=== PATIENT | female | born 1960 | race Caucasian/White ===

== ENCOUNTER 2017-07-14 12:28 | Emergency (ER) | payer MEDICAID ==
[2017-07-14 12:39] VITALS: BP 112/70; TEMP 98.1
[2017-07-14] MEDS ORDERED: HYDROCODONE/APAP 5/325 TAB PO ONE (13:06)
--- NOTE | 2017-07-14 13:07 | EDPHY ---
H & P Stated Complaint: Fell at home, now has back pain. Time Seen by Provider: 07/14/17 13:07 HPI/ROS: HPI: This is a 56-year-old female who presents with Chief Complaint: Lower back pain Location: lower back Quality: Pain Duration: Prior to arrival Signs and Symptoms: No bleeding, no radiation, no numbness, no weakness, no tingling, no incontinence, + decreased range of motion, no LOC, no syncope, no fevers, no dysuria, no chest pain Timing: Acute, worse with certain movements Severity: Moderate Context: Patient complains of lower back pain after she bent over to pick up driver her lifeline and upon standing became lightheaded, lost her balance and fell backward landing directly on her buttocks on the floor. She fell from a squatting position. Denies loss of consciousness. Denies hitting her head. She was able to get herself up off the floor and then activate her lifeline. She reports that she does have a history of what appears to be orthostatic hypotension as well as dizziness due to polypharmacy. She stated that she was careful getting out of bed this morning because of knowing she becomes dizzy easily. She denies urinary symptoms/fever/radiation/weakness/incontinence. She lives alone. Does take any blood thinners. History spinal stenosis. Modifying Factors: Tramadol no pain relief. Comment: ROS: Constitutional: No fever, no chills, no weight loss Eyes: No blurred vision Respiratory: No shortness of breath, no cough Cardiovascular: No chest pain Gastrointestinal: No nausea, no vomiting no diarrhea Genitourinary: No dysuria Extremities: No myalgias Neurologic: No weakness, no numbness Skin: No rashes Hematologic: No bruising, no bleeding Source: Patient Exam Limitations: No limitations - Personal History Current Tetanus Diphtheria and Acellular Pertussis (TDAP): No Tetanus Vaccine Date: Refuses vaccinations - Medical/Surgical History Hx Asthma: Yes Hx Chronic Respiratory Disease: Yes Hx Diabetes: No Hx Cardiac Disease: Yes Hx Renal Disease: No Hx Cirrhosis: No Hx Alcoholism: Yes Hx HIV/AIDS: No Hx Splenectomy or Spleen Trauma: No Other PMH: spinal stenosis, asthma, copd, seizures, ptsd, borderline personality disorder, heart attack in 2012 - Social History Smoking Status: Former smoker - Physical Exam Exam: CONSTITUTIONAL: Obese white female, awake and alert, no obvious distress HEENT: Atraumatic and normocephalic, PERRL, EOMI. Tympanic membranes clear. Oropharynx clear, no exudate and moist pink mucosa. Airway patent. No lymphadenopathy. No meningismus. Cardiovascular: Normal S1/S2, regular rate, regular rhythm, without murmur rub or gallop. PULMONARY/CHEST: Symmetrical and nontender. Clear to auscultation bilaterally. Good air movement. No accessory muscle usage. ABDOMEN: Soft, nondistended, nontender, no rebound, no guarding, no peritoneal signs, no masses or organomegaly. No CVAT. EXTREMITIES: 2/2 pulses, no deformities, no clubbing, no cyanosis or edema. Left leg mild weakness is chronic in nature per patient. BACK: No midline tenderness, mild bilateral lumbar paraspinous muscle reproducible tenderness, no paraspinous muscle spasm, deep tendon reflexes 2/2, mild pain with bilateral straight leg raise. NEUROLOGICAL: no focal neuro deficits. GCS 15. SKIN: Warm and dry, no erythema. no rash. Good capillary refill. Constitutional: Initial Vital Signs Temperature (C) 36.7 C 07/14/17 12:37 Heart Rate 77 07/14/17 12:37 Respiratory Rate 18 07/14/17 12:37 Blood Pressure 112/70 07/14/17 12:37 O2 Sat (%) 95 07/14/17 12:37 O2 Delivery Mode Room Air Allergies/Adverse Reactions: Penicillins Allergy (Unknown, Verified 07/25/16 21:11) acetaminophen [From Percocet] Allergy (Verified 07/25/16 21:11) Home Medications: Medication Instructions Recorded Ibuprofen [Motrin (*)] 800 mg PO TIDMEAL 11/07/14 Phenytoin Sodium Extended 200 mg PO BID 11/07/14 [Dilantin (*)] hydrOXYzine HCL [Hydroxyzine HCl] 25 - 50 mg PO HS PRN 11/07/14 traZODone [traZODONE 100MG (*)] 400 mg PO HS 11/07/14 Albuterol Sulfate [Albuterol 2 puffs IH Q4H PRN 11/08/14 Inhaler Hfa] Fluticasone/Salmeter 500/50Mcg 1 puffs IH BID 03/14/15 [Advair 500/50 (*)] Gabapentin [Neurontin 300 MG (*)] 300 - 600 mg PO DAILY 03/14/15 Gabapentin [Neurontin 300 MG (*)] 600 mg PO HS 03/14/15 Lisinopril [Zestril 5 mg (*)] 5 - 10 mg PO DAILY 03/14/15 Tiotropium Inhaler [Spiriva 1 inh IH DAILY 03/14/15 Inhaler (RX)] Tizanidine HCl [Zanaflex] 8 mg PO HS 03/14/15 Trifluoperazine HCl [Stelazine 2MG 2 mg PO BID PRN 03/14/15 (*)] Trifluoperazine HCl [Stelazine 5MG 5 mg PO HS 03/14/15 (*)] tiZANidine HCL [Zanaflex] 2 mg PO DAILY 03/14/15 LORazepam [Ativan (*)] 1 mg PO DAILY PRN #30 tab 03/16/15 oxyCODONE IR [Oxycodone Ir (*)] 5 - 10 mg PO Q6H PRN #45 tab 03/16/15 oxyCODONE HCL/ACETAMINOPHEN 1 each PO Q4 PRN #12 tablet 07/14/17 [Percocet 10-325 mg Tablet] Medical Decision Making - Diagnostics Imaging Results: Imaging Impressions Lumbar Spine X-Ray 07/14/17 13:07 Impression: Advanced multilevel lumbar degenerative disk disease. No acute fracture or subluxation identified. Sacrum and Coccyx X-Ray 07/14/17 13:07 Impression: 1. Negative for acute fracture. ED Course/Re-evaluation: X-ray and oral medication ordered Fall accidental in nature. No loss consciousness. Percocet originally listed on patient's medication allergy list; patient adamantly denies this. oral Percocet given with adequate relief. X-rays are reviewed via PACs my read and show no acute fracture, moderate degenerative disc disease at several levels, old healed superior pubic rami fracture noted. No signs of neurovascular compromise/tenting of skin/compartment syndrome/ extremities and joints examined above and below area of concern and are neurovascularly intact. Patient advises that she has muscle relaxer and Lidoderm patches at home. She has had MRI of her lumbar spine done several years ago. She declines to follow up with Neurosurgery. She prefers to follow up with her primary care provider and obtain MRI lumbar outpatient. She adamantly declines follow-up with pain management or anesthesia to determine lumbar ESTEBAN candidacy. Differential Diagnosis: Back pain including but not limited to muscular pain, herniated disc, spine fracture, intra-abdominal causes and urinary tract infection. - Data Points Medications Given: Lidocaine (Lidoderm 5%) 1 ea TD DAILY LILLY Stop: 01/11/18 08:59 Last Admin: 07/14/17 14:59 Dose: 1 ea Discontinued Medications Oxycodone HCl (Oxycodone Ir) 10 mg PO EDNOW ONE Stop: 07/14/17 13:16 Last Admin: 07/14/17 13:19 Dose: 10 mg Departure - Departure Disposition: Home, Routine, Self-Care Clinical Impression: Lumbar degenerative disc disease, Acute exacerbation of chronic low back pain Accidental fall Qualifiers: Encounter type: initial encounter Qualified Code(s): W19.XXXA - Unspecified fall, initial encounter Low back strain Qualifiers: Encounter type: initial encounter Qualified Code(s): S39.012A - Strain of muscle, fascia and tendon of lower back, initial encounter Condition: Good Instructions: Low Back Strain (ED), Degenerative Disc Disease (ED) Additional Instructions: Please follow up with her primary care provider and/or Neurosurgery if symptoms persist or worsen. You may benefit from MRI lumbar spine outpatient to further evaluate. The x-rays obtained in the emergency department today demonstrate no evidence of an obvious fracture. Sometimes fractures are not obvious on the initial set of x-rays performed in the ED. For this reason, you should have repeat x-rays performed in 7-10 days if you are having any pain exclude the possibility of an occult fracture. Referrals: Patient,NotPresent [Unknown] - As per Instructions Alex Bradshaw MD [Medical Doctor] - As per Instructions Prescriptions: oxyCODONE HCL/ACETAMINOPHEN [Percocet 10-325 mg Tablet] 1 each PO Q4 PRN #12 tablet PRN Reason: Pain, Moderate
[2017-07-14] MEDS: oxyCODONE IR 5 MG TAB PO ONE (13:19)
[2017-07-14] MEDS ORDERED: LIDOCAINE 5% 1 EA PATCH TD ONE (14:33)
[2017-07-14] MEDS: LIDOCAINE 5% 1 EA PATCH TD SCH (14:59)
[2017-07-14 15:02] VITALS: PULSE 82; RESP 20; O2SAT 94
--- NOTE | 2017-07-14 15:35 | ASMTCMCOM ---
CM Note CM Note Notes: Patient is in the ED with her case filler from [facility], Mary. Patient requesting a cab ride home because she says she can't be given a ride by Mary per [facility] policy. A Medicaid cab through [place] was scheduled to pick patient up at ED entrance. Patient ambulated to waiting room with Mary to wait for cab. CM available for further assistance. Date Signed: 07/14/2017 03:34 PM Electronically Signed By:Fela Bah RN
[2017-07-14] MEDS ORDERED: PATCH REMOVAL 1 EA PATCH TD SCH (21:00)
== END 2017-07-14 15:30 | disposition home or self-care (01) ==
LOC: EDUNIT#
DX: S39.012A Strain of muscle, fascia and tendon of lower back, initial encounter (principal); M51.36 Other intervertebral disc degeneration, lumbar region; G89.29 Other chronic pain; J44.9 Chronic obstructive pulmonary disease, unspecified; Z87.891 Personal history of nicotine dependence; W01.198A Fall on same level from slipping, tripping and stumbling with subsequent striking against other object, initial encounter

== ENCOUNTER 2017-07-16 11:53 | Emergency (ER) | payer MEDICAID ==
[2017-07-16 12:02] VITALS: TEMP 98.2
--- NOTE | 2017-07-16 12:18 | EDPHY ---
H & P Time Seen by Provider: 07/16/17 12:07 HPI/ROS: CHIEF COMPLAINT: Continued low back pain HISTORY OF PRESENT ILLNESS: The patient is a 56 y/o female arriving via EMS for back pain secondary to a fall 2 days ago. She has a history of chronic back pain and sciatica. She was initially seen here yesterday for low back pain due to the fall. Her lumbar spine and sacral x-ray's were negative for fractures. She was discharged home with a prescription for Percocet. She complains that she has only been able to sleep on one side and is having difficulty getting out of bed due to the pain. The patient reports that her PCP wants her to take something stronger than the Oxycodone she was prescribed yesterday. She also would like to avoid taking Tylenol. Denies chest pain, fevers, redness or severe swelling on her back or buttock, or other pertinent symptoms. REVIEW OF SYSTEMS: Aside from elements discussed in the HPI, a comprehensive 10-point review of systems was reviewed and is negative. 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 Smoking Status: Former smoker Physical Exam: General Appearance: Alert, obese, anxious, does not appear in pain while reclining Eyes: Pupils equal and round, no conjunctival pallor or injection ENT, Mouth: Mucous membranes moist Neck: Normal inspection Respiratory: Lungs are clear to auscultation Cardiovascular: Regular rate and rhythm Gastrointestinal: Abdomen is soft and non-tender Back: Diffuse tenderness to lumbar back, no localized back tenderness Neurological: A&O, motor 5/5, slow and steady gait Skin: Warm and dry, no rash Extremities: Nontender, no pedal edema Psychiatric: Anxious Constitutional: Initial Vital Signs Temperature (C) 36.8 C 07/16/17 11:58 Heart Rate 89 07/16/17 11:58 Respiratory Rate 14 07/16/17 11:58 Blood Pressure 160/108 H 07/16/17 11:58 O2 Sat (%) 95 07/16/17 11:58 O2 Delivery Mode Room Air Allergies/Adverse Reactions: Penicillins Allergy (Unknown, Verified 07/25/16 21:11) acetaminophen [From Percocet] Allergy (Verified 07/25/16 21:11) Home Medications: Medication Instructions Recorded Ibuprofen [Motrin (*)] 800 mg PO TIDMEAL 11/07/14 Phenytoin Sodium Extended 200 mg PO BID 11/07/14 [Dilantin (*)] hydrOXYzine HCL [Hydroxyzine HCl] 25 - 50 mg PO HS PRN 11/07/14 traZODone [traZODONE 100MG (*)] 400 mg PO HS 11/07/14 Albuterol Sulfate [Albuterol 2 puffs IH Q4H PRN 11/08/14 Inhaler Hfa] Fluticasone/Salmeter 500/50Mcg 1 puffs IH BID 03/14/15 [Advair 500/50 (*)] Gabapentin [Neurontin 300 MG (*)] 300 - 600 mg PO DAILY 03/14/15 Gabapentin [Neurontin 300 MG (*)] 600 mg PO HS 03/14/15 Lisinopril [Zestril 5 mg (*)] 5 - 10 mg PO DAILY 03/14/15 Tiotropium Inhaler [Spiriva 1 inh IH DAILY 03/14/15 Inhaler (RX)] Tizanidine HCl [Zanaflex] 8 mg PO HS 03/14/15 Trifluoperazine HCl [Stelazine 2MG 2 mg PO BID PRN 03/14/15 (*)] Trifluoperazine HCl [Stelazine 5MG 5 mg PO HS 03/14/15 (*)] tiZANidine HCL [Zanaflex] 2 mg PO DAILY 03/14/15 LORazepam [Ativan (*)] 1 mg PO DAILY PRN #30 tab 03/16/15 oxyCODONE IR [Oxycodone Ir (*)] 5 - 10 mg PO Q6H PRN #45 tab 03/16/15 oxyCODONE HCL/ACETAMINOPHEN 1 each PO Q4 PRN #12 tablet 07/14/17 [Percocet 10-325 mg Tablet] Oxycodone HCl [Dazidox] 10 mg PO Q6 PRN #15 tablet 07/16/17 Medical Decision Making ED Course/Re-evaluation: The patient is a 56 y/o female arriving via EMS for continued low back pain secondary to a fall two days ago. She was seen in this ED yesterday for the same symptoms. There were no acute findings on her lumbar or sacral x-rays. On exam she has diffuse lumbar tenderness to palpation, with no localized tenderness. She is here today because she believes she needs a stronger pain medication than the 10mg PO Oxycodone she was prescribed yesterday. Prior medical records reviewed including ED visit on 07/15/17 with Oliva RAZA. After some consideration, I decided to give this patient oxycodone 10 mg tablets. I told her that we would not prescribe stronger medications in the emergency department and we would not provide further narcotics for this low back pain. She is a very challenging patient and I think that without a narcotic prescription today, she would likely insist on being admitted to the hospital. I have also advised her to take ibuprofen 3 times a day. She has been referred to her primary care provider for a followup visit. Return precautions discussed; patient is comfortable with this plan. Differential Diagnosis: Differential diagnosis for back pain includes muscular pain, herniated disc, epidural abscess, discitis, spine fracture, intra-abdominal causes and urinary tract infection. - Data Points Medications Given: Discontinued Medications Lidocaine (Lidoderm 5%) 1 ea TD EDNOW ONE Stop: 07/16/17 12:33 Last Admin: 07/16/17 12:43 Dose: 1 ea Oxycodone HCl (Oxycodone Ir) 10 mg PO EDNOW ONE Stop: 07/16/17 12:34 Last Admin: 07/16/17 12:44 Dose: 10 mg Departure - Departure Disposition: Home, Routine, Self-Care Clinical Impression: Low back pain Qualifiers: Chronicity: unspecified Back pain laterality: unspecified Sciatica presence: unspecified whether sciatica present Qualified Code(s): M54.5 - Low back pain Condition: Good Instructions: Acute Low Back Pain (ED), Chronic Back Pain (ED), Back Pain (ED) Additional Instructions: 1. Take ibuprofen 3 times a day for pain. 2. Take Oxycodone as needed for severe pain. You can take 1.5 tablet at a time if needed. 3. Follow up with your primary care provider in the next 1-3 days. 4. Return to the ED for severe worsening of your pain. Referrals: Alma Manjarrez MD [Primary Care Provider] - As per Instructions Prescriptions: Oxycodone HCl [Dazidox] 10 mg PO Q6 PRN #15 tablet PRN Reason: severe pain Report Scribed for: Sarah Guthrie Report Scribed by: Cinthia Reeves Date of Report: 07/16/17 Time of Report: 12:15 Physician Review and Approval Statement: 07/16/17 12:15 Portions of this note were transcribed by a medical research associate. I personally performed a history, physical exam, medical decision making, and confirmed accuracy of information the transcribed note.
[2017-07-16] MEDS ORDERED: LIDOCAINE 5% 1 EA PATCH TD ONE (12:32)
[2017-07-16] MEDS ORDERED: oxyCODONE IR 5 MG TAB PO ONE (12:33)
[2017-07-16 12:52] VITALS: O2SAT 95
[2017-07-16 12:53] VITALS: BP 164/110; PULSE 84; RESP 16
[2017-07-16] MEDS ORDERED: PATCH REMOVAL 1 EA PATCH TD SCH (21:00)
== END 2017-07-16 12:53 | disposition home or self-care (01) ==
LOC: EDUNIT#
DX: M54.5 Low back pain (principal); J44.9 Chronic obstructive pulmonary disease, unspecified; Z87.891 Personal history of nicotine dependence

== ENCOUNTER → 2017-10-09 | Outpatient (CLI) | payer MEDICAID | LOC: FIMAGING 12:31 | PROVIDERS: ATTEND Family Medicine | DX: M51.36 Other intervertebral disc degeneration, lumbar region (principal); M46.96 Unspecified inflammatory spondylopathy, lumbar region; M51.35 Other intervertebral disc degeneration, thoracolumbar region; M48.061 Spinal stenosis, lumbar region without neurogenic claudication ==

== ENCOUNTER 2017-11-21 22:45 | Inpatient (IN) | payer MEDICAID ==
[2017-11-21] MEDS ORDERED: DIAZEPAM 10 MG/2 ML SYR IVP ONE (23:21)
--- NOTE | 2017-11-21 23:24 | EDPHY ---
H & P Time Seen by Provider: 11/21/17 22:50 HPI/ROS: CHIEF COMPLAINT: Back pain HISTORY OF PRESENT ILLNESS: 57-year-old female presents to the emergency department by ambulance complaining of severe back pain. The patient has a history of chronic back pain. She was prescribed oxycodone 5-10 mg three times daily. This was stopped by her primary care provider 48 hr ago. The patient has a history did degenerative changes as well as a subacute L1 compression fracture. She had an MRI 5 weeks ago. She has not followed up with her primary care provider or been referred to neurosurgeon. Denies bowel or bladder incontinence. She states that she is having trouble urinating. She feels that it is likely because she is constipated but she also states "I just can't get the pee out." No chest pain or difficulty breathing. Patient fell in June 2017. REVIEW OF SYSTEMS: Constitutional: No fever, no chills. Eyes: No double or blurry vision. ENT: No sore throat. Respiratory: No cough, no shortness of breath. Cardiac: No chest pain. Gastrointestinal: No abdominal pain, vomiting or diarrhea. Genitourinary: No dysuria. Musculoskeletal: Back pain as above Skin: No rashes. Neurological: No headache. Past Medical/Surgical History: Spinal stenosis, chronic back pain, asthma, COPD, seizure, PTSD, borderline personality disorder, myocardial infarction 2012, orthopedic surgery Social History: Single and lives alone Smoking Status: Former smoker Physical Exam: General Appearance: Alert, no distress. Patient lying supine. Eyes: Pupils equal and round. Extraocular motions are all intact. ENT: Mouth: Mucous membranes moist. Respiratory: No wheezing, rhonchi, or rales, lungs are clear to auscultation. Cardiovascular: Regular rate and rhythm. Gastrointestinal: Abdomen is soft and nontender, no masses, no rebound or guarding, bowel sounds normal. Neurological: Alert and oriented x 3, cranial nerves II through XII grossly intact Skin: Warm and dry, no rashes. Musculoskeletal: Full range of motion of her neck. Unable to palpate along thoracic or lumbar spine as she is lying supine and states that she is unable to move. Extremities: Full range of motion and no peripheral edema. Straight leg raise is negative bilaterally however. Reflexes are 1+ and equal for extremities bilaterally. Normal and equal strength for the lower extremities bilaterally. Psychiatric: Patient is oriented X 3, there is no agitation. Constitutional: Initial Vital Signs Temperature (C) 37.1 C 11/21/17 23:02 Heart Rate 79 11/21/17 23:02 Respiratory Rate 18 11/21/17 23:02 Blood Pressure 123/79 H 11/21/17 23:02 O2 Sat (%) 99 11/21/17 23:02 O2 Delivery Mode Nasal Cannula O2 (L/minute) 4 Allergies/Adverse Reactions: Penicillins Allergy (Unknown, Verified 07/25/16 21:11) acetaminophen [From Percocet] Allergy (Verified 07/25/16 21:11) Home Medications: Medication Instructions Recorded Ibuprofen [Motrin (*)] 800 mg PO TIDMEAL 11/07/14 Phenytoin Sodium Extended 200 mg PO BID 11/07/14 [Dilantin (*)] hydrOXYzine HCL [Hydroxyzine HCl] 25 - 50 mg PO HS PRN 11/07/14 traZODone [traZODONE 100MG (*)] 400 mg PO HS 11/07/14 Albuterol Sulfate [Albuterol 2 puffs IH Q4H PRN 11/08/14 Inhaler Hfa] Fluticasone/Salmeter 500/50Mcg 1 puffs IH BID 03/14/15 [Advair 500/50 (*)] Gabapentin [Neurontin 300 MG (*)] 300 - 600 mg PO DAILY 03/14/15 Gabapentin [Neurontin 300 MG (*)] 600 mg PO HS 03/14/15 Lisinopril [Zestril 5 mg (*)] 5 - 10 mg PO DAILY 03/14/15 Tiotropium Inhaler [Spiriva 1 inh IH DAILY 03/14/15 Inhaler (RX)] Tizanidine HCl [Zanaflex] 8 mg PO HS 03/14/15 Trifluoperazine HCl [Stelazine 2MG 2 mg PO BID PRN 03/14/15 (*)] Trifluoperazine HCl [Stelazine 5MG 5 mg PO HS 03/14/15 (*)] tiZANidine HCL [Zanaflex] 2 mg PO DAILY 03/14/15 LORazepam [Ativan (*)] 1 mg PO DAILY PRN #30 tab 03/16/15 oxyCODONE IR [Oxycodone Ir (*)] 5 - 10 mg PO Q6H PRN #45 tab 03/16/15 oxyCODONE HCL/ACETAMINOPHEN 1 each PO Q4 PRN #12 tablet 07/14/17 [Percocet 10-325 mg Tablet] Oxycodone HCl [Dazidox] 10 mg PO Q6 PRN #15 tablet 07/16/17 Medical Decision Making - Diagnostics Imaging Results: Imaging Impressions Lumbar Spine X-Ray 11/21/17 23:33 Impression: Subacute mild L1 compression fracture has not significantly changed since 6 weeks prior. Imaging: I viewed and interpreted images myself ED Course/Re-evaluation: 57-year-old female history of chronic low back pain presents to the emergency department with severe pain. Patient abruptly stopped her oxycodone 5 mg 2 days ago. She has a history of L1 compression fracture. Patient was given 5 mg IV Valium. Lumbar spine x-rays pending. X-rays of the lumbar spine reveal L1 compression fracture. This is reviewed by the radiologist who feels that this is unchanged from MRI 6 weeks prior. Patient was given IV Dilaudid, IV Toradol for pain. Patient was unable to sit upper use bedside commode. She did not tolerate bed pain. I think the patient requires admission to the hospital given her acutely worsened pain and now difficulty getting around at home on her own. She has been lying in bed for 15 hr daily for the last several days because she is unable to move around without assistance. I did explain to the patient that she may require long-term assistance in a fdc facility. I do not any other imaging studies are indicated at this time Patient will be admitted to Dr. Zurita, hospitalist. Differential Diagnosis: Back pain including but not limited to muscular pain, herniated disc, spine fracture, intra-abdominal causes and urinary tract infection. - Data Points Laboratory Results: Laboratory Results 11/22/17 00:20 11/22/17 00:20 11/22/17 11/22/17 00:20 00:20 WBC 9.43 10^3/uL 10^3/uL (3.80-9.50) RBC 4.66 10^6/uL 10^6/uL (4.18-5.33) Hgb 15.0 g/dL g/dL (12.6-16.3) Hct 44.4 % % (38.0-47.0) MCV 95.3 fL fL (81.5-99.8) MCH 32.2 pg pg (27.9-34.1) MCHC 33.8 g/dL g/dL (32.4-36.7) RDW 14.6 % % (11.5-15.2) Plt Count 296 10^3/uL 10^3/uL (150-400) MPV 10.4 fL fL (8.7-11.7) Neut % (Auto) 61.9 % % (39.3-74.2) Lymph % (Auto) 28.2 % % (15.0-45.0) [place] % (Auto) 7.8 % % (4.5-13.0) Eos % (Auto) 1.0 % % (0.6-7.6) Baso % (Auto) 0.8 % % (0.3-1.7) Nucleat RBC Rel Count 0.0 % % (0.0-0.2) Absolute Neuts (auto) 5.83 10^3/uL 10^3/uL (1.70-6.50) Absolute Lymphs (auto) 2.66 10^3/uL 10^3/uL (1.00-3.00) Absolute Monos (auto) 0.74 10^3/uL 10^3/uL (0.30-0.80) Absolute Eos (auto) 0.09 10^3/uL 10^3/uL (0.03-0.40) Absolute Basos (auto) 0.08 10^3/uL 10^3/uL (0.02-0.10) Absolute Nucleated RBC 0.00 10^3/uL 10^3/uL (0-0.01) Immature Gran % 0.3 % % (0.0-1.1) Immature Gran # 0.03 10^3/uL 10^3/uL (0.00-0.10) Sodium 143 mEq/L mEq/L (135-145) Potassium 3.9 mEq/L mEq/L (3.5-5.2) Chloride 107 mEq/L mEq/L (97-110) Carbon Dioxide 24 mEq/l mEq/l (22-31) Anion Gap 12 mEq/L mEq/L (8-16) BUN < 2 mg/dL L mg/dL (7-23) Creatinine 0.6 mg/dL mg/dL (0.6-1.0) Estimated GFR > 60 Glucose 84 mg/dL mg/dL (70-100) Calcium 9.3 mg/dL mg/dL (8.5-10.4) Medications Given: Discontinued Medications Diazepam (Valium) 5 mg IVP EDNOW ONE Stop: 11/21/17 23:22 Last Admin: 11/21/17 23:41 Dose: 5 mg Hydromorphone HCl (Dilaudid) 0.5 mg IVP EDNOW ONE Stop: 11/22/17 00:21 Last Admin: 11/22/17 00:31 Dose: 0.5 mg Ketorolac Tromethamine (Toradol) 30 mg IVP EDNOW ONE Stop: 11/22/17 00:51 Last Admin: 11/22/17 01:07 Dose: 30 mg Departure - Departure Disposition: [facility] Inpatient Acute Clinical Impression: Compression fracture of L1 lumbar vertebra Qualifiers: Encounter type: initial encounter Fracture type: closed Qualified Code(s): S32.010A - Wedge compression fracture of first lumbar vertebra, initial encounter for closed fracture Back pain Qualifiers: Back pain location: low back pain Chronicity: unspecified Back pain laterality : unspecified Sciatica presence: without sciatica Qualified Code(s): M54.5 - Low back pain Condition: Fair
[2017-11-22] MEDS ORDERED: HYDROmorphONE/DILAUDID 1 MG/ML INJ IVP ONE ×2 (00:20→01:28)
[2017-11-22 00:43] LABS: PLATELET COUNT 296 10^3/uL (150-400)
[2017-11-22] MEDS ORDERED: KETOROLAC 30 MG/1 ML SDV IVP ONE (00:50)
[2017-11-22] MEDS ORDERED: POLYETHYLENE GLYCOL 3350 17 GM PKT PO PRN (02:40)
[2017-11-22] MEDS ORDERED: ALBUTEROL 3 ML DEYVIAL IH PRN (02:40)
[2017-11-22] MEDS ORDERED: ACETAMINOPHEN 325 MG TAB PO PRN (02:40)
[2017-11-22] MEDS ORDERED: BISACODYL 10 MG SUPP PR PRN (02:40)
[2017-11-22] MEDS ORDERED: LACTULOSE 20 GM/30 ML UDCUP PO PRN (02:40)
[2017-11-22] MEDS: LORazepam 0.5 MG TAB PO PRN ×2 (03:32→21:24)
[2017-11-22] MEDS: oxyCODONE IR 5 MG TAB PO PRN ×4 (03:39→21:23)
--- NOTE | 2017-11-22 03:47 | PDGENHP ---
History and Physical - Chief Complaint back pain "I couldn't walk." - History of Present Illness Source - patient provides history and is fair historian. Case discussed with ED provider and EMR reviewed. HPI - pleasant 57-year-old female with past medical history significant for degenerative disc disease, moderate spinal stenosis lumbar spine, chronic back pain, anxiety disorder, PTSD, COPD, recurrent falls who presents to the emergency department today with complaints of acute on chronic low back pain. This afternoon patient reports that she is had received a new bed. In her attempts to get up on the bed patient reports that she raised her right leg and developed sudden severe lower back pain that radiated "a "everywhere ." Patient reports that over the last several days to week she has had progressively worsening symptoms which have severely limited her mobility. Patient states that she has been lying in bed 16 or more hours per day only getting up to go to the bathroom with severe pain. Patient reports in the last several days she has had increasing difficulties emptying her bladder. She has been decreasing her oral intake of fluids to minimize the number of times she has to use the restroom. She denies any fecal incontinence or retention however. Patient reports chronic neuropathy in the left leg with sciatica for the last several years. She cannot recall any specific injuries at time of onset of the symptoms. The pain and weakness she reports in her right leg is more acute. Patient reports that her range of motion is more significantly limited in the right lower extremity compared to the left secondary to increased severity of pain. Patient denies any fevers or chills. Patient previously on chronic opiate therapy for her chronic back pain. Two days ago she was not able to get a refill of her prescription. Patient reports over the last several weeks to months she has had severely limited mobility and no transportation and so has not had any subsequent follow up with her PCP or with Neurosurgery. Patient did have an MRI completed 10/12/2018 which is in [facility]. It did note multi level degenerative changes, a subacute L1 any per compression fracture and a moderate spinal stenosis at T12-L1 and severe stenosis L4-5 with neural foraminal stenosis. In the emergency department, patient was reporting severe pain and in tears whenever she attempted to sit up. Patient was complaining of urinary retention that was acute. Bladder scan was noted to have 250 mL of urine. A straight cath was performed and similar amount of urine was removed. Patient received several doses of Dilaudid and Valium with some improvement in her pain but still with decreased range of motion per patient. History Information - Allergies/Home Medication List Allergies/Adverse Reactions: Penicillins Allergy (Unknown, Verified 07/25/16 21:11) Home Medications: Ibuprofen [Motrin (*)] 800 mg PO TIDMEAL 11/07/14 [Last Taken 03/13/15] Phenytoin Sodium Extended [Dilantin (*)] 200 mg PO BID 11/07/14 [Last Taken ] hydrOXYzine HCL [Hydroxyzine HCl] 25 - 50 mg PO HS PRN 11/07/14 [Last Taken ] traZODone [traZODONE 100MG (*)] 400 mg PO HS 11/07/14 [Last Taken 03/13/15] Albuterol Sulfate [Albuterol Inhaler Hfa] 2 puffs IH Q4H PRN 11/08/14 [Last Taken Unknown] Fluticasone/Salmeter 500/50Mcg [Advair 500/50 (*)] 1 puffs IH BID 03/14/15 [ Last Taken 03/13/15] Gabapentin [Neurontin 300 MG (*)] 300 - 600 mg PO DAILY 03/14/15 [Last Taken ] Gabapentin [Neurontin 300 MG (*)] 600 mg PO HS 03/14/15 [Last Taken 03/13/15] Lisinopril [Zestril 5 mg (*)] 5 - 10 mg PO DAILY 03/14/15 [Last Taken Unknown] Tiotropium Inhaler [Spiriva Inhaler (RX)] 1 inh IH DAILY 03/14/15 [Last Taken ] Tizanidine HCl [Zanaflex] 8 mg PO HS 03/14/15 [Last Taken 03/13/15] Trifluoperazine HCl [Stelazine 2MG (*)] 2 mg PO BID PRN 03/14/15 [Last Taken ] Trifluoperazine HCl [Stelazine 5MG (*)] 5 mg PO HS 03/14/15 [Last Taken 03/14/15 ] tiZANidine HCL [Zanaflex] 2 mg PO DAILY 03/14/15 [Last Taken 03/13/15] I have personally reviewed and updated: family history, medical history, social history, surgical history - Past Medical History degenerative disc disease, hypertension Additional medical history: Chronic low back pain with sciatica. Degenerative disc disease, spinal stenosis. L1 compression fracture with history of recurrent falls. PTSD, anxiety disorder, personality disorder per chart borderline personality. COPD, asthma. CAD with reported [place] in 2011. Patient unclear on details for this diagnosis. History of seizures possibly alcohol withdrawal. Left humeral fracture. Neuropathy in the left lower extremity with complaints of left footdrop - Surgical History Additional surgical history: Tonsillectomy adenoidectomy. Orthopedic surgery - Family History Additional family history: Unknown. Patient is adopted. - Social History Smoking Status: Former smoker (Listed in EMR however patient adamantly denies any history) Tobacco Use: Secondhand Alcohol Use: Occasionally (Patient reports drinking several times weekly. Previous history of heavy alcohol use and possible withdrawal seizures.) Drug Use: None Review of Systems Review of Systems: ROS: 10pt was reviewed & negative except for what was stated in HPI & below Physical Exam Physical Exam: Selected Entries 11/21/17 23:02 Blood Pressure Automatic Method Heart Rate 79 Respiratory 18 Rate O2 Sat (%) 99 Temperature (C) 37.1 C Blood Pressure 123/79 H Mean Arterial 93 Pressure (MAP) O2 Delivery Room Air Mode Temperature Oral Source Temp Pulse Resp BP Pulse Ox 36.8 C 81 16 155/93 H 94 11/22/17 02:20 11/22/17 02:20 11/22/17 02:20 11/22/17 02:20 11/22/17 02:20 Constitutional: no apparent distress, appears nourished, chronically ill appearing, obese, other (NAD. Patient seen on the floor resting still an quietly in bed. Obese. Appears older than stated age.) Eyes: PERRL, anicteric sclera, EOMI Ears, Nose, Mouth, Throat: poor dentition (Multiple missing dentition in poor repair), dry mucous membranes, other (No nasal discharge) Cardiovascular: regular rate and rhythym, no murmur, rub, or gallop, systolic murmur, edema (2+ pitting edema.) Peripheral Pulses: 1+: dorsalis-pedis (R), dorsalis-pedis (L) Respiratory: no respiratory distress, no rales or rhonchi, clear to auscultation Gastrointestinal: normoactive bowel sounds, soft, non-tender abdomen, no palpable masses, other (Obese abdomen. Soft but full of stool.) Genitourinary: no bladder tenderness, No wilson in urethra Skin: warm, normal color, no rashes or abrasions, No rash Musculoskeletal: pain with ROM Neurologic: AAOx3, weakness (bilateral lower extremities), numbness (bilateral lower extremities L entire lower leg, right distally. straight leg testing limited 2/2 patient cooperation and c/o pain. Patient also declined to turn to her side 2/2 pain. rectal exam for tone deferred for this reason.) Psychiatric: thought process linear, anxious, depressed, agitated, poor insight , No poor memory Lab Data & Imaging Review 11/22/17 00:20 11/22/17 00:20 WBC 9.43 10^3/uL (3.80-9.50) 11/22/17 00:20 RBC 4.66 10^6/uL (4.18-5.33) 11/22/17 00:20 Hgb 15.0 g/dL (12.6-16.3) 11/22/17 00:20 Hct 44.4 % (38.0-47.0) 11/22/17 00:20 MCV 95.3 fL (81.5-99.8) 11/22/17 00:20 MCH 32.2 pg (27.9-34.1) 11/22/17 00:20 MCHC 33.8 g/dL (32.4-36.7) 11/22/17 00:20 RDW 14.6 % (11.5-15.2) 11/22/17 00:20 Plt Count 296 10^3/uL (150-400) 11/22/17 00:20 MPV 10.4 fL (8.7-11.7) 11/22/17 00:20 Neut % (Auto) 61.9 % (39.3-74.2) 11/22/17 00:20 Lymph % (Auto) 28.2 % (15.0-45.0) 11/22/17 00:20 Kingfisher % (Auto) 7.8 % (4.5-13.0) 11/22/17 00:20 Eos % (Auto) 1.0 % (0.6-7.6) 11/22/17 00:20 Baso % (Auto) 0.8 % (0.3-1.7) 11/22/17 00:20 Nucleat RBC Rel Count 0.0 % (0.0-0.2) 11/22/17 00:20 Absolute Neuts (auto) 5.83 10^3/uL (1.70-6.50) 11/22/17 00:20 Absolute Lymphs (auto) 2.66 10^3/uL (1.00-3.00) 11/22/17 00:20 Absolute Monos (auto) 0.74 10^3/uL (0.30-0.80) 11/22/17 00:20 Absolute Eos (auto) 0.09 10^3/uL (0.03-0.40) 11/22/17 00:20 Absolute Basos (auto) 0.08 10^3/uL (0.02-0.10) 11/22/17 00:20 Absolute Nucleated RBC 0.00 10^3/uL (0-0.01) 11/22/17 00:20 Immature Gran % 0.3 % (0.0-1.1) 11/22/17 00:20 Immature Gran # 0.03 10^3/uL (0.00-0.10) 11/22/17 00:20 Sodium 143 mEq/L (135-145) 11/22/17 00:20 Potassium 3.9 mEq/L (3.5-5.2) 11/22/17 00:20 Chloride 107 mEq/L (97-110) 11/22/17 00:20 Carbon Dioxide 24 mEq/l (22-31) 11/22/17 00:20 Anion Gap 12 mEq/L (8-16) 11/22/17 00:20 BUN < 2 mg/dL (7-23) L 11/22/17 00:20 Creatinine 0.6 mg/dL (0.6-1.0) 11/22/17 00:20 Estimated GFR > 60 11/22/17 00:20 Glucose 84 mg/dL (70-100) 11/22/17 00:20 Calcium 9.3 mg/dL (8.5-10.4) 11/22/17 00:20 Imaging Review: Lumbar Spine, Two Views Indication: Pain. Known L1 compression fracture. Comparison: MRI lumbar spine dated October 09, 2017 Technique: Upright AP and lateral views. Findings: The mild subacute L1 compression fracture has not significantly changed in degree of height loss since its weeks prior. No retropulsed fracture fragment has developed. No new compression fracture. Moderate multilevel degenerative disk disease worse at the L3-L4 and L4-L5 levels is unchanged. Bowel gas pattern within normal limit. Lung bases clear. Impression: Subacute mild L1 compression fracture has not significantly changed since 6 weeks prior. 10/12/2017 MRI of the Lumbar Spine (Without Contrast) Indication: M53.9 Multilevel degenerative disk disease. Technique: Sagittal and axial T1 and T2 , and sagittal STIR MR sequences of the lumbar spine without contrast. Axial imaging from T12 through S2. Comparison: Lumbar spine series dated July 04, 2017 Findings: A subacute mild L1 compression fracture is new since June 2017. The vertebral body has approximately 30% height loss. The superior two thirds of the bone marrow signal has diffuse hyperintense edema and fluid interfacing with the T12-L1 disk. Fracture plane along the inferior aspect of L1 is best demonstrated on the sagittal T2 sequence. No involvement of the pedicles or posterior elements. The remainder of the lumbar spine is normal with no other fractures or bone marrow replacing lesions. The conus medullaris resides at L1. The spinal canal has mild congenital narrowing. The abdominal aorta is normal in caliber. No retroperitoneal mass or paraspinal fluid collection. A large partially visualized uterine leiomyoma emanating off the anterior body of the uterus measures at least 8 x 5 cm. T12-L1: Diffuse broad-based osteophyte disk bulge and minimal posterior bulge of the L1 cortex, results in moderate central canal narrowing and moderate bilateral neural foraminal stenosis. The central canal measures 8 mm AP. The bulge abuts, yet does not deform or compress the conus medullaris. L1-L2: Minimal disk desiccation. No central canal or neural foraminal stenosis. Mild facet hypertrophy. L2-L3: Disk desiccation combined with diffuse broad-based disk bulge and facet hypertrophy results in mild central canal narrowing, mild right and moderate left neural foraminal stenosis. L3-L4: Disk desiccation with associated uncovertebral and facet spurs, results in mild central canal narrowing, mild bilateral ventrolateral recess narrowing, moderate to severe right and mild to moderate left neural foraminal stenosis. L4-L5: Disk desiccation with diffuse broad-based osteophyte disk complex and facet hypertrophy, results in moderate to severe central canal narrowing, severe left and moderate right ventrolateral recess narrowing, and severe left and mild right neural foraminal stenosis. The exiting left L4 nerve root is compressed and deformed as it courses through the neural foramen. L5-S1: Minimal disk desiccation. Central canal and neural foramina are widely patent, despite mild facet hypertrophy. Impression: 1. Subacute mild L1 compression fracture (new since June 2017). 2. Moderate central canal narrowing at T12-L1, due to broad-based osteophyte disk complex and facet hypertrophy. 3. L4-L5: Moderate to severe central canal narrowing and severe left neural foraminal stenosis, likely affecting the exiting left L4 nerve root. 4. Incompletely evaluated suspected large uterine leiomyoma. Visualized and Interpreted imaging results: Yes Assessment & Plan Assessment: Assessment plan: 57-year-old female with history of chronic low back pain, degenerative disc disease, spinal stenosis who presents to the emergency department with complaints of progressive and worsening lower back pain. # intractable back pain-patient with MRI completed in September noting significant multilevel degenerative disc disease, subacute L1 compression fracture, moderate spinal stenosis T12-L1 and severe spinal stenosis L4 and L5. Patient reporting some slowly progressive urinary retention. She states that she has only been able to have some dribbling. Bladder scan was significant for 250 mL of urine he Dispo straight cath. Oral intake secondary to increased pain with mobilization so she had been on avoiding having to go to the restroom. She denies any fecal incontinence or retention. Patient resting quietly in her bed at time of interview. She has decreased range of motion of her lower extremities with complaints of increasing back pain. Exam is limited as patient declines to fully participate with exam complaining of severe pain. Will attempt to treat her pain with oral medications including Ativan, oxycodone , tizanidine, gabapentin. Given noted findings on recent MRI consider consultation in the morning with Neurosurgery for further evaluation as per day team. PT/OT and mobilize. # L1 compression fracture-subacute in nature. NS consult as above. Patient's lower back pain appears to be below this level however. # degenerative disk disease # acute urinary retention - patient with declined oral intake over the last several days in prolonged bed rest at home. Additionally she has chronically been on narcotics and gone without for the last 2 days. Will continue to bladder scan and straight cath p.r.n. NS consult in a.m. as above. Chronic medical problems - benign essential hypertension-blood pressures at this time are acceptable. Patient to continue lisinopril. - COPD/asthma- albuterol p.r.n.. Continue Spiriva and Advair or as per formulary. - anxiety and PTSD-continue hydroxyzine and trifluoperazine - seizure disorder-continue Dilantin - CAD-patient is not on any aspirin or statin therapy. There is question of patient's diagnosed she has never had a cath. - falls-bed alarm fall precautions. FEN - patient declines IV fluids and is trying to minimize amount of oral intake secondary to pain with getting up to try to use the bathroom. Electrolytes will be monitored replace if needed. Patient will be on a diet. PPX - SCDs. holding anticoagulation pending NS evaluation COR - FULL Dispo - Admit to observation at this time on med/surge.
[2017-11-22 05:10] LABS: PLATELET COUNT 251 10^3/uL (150-400)
[2017-11-22 05:34] LABS: CREATINE KINASE 82 IU/L (0-156)
[2017-11-22] MEDS: IPRATROPIUM/ALBUTEROL 3 ML DEYVIAL IH SCH ×4 (05:53→22:24)
[2017-11-22] MEDS: SENNOSIDES/DOCUSATE SODIUM TAB PO SCH ×2 (09:08→21:27)
[2017-11-22] MEDS ORDERED: traMADol 50 MG TAB PO PRN (13:34)
[2017-11-22] MEDS ORDERED: LORazepam 1 MG TAB PO PRN (13:34)
[2017-11-22] MEDS ORDERED: FLUTICASONE/SALMETER 500/50MCG DISKUS IH PRN (13:34)
[2017-11-22] MEDS ORDERED: LOPERAMIDE HCL 2 MG CAP PO PRN (13:34)
[2017-11-22] MEDS ORDERED: LIDOCAINE 5% 1 EA PATCH TD SCH ×3 (14:00→15:00)
--- NOTE | 2017-11-22 14:05 | HOSPPROG ---
Hospitalist Progress Note Assessment/Plan: # low back pain, spinal stenosis, foraminal stenosis, L1 compr fx - nsg consult - discussed with Dr Harper - pain control with toradol, lidoderm, oxy PO, gabapentin - cont ativan, tizanidine # urinary retention - may be related to above vs narcotics # anxiety/PTSD - playing a role in her presentation # htn - atenolol, losartan # COPD - inhalers # possible seizure d/o - not on anti-epileptics # possible CAD - not on treatment Objective: Vital Signs Temp Pulse Resp BP Pulse Ox 37 C 81 18 152/90 H 93 11/22/17 08:00 11/22/17 02:20 11/22/17 08:00 11/22/17 08:00 11/22/17 08:00 Laboratory Results 11/22/17 04:59 11/22/17 04:59 11/21/17 11/22/17 11/23/17 05:59 05:59 05:59 Intake Total 0 Output Total 700 50 Balance -700 -50 ICD10 Worksheet Patient Problems: Problems Problem Status Onset Humerus fracture Acute Compression fracture of L1 lumbar vertebra Acute Back pain Acute
[2017-11-22] MEDS: LIDOCAINE 5% 1 EA PATCH TD SCH (16:10)
[2017-11-22] MEDS: KETOROLAC 15 MG/1 ML SDV IVP SCH ×2 (17:49→23:20)
[2017-11-22] MEDS: FAMOTIDINE 20 MG TAB PO SCH ×2 (18:33)
[2017-11-22] MEDS ORDERED: PATCH REMOVAL 1 EA PATCH TD SCH (21:00)
[2017-11-22] MEDS ORDERED: NON-FORMULARY NEW DRUG (Ranitidine Hcl [Ranitidine Hcl] 150 MG) PO SCH (21:00)
[2017-11-22] MEDS ORDERED: TIZANIDINE HCL PO SCH (21:00)
[2017-11-22] MEDS: GABAPENTIN 300 MG CAP PO SCH (21:23)
[2017-11-22] MEDS: LOSARTAN POTASSIUM 50 MG TAB PO SCH (21:24)
[2017-11-22] MEDS: ATENOLOL 50 MG TAB PO SCH (21:25)
[2017-11-22] MEDS: PATCH REMOVAL 1 EA PATCH TD SCH (21:25)
[2017-11-22] MEDS: tiZANidine HCL 2 MG TAB PO SCH (21:26)
[2017-11-22] MEDS: traZODone 100 MG TAB PO SCH (21:33)
[2017-11-22] MEDS: ONDANSETRON 4 MG/2 ML VIAL IVP PRN (21:56)
[2017-11-22] MEDS ORDERED: IPRATROPIUM/ALBUTEROL 3 ML DEYVIAL IH PRN (22:37)
[2017-11-22] MEDS: TOPIRAMATE 100 MG TAB PO PRN (23:54)
[2017-11-23] MEDS: KETOROLAC 15 MG/1 ML SDV IVP SCH ×4 (06:40→22:14)
--- NOTE | 2017-11-23 08:59 | NEUSURGPN ---
Assessment/Plan: Assessment: 57 yr old with back pain and subacute L1 compression fx Plan: -Please see full dictated consult for details -Patient has subacute fx of L1, will get MRI lumbar without contrast to further assess the acuity fracture and other causes for her bilateral calf pain -Dr Harper will see patient as well this am -Please call neurosurgery with any questions/concerns Subjective: Patient complaining of back pain Objective: AxO x3 Awoken from sleep, somewhat groggy 5/5 BUE, BLE-BLE exam limited due to pain Sensation intact to light touch BLE Neuro Check Frequency: per routine Urinary Catheter in Place: No - Physician Discussed Patient with : Leroy Patient Seen by : Leroy Neurosurgery Physical Exam - Vitals, I&O, Labs I and O 11/22/17 11/23/17 11/24/17 05:59 05:59 05:59 Intake Total 0 580 Output Total 700 100 Balance -700 480 Weight 82 kg 82 kg Intake: Oral (ml) 0 580 Output: Urine (ml) 700 100 Catheter 150 100 Other: Number of Voids Bedpan 1 Vital Signs Temp Pulse Resp BP Pulse Ox 36.7 C 83 16 164/93 H 92 11/22/17 23:10 11/22/17 23:10 11/22/17 23:10 11/22/17 23:10 11/22/17 23:10 Laboratory Results 11/22/17 04:59 11/22/17 04:59 ICD10 Worksheet Patient Problems: Problems Problem Status Onset Back pain Acute Compression fracture of L1 lumbar vertebra Acute Humerus fracture Acute
[2017-11-23] MEDS ORDERED: NON-FORMULARY NEW DRUG (Omeprazole [Omeprazole] 40 MG) PO SCH (09:00)
[2017-11-23] MEDS: oxyCODONE IR 5 MG TAB PO PRN ×4 (09:36→22:12)
[2017-11-23] MEDS: FAMOTIDINE 20 MG TAB PO SCH ×2 (09:36→21:19)
[2017-11-23] MEDS: GABAPENTIN 300 MG CAP PO SCH ×2 (09:36→21:19)
[2017-11-23] MEDS: PANTOPRAZOLE SODIUM 40 MG TAB PO SCH (09:37)
[2017-11-23] MEDS: SENNOSIDES/DOCUSATE SODIUM TAB PO SCH ×2 (09:38→21:21)
[2017-11-23] MEDS: LIDOCAINE 5% 1 EA PATCH TD SCH (10:00)
--- NOTE | 2017-11-23 11:14 | GCON ---
[f rep st] CONSULTATION CHIEF COMPLAINT: Back pain and L1 compression fracture. HISTORY OF PRESENT ILLNESS: The patient is a 57-year-old female with a past history of some chronic back pain. Per patient, she apparently suffered a fall approximately 6-8 weeks ago and was noted to have an L1 compression fracture. She states she did not wear a brace for any treatment following the fracture and has not received any further treatment for the fracture. The patient describes her sym ptoms as a terrible low back pain and states that she has bilateral calf pain equally when she is [place]. The patient's nurse reports that the patient has had bouts of urinary retention requiring stra ight catheterization. The patient denies any new weakness in her legs, and other than the urinary re tention, has not had any other issues with incontinence of her bowel or bladder. REVIEW OF SYSTEMS: A 10-point review of systems was performed and negative aside from what was menti oned in the HPI. MEDICAL HISTORY: Degenerative disk disease, hypertension, chronic low back pain, PTSD, anxiety disor marti, personality disorder with borderline personality, COPD, asthma, coronary artery disease with an [place] in 2011, history of seizures, which was likely due to alcohol withdrawal, neuropathy in the left l ower extremity with complaints of footdrop at times. PAST SURGICAL HISTORY: Tonsillectomy and adenoidectomy and orthopedic surgery of her left humerus. CURRENT MEDICATIONS: Include ibuprofen, Dilantin 200 mg b.i.d., hydroxyzine, trazodone, albuterol in haler, Advair 500/50, gabapentin 300 to 600 mg daily and 600 mg q.h.s., lisinopril 5 to 10 mg daily, Spiriva inhaler, Zanaflex, Stelazine. FAMILY HISTORY: Unknown, patient is adopted. SOCIAL HISTORY: The patient drinks alcohol occasionally, but the patient has a previous history of h eavy alcohol use and possible seizures due to withdrawal. 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 Drug use, patient denies any illicit drug use. LABORATORY RESULTS: White blood cell count 8.24, hemoglobin 13.5, hematocrit 39.6, platelet count is 251. Sodium is 140, potassium 3.8, BUN is 2, creatinine 0.6, glucose is 94. DIAGNOSTIC IMAGING: X-ray of the lumbar spine performed on November 21, 2017, demonstrates a subacute mild L1 compression fracture that has not changed significantly since imaging performed 6 weeks prio r. PHYSICAL EXAM: VITAL SIGNS: Blood pressure is 115/84, heart rate is 82, respiratory rate is 16, oxy gen saturations 90% on room air, temperature is 36.6 degrees Celsius. HEENT: Head is normocephalic and atraumatic. Pupils are equal, round, and reactive to light. EOMI is intact. RESPIRATORY: Defe rred. CARDIAC: Deferred. ABDOMEN: Deferred. GENITOURINARY: Deferred, although per patient's nurs e, she has reported urinary retention. RECTAL: Deferred. NEUROLOGIC: The patient is sleeping, denise kens to voice. Alert and oriented to self and place, location, and situation. Speech: There is no aphasia or dysphonia. Cranial nerves 2-12 are grossly intact. Motor: Patient has 5/5 strength in a ll muscle groups in the bilateral lower and upper extremities to include deltoids, biceps, triceps, b rachioradialis, wrist flexion, extensors, kitchen assistant, intrinsic fingers, iliopsoas, quadriceps, hamstrings, plantar flexion, dorsiflexion, EHL testing. The patient does have mild EHL TA weakness on left side , scoring a 5-. The patient has negative straight leg raise. Negative KERVIN test. Reflexes: Bicep s, triceps, brachioradialis, knee jerk and ankle jerk are 2+/4. Toes are downgoing bilaterally. Hof fmann sign is negative. Babinski is negative. There is no evidence of clonus. ASSESSMENT AND PLAN: Patient is a 57-year-old female with a history of a fall approximately 2 months ago in which she suffered an L1 compression fracture. The patient has been admitted to Medicine and complaining of terrible low back pain. X-ray of the lumbar spine demonstrates a subacute compressio n fracture of the L1 vertebrae which is reportedly stable when compared to imaging 6 weeks ago. The patient reports that her back pain is severe and also has bilateral calf symptoms equally when walkin g. X-rays of the lumbar spine also show multilevel disk degenerative disease at L3-4 and L4-5. We w ill order an MRI of the lumbar spine without contrast to further assess the acuity of the L1 fracture as well as her radicular symptoms she is experiencing. If her fracture appears to have some edema, we may consider a brace as an option for treatment of the L1 fracture. The patient was seen and exam ined by myself at the bedside on the floor at 0715 a.m. this morning. Patient will be seen by Dr. Fatmata espinosa today as well. Thank you for this consultation. /[id number]/MODL
[2017-11-23] MEDS: LORazepam 0.5 MG TAB PO PRN ×2 (15:25→23:25)
[2017-11-23] MEDS ORDERED: ALPRAZolam 0.5 MG TAB PO ONE (15:36)
--- NOTE | 2017-11-23 15:39 | HOSPPROG ---
Hospitalist Progress Note Assessment/Plan: # low back pain, spinal stenosis, foraminal stenosis, L1 compr fx - nsg consult - MRI today; if still edema in L1 fracture consider kypho - pain control with toradol, lidoderm, oxy PO, gabapentin - cont ativan, tizanidine # urinary retention - may be related to above vs narcotics vs pain - cont straight cath prn # anxiety/PTSD - playing a role in her presentation # htn - atenolol, losartan # COPD - inhalers # possible seizure d/o - not on anti-epileptics # possible CAD - not on treatment Subjective: still having back pain; needs to urinate; being stright cathed Objective: Vital Signs Temp Pulse Resp BP Pulse Ox 36.6 C 82 16 115/84 H 90 L 11/23/17 08:00 11/23/17 08:00 11/23/17 08:00 11/23/17 08:00 11/23/17 08:00 Laboratory Results 11/22/17 04:59 11/22/17 04:59 11/22/17 11/23/17 11/24/17 05:59 05:59 05:59 Intake Total 0 580 Output Total 700 100 Balance -700 480 - Physical Exam Constitutional: uncomfortable Cardiovascular: regular rate and rhythym, no murmur, rub, or gallop Respiratory: no respiratory distress, no rales or rhonchi, clear to auscultation Gastrointestinal: soft, non-tender abdomen, no palpable masses ICD10 Worksheet Patient Problems: Problems Problem Status Onset Back pain Acute Compression fracture of L1 lumbar vertebra Acute Humerus fracture Acute
--- NOTE | 2017-11-23 16:11 | PDMN ---
Medical Necessity Medical necessity: C/M review: est. > 2 MN LOS for eval and TX of acute and persistent low back pain, spinal stenosis, foraminal stenosis, L1 compression fracture, urinary retention requiring Neurosurgery consult, planned 11/23/2017 lumbar spine MRI, ongoing IV Toradol, multiple oral pain meds, topical Lidoderm patch, straight cath as needed, comorbid anxiety, PTSD, hypertension, COPD, possible seizure disorder, possible CAD per 11/23/2017 Hospitalist progress note.
--- NOTE | 2017-11-23 16:16 | ASMTCMCOM ---
CM Note CM Note Notes: Pt admitted with lower back pain. Pt has a hx of L1 compression fx ~2 mos ago. MRI is planned. CM to follow for DC needs. Date Signed: 11/23/2017 04:16 PM Electronically Signed By:Essence Nye LCSW
[2017-11-23] MEDS: ATENOLOL 50 MG TAB PO SCH (21:19)
[2017-11-23] MEDS: LOSARTAN POTASSIUM 50 MG TAB PO SCH (21:20)
[2017-11-23] MEDS: traZODone 100 MG TAB PO SCH (21:21)
[2017-11-23] MEDS: tiZANidine HCL 2 MG TAB PO SCH (21:21)
[2017-11-23] MEDS: PATCH REMOVAL 1 EA PATCH TD SCH (21:23)
[2017-11-23] MEDS: TOPIRAMATE 100 MG TAB PO PRN (22:28)
[2017-11-23] MEDS: ONDANSETRON 4 MG/2 ML VIAL IVP PRN (22:28)
[2017-11-24] MEDS: oxyCODONE IR 5 MG TAB PO PRN ×3 (03:00→18:37)
[2017-11-24] MEDS: ONDANSETRON 4 MG/2 ML VIAL IVP PRN ×2 (03:06→21:27)
[2017-11-24] MEDS: KETOROLAC 15 MG/1 ML SDV IVP SCH ×4 (06:18→23:26)
--- NOTE | 2017-11-24 09:11 | NEUSURGPN ---
Assessment/Plan: Assessment: 57 yr old with back pain and subacute L1 compression fx Plan: -Patient has subacute fx of L1, MRI lumbar spine performed yesterday demonstrates stenosis at L4-5 as well as T12-L1 with a mild retropulsion of L1. L1 fx appears chronic in nature and would likely not benefit from vertebroplasty at this point. -Patient has mild weakness of her left TA -Difficult to determine which level of stenosis is her pain generator. Discussed ESTEBAN at one level for therapeutic diagnostic purposes. Patient agreed to injection if she is heavily sedated. She is NPO now and we will keep her until we know if she can go for ESTEBAN today. -Will order ESTEBAN at L4-5 for today if possible -Discussed patient with Dr Harper -Please call neurosurgery with any questions/concerns Subjective: patient has continued back pain Objective: Awakens to voice Oriented x3 5/5 BLE aside from left TA 4/5 Sensation intact to light touch BLE Neuro Check Frequency: per routine Urinary Catheter in Place: No - Physician Discussed Patient with Dr.: Harper Neurosurgery Physical Exam - Vitals, I&O, Labs I and O 11/23/17 11/24/17 11/25/17 05:59 05:59 05:59 Intake Total 450 Output Total 200 Balance 250 Intake: Oral (ml) 450 Output: Urine (ml) 200 Catheter 200 Other: Output Comment Bedpan Pt refused to use bedpan Catheter Pt refused bladder scans and refuses to be straight cath at this time. Md morris Bladder Scan Volume (ml) Catheter 374 Vital Signs Temp Pulse Resp BP Pulse Ox 36.5 C 69 16 90/51 L 90 L 11/23/17 23:39 11/23/17 23:39 11/23/17 23:39 11/23/17 23:39 11/23/17 23:39 Laboratory Results 11/23/17 18:10 ICD10 Worksheet Patient Problems: Problems Problem Status Onset Back pain Acute Compression fracture of L1 lumbar vertebra Acute Humerus fracture Acute
[2017-11-24] MEDS: GABAPENTIN 300 MG CAP PO SCH ×2 (10:14→21:22)
[2017-11-24] MEDS: PANTOPRAZOLE SODIUM 40 MG TAB PO SCH (10:15)
[2017-11-24] MEDS: FAMOTIDINE 20 MG TAB PO SCH ×2 (10:15→21:22)
[2017-11-24] MEDS: SENNOSIDES/DOCUSATE SODIUM TAB PO SCH ×2 (10:15→21:22)
[2017-11-24] MEDS: LIDOCAINE 5% 1 EA PATCH TD SCH (10:16)
--- NOTE | 2017-11-24 13:21 | PDANEPAE ---
ANE History of Present Illness acute on chronic LBP for ESTEBAN ANE Past Medical History - Cardiovascular History Hx Hypertension: Yes Hx Arrhythmias: No Hx Chest Pain: No Hx Coronary Artery / Peripheral Vascular Disease: No Hx CHF / Valvular Disease: No Hx Palpitations: No - Pulmonary History Hx COPD: Yes Hx Asthma/Reactive Airway Disease: Yes Hx Recent Upper Respiratory Infection: No Hx Oxygen in Use at Home: No Hx Sleep Apnea: No Sleep Apnea Screening Result - Last Documented: Positive - Endocrine History Hx Diabetes: No Obesity: yes - Chronic Pain History Chronic Pain: Yes ANE Review of Systems Review of systems is: negative Review of Systems: - Exercise capacity Exercise capacity: <4 METS ANE Patient History - Allergies Allergies/Adverse Reactions: Penicillins Allergy (Severe, Verified 11/22/17 09:42) Hives - Home Medications Home medications: home medication list seen and reviewed Home Medications: Ibuprofen [Motrin (*)] 800 mg PO TIDMEAL PRN 11/07/14 [Last Taken 03/13/15] traZODone [traZODONE 100MG (*)] 50 - 100 mg PO HS 11/07/14 [Last Taken 03/13/15] Albuterol Sulfate [Albuterol Inhaler Hfa] 2 puffs IH Q4HRS PRN 11/08/14 [Last Taken Unknown] Fluticasone/Salmeter 500/50Mcg [Advair 500/50 (*)] 1 puffs IH BID PRN 03/14/15 [ Last Taken 03/13/15] Gabapentin [Neurontin 300 MG (*)] 600 mg PO DAILY 03/14/15 [Last Taken 03/13/15] Gabapentin [Neurontin 300 MG (*)] 600 mg PO HS 03/14/15 [Last Taken 03/13/15] Tizanidine HCl [Zanaflex] 1 mg PO HS 03/14/15 [Last Taken 03/13/15] tiZANidine HCL [Zanaflex] 1 - 2 mg PO DAILY PRN 03/14/15 [Last Taken 03/13/15] Atenolol [Tenormin 50 mg (*)] 50 mg PO HS 11/22/17 [Last Taken 11/20/17] Cholecalciferol (Vitamin D3) [Vitamin D3] 5,000 unit PO TH 11/22/17 [Last Taken 11/20/17] Loperamide HCl [Loperamide] 2 mg PO QID PRN 11/22/17 [Last Taken Unknown] Losartan Potassium [Cozaar 50 mg (*)] 50 mg PO HS 11/22/17 [Last Taken Unknown] Naproxen Sodium [Aleve 220 MG (*)] 220 mg PO BID PRN 11/22/17 [Last Taken Unknown] Omeprazole 40 mg PO DAILY 11/22/17 [Last Taken 11/15/17] Ondansetron Odt [Zofran Odt 4 mg (*)] 4 mg PO Q8HRS PRN 11/22/17 [Last Taken ] Ranitidine HCl 150 mg PO BID 11/22/17 [Last Taken 11/15/17] celeCOXIB [Celebrex (*)] 200 mg PO DAILY PRN 11/22/17 [Last Taken 11/21/17] traMADol [Ultram 50 mg (*)] 50 mg PO Q6HRS PRN 11/22/17 [Last Taken 11/21/17] - Anes Hx Anes Hx: no prior problems - Smoking Hx Smoking Status: Former smoker (Listed in EMR however patient adamantly denies any history) - Alcohol Use Alcohol Use: Occasionally (Patient reports drinking several times weekly. Previous history of heavy alcohol use and possible withdrawal seizures.) ANE Labs/Vital Signs - Labs Result Diagrams: 11/22/17 04:59 11/23/17 18:10 - Vital Signs Blood Pressure: 107/77 Heart Rate: 77 Respiratory Rate: 16 O2 Sat (%): 98 Height: 162 cm Weight: 82 kg ANE Physical Exam - Airway Neck exam: FROM Mallampati Score: Class 2 Mouth exam: poor dentition - Pulmonary Pulmonary: no respiratory distress - Cardiovascular Cardiovascular: regular rate and rhythym - ASA Status ASA Status: III ANE Anesthesia Plan Anesthesia Plan: GA with mask
[2017-11-24] MEDS ORDERED: PROPOFOL 200 MG/20 ML VIAL ONE (13:22)
[2017-11-24] MEDS ORDERED: LIDOCAINE 2% 100 MG/5 ML SYR ONE (13:23)
[2017-11-24] MEDS ORDERED: MIDAZOLAM 2 MG/2 ML VIAL ONE (13:34)
[2017-11-24] MEDS ORDERED: fentaNYL 100 MCG/2 ML INJ ONE (13:37)
[2017-11-24] MEDS ORDERED: TRIAMCINOLONE ACETONIDE 200 MG/5 ML MDV IM ONE (13:56)
[2017-11-24] MEDS ORDERED: IOPAMIDOL (ISOVUE-M 300) 15 ML VIAL ONE (13:56)
[2017-11-24] MEDS ORDERED: ACETAMINOPHEN 500 MG TAB PO PRN (14:09)
[2017-11-24] MEDS ORDERED: PHENYLEPHRINE HCL 100 MCG/ML SYR IVP PRN (14:09)
[2017-11-24] MEDS ORDERED: OXYCODONE/APAP 5/325 TAB PO PRN (14:09)
[2017-11-24] MEDS ORDERED: HYDROCODONE/APAP 5/325 TAB PO PRN (14:09)
[2017-11-24] MEDS ORDERED: NS 500 ML IV PRN (14:09)
[2017-11-24] MEDS ORDERED: HYDROmorphONE/DILAUDID 1 MG/ML INJ IVP PRN (14:09)
[2017-11-24] MEDS ORDERED: epHEDrine SULFATE 10 MG/ML SYR IVP PRN (14:09)
[2017-11-24] MEDS ORDERED: ALBUTEROL 3 ML DEYVIAL IH PRN (14:09)
[2017-11-24] MEDS ORDERED: NALOXONE HCL 0.4 MG/ML INJ IVP PRN (14:09)
[2017-11-24] MEDS ORDERED: ONDANSETRON 4 MG/2 ML VIAL IVP PRN (14:09)
[2017-11-24] MEDS ORDERED: fentaNYL 100 MCG/2 ML INJ IVP PRN (14:09)
[2017-11-24] MEDS ORDERED: PROMETHAZINE HCL 25 MG/ML INJ IVP PRN (14:09)
--- NOTE | 2017-11-24 14:09 | POSTANESTH ---
Post Anesthetic Evaluation Cardiovascular Status: Normal, Stable Respiratory Status: Normal, Stable Level of Consciousness/Mental Status: Can Participate in Eval Pain Control: Adequate, Prn Tx Ordered Nausea/Vomiting Control: Adequate, Prn Tx Ordered Complications Possibly Related to Anesthesia: None Noted
--- NOTE | 2017-11-24 16:01 | HOSPPROG ---
Hospitalist Progress Note Assessment/Plan: # L4 canal and foraminal stenosis - s/p ESTEBAN - unclear yet if pain is better # L1 compr fx with retropulsion, possible conus compression - may be the etiology of her urinary retention - appreciate nsg - considering fusion - cont ativan, tizanidine, oxycodone # anxiety/PTSD - playing a role in her presentation # htn - atenolol, losartan # COPD - inhalers # possible seizure d/o - not on anti-epileptics # possible CAD - not on treatment Subjective: s/p ESTEBAN - not sure if her pain is better or not Objective: Vital Signs Temp Pulse Resp BP Pulse Ox 36.8 C 63 18 110/63 92 11/24/17 15:26 11/24/17 15:26 11/24/17 15:26 11/24/17 15:26 11/24/17 15:26 Laboratory Results 11/23/17 18:10 11/23/17 11/24/17 11/25/17 05:59 05:59 05:59 Intake Total 450 500 Output Total 200 0 Balance 250 500 MRI reviewed discussed with Maribell RAZA - Physical Exam Constitutional: no apparent distress, appears nourished Cardiovascular: regular rate and rhythym, no murmur, rub, or gallop Respiratory: no respiratory distress, no rales or rhonchi, clear to auscultation Gastrointestinal: normoactive bowel sounds, soft, non-tender abdomen ICD10 Worksheet Patient Problems: Problems Problem Status Onset Humerus fracture Acute Compression fracture of L1 lumbar vertebra Acute Back pain Acute
[2017-11-24] MEDS: tiZANidine HCL 2 MG TAB PO SCH (21:19)
[2017-11-24] MEDS: LORazepam 0.5 MG TAB PO PRN (21:20)
[2017-11-24] MEDS: ATENOLOL 50 MG TAB PO SCH (21:23)
[2017-11-24] MEDS: traZODone 100 MG TAB PO SCH (21:23)
[2017-11-24] MEDS: LOSARTAN POTASSIUM 50 MG TAB PO SCH (21:23)
[2017-11-24] MEDS: PATCH REMOVAL 1 EA PATCH TD SCH (21:58)
[2017-11-25] MEDS: KETOROLAC 15 MG/1 ML SDV IVP SCH ×3 (05:33→18:07)
[2017-11-25] MEDS: oxyCODONE IR 5 MG TAB PO PRN ×3 (05:48→21:18)
--- NOTE | 2017-11-25 07:19 | SOAPPROG ---
[facility]AL[facility] Progress Note Assessment/Plan: Assessment: Patient reporting same paresthesias in right hip/bilat groins and buttocks 57 yo female with subacute L1 compression fracture and acute on chronic LBP. Retropulsion/stenosis at T12/L1. Pt is now in agreement to proceeding with surgery on . Personality disorder. Fall 2 months ago with fx Known L4/5 stenosis and urinary retention requiring straight cath PRN. Pt refuses to get up to use toilet or bedpan per RN status post L4/5 ESTEBAN yesterday. Plan: Straight cath PRN monitor paresthesias for changes Plan fur surgery . Patient may get OOB with LSO in place per Dr. Harper who I spoke to this AM about the patient. Will have RN call [facility] for LSO brace. 11/25/17 07:15 11/25/17 07:19 11/25/17 07:23 Subjective: asleep, wakes up and converses appropriately though reluctantly. Reports stable paresthesias in right hip, groins and buttocks. Back pain a little better after injection yesterday. Ongoing urinary retention. Objective: Vital Signs Temp Pulse Resp BP Pulse Ox 36.8 C 60 16 95/63 L 92 11/25/17 00:00 11/25/17 00:00 11/25/17 00:00 11/25/17 00:00 11/25/17 00:00 Laboratory Results 11/23/17 18:10 11/24/17 11/25/17 11/26/17 05:59 05:59 05:59 Intake Total 450 1380 Output Total 200 239 Balance 250 1141 ICD10 Worksheet Patient Problems: Problems Problem Status Onset Back pain Acute Compression fracture of L1 lumbar vertebra Acute Humerus fracture Acute
[2017-11-25] MEDS: FAMOTIDINE 20 MG TAB PO SCH ×2 (11:36→21:15)
[2017-11-25] MEDS: LIDOCAINE 5% 1 EA PATCH TD SCH (11:37)
[2017-11-25] MEDS: GABAPENTIN 300 MG CAP PO SCH ×2 (12:38→21:16)
[2017-11-25] MEDS: LORazepam 0.5 MG TAB PO PRN ×2 (13:54→21:33)
[2017-11-25] MEDS: PANTOPRAZOLE SODIUM 40 MG TAB PO SCH (13:55)
--- NOTE | 2017-11-25 15:15 | HOSPPROG ---
Hospitalist Progress Note Assessment/Plan: # L4 canal and foraminal stenosis - s/p ESTEBAN - not really any better - will go to surgery on # L1 compr fx with retropulsion, possible conus compression - may be the etiology of her urinary retention - appreciate nsg - surgery - cont ativan, tizanidine, oxycodone # anxiety/PTSD - playing a role in her presentation # htn - atenolol, losartan # COPD - inhalers # possible seizure d/o - not on anti-epileptics # possible CAD - not on treatment Subjective: Pain is about the same. Worried about surgery Objective: Vital Signs Temp Pulse Resp BP Pulse Ox 36.6 C 67 16 115/85 H 90 L 11/25/17 15:09 11/25/17 15:09 11/25/17 15:09 11/25/17 15:09 11/25/17 15:09 Laboratory Results 11/23/17 18:10 11/24/17 11/25/17 11/26/17 05:59 05:59 05:59 Intake Total 450 1380 Output Total 200 239 Balance 250 1141 - Physical Exam Constitutional: no apparent distress, appears nourished, not in pain Eyes: anicteric sclera, EOMI Ears, Nose, Mouth, Throat: moist mucous membranes, hearing normal Cardiovascular: regular rate and rhythym Respiratory: no respiratory distress Neurologic: AAOx3 Psychiatric: interacting appropriately, not anxious, not encephalopathic, thought process linear ICD10 Worksheet Patient Problems: Problems Problem Status Onset Back pain Acute Compression fracture of L1 lumbar vertebra Acute Humerus fracture Acute
--- NOTE | 2017-11-25 15:34 | ASMTCMCOM ---
CM Note CM Note Notes: 11/25/2017 Case Management Note Met w/pt to discuss PT recommendation for SNF rehab. Pt was upset at recommendation, focusing primarily on fear of losing her cat, which is a designated service sheela mauricio during the Medicaid required 30 day stay at SNF rehab. Pt has [facility] case technician Alma Delia Reis [phone]. Per pt receives 7.5 hours a week of unskilled care through [facility]. Per pt. her PCP Dr. Taylor at 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 Pt has been followed by [facility] disease case manager rn Mary Power [phone] during hospitalization. Case Management left VM for Alma Delia Guzmanmond to see if HCBS services can be increased to a level that would be helpful for pt at d/c. Case Management to discuss if new ULTC 100 is required if pt is going to SNF rehab at d/c. Waiting for call back. Case Management d/c poc: TBD Case Management to follow. Date Signed: 11/25/2017 03:34 PM Electronically Signed By:Lorraine Nazario RN
[2017-11-25] MEDS: SENNOSIDES/DOCUSATE SODIUM TAB PO SCH ×2 (18:08→21:59)
[2017-11-25] MEDS: tiZANidine HCL 2 MG TAB PO SCH (21:14)
[2017-11-25] MEDS: traZODone 100 MG TAB PO SCH (21:15)
[2017-11-25] MEDS: LOSARTAN POTASSIUM 50 MG TAB PO SCH (21:16)
[2017-11-25] MEDS: ATENOLOL 50 MG TAB PO SCH (21:20)
[2017-11-25] MEDS: ONDANSETRON 4 MG/2 ML VIAL IVP PRN (21:26)
[2017-11-25] MEDS: PATCH REMOVAL 1 EA PATCH TD SCH (21:59)
[2017-11-26] MEDS: KETOROLAC 15 MG/1 ML SDV IVP SCH ×5 (00:12→23:32)
[2017-11-26] MEDS: tiZANidine HCL 2 MG TAB PO PRN (00:17)
[2017-11-26] MEDS: oxyCODONE IR 5 MG TAB PO PRN ×4 (06:24→21:57)
--- NOTE | 2017-11-26 08:08 | SOAPPROG ---
SOAP Progress Note Assessment/Plan: Assessment: 57 yo F with L1 burst fracture Plan: stable plan for T11-L3 fusion tomorrow at 1 pm npo after midnight bladder scans to watch for urinary retention constipation, on bowel protocol please call with neuro changes discussed with Dr Ramos 11/26/17 08:03 Subjective: continued back pain, no leg pain. no weakness. Objective: Vital Signs Temp Pulse Resp BP Pulse Ox 36.7 C 56 L 14 130/83 H 95 11/26/17 06:26 11/26/17 06:26 11/26/17 06:26 11/26/17 06:26 11/26/17 06:26 Laboratory Results 11/23/17 18:10 11/25/17 11/26/17 11/27/17 05:59 05:59 05:59 Intake Total 1380 440 Output Total 239 250 Balance 1141 190 awake, alert PERRL, no facial droop DEVORA x 4 + light touch ICD10 Worksheet Patient Problems: Problems Problem Status Onset Back pain Acute Compression fracture of L1 lumbar vertebra Acute Humerus fracture Acute
[2017-11-26] MEDS: SENNOSIDES/DOCUSATE SODIUM TAB PO SCH ×2 (09:33→21:55)
[2017-11-26] MEDS: PANTOPRAZOLE SODIUM 40 MG TAB PO SCH (09:33)
[2017-11-26] MEDS: GABAPENTIN 300 MG CAP PO SCH ×2 (09:34→21:56)
[2017-11-26] MEDS: FAMOTIDINE 20 MG TAB PO SCH ×2 (09:34→21:56)
[2017-11-26] MEDS: LORazepam 1 MG TAB PO PRN ×2 (12:24→21:57)
[2017-11-26] MEDS: LIDOCAINE 5% 1 EA PATCH TD SCH (13:39)
--- NOTE | 2017-11-26 15:52 | HOSPPROG ---
Hospitalist Progress Note Assessment/Plan: # L4 canal and foraminal stenosis - s/p ESTEBAN - not really any better - will go to surgery on # L1 compr fx with retropulsion, possible conus compression - may be the etiology of her urinary retention - appreciate nsg - surgery - cont ativan, tizanidine, oxycodone # anxiety/PTSD - playing a role in her presentation # htn - atenolol, losartan # COPD - inhalers # possible seizure d/o - not on anti-epileptics # possible CAD - not sure with assessment came from. She does not have a formal diagnosis of coronary disease. Pain has limited some of her functional tolerance but I believe can proceed to surgery. Will get a preoperative EKG Subjective: Will be going to surgery tomorrow. Is anxious Objective: Vital Signs Temp Pulse Resp BP Pulse Ox 36.7 C 57 L 15 136/87 H 96 11/26/17 08:00 11/26/17 08:00 11/26/17 08:00 11/26/17 08:00 11/26/17 08:00 Laboratory Results 11/23/17 18:10 11/25/17 11/26/17 11/27/17 05:59 05:59 05:59 Intake Total 1380 440 Output Total 239 250 200 Balance 1141 190 -200 - Physical Exam Constitutional: no apparent distress, appears nourished, not in pain Ears, Nose, Mouth, Throat: moist mucous membranes Cardiovascular: regular rate and rhythym Respiratory: no respiratory distress Skin: warm Neurologic: AAOx3 Psychiatric: interacting appropriately, not anxious, not encephalopathic, thought process linear ICD10 Worksheet Patient Problems: Problems Problem Status Onset Back pain Acute Compression fracture of L1 lumbar vertebra Acute Humerus fracture Acute
--- NOTE | 2017-11-26 16:13 | CPEKG ---
Heart Rate: 67 RR Interval: 896 P-R Interval: 128 QRSD Interval: 72 QT Interval: 408 QTC Interval: 431 P Errol: 47 QRS Errol: 35 T Wave Errol: 13 EKG Severity - NORMAL ECG - EKG Impression: SINUS RHYTHM Electronically Signed By: Zach Patel 27-Nov-2017 13:09:21
[2017-11-26] MEDS: MAGNESIUM HYDROXIDE 30 ML UDCUP PO PRN (18:50)
[2017-11-26] MEDS: traZODone 100 MG TAB PO SCH (21:53)
[2017-11-26] MEDS: tiZANidine HCL 2 MG TAB PO SCH (21:54)
[2017-11-26] MEDS: LOSARTAN POTASSIUM 50 MG TAB PO SCH (21:55)
[2017-11-26] MEDS: PATCH REMOVAL 1 EA PATCH TD SCH (22:13)
[2017-11-26] MEDS: ONDANSETRON 4 MG/2 ML VIAL IVP PRN (22:13)
[2017-11-26] MEDS: ATENOLOL 50 MG TAB PO SCH (23:03)
[2017-11-26] MEDS: TOPIRAMATE 100 MG TAB PO PRN (23:32)
[2017-11-27] MEDS ORDERED: NS W/ 20 KCl/L 1,000 ML IV SCH ×2 (04:00→17:00)
--- NOTE | 2017-11-27 07:10 | NEUSURGPN ---
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 Leave me alone!" Objective: AAOx3 NAD VSS MAEx4 Motor 5/5 BLE with exception of L DF 5-/5 +LT Urinary Catheter in Place: No Catheter Insertion Date: 11/24/17 - Physician Discussed Patient with : Leroy Neurosurgery Physical Exam - Vitals, I&O, Labs I and O 11/26/17 11/27/17 11/28/17 05:59 05:59 05:59 Intake Total 440 1440 Output Total 250 600 Balance 190 840 Intake: Oral (ml) 440 1290 IV Intake (ml) 0 IV Infused (ml) 150 NS W/ 20 KCl/L 1,000 ml @ 150 75 mls/hr IV CONT LILLY Rx #:[id number] Output: Urine (ml) 250 600 Catheter 250 600 Other: Number of Stools Catheter 0 Bladder Scan Volume (ml) Catheter 277 306 Vital Signs Temp Pulse Resp BP Pulse Ox 36.7 C 68 18 108/66 93 11/26/17 23:03 11/26/17 23:03 11/26/17 23:03 11/26/17 23:03 11/26/17 23:03 Laboratory Results 11/23/17 18:10 ICD10 Worksheet Patient Problems: Problems Problem Status Onset Back pain Acute Compression fracture of L1 lumbar vertebra Acute Humerus fracture Acute
[2017-11-27] MEDS ORDERED: VANCOMYCIN HCL/NORMAL SALINE 250 ML IV ONE (07:12)
[2017-11-27] MEDS: FAMOTIDINE 20 MG TAB PO SCH ×2 (09:05→21:40)
[2017-11-27] MEDS: GABAPENTIN 300 MG CAP PO SCH ×2 (09:06→21:30)
[2017-11-27] MEDS: PANTOPRAZOLE SODIUM 40 MG TAB PO SCH (09:06)
[2017-11-27] MEDS: LIDOCAINE 5% 1 EA PATCH TD SCH (09:06)
[2017-11-27] MEDS: SENNOSIDES/DOCUSATE SODIUM TAB PO SCH ×2 (09:06→21:40)
[2017-11-27] MEDS ORDERED: BUPIVACAINE 0.25% 30 ML SDV ONE (09:09)
[2017-11-27] MEDS ORDERED: CHLORHEXIDINE GLUC HIBICLENS 118 ML BTL TP ONE (09:09)
[2017-11-27] MEDS ORDERED: THROMBIN (BOVINE) 20,000 UNIT VIAL TP ONE (09:09)
[2017-11-27] MEDS ORDERED: VANCOMYCIN 1 GM VIAL ONE (09:10)
[2017-11-27] MEDS ORDERED: BACITRACIN 50,000 UNITS/10 ML SYR IRR ONE (09:10)
[2017-11-27 09:29] LABS: INR 0.91 (0.83-1.16); PROTIME(PATIENT) 12.5 SEC (12.0-15.0)
--- NOTE | 2017-11-27 11:15 | ASMTCMCOM ---
CM Note CM Note Notes: Reviewed chart and discussed w/RN. Pt will go for surgery today at 1PM. Will re-assess needs post-op. Left voicemail for [facility] patient support partner, Alma Delia Reis regarding possibility of increasing HCBS (See CM note from 11/25). CM will follow. Date Signed: 11/27/2017 11:15 AM Electronically Signed By:Leora Larsen RN
[2017-11-27] MEDS: oxyCODONE IR 5 MG TAB PO PRN (11:20)
[2017-11-27] MEDS ORDERED: SURGIFLO MATRIX KIT WITH THROMBIN 8ml TP ONE ×2 (13:03→14:10)
--- NOTE | 2017-11-27 13:09 | PDANEPAE ---
<Zack Collazo - Last Filed: 11/27/17 14:09> ANE Review of Systems Review of Systems: ANE Patient History - Allergies Allergies/Adverse Reactions: Penicillins Allergy (Severe, Verified 11/22/17 09:42) Hives - Home Medications Home Medications: Ibuprofen [Motrin (*)] 800 mg PO TIDMEAL PRN 11/07/14 [Last Taken 03/13/15] traZODone [traZODONE 100MG (*)] 50 - 100 mg PO HS 11/07/14 [Last Taken 03/13/15] Albuterol Sulfate [Albuterol Inhaler Hfa] 2 puffs IH Q4HRS PRN 11/08/14 [Last Taken Unknown] Fluticasone/Salmeter 500/50Mcg [Advair 500/50 (*)] 1 puffs IH BID PRN 03/14/15 [ Last Taken 03/13/15] Gabapentin [Neurontin 300 MG (*)] 600 mg PO DAILY 03/14/15 [Last Taken 03/13/15] Gabapentin [Neurontin 300 MG (*)] 600 mg PO HS 03/14/15 [Last Taken 03/13/15] Tizanidine HCl [Zanaflex] 1 mg PO HS 03/14/15 [Last Taken 03/13/15] tiZANidine HCL [Zanaflex] 1 - 2 mg PO DAILY PRN 03/14/15 [Last Taken 03/13/15] Atenolol [Tenormin 50 mg (*)] 50 mg PO HS 11/22/17 [Last Taken 11/20/17] Cholecalciferol (Vitamin D3) [Vitamin D3] 5,000 unit PO TH 11/22/17 [Last Taken 11/20/17] Loperamide HCl [Loperamide] 2 mg PO QID PRN 11/22/17 [Last Taken Unknown] Losartan Potassium [Cozaar 50 mg (*)] 50 mg PO HS 11/22/17 [Last Taken Unknown] Naproxen Sodium [Aleve 220 MG (*)] 220 mg PO BID PRN 11/22/17 [Last Taken Unknown] Omeprazole 40 mg PO DAILY 11/22/17 [Last Taken 11/15/17] Ondansetron Odt [Zofran Odt 4 mg (*)] 4 mg PO Q8HRS PRN 11/22/17 [Last Taken ] Ranitidine HCl 150 mg PO BID 11/22/17 [Last Taken 11/15/17] celeCOXIB [Celebrex (*)] 200 mg PO DAILY PRN 11/22/17 [Last Taken 11/21/17] traMADol [Ultram 50 mg (*)] 50 mg PO Q6HRS PRN 11/22/17 [Last Taken 11/21/17] ANE Labs/Vital Signs - Labs Result Diagrams: 11/22/17 04:59 11/23/17 18:10 <Rigoberto Resendiz - Last Filed: 11/27/17 14:32> ANE History of Present Illness Severe back pain for lumbar fusion ANE Past Medical History - Cardiovascular History Hx Hypertension: Yes Hx Arrhythmias: No Hx Chest Pain: No Hx Coronary Artery / Peripheral Vascular Disease: No Hx CHF / Valvular Disease: No Hx Palpitations: No - Pulmonary History Hx COPD: Yes Hx Asthma/Reactive Airway Disease: Yes Hx Recent Upper Respiratory Infection: No Hx Oxygen in Use at Home: No Hx Sleep Apnea: No Sleep Apnea Screening Result - Last Documented: Positive - Endocrine History Hx Diabetes: No Obesity: yes - Chronic Pain History Chronic Pain: Yes ANE Review of Systems Review of Systems: ANE Patient History - NPO status NPO Since - Liquids (Date): 11/27/17 NPO Since - Liquids (Time): 05:00 NPO Since - Solids (Date): 11/27/17 NPO Since - Solids (Time): 05:00 - Smoking Hx Smoking Status: Former smoker (Listed in EMR however patient adamantly denies any history) - Alcohol Use Alcohol Use: Occasionally (Patient reports drinking several times weekly. Previous history of heavy alcohol use and possible withdrawal seizures.) ANE Labs/Vital Signs - Labs Result Diagrams: 11/22/17 04:59 11/23/17 18:10 - Vital Signs Blood Pressure: 138/89 Heart Rate: 67 Respiratory Rate: 16 O2 Sat (%): 92 Height: 162 cm Weight: 82.3 kg ANE Physical Exam - Airway Neck exam: decreased ROM Mouth exam: poor dentition (Extremely poor teeth wiht many broken at gum line.) - Pulmonary Pulmonary: no respiratory distress - Cardiovascular Cardiovascular: regular rate and rhythym ANE Anesthesia Plan Anesthesia Plan: general endotracheal anesthesia
[2017-11-27] MEDS ORDERED: MIDAZOLAM 2 MG/2 ML VIAL ONE (13:12)
[2017-11-27] MEDS ORDERED: LR 1,000 ML IV ONE (13:13)
[2017-11-27] MEDS ORDERED: fentaNYL 100 MCG/2 ML INJ ONE ×2 (13:17→17:15)
[2017-11-27] MEDS ORDERED: REMIFENTANIL HCL 1 MG VIAL ONE (13:17)
[2017-11-27] MEDS ORDERED: PROPOFOL 200 MG/20 ML VIAL ONE (13:17)
[2017-11-27] MEDS ORDERED: PROPOFOL/EMULSION 500 MG/50 ML BOTTLE IV ONE (13:18)
[2017-11-27] MEDS ORDERED: LIDOCAINE 2% 5 ML SDV ONE (13:22)
[2017-11-27] MEDS ORDERED: POVIDONE IODINE IRR ONE (13:30)
[2017-11-27] MEDS ORDERED: NS IRR ONE (13:30)
[2017-11-27] MEDS ORDERED: ROCURONIUM 50 MG/5 ML VIAL ONE ×2 (14:28)
[2017-11-27] MEDS ORDERED: ONDANSETRON 4 MG/2 ML VIAL IVP PRN (14:34)
[2017-11-27] MEDS ORDERED: NALOXONE HCL 0.4 MG/ML INJ IVP PRN ×2 (14:34→17:13)
[2017-11-27] MEDS ORDERED: fentaNYL 100 MCG/2 ML INJ IVP PRN (14:34)
[2017-11-27] MEDS ORDERED: PROMETHAZINE HCL 25 MG/ML INJ IVP PRN (14:34)
[2017-11-27] MEDS ORDERED: HYDROmorphONE/DILAUDID 2 MG/ML INJ ONE (14:37)
[2017-11-27] MEDS ORDERED: ONDANSETRON 4 MG/2 ML VIAL ONE (15:27)
[2017-11-27] MEDS ORDERED: SUGAMMADEX SODIUM 200 MG/2 ML VIAL IVP ONE ×2 (15:27)
[2017-11-27] MEDS ORDERED: BUPIVACAINE 0.5% 30 ML SDV ONE (15:43)
--- NOTE | 2017-11-27 16:39 | POSTOPPROG ---
Post Op Note Date of Operation: 11/27/17 Surgeon: Zac Harper Bankruptcy Judge: Satinder Hawley PA-C Anesthesia: GET(General Endotracheal) Pre-op Diagnosis: L1 burst fracture with urinary changes and saddle anesthesia Post-op Diagnosis: same as preop Indication: bladder changes and saddle numbness Procedure: T12-L2 PSF, T12/L1 laminectomy, OArm/Stealth Navigation Findings: good decompression, hardware in good position Inf/Abcess present in the surg proc area at time of surgery?: No Depth: Deep Incisional (Fascial) EBL: 100-500 Complications: none Drains: Ranjan Fry (#7 ABRBRA to full suction)
[2017-11-27] MEDS ORDERED: HYDROmorphONE/DILAUDID 1 MG/ML INJ IVP PRN (16:58)
[2017-11-27] MEDS ORDERED: diphenhydrAMINE 25 MG CAP PO PRN (16:58)
--- NOTE | 2017-11-27 17:05 | NEUSURGPN ---
Date of Surgery: 11/27/17 Post Op Day: 0 Assessment/Plan: 57F with MMP, psychiatric and developmental issues, L1 burst fx with intractable back pain, urinary change including retention, saddle anesthesia POD0 s/p T1-L2 PSF with T12/L1 laminectomy, use of stealth neuro-navigation BARBRA x 1 to full compressed sxn pain control mobilize as able and obtain standing scoliosis xrays when can give good effort 24 hrs IV antibiotics Lovenox prophylaxis okay POD1 ADAT, IVF for now attempt decath trial and follow voids (history of retention) attempt to mobilize, no brace required PTOT and OOB often return to floor begin to discuss dispo with case management Jagdeep Harper MD Subjective: no issues in PACU Objective: awake and alert still drowsy and confused from anesthesia PERRL LEDEZMA following commands incision dressed BARBRA x 1 to suction Urinary Catheter in Place: Yes Urinary Catheter Indication: Surgical Requirement (fresh postop) Catheter Insertion Date: 11/27/17 Neurosurgery Physical Exam - Vitals, I&O, Labs I and O 11/26/17 11/27/17 11/28/17 05:59 05:59 05:59 Intake Total 440 1440 Output Total 250 600 Balance 190 840 Weight 82.3 kg Intake: Oral (ml) 440 1290 IV Intake (ml) 0 IV Infused (ml) 150 NS W/ 20 KCl/L 1,000 ml @ 150 75 mls/hr IV CONT LILLY Rx #:[id number] Output: Urine (ml) 250 600 Catheter 250 600 Other: Number of Stools Catheter 0 Bladder Scan Volume (ml) Catheter 277 306 479 Vital Signs Temp Pulse Resp BP Pulse Ox 36.9 C 67 16 138/89 H 92 11/27/17 13:28 11/27/17 14:32 11/27/17 14:32 11/27/17 14:32 11/27/17 14:32 Laboratory Results 11/23/17 18:10 ICD10 Worksheet Patient Problems: Problems Problem Status Onset Back pain Acute Compression fracture of L1 lumbar vertebra Acute Humerus fracture Acute
--- NOTE | 2017-11-27 17:10 | POSTANESTH ---
Post Anesthetic Evaluation Cardiovascular Status: Similar to Pre-Op Cond Respiratory Status: Similar to Pre-op Cond. Level of Consciousness/Mental Status: Alert and Oriented Pain Control: Adequate, Prn Tx Ordered (Similiar to pre-op) Nausea/Vomiting Control: Adequate, Prn Tx Ordered Complications Possibly Related to Anesthesia: None Noted
[2017-11-27] MEDS ORDERED: HYDROmorphONE/DILAUDID 6 MG/30 ML PCA IV PRN (17:13)
[2017-11-27] MEDS ORDERED: HYDROmorphONE/DILAUDID 1 MG/ML INJ ONE (17:15)
[2017-11-27] MEDS ORDERED: LORazepam 2 MG/ML INJ ONE ×2 (17:20→17:30)
[2017-11-27] MEDS: HYDROmorphONE/DILAUDID 1 MG/ML INJ IVP PRN ×2 (17:23→17:42)
[2017-11-27] MEDS ORDERED: LORazepam 2 MG/ML INJ IVP PRN (17:34)
--- NOTE | 2017-11-27 17:41 | HOSPPROG ---
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 She does not have a formal diagnosis of coronary disease. Pain has limited some of her functional tolerance but I believe can proceed to surgery - EKG w/ NSR Diet. Resume when safe post op PPx. High risk, resume when safe w/ NSGY Code. Full Dispo. ADD uncertain, pending post-op recovery of above Subjective: patient in pain after surgery Objective: Vital Signs Temp Pulse Resp BP Pulse Ox 36.4 C 67 18 108/87 H 95 11/27/17 17:03 11/27/17 14:32 11/27/17 17:32 11/27/17 17:32 11/27/17 17:32 Laboratory Results 11/23/17 18:10 11/26/17 11/27/17 11/28/17 05:59 05:59 05:59 Intake Total 440 1440 Output Total 250 600 0 Balance 190 840 0 PT 12.5 SEC (12.0-15.0) 11/27/17 08:54 INR 0.91 (0.83-1.16) 11/27/17 08:54 - Physical Exam Constitutional: chronically ill appearing, obese, uncomfortable, No not in pain (mild-moderate) Cardiovascular: regular rate and rhythym, no murmur, rub, or gallop, No edema Respiratory: no respiratory distress (shallow breathing), no rales or rhonchi, clear to auscultation Gastrointestinal: normoactive bowel sounds, soft, non-tender abdomen, no palpable masses, No distension Neurologic: other (able to move bilat feet on command) Psychiatric: not anxious, flat affect, agitated, other (follows some commands) ICD10 Worksheet Patient Problems: Problems Problem Status Onset Humerus fracture Acute Compression fracture of L1 lumbar vertebra Acute Back pain Acute
[2017-11-27] MEDS: ATENOLOL 50 MG TAB PO SCH (21:36)
[2017-11-27] MEDS: tiZANidine HCL 2 MG TAB PO SCH (21:37)
[2017-11-27] MEDS: LOSARTAN POTASSIUM 50 MG TAB PO SCH (21:38)
[2017-11-27] MEDS: traZODone 100 MG TAB PO SCH (21:47)
[2017-11-27] MEDS: LORazepam 1 MG TAB PO PRN (21:48)
[2017-11-27] MEDS ORDERED: ceFAZolin 2 GM/DEXTROSE 100 ML IV SCH (22:00)
[2017-11-27] MEDS: ACETAMINOPHEN 500 MG TAB PO SCH (23:27)
[2017-11-27] MEDS: PATCH REMOVAL 1 EA PATCH TD SCH (23:28)
[2017-11-28] MEDS: oxyCODONE IR 5 MG TAB PO PRN ×4 (00:46→16:33)
[2017-11-28] MEDS: tiZANidine HCL 2 MG TAB PO PRN (00:58)
[2017-11-28] MEDS ORDERED: VANCOMYCIN HCL/NORMAL SALINE 250 ML IV ONE (01:00)
--- NOTE | 2017-11-28 03:29 | GOP ---
[f rep st] OPERATIVE REPORT DATE OF OPERATION: 11/27/2017 SURGEON: Zac Harper MD NEUROSURGEON: Zac Harper MD. UTILITY HELICOPTER REPAIRER: Satinder Hawley PA-C. ANESTHESIA: GETA. PREOPERATIVE DIAGNOSIS: 1. L1 burst fracture with severe spinal stenosis at T12-L1 with conus medullaris compression. 2. Significant back pain resulting in inability to mobilize and urinary changes with saddle paresthe nallely. POSTOPERATIVE DIAGNOSIS: 1. L1 burst fracture with severe spinal stenosis at T12-L1 with conus medullaris compression. 2. Significant back pain resulting in inability to mobilize and urinary changes with saddle paresthe nallely. PROCEDURE PERFORMED: 1. T12 to L2 instrumented posterolateral spinal fusion with a T12-L1 laminectomy. 2. Placement of nonsegmental instrumentation. 3. Arthrodesis with use of crushed local morselized autograft and allograft. 4. Use of Stealth and neuronavigation. 5. Use of neuromonitoring. FINDINGS: Neuronavigation used to ensure adequate decompression across the fracture level. All hard dacosta checked and found to be in good position. Good purchase of all our screws. SPECIMENS: None. ESTIMATED BLOOD LOSS: 300 cc. INDICATIONS: The patient is a 57-year-old female who carries many medical diagnoses and many psychia tric diagnoses. I also suspect an element of developmental delay. She suffered an L1 compression fr acture back in September that has essentially progressed to a burst fracture. She now has retropulsed bone fragments in her spinal canal and severe spinal stenosis with compression of her conus medullar is and symptoms of urinary change and saddle anesthesia that has been progressive for the past 4 to 5 weeks. She also has significant back pain which has resulted in inability for her to mobilize or am bulate. She came to the hospital last weekend, and I encouraged her to have surgery at that point in time given her symptoms and urinary retention that was detected in the hospital. Given her overall mental and psychiatric condition, she was not able to get mentally prepared for surgery until today. Risks, benefits, and alternatives were discussed. She signed informed consent prior to the procedur e. DESCRIPTION OF PROCEDURE: The patient was brought into the operating room, and a sign-in was perform ed. She was given 1 g of IV vancomycin as she is allergic to penicillin for infection prevention. S he was smoothly induced under general anesthesia and intubated without difficulty. Appropriate IV ac cess was obtained. A Simmons catheter was placed. SCDs and HA hose were placed to prevent DVT. Neur omonitoring electrodes were placed, and baseline signals were obtained. The patient was turned from a supine to prone position on an open Ranjan table, and her pressure points were padded well. Her b ack was washed with chlorhexidine shampoo and rubbing alcohol, which was allowed to dry. A midline i ncision was planned. The O-arm was brought onto the field, and the L1 level was localized, and an in cision was planned approximately 4 cm long. ChloraPrep was used to sterilize the skin. Sterile surg ical field was created with blue towels and Ioban and a sterile surgical drape. Prior to beginning t he procedure, a time-out was performed in which all members of Nursing, Anesthesia, and Surgery went over the necessary checklist items and agreed to proceed as one. 20 cc of 0.25% Marcaine with 1:200, 000 parts epinephrine was injected along the planned incision line. A #10 scalpel used to incise the skin and dermis and the subcutaneous fat. A self-retaining retractor was placed. Bovie electrocaut gisela was used to split the lumbodorsal fascia, and the paraspinal musculature was stripped off the spi nal column bilaterally from the T12 pedicle screw entry sites down to the L2 pedicle screw entry site s. We dissected out both L1 and L2 transverse processes bilaterally as well. We were careful not to violate the adjacent segments above or below the operative levels during our dissection. At this po int in time, a spinous process clamp was placed on L2, and the patient was draped sterilely, and the O-arm was brought onto the field. A navigational spin was performed. The patient was then draped. Accuracy was verified. We then successfully placed our T12 pedicle screws bilaterally and our L2 ped icle screws bilaterally. We then proceeded to the decompressive portion of the procedure. We used [facility] neuronavigation to ensure that we decompressed along the stenotic areas by correlating this wi th the patient's MRI. Leksell rongeur was used to remove the inferior half of the T12 spinous proces s to the T12-L1 interspinous ligament and the entirety of the L1 spinous process. This bone was ximena zeyad and prepped and crushed and used for arthrodesis purposes at the end of the procedure. We also c ollected quite a bit of bone dust during our drilling and laminectomy. Ultimately, we successfully p erformed a T12-L1 very wide laminectomy and adequately decompressed the thecal sac and spinal cord at the level of the most severe stenosis. Once our decompression was done, we obtained epidural hemost asis with Surgiflo and thrombin-soaked Gelfoam. We irrigated out the incision with copious antibioti c solution. We measured the lengths of the rods bilaterally, and they were found to be 70 mm long. We obtained a long 5.5 cobalt chrome virgin[place] and cut 70 mm rods, laid them in the screws bilaterally, and set them in place. We essentially left the rods straight as this was a very straight segment of the patient's spine and required no bending of the virgin[place]. We removed the spinous process navigational cla mp, packed the incision, and draped the patient sterilely, and brought the O-arm back onto the field. We performed AP and lateral x-rays to check our instrumentation. The patient's spinal alignment in strumentation all looked excellent. The O-arm was removed, and the patient was then draped. We irri gated out the incision with copious antibiotic solution. We performed arthrodesis posterolaterally w ith a high-speed drill with a Matchstick bur. We laid the patient's own bone in the lateral gutters bilaterally and on top of this corticocancellous crushed chips and the Progenix DBM matrix to keep ev erything packed in nicely. We then laid a #7 BARBRA in the operative bed and began with closure. The stevie mbodorsal fascia in the paraspinal musculature was closed with 0 Vicryl suture in an interrupted fash ion. Half plain Marcaine was used for postoperative analgesia. The suprafascial compartment was irr igated with copious antibiotic solution to prevent infection. The dermis was closed with inverted 2- 0 pop-off Vicryl suture in interrupted fashion. The skin edges were approximated well. The skin was cleaned with wet and dry sponge. A layer of Dermabond was applied. Once this dried, sterile dressi ngs were placed. The drainage tube was secured in place with a 2-0 Vicryl stitch and hooked up to a bulb to full compression. The drapes were removed, and the patient was returned from a prone to supi ne position on a gurney, where she was reversed from anesthesia and extubated without difficulty. I was there for the entirety of the procedure. The counts were correct. There were no neuromonitoring changes. There were no immediate surgical or anesthetic complications. The patient was taken to re [facility] area where she was found to be in stable medical and neurologic condition. Given the fact marcus t she has no friends or family, there is no one to update. Orders were given for return to her floor bed with routine spine care. COMPLICATIONS: None. IMPLANTS: The Get Fractaltronic SOLERA 5.5/6.0 System was used. 6.5 x 50 mm pedicle screw was placed on the left at T12, and a 6.5 x 45 mm pedicle screw was placed on the right at T12. The L1 pedicles were l eft without fixation points. 6.5 x 50 mm pedicle screw was placed in the left at L2, and 6.5 x 55 mm pedicle screw was placed on the right at L2. 5.5 cobalt chrome virginia was measured and cut to specific ation and implanted bilaterally. 10 cc of a Progenix DBM putty solution and 30 cc of crushed cortica l cancellous bone chips were also implanted in the patient in addition to her own bone. /[id number]/MODL
[2017-11-28] MEDS: LORazepam 1 MG TAB PO PRN ×2 (05:31→15:51)
[2017-11-28] MEDS: ACETAMINOPHEN 500 MG TAB PO SCH ×3 (06:17→22:53)
--- NOTE | 2017-11-28 07:45 | NEUSURGPN ---
Date of Surgery: 11/27/17 Post Op Day: 1 Assessment/Plan: Assessment: 57 yr old with back pain and subacute L1 compression fx POD#1 Plan: -Patient had subacute fx of L1, MRI lumbar spine demonstrated stenosis at L4-5 as well as T12-L1 with a mild retropulsion of L1. L1 fx appeared chronic in nature -Patient has mild weakness of her left TA, stable from pre op -PT/OT eval and treat -No brace needed -DC wilson later this am, need to assess urinary status post surgery -Leave BARBRA in place -Pain management, attempt to transition to oral medications -Case management eval for dispo options -Please call neurosurgery with any questions/concerns Subjective: Patient upset that we are pushing her too fast, right lower back pain Objective: awake and alert PERRL LEDEZMA 5/5 RLE 5/5 LLE aside from left TA 4/5 following commands Dressing CDI BARBRA x 1 to suction Neuro Check Frequency: per routine Urinary Catheter in Place: Yes Urinary Catheter Indication: Other (Use Comment) (urinary retention) Catheter Insertion Date: 11/27/17 - Physician Discussed Patient with : Leroy Patient Seen by : Leroy Neurosurgery Physical Exam - Vitals, I&O, Labs I and O 11/27/17 11/28/17 11/29/17 05:59 05:59 05:59 Intake Total 1440 1000 Output Total 600 2145 Balance 840 -1145 Weight 90.2 kg Intake: Oral (ml) 1290 IV Intake (ml) 1000 IV Infused (ml) 150 NS W/ 20 KCl/L 1,000 ml @ 150 75 mls/hr IV CONT LILLY Rx #:[id number] Output: Urine (ml) 600 1950 Catheter 600 1950 BARBRA Drain Output (ml) 195 #1 Right Back Ranjan 195 Fry Other: Intake Quantity Yes Sufficient Number of Voids Catheter 1 Number of Stools Catheter 0 Bladder Scan Volume (ml) Catheter 306 479 Vital Signs Temp Pulse Resp BP Pulse Ox 36.8 C 67 16 126/78 H 95 11/28/17 05:22 11/28/17 05:22 11/28/17 05:22 11/28/17 05:22 11/28/17 05:22 Laboratory Results 11/23/17 18:10 ICD10 Worksheet Patient Problems: Problems Problem Status Onset Back pain Acute Compression fracture of L1 lumbar vertebra Acute Humerus fracture Acute
[2017-11-28] MEDS: PANTOPRAZOLE SODIUM 40 MG TAB PO SCH (09:39)
[2017-11-28] MEDS: GABAPENTIN 300 MG CAP PO SCH ×3 (09:40→21:21)
[2017-11-28] MEDS: FAMOTIDINE 20 MG TAB PO SCH ×2 (09:40→20:21)
[2017-11-28] MEDS: SENNOSIDES/DOCUSATE SODIUM TAB PO SCH ×3 (09:41→20:24)
[2017-11-28] MEDS: ENOXAPARIN 40 MG/0.4 ML SYR SC SCH (09:41)
[2017-11-28] MEDS: MAGNESIUM HYDROXIDE 30 ML UDCUP PO PRN (10:16)
[2017-11-28] MEDS: LIDOCAINE 5% 1 EA PATCH TD SCH (10:54)
--- NOTE | 2017-11-28 16:47 | HOSPPROG ---
Hospitalist Progress Note Assessment/Plan: Assessment: 57 yo F p/w acute back pain 2/2 L4 canal and foraminal stenosis Plan: # L4 canal and foraminal stenosis w/ L1 comp fxr, possible conus compression from retropulsion - s/p ESTEBAN - not really any better - may be the etiology of her urinary retention - POD#1 T11-L3 fusion w/ L1 lami - cont ativan, tizanidine, oxycodone, likely to require post-op HEAD PORTER BAGGAGE as she is in quite a bit of pain now constipation: add miralax to bid barbie # anxiety/PTSD - playing a role in her presentation # htn - cont atenolol, losartan # COPD - inhalers # possible seizure d/o - not on anti-epileptics # possible CAD - not sure with assessment came from. She does not have a formal diagnosis of coronary disease. Pain has limited some of her functional tolerance but I believe can proceed to surgery - EKG w/ NSR Diet. Resume when safe post op PPx. High risk, resume when safe w/ NSGY Code. Full Dispo. ADD uncertain, pending post-op recovery of above Subjective: screaming in pain and refusing to get out of bed or have wilson removed Objective: Vital Signs Temp Pulse Resp BP Pulse Ox 37.2 C 67 16 135/81 H 96 11/28/17 16:00 11/28/17 16:00 11/28/17 16:00 11/28/17 16:00 11/28/17 16:00 Laboratory Results 11/23/17 18:10 11/27/17 11/28/17 11/29/17 05:59 05:59 05:59 Intake Total 1440 1000 Output Total 600 2145 60 Balance 840 -1145 -60 PT 12.5 SEC (12.0-15.0) 11/27/17 08:54 INR 0.91 (0.83-1.16) 11/27/17 08:54 - Physical Exam Constitutional: no apparent distress, appears nourished Eyes: PERRL, anicteric sclera Ears, Nose, Mouth, Throat: moist mucous membranes, hearing normal Cardiovascular: regular rate and rhythym, no murmur, rub, or gallop Respiratory: no respiratory distress, no rales or rhonchi Gastrointestinal: normoactive bowel sounds, soft, non-tender abdomen Genitourinary: no bladder fullness, wilson in urethra Skin: warm, normal color Neurologic: AAOx3 ICD10 Worksheet Patient Problems: Problems Problem Status Onset Back pain Acute Compression fracture of L1 lumbar vertebra Acute Humerus fracture Acute
--- NOTE | 2017-11-28 16:47 | ASMTCMCOM ---
CM Note CM Note Notes: PT/OT rec SNF today. Pt agreeable to SNF today, states it is important for her to stay in [place]. VM left for [facility] [phone] asking about Medicaid respite SNF stay vs. Medicaid 30 day SNF stay w [id number]. If pt can go under respite and there is an accepting facility she does not have to stay the 30 days. PT/OT recs and med list faxed to [facility] today. Pt indicated she would go to [facility] rather than a better rated SNF outside of city [place] just to stay in [place]. Pt does have a support system in [place]. [facility] therapist Shannan Esquivel [phone] visited w pt today and would like notification of d/c and what SNF (a RAMÓN has been signed). Pt states her friend Vanda will take care of her cat while she is in SNF. Referrals sent to [facility], [place] and [facility]. CM to follow. PASRR done but this may need to be done by [facility] since they will approve SNF. D/c plan of care: SNF, CM has to hear back from Alma Delia Chato w [facility] about Medicaid SNF options and still pending is an accepting facility Date Signed: 11/28/2017 04:46 PM Electronically Signed By:ALEXA Choi
--- NOTE | 2017-11-28 16:56 | ASMTCMCOM ---
CM Note CM Note Notes: Pt is currently open w [facility] [phone], this CM updated them pt may d/c to SNF. They request a call when d/c plan is solidified. Date Signed: 11/28/2017 04:55 PM Electronically Signed By:ALEXA Choi
[2017-11-28] MEDS: LOSARTAN POTASSIUM 50 MG TAB PO SCH (20:21)
[2017-11-28] MEDS: ATENOLOL 50 MG TAB PO SCH (20:24)
[2017-11-28] MEDS: POLYETHYLENE GLYCOL 3350 17 GM PKT PO SCH (20:27)
[2017-11-28] MEDS: PATCH REMOVAL 1 EA PATCH TD SCH (21:00)
[2017-11-28] MEDS: tiZANidine HCL 2 MG TAB PO SCH (21:22)
[2017-11-28] MEDS: traZODone 100 MG TAB PO SCH (21:22)
[2017-11-29] MEDS: tiZANidine HCL 2 MG TAB PO PRN (02:05)
[2017-11-29] MEDS: oxyCODONE IR 5 MG TAB PO PRN ×3 (02:06→23:21)
[2017-11-29] MEDS: ACETAMINOPHEN 500 MG TAB PO SCH ×3 (05:17→23:14)
[2017-11-29] MEDS: LORazepam 1 MG TAB PO PRN ×2 (06:42→17:04)
--- NOTE | 2017-11-29 08:22 | NEUSURGPN ---
Date of Surgery: 11/27/17 Post Op Day: 2 Assessment/Plan: Assessment: 57 yr old with back pain and subacute L1 compression fx and s/p T12/ L1 lami with PSF T12-L2 POD #2 Plan: -Patient had subacute fx of L1, MRI lumbar spine demonstrated stenosis at L4-5 as well as T12-L1 with a mild retropulsion of L1. L1 fx appeared chronic in nature -s/p surgery-pt needs encouragement to increase activities. She refuses to get up and move. I told that this is dangerous and can lead to blood clots, pneumonia and possible -recommend removal of wilson and mobilize today -Patient has mild weakness of her left TA, stable from pre op -PT/OT eval and treat -No brace needed per Dr Harper -JOSELUIS wilson later this am, need to assess urinary status post surgery -Leave BARBRA in place for now -Pain management, attempt to transition to oral medications -Case management eval for dispo options -Please call neurosurgery with any questions/concerns Subjective: Awake and alert. NAD. Pt with expected lower back pain. Pt states legs are better. No contreras/neck/chest/abd or gu complaints. No f/c/n/v/d. Objective: awake and alert PERRL LEDEZMA 5/5 RLE 5/5 LLE aside from left TA 4/5 following commands Dressing CDI BARBRA x 1 to suction Neuro Check Frequency: per routine Urinary Catheter in Place: Yes Urinary Catheter Indication: Other (Use Comment) (to be removed this am) Catheter Insertion Date: 11/27/17 - Physician Discussed Patient with Dr.: Harper Neurosurgery Physical Exam - Vitals, I&O, Labs I and O 11/28/17 11/29/17 11/30/17 05:59 05:59 05:59 Intake Total 1000 550 600 Output Total 2145 1010 Balance -1145 -460 600 Weight 90.2 kg 89.1 kg Intake: Oral (ml) 550 600 IV Intake (ml) 1000 Output: Urine (ml) 1950 875 Catheter 1950 875 BARBRA Drain Output (ml) 195 135 #1 Right Back Ranjan 195 135 Fry Other: Intake Quantity Yes Yes Sufficient Number of Voids Catheter 1 Bladder Scan Volume (ml) Catheter 479 Vital Signs Temp Pulse Resp BP Pulse Ox 36.6 C 63 18 96/65 L 94 11/29/17 04:00 11/29/17 04:00 11/29/17 04:00 11/29/17 04:00 11/29/17 04:00 Laboratory Results 11/23/17 18:10 ICD10 Worksheet Patient Problems: Problems Problem Status Onset Back pain Acute Compression fracture of L1 lumbar vertebra Acute Humerus fracture Acute
[2017-11-29] MEDS: SENNOSIDES/DOCUSATE SODIUM TAB PO SCH ×2 (09:31→20:26)
[2017-11-29] MEDS: GABAPENTIN 300 MG CAP PO SCH ×3 (09:31→23:14)
[2017-11-29] MEDS: FAMOTIDINE 20 MG TAB PO SCH ×2 (09:31→20:27)
[2017-11-29] MEDS: PANTOPRAZOLE SODIUM 40 MG TAB PO SCH (09:31)
[2017-11-29] MEDS: POLYETHYLENE GLYCOL 3350 17 GM PKT PO SCH ×2 (09:32→20:27)
[2017-11-29] MEDS: ENOXAPARIN 40 MG/0.4 ML SYR SC SCH (09:32)
[2017-11-29] MEDS: LIDOCAINE 5% 1 EA PATCH TD SCH (09:32)
--- NOTE | 2017-11-29 15:34 | HOSPPROG ---
Hospitalist Progress Note Assessment/Plan: Assessment: 57 yo F p/w acute back pain 2/2 L4 canal and foraminal stenosis Plan: # L4 canal and foraminal stenosis w/ L1 comp fxr, possible conus compression from retropulsion - s/p ESTEBAN, now POD#2 T11-L3 fusion w/ L1 lami - cont ativan, tizanidine, oxycodone, attempting to wean to PO Rx so that patient can have a good pain mgmt schedule prior to discharge - given patient's protracted recovery and avoidance of mobilization, suspect that she will require SNF at discharge, d/w case mgmt - wilson removed, ongoing trial void, most recent bladder scan 300cc # Constipation. Acute, 2/2 surgery, cont scheduled senokot bid, add mag citrate , cont rest of bowel regimen # anxiety/PTSD - playing a role in her presentation as well as her care requests # htn - cont atenolol, losartan # COPD - inhalers # possible seizure d/o - not on anti-epileptics # possible CAD - not sure whether this is true dx, she does not have a formal diagnosis of coronary disease # suspected atelectasis - acute, IS Diet. Regular PPx. High risk, lovenox given poor mobility Code. Full Dispo. ADD uncertain, pending post-op recovery of above Subjective: patient frustrated, unable to move bowels Objective: Vital Signs Temp Pulse Resp BP Pulse Ox 36.6 C 67 12 91/63 L 96 11/29/17 11:39 11/29/17 11:39 11/29/17 11:39 11/29/17 11:39 11/29/17 11:39 Laboratory Results 11/23/17 18:10 11/28/17 11/29/17 11/30/17 05:59 05:59 05:59 Intake Total 1000 550 600 Output Total 2145 1010 Balance -1145 -460 600 PT 12.5 SEC (12.0-15.0) 11/27/17 08:54 INR 0.91 (0.83-1.16) 11/27/17 08:54 - Physical Exam Constitutional: obese, uncomfortable, No no apparent distress (mild), No not in pain (mild) Cardiovascular: regular rate and rhythym, no murmur, rub, or gallop, No edema Respiratory: reduced air movement (bilat bases), No expiratory wheeze, No inspiratory crackles, No bronchial breath sounds, No respiratory distress Gastrointestinal: normoactive bowel sounds, tenderness (mild), distension (mild) , No guarding Neurologic: AAOx3, sensation intact bilaterally, No facial droop Psychiatric: not encephalopathic, thought process linear, anxious, agitated ICD10 Worksheet Patient Problems: Problems Problem Status Onset Humerus fracture Acute Compression fracture of L1 lumbar vertebra Acute Back pain Acute
[2017-11-29] MEDS ORDERED: MAGNESIUM CITRATE 300 ML BOTTLE PO ONE (15:36)
[2017-11-29] MEDS: ATENOLOL 50 MG TAB PO SCH (20:26)
[2017-11-29] MEDS: traZODone 100 MG TAB PO SCH (20:27)
[2017-11-29] MEDS: tiZANidine HCL 2 MG TAB PO SCH (20:27)
[2017-11-29] MEDS: LOSARTAN POTASSIUM 50 MG TAB PO SCH (20:27)
[2017-11-29] MEDS: PATCH REMOVAL 1 EA PATCH TD SCH (20:40)
[2017-11-30] MEDS: oxyCODONE IR 5 MG TAB PO PRN ×4 (03:23→19:56)
[2017-11-30] MEDS: LORazepam 1 MG TAB PO PRN (04:04)
[2017-11-30] MEDS: ACETAMINOPHEN 500 MG TAB PO SCH ×3 (06:06→21:17)
--- NOTE | 2017-11-30 07:46 | NEUSURGPN ---
Date of Surgery: 11/27/17 Post Op Day: 3 Assessment/Plan: Assessment: 57 yr old with back pain and subacute L1 compression fx and s/p T12/ L1 lami with PSF T12-L2 POD #3 Plan: -Patient had subacute fx of L1, MRI lumbar spine demonstrated stenosis at L4-5 as well as T12-L1 with a mild retropulsion of L1. L1 fx appeared chronic in nature -s/p surgery-pt needs encouragement to increase activities-she is better today. She is voiding on her own. Pt is on the bowel protocol -pending xrays today -recommend continue to mobilize today -Patient has mild weakness of her left TA, stable from pre op -PT/OT eval and treat -No brace needed per Dr Harper -Leave BARBRA in place for now-will d/w Dr Harper about removal -Pain management-CPM -Case management eval for dispo options -Please call neurosurgery with any questions/concerns Subjective: Awake and alert. Pt with improving back pain. No contreras/neck/cp/sob/abd or gu complaints. No f/c/n/v/d. Objective: awake and alert PERRLA LEDEZMA 5/5 RLE 5/5 LLE aside from left TA 4/5 following commands Dressing CDI BARBRA x 1 to suction Neuro Check Frequency: per routine Urinary Catheter in Place: No Catheter Insertion Date: 11/27/17 - Physician Discussed Patient with Dr.: Harper Neurosurgery Physical Exam - Vitals, I&O, Labs I and O 11/29/17 11/30/17 12/01/17 05:59 05:59 05:59 Intake Total 550 600 Output Total 1010 250 Balance -460 350 Weight 89.1 kg 89.5 kg Intake: Oral (ml) 550 600 Output: Urine (ml) 875 200 Bedside Commode 200 Catheter 875 BARBRA Drain Output (ml) 135 50 #1 Right Back Ranjan 135 50 Fry Other: Intake Quantity Yes Sufficient Output Comment Catheter incontinent while standing at the bedside; refused bsc Number of Voids Catheter 1 Number of Stools Bedside Commode 1 Bladder Scan Volume (ml) Bedpan 336 Vital Signs Temp Pulse Resp BP Pulse Ox 36.4 C 74 18 106/74 93 11/29/17 23:24 11/29/17 23:24 11/29/17 23:24 11/29/17 23:24 11/29/17 23:24 Laboratory Results 11/23/17 18:10 ICD10 Worksheet Patient Problems: Problems Problem Status Onset Back pain Acute Compression fracture of L1 lumbar vertebra Acute Humerus fracture Acute
[2017-11-30] MEDS: GABAPENTIN 300 MG CAP PO SCH ×3 (09:45→21:17)
[2017-11-30] MEDS: FAMOTIDINE 20 MG TAB PO SCH ×2 (09:45→21:19)
[2017-11-30] MEDS: POLYETHYLENE GLYCOL 3350 17 GM PKT PO SCH ×3 (09:46→22:04)
[2017-11-30] MEDS: PANTOPRAZOLE SODIUM 40 MG TAB PO SCH (09:46)
[2017-11-30] MEDS: LIDOCAINE 5% 1 EA PATCH TD SCH (09:46)
[2017-11-30] MEDS: SENNOSIDES/DOCUSATE SODIUM TAB PO SCH ×2 (09:46→21:17)
[2017-11-30] MEDS: ENOXAPARIN 40 MG/0.4 ML SYR SC SCH (09:55)
--- NOTE | 2017-11-30 14:23 | HOSPPROG ---
Hospitalist Progress Note Assessment/Plan: Assessment: 57 yo F p/w acute back pain 2/2 L4 canal and foraminal stenosis Plan: # L4 canal and foraminal stenosis w/ L1 comp fxr, possible conus compression from retropulsion - s/p ESTEBAN, now POD#3 T11-L3 fusion w/ L1 lami - cont ativan, tizanidine, oxycodone, weaned to PO, OK to DC PIV - RN/MD engaged patient in listening techniques to gather her suggestions regarding how to work best w/ her (she wants everyone to understand that it is equally frustrating for her to adapt to the hospital processes, she responds best to words of encouragement and optimism) - counseled patient that her involvement and openness with staff will help facilitate optimal care, and she is interested in this partnership - she is motivated to work w/ staff so that she can discharge home if possible, avoid SNF - wilson removed successfully # Constipation. Acute, 2/2 surgery, moved bowels, cont regimen # anxiety/PTSD - playing a role in her presentation as well as her care requests # htn - cont atenolol, losartan # COPD - inhalers # possible seizure d/o - not on anti-epileptics # possible CAD - not sure whether this is true dx, she does not have a formal diagnosis of coronary disease # suspected atelectasis - acute, IS Diet. Regular PPx. High risk, lovenox given poor mobility Code. Full Dispo. ADD uncertain, pending post-op recovery of above Subjective: patient initially withdrawn, then conversant and open w/ staff Objective: Vital Signs Temp Pulse Resp BP Pulse Ox 36.6 C 67 16 117/69 92 11/30/17 07:45 11/30/17 07:45 11/30/17 07:45 11/30/17 07:45 11/30/17 07:45 Laboratory Results 11/23/17 18:10 11/29/17 11/30/17 12/01/17 05:59 05:59 05:59 Intake Total 550 600 Output Total 1010 250 Balance -460 350 PT 12.5 SEC (12.0-15.0) 11/27/17 08:54 INR 0.91 (0.83-1.16) 11/27/17 08:54 - Time Spent With Patient Time Spent with Patient: greater than 35 minutes Time Spent with Patient: Greater than 35 minutes spent on this patients care, greater than 50% of time spent counseling, educating, and coordinating care regarding the above mentioned plan. - Physical Exam Constitutional: chronically ill appearing, obese, uncomfortable Cardiovascular: regular rate and rhythym, no murmur, rub, or gallop Respiratory: inspiratory crackles (bilat bases), No reduced air movement, No expiratory wheeze, No bronchial breath sounds Gastrointestinal: normoactive bowel sounds, soft, non-tender abdomen, no palpable masses Neurologic: AAOx3 Psychiatric: not encephalopathic, anxious, flat affect, agitated (intermittently ) ICD10 Worksheet Patient Problems: Problems Problem Status Onset Humerus fracture Acute Compression fracture of L1 lumbar vertebra Acute Back pain Acute
--- NOTE | 2017-11-30 16:42 | ASMTCMCOM ---
CM Note CM Note Notes: Reviewed chart regarding discharge plan, pt's progress. Spoke w/ Lety RN; Zeenat, PT - pt will need SNF upon discharge. Pt is current with [facility]. Referrals previously sent to [facility], [facility] and [facility]. [facility] declined, stating pt does not have a LTC benefit. HCBS/ACMI involved. CM will follow up on Friday12/01/17 for placement; will cont to follow. Current Discharge Plan: SNF Date Signed: 11/30/2017 04:41 PM Electronically Signed By:Hollie Espinoza RN
[2017-11-30] MEDS: tiZANidine HCL 2 MG TAB PO PRN (18:32)
[2017-11-30] MEDS: tiZANidine HCL 2 MG TAB PO SCH (21:18)
[2017-11-30] MEDS: traZODone 100 MG TAB PO SCH (21:18)
[2017-11-30] MEDS: LOSARTAN POTASSIUM 50 MG TAB PO SCH (21:38)
[2017-11-30] MEDS: ATENOLOL 50 MG TAB PO SCH (21:38)
[2017-11-30] MEDS: PATCH REMOVAL 1 EA PATCH TD SCH (21:40)
[2017-12-01] MEDS: tiZANidine HCL 2 MG TAB PO PRN ×2 (04:08→12:54)
[2017-12-01] MEDS: oxyCODONE IR 5 MG TAB PO PRN ×5 (04:09→22:40)
[2017-12-01] MEDS: ACETAMINOPHEN 500 MG TAB PO SCH ×3 (04:54→21:39)
--- NOTE | 2017-12-01 07:44 | NEUSURGPN ---
Date of Surgery: 11/27/17 Post Op Day: 4 Assessment/Plan: Assessment: 57 yr old with back pain and subacute L1 compression fx and s/p T12/ L1 lami with PSF T12-L2 POD #4 Plan: -Patient had subacute fx of L1, MRI lumbar spine demonstrated stenosis at L4-5 as well as T12-L1 with a mild retropulsion of L1. L1 fx appeared chronic in nature -s/p surgery-pt needs encouragement to increase activities-she is better today. She is voiding on her own. Pt is on the bowel protocol -Patient has yet to complete post op xrays, she refusing. Dr Harper aware and we will cancel this order. -Continue to mobilize today -Patient has mild weakness of her left TA, stable from pre op -PT/OT eval and treat -No brace needed per Dr Harper -Leave BARBRA in place for now-will dc BARBRA when discharged -Pain management-CPM -Patient does not want to go to rehab, stating she is getting good care here. Per PT, patient has not been ambulating more than 20 feet and lives on 3rd floor apartment. Will defer to therapies and case management for placement -Case management eval for dispo options, patient may dc when placement available -Please call neurosurgery with any questions/concerns -Discussed patient with Dr Harper Subjective: Patient urinating better Objective: awake and alert PERRLA LEDEZMA 5/5 RLE 5/5 LLE aside from left TA 4/5 following commands Dressing CDI BARBRA x 1 to suction Neuro Check Frequency: per routine Urinary Catheter in Place: No Catheter Insertion Date: 11/27/17 - Physician Discussed Patient with Dr.: Harper Neurosurgery Physical Exam - Vitals, I&O, Labs I and O 11/30/17 12/01/17 12/02/17 05:59 05:59 05:59 Intake Total 600 500 Output Total 250 1150 Balance 350 -650 Weight 89.5 kg 89.4 kg Intake: Oral (ml) 600 500 Output: Urine (ml) 200 1100 Bedside Commode 200 1100 BARBRA Drain Output (ml) 50 50 #1 Right Back Ranjan 50 50 Fry Other: Output Comment Catheter incontinent while standing at the bedside; refused bsc Number of Voids Bedside Commode 1 Catheter 1 Number of Stools Bedside Commode 1 Bladder Scan Volume (ml) Bedpan 336 Vital Signs Temp Pulse Resp BP Pulse Ox 36.6 C 64 16 109/81 H 94 12/01/17 04:00 12/01/17 04:00 12/01/17 04:00 12/01/17 04:00 12/01/17 04:00 Laboratory Results 11/23/17 18:10 ICD10 Worksheet Patient Problems: Problems Problem Status Onset Back pain Acute Compression fracture of L1 lumbar vertebra Acute Humerus fracture Acute
[2017-12-01] MEDS: GABAPENTIN 300 MG CAP PO SCH ×3 (09:52→21:38)
[2017-12-01] MEDS: ENOXAPARIN 40 MG/0.4 ML SYR SC SCH (09:52)
[2017-12-01] MEDS: LIDOCAINE 5% 1 EA PATCH TD SCH (09:54)
[2017-12-01] MEDS: SENNOSIDES/DOCUSATE SODIUM TAB PO SCH ×2 (09:55→20:22)
[2017-12-01] MEDS: POLYETHYLENE GLYCOL 3350 17 GM PKT PO SCH ×2 (09:55→20:23)
[2017-12-01] MEDS: PANTOPRAZOLE SODIUM 40 MG TAB PO SCH (09:55)
[2017-12-01] MEDS: FAMOTIDINE 20 MG TAB PO SCH ×2 (09:55→20:24)
--- NOTE | 2017-12-01 11:34 | HOSPPROG ---
Hospitalist Progress Note Assessment/Plan: # L1 compr fx with retropulsion/conus compression POD#4 T11-L3 fusion - cont ativan, tizanidine, oxycodone - BARBRA drain per nsg # L4 canal and foraminal stenosis - s/p ESTEBAN # urinary retention - resolved after surgery # anxiety/PTSD - playing a role in her presentation # htn - atenolol, losartan # COPD - inhalers # possible seizure d/o - not on anti-epileptics # possible CAD - not on treatment # suspected atelectasis - IS # dispo - agreeable to SNF on - discussed with CM Subjective: tearful; had a long conversation about rehab Objective: Vital Signs Temp Pulse Resp BP Pulse Ox 36.7 C 59 L 16 117/97 H 91 L 12/01/17 07:58 12/01/17 07:58 12/01/17 07:58 12/01/17 07:58 12/01/17 07:58 Laboratory Results 11/23/17 18:10 11/30/17 12/01/17 12/02/17 05:59 05:59 05:59 Intake Total 600 500 300 Output Total 250 1150 200 Balance 350 -650 100 PT 12.5 SEC (12.0-15.0) 11/27/17 08:54 INR 0.91 (0.83-1.16) 11/27/17 08:54 - Time Spent With Patient Time Spent with Patient: greater than 35 minutes Time Spent with Patient: Greater than 35 minutes spent on this patients care, greater than 50% of time spent counseling, educating, and coordinating care regarding the above mentioned plan. - Physical Exam Constitutional: uncomfortable, other (tearful) ICD10 Worksheet Patient Problems: Problems Problem Status Onset Humerus fracture Acute Compression fracture of L1 lumbar vertebra Acute Back pain Acute
--- NOTE | 2017-12-01 14:30 | ASMTCMCOM ---
CM Note CM Note Notes: I confirmed that patient does have group home Medicaid and does NOT have Medicare; therefore, she will need a ULTC 100 evaluation for SNF services (she already has HCBS). I confirmed this with her [facility] Choke Reamer Alma Delia Reis. I spoke with patient - who had agreed with Dr Samaniego today that she needed rehab prior to home - and she signed the ULTC 100. I faxed it to [facility]. I spoke with Michael at [facility] who says that Lia will come to evaluate patient in hospital tomorrow. Current CM Discharge plan: [facility], 12/03/17 pending [facility] approval Date Signed: 12/01/2017 02:30 PM Electronically Signed By:Thelma Vega RN
[2017-12-01] MEDS: HYDROmorphONE/DILAUDID 2 MG TAB PO PRN (20:21)
[2017-12-01] MEDS: tiZANidine HCL 2 MG TAB PO SCH (20:22)
[2017-12-01] MEDS: PATCH REMOVAL 1 EA PATCH TD SCH (20:23)
[2017-12-01] MEDS: ATENOLOL 50 MG TAB PO SCH (20:24)
[2017-12-01] MEDS: LOSARTAN POTASSIUM 50 MG TAB PO SCH (20:25)
[2017-12-01] MEDS: LORazepam 1 MG TAB PO PRN (21:38)
[2017-12-01] MEDS: traZODone 100 MG TAB PO SCH (21:40)
[2017-12-01] MEDS: ONDANSETRON DISINTEGRATING 4 MG TAB PO PRN (22:40)
[2017-12-02] MEDS: ACETAMINOPHEN 500 MG TAB PO SCH ×3 (04:52→22:11)
[2017-12-02] MEDS: HYDROmorphONE/DILAUDID 2 MG TAB PO PRN ×4 (04:52→22:10)
[2017-12-02] MEDS: oxyCODONE IR 5 MG TAB PO PRN ×4 (08:16→20:33)
[2017-12-02] MEDS: FAMOTIDINE 20 MG TAB PO SCH ×2 (08:17→20:39)
[2017-12-02] MEDS: GABAPENTIN 300 MG CAP PO SCH ×3 (08:17→22:10)
[2017-12-02] MEDS: PANTOPRAZOLE SODIUM 40 MG TAB PO SCH (08:18)
[2017-12-02] MEDS: ENOXAPARIN 40 MG/0.4 ML SYR SC SCH (08:19)
[2017-12-02] MEDS: SENNOSIDES/DOCUSATE SODIUM TAB PO SCH ×2 (08:20→20:39)
[2017-12-02] MEDS: POLYETHYLENE GLYCOL 3350 17 GM PKT PO SCH ×2 (08:20→20:39)
[2017-12-02] MEDS: LIDOCAINE 5% 1 EA PATCH TD SCH (08:21)
--- NOTE | 2017-12-02 10:06 | NEUSURGPN ---
Date of Surgery: 11/27/17 Post Op Day: 5 Assessment/Plan: Assessment: 57 yr old with back pain and subacute L1 compression fx and s/p T12/ L1 lami with PSF T12-L2 POD #5 Plan: -Patient had subacute fx of L1, MRI lumbar spine demonstrated stenosis at L4-5 as well as T12-L1 with a mild retropulsion of L1. L1 fx appeared chronic in nature -s/p surgery-pt needs encouragement to increase activities-she is better today. She is voiding on her own. Pt is on the bowel protocol -Patient did not complete post op xrays, she refused. Dr Harper aware and ordered was canceled. -Continue to mobilize today -PT/OT eval and treat -No brace needed per Dr Harper -Leave BARBRA in place for now-will dc BARBRA when discharged which is possibly tomorrow -Pain management -Case management working on placement possibly tomorrow, ok to dc from NS standpoint and will need BARBRA removed prior to discharge -Please call neurosurgery with any questions/concerns -Discussed patient with Dr Harper Subjective: Patient concerned about leaving the hospital Objective: AxO x3 5/ BLE Dressing CDI BARBRA in place Neuro Check Frequency: per routine Urinary Catheter in Place: No Catheter Insertion Date: 11/27/17 - Physician Discussed Patient with Dr.: Harper Neurosurgery Physical Exam - Vitals, I&O, Labs I and O 12/01/17 12/02/17 12/03/17 05:59 05:59 05:59 Intake Total 500 2050 350 Output Total 1150 2380 Balance -650 -330 350 Weight 89.5 kg 87.572 kg Intake: Oral (ml) 500 2050 350 Output: Urine (ml) 1100 2300 Bedside Commode 1100 2300 BARBRA Drain Output (ml) 50 80 #1 Right Back Ranjan 50 80 Fry Other: Intake Quantity Yes Yes Sufficient Number of Voids Bedside Commode 1 1 Number of Stools Bedside Commode 1 Vital Signs Temp Pulse Resp BP Pulse Ox 98.0 C H 70 16 123/71 H 91 L 12/02/17 07:34 12/02/17 07:34 12/02/17 07:34 12/02/17 07:34 12/02/17 07:34 Laboratory Results 11/23/17 18:10 ICD10 Worksheet Patient Problems: Problems Problem Status Onset Back pain Acute Compression fracture of L1 lumbar vertebra Acute Humerus fracture Acute
[2017-12-02] MEDS: tiZANidine HCL 2 MG TAB PO PRN (10:20)
--- NOTE | 2017-12-02 11:04 | HOSPPROG ---
Hospitalist Progress Note Assessment/Plan: # L1 compr fx with retropulsion/conus compression POD#5 T11-L3 fusion - cont ativan, tizanidine, oxycodone - BARBRA drain per nsg - will remove prior to discharge # L4 canal and foraminal stenosis - s/p ESTEBAN # urinary retention - resolved after surgery # anxiety/PTSD - playing a role in her presentation # htn - atenolol, losartan # COPD - inhalers # possible seizure d/o - not on anti-epileptics # possible CAD - not on treatment # suspected atelectasis - IS # dispo - agreeable to SNF on - discussed with CM Subjective: working with PT Objective: Vital Signs Temp Pulse Resp BP Pulse Ox 98.0 C H 70 16 123/71 H 91 L 12/02/17 07:34 12/02/17 07:34 12/02/17 07:34 12/02/17 07:34 12/02/17 07:34 Laboratory Results 11/23/17 18:10 12/01/17 12/02/17 12/03/17 05:59 05:59 05:59 Intake Total 500 2050 350 Output Total 1150 2380 Balance -650 -330 350 PT 12.5 SEC (12.0-15.0) 11/27/17 08:54 INR 0.91 (0.83-1.16) 11/27/17 08:54 - Physical Exam Constitutional: uncomfortable Ears, Nose, Mouth, Throat: hearing normal Cardiovascular: No edema Respiratory: no respiratory distress Gastrointestinal: No distension Genitourinary: No wilson in urethra Skin: warm Neurologic: AAOx3 Psychiatric: anxious ICD10 Worksheet Patient Problems: Problems Problem Status Onset Humerus fracture Acute Compression fracture of L1 lumbar vertebra Acute Back pain Acute
--- NOTE | 2017-12-02 14:37 | ASMTCMCOM ---
CM Note CM Note Notes: Alma Delia Reis matthew [facility] ([phone]) assessed pt today for Medicaid LTC SNF placement, Alma Delia does not know at this time if pt PASRR will trigger. It could be another 2 business days until [employer] paperwork is in for SNF transfer and that is if the PASRR does not trigger. Pt accepted at [facility] today per Lia Buckley [phone]. Pt agreeable to d/c to BM, pt states she is concerned about her pain control and wants to d/c when she is more independent in room. D/c plan of care: [facility] when [employer] paperwork is ready and pt is medically stable. Date Signed: 12/02/2017 02:36 PM Electronically Signed By:ALEXA Choi
[2017-12-02] MEDS: ONDANSETRON DISINTEGRATING 4 MG TAB PO PRN (20:37)
[2017-12-02] MEDS: PATCH REMOVAL 1 EA PATCH TD SCH (20:39)
[2017-12-02] MEDS: ATENOLOL 50 MG TAB PO SCH (20:39)
[2017-12-02] MEDS: tiZANidine HCL 2 MG TAB PO SCH (20:39)
[2017-12-02] MEDS: traZODone 100 MG TAB PO SCH (20:39)
[2017-12-02] MEDS: LOSARTAN POTASSIUM 50 MG TAB PO SCH (20:39)
[2017-12-02] MEDS: LORazepam 1 MG TAB PO PRN (22:10)
[2017-12-03] MEDS: HYDROmorphONE/DILAUDID 2 MG TAB PO PRN ×4 (02:38→17:17)
[2017-12-03] MEDS: tiZANidine HCL 2 MG TAB PO PRN ×2 (02:53→16:54)
[2017-12-03] MEDS: ACETAMINOPHEN 500 MG TAB PO SCH ×3 (05:16→21:54)
[2017-12-03] MEDS: oxyCODONE IR 5 MG TAB PO PRN ×4 (05:17→19:52)
--- NOTE | 2017-12-03 07:49 | SOAPPROG ---
SOAP Progress Note Assessment/Plan: Assessment: 57 yo F POD #6 T12-L2 fusion for L1 burst fracture Plan: stable and doing well overall change dressing PT/OT/ST scd/edwige/lovenox for dvt prophylaxis keep BARBRA for now, may remove later today discussed with Dr Harper please call with neuro changes 11/26/17 08:03 12/03/17 07:47 Subjective: + back pain ,no leg pain, no weakness. Objective: Vital Signs Temp Pulse Resp BP Pulse Ox 36.6 C 80 16 134/64 H 92 12/03/17 00:00 12/03/17 00:00 12/03/17 00:00 12/03/17 00:00 12/03/17 00:00 Laboratory Results 11/23/17 18:10 12/02/17 12/03/17 12/04/17 05:59 05:59 05:59 Intake Total 2050 1330 Output Total 2380 600 Balance -330 730 PT 12.5 SEC (12.0-15.0) 11/27/17 08:54 INR 0.91 (0.83-1.16) 11/27/17 08:54 AAOX4, +FC PERRL, EOMI, no facial droop 5/5 + light touch dressing old blood, but incision is clean, dry and intact ICD10 Worksheet Patient Problems: Problems Problem Status Onset Back pain Acute Compression fracture of L1 lumbar vertebra Acute Humerus fracture Acute
[2017-12-03] MEDS: PANTOPRAZOLE SODIUM 40 MG TAB PO SCH (08:20)
[2017-12-03] MEDS: ENOXAPARIN 40 MG/0.4 ML SYR SC SCH (08:21)
[2017-12-03] MEDS: GABAPENTIN 300 MG CAP PO SCH ×2 (08:21→16:01)
[2017-12-03] MEDS: FAMOTIDINE 20 MG TAB PO SCH ×2 (08:21→21:55)
[2017-12-03] MEDS: SENNOSIDES/DOCUSATE SODIUM TAB PO SCH ×3 (08:22→21:55)
[2017-12-03] MEDS: LIDOCAINE 5% 1 EA PATCH TD SCH (08:23)
--- NOTE | 2017-12-03 10:15 | ASMTCMCOM ---
CM Note CM Note Notes: Level 1 PASRR received from OBRA coordinator. This morning Alma Delia castro [facility] [phone] states it is unlikely her paperwork will be completed today, more likely tomorrow. Pt will d/c to [facility] when [facility] paperwork is complete. Date Signed: 12/03/2017 10:14 AM Electronically Signed By:ALEXA Choi
[2017-12-03] MEDS: POLYETHYLENE GLYCOL 3350 17 GM PKT PO SCH ×2 (10:28→21:58)
--- NOTE | 2017-12-03 11:40 | HOSPPROG ---
Hospitalist Progress Note Assessment/Plan: # L1 compr fx with retropulsion/conus compression POD#6 T11-L3 fusion - cont ativan, tizanidine, oxycodone - BARBRA drain per nsg - will remove prior to discharge # L4 canal and foraminal stenosis - s/p ESTEBAN # urinary retention - resolved after surgery # anxiety/PTSD - playing a role in her presentation - staff currently using the [employer] system given her outburst # htn - atenolol, losartan # COPD - inhalers # possible seizure d/o - not on anti-epileptics # possible CAD - not on treatment # suspected atelectasis - IS # dispo - possibly to SNF tomorrow Subjective: patient very upset over her previous outburst when working with PT and RN at the same time; discussed with RN Objective: Vital Signs Temp Pulse Resp BP Pulse Ox 37.2 C 66 17 128/66 H 92 12/03/17 07:50 12/03/17 07:50 12/03/17 07:50 12/03/17 07:50 12/03/17 07:50 Laboratory Results 11/23/17 18:10 12/02/17 12/03/17 12/04/17 05:59 05:59 05:59 Intake Total 2050 1330 200 Output Total 2380 600 Balance -330 730 200 PT 12.5 SEC (12.0-15.0) 11/27/17 08:54 INR 0.91 (0.83-1.16) 11/27/17 08:54 - Time Spent With Patient Time Spent with Patient: greater than 25 minutes Time Spent with Patient: Greater than 25 minutes spent on this patients care, greater than 50% of time spent counseling, educating, and coordinating care regarding the above mentioned plan. - Physical Exam Constitutional: other (tearful) ICD10 Worksheet Patient Problems: Problems Problem Status Onset Humerus fracture Acute Compression fracture of L1 lumbar vertebra Acute Back pain Acute
--- NOTE | 2017-12-03 15:44 | ASMTCMCOM ---
CM Note CM Note Notes: [facility] completed on-site today and scheduled tentative [facility] pickup tomorrow for 14:45. Pt is medically stable for d/c and the barrier has been [employer] LTC medicaid process. Spoke w pt who verbalized she is ready to d/c tomorrow. CM to follow. D/c plan of care: [facility] when [facility] paperwork completed Date Signed: 12/03/2017 03:44 PM Electronically Signed By:ALEXA Choi
[2017-12-03] MEDS: traZODone 100 MG TAB PO SCH (21:50)
[2017-12-03] MEDS: tiZANidine HCL 2 MG TAB PO SCH (21:54)
[2017-12-03] MEDS: LOSARTAN POTASSIUM 50 MG TAB PO SCH (21:55)
[2017-12-03] MEDS: ONDANSETRON DISINTEGRATING 4 MG TAB PO PRN (21:56)
[2017-12-03] MEDS: ATENOLOL 50 MG TAB PO SCH (21:56)
[2017-12-03] MEDS: PATCH REMOVAL 1 EA PATCH TD SCH (21:59)
[2017-12-03] MEDS: LORazepam 1 MG TAB PO PRN (22:01)
[2017-12-04] MEDS: ACETAMINOPHEN 500 MG TAB PO SCH ×3 (05:01→21:11)
[2017-12-04] MEDS: HYDROmorphONE/DILAUDID 2 MG TAB PO PRN ×4 (05:01→21:12)
--- NOTE | 2017-12-04 08:20 | NEUSURGPN ---
Date of Surgery: 11/27/17 Post Op Day: 7 Assessment/Plan: Assessment: 57 yr old with back pain and subacute L1 compression fx and s/p T12/ L1 lami with PSF T12-L2 POD #7 Plan: -Patient had subacute fx of L1, MRI lumbar spine demonstrated stenosis at L4-5 as well as T12-L1 with a mild retropulsion of L1. L1 fx appeared chronic in nature -s/p surgery-patient urinary retention resolved -PT/OT eval and treat -No brace needed per Dr Harper -Ok to remove dressing -Remove BARBRA prior to discharge -Case management working on placement possibly today, ok to dc from NS standpoint and will need BARBRA removed prior to discharge -Please call neurosurgery with any questions/concerns -Discussed patient with Dr Harper Subjective: Patient resting, no new complaints Objective: AxO x3 5/5 BLE Sensation intact to light touch BLE Dressing CDI Neuro Check Frequency: per routine Urinary Catheter in Place: No Catheter Insertion Date: 11/27/17 - Physician Discussed Patient with Dr.: Harper Neurosurgery Physical Exam - Vitals, I&O, Labs I and O 12/03/17 12/04/17 12/05/17 05:59 05:59 05:59 Intake Total 1330 700 Output Total 600 251 Balance 730 449 Weight 87.2 kg Intake: Oral (ml) 1330 700 Output: Urine (ml) 600 251 Bedside Commode 600 251 Other: Intake Quantity Yes Yes Sufficient Number of Voids Bedside Commode 2 1 Toilet 1 Number of Stools Bedside Commode 1 Vital Signs Temp Pulse Resp BP Pulse Ox 36.7 C 69 18 114/68 90 L 12/04/17 00:00 12/04/17 00:00 12/04/17 00:00 12/04/17 00:00 12/04/17 00:00 Laboratory Results 11/23/17 18:10 ICD10 Worksheet Patient Problems: Problems Problem Status Onset Back pain Acute Compression fracture of L1 lumbar vertebra Acute Humerus fracture Acute
[2017-12-04] MEDS: FAMOTIDINE 20 MG TAB PO SCH ×2 (08:37→21:12)
[2017-12-04] MEDS: SENNOSIDES/DOCUSATE SODIUM TAB PO SCH ×2 (08:37→21:18)
[2017-12-04] MEDS: PANTOPRAZOLE SODIUM 40 MG TAB PO SCH (08:37)
[2017-12-04] MEDS: oxyCODONE IR 5 MG TAB PO PRN ×2 (08:37→14:06)
[2017-12-04] MEDS: POLYETHYLENE GLYCOL 3350 17 GM PKT PO SCH ×2 (08:39→21:19)
[2017-12-04] MEDS: ENOXAPARIN 40 MG/0.4 ML SYR SC SCH (08:40)
[2017-12-04] MEDS: LIDOCAINE 5% 1 EA PATCH TD SCH (08:40)
[2017-12-04] MEDS: GABAPENTIN 300 MG CAP PO SCH ×3 (09:41→21:10)
[2017-12-04] MEDS ORDERED: CYANO/VITAMIN B12 1000 MCG/ML VIAL IM ONE (09:49)
[2017-12-04] MEDS: tiZANidine HCL 2 MG TAB PO PRN (09:52)
--- NOTE | 2017-12-04 10:04 | PDIAF ---
- Diagnosis Diagnosis: Lumbar stenosis, fusion Code Status: Full Code - Medication Management Discharge Medications: Medications to Continue on Transfer traZODone [traZODONE 100MG (*)] 50 - 100 mg PO HS 11/07/14 [Last Taken 03/13/15] Albuterol Sulfate [Albuterol Inhaler Hfa] 2 puffs IH Q4HRS PRN 11/08/14 [Last Taken Unknown] Fluticasone/Salmeter 500/50Mcg [Advair 500/50 (*)] 1 puffs IH BID PRN 03/14/15 [ Last Taken 03/13/15] Tizanidine HCl [Zanaflex] 1 mg PO HS 03/14/15 [Last Taken 03/13/15] tiZANidine HCL [Zanaflex] 1 - 2 mg PO DAILY PRN 03/14/15 [Last Taken 03/13/15] Atenolol [Tenormin 50 mg (*)] 50 mg PO HS 11/22/17 [Last Taken 11/20/17] Cholecalciferol (Vitamin D3) [Vitamin D3] 5,000 unit PO TH 11/22/17 [Last Taken 11/20/17] Loperamide HCl [Loperamide] 2 mg PO QID PRN 11/22/17 [Last Taken Unknown] Losartan Potassium [Cozaar 50 mg (*)] 50 mg PO HS 11/22/17 [Last Taken Unknown] Omeprazole 40 mg PO DAILY 11/22/17 [Last Taken 11/15/17] Ondansetron Odt [Zofran Odt 4 mg (*)] 4 mg PO Q8HRS PRN 11/22/17 [Last Taken ] Ranitidine HCl 150 mg PO BID 11/22/17 [Last Taken 11/15/17] Gabapentin [Neurontin 300 MG (*)] 600 mg PO TID cap 12/04/17 [Last Taken Unknown] HYDROmorphone HCL [Dilaudid 2 mg (*)] 2 - 4 mg PO Q4HRS PRN tab 12/04/17 [Last Taken Unknown] LORazepam [Ativan (*)] 1 - 2 mg PO Q6 PRN tab 12/04/17 [Last Taken Unknown] Polyethylene Glycol 3350 [Miralax 17 gm (*)] 17 gm PO BID pkt 12/04/17 [Last Taken Unknown] Sennosides/Docusate Sodium [Senokot-S] 1 - 2 tab PO BID tab 12/04/17 [Last Taken Unknown] Topiramate [Topamax 100MG (*)] 100 mg PO DAILY PRN tab 12/04/17 [Last Taken Unknown] oxyCODONE IR [Oxycodone Ir (*)] 5 - 10 mg PO Q4HRS PRN tab 12/04/17 [Last Taken Unknown] Discharge Medications: Refer to the Discharge Home Medication list for PRN reason. - Orders Services needed: Registered Nurse, Certified [employer] Worker, Physical Therapy, Occupational Therapy Isolation Type: None Diet Recommendation: no restrictions on diet Diet Texture: Regular Texture Diet Activity/Weight Bearing Restrictions: No bending or twisting. Do not lift greater than 10 pounds. Ok to shower. Do not submerge incision for 2 weeks. No brace needed - Follow Up Care Current Providers and Referrals: Zac Harper MD [Medical Doctor] - follow up in 2 weeks Patient,NotPresent [Primary Care Provider] - As per Instructions
--- NOTE | 2017-12-04 10:31 | GDS ---
[f rep st] DISCHARGE SUMMARY ALL DIAGNOSES: 1. L1 compression fracture with retropulsion and conus compression, now postoperative day #7, status post T11 through L3 fusion. 2. L4 canal and foraminal stenosis, status post epidural steroid injection. 3. Urinary retention due to conus compression, which has resolved. 4. Anxiety and posttraumatic stress disorder. 5. Hypertension. 6. Chronic obstructive pulmonary disease. 7. Questionable seizure disorder. 8. Possible coronary artery disease. 9. Suspected atelectasis. ALL PROCEDURES: 1. Epidural steroid injection by Dr. Escobar on 11/24/2017. 2. T11 through L3 fusion by Dr. Harper on 11/27/2017, with good decompression. ALL IMPORTANT IMAGING: Lumbar spine MRI on 11/23/2017, showing L1 compression fracture with retropulsion, resulting in conus compression, as well as moderate to severe spinal canal narrowing and severe left and right neural foraminal stenosis at L4 through L5. HOSPITAL COURSE: This is a 57-year-old female admitted with intractable back pain. Findings as above in imaging. She underwent an epidural steroid injection to L4-5 area with good results. She underwent a T11 through L3 fusion with good results. She is still suffering some pain; however, this is much improved prior to her surgery. She will be discharged on appropriate pain control. She should follow up with Dr. Harper in 1-2 weeks for a postop check. Wound care instructions are placed in the interagency transfer form. She has a history of anxiety and PTSD. This somewhat complicates her overall care; however, on the day of discharge, she is calm and cooperative. She is on appropriate medications for this. ADDENDUM: Patient not able to be discharged today due to [facility]'s influenza epidemic. BILLING: I spent more than 35 minutes today coordinating care. She was seen and examined. /[id number]/MODL [id number]
[2017-12-04] MEDS: ONDANSETRON DISINTEGRATING 4 MG TAB PO PRN (11:19)
[2017-12-04] MEDS: LORazepam 1 MG TAB PO PRN ×2 (14:24→21:12)
[2017-12-04] MEDS: MAGNESIUM HYDROXIDE 30 ML UDCUP PO PRN (16:44)
[2017-12-04] MEDS: tiZANidine HCL 2 MG TAB PO SCH (21:12)
[2017-12-04] MEDS: traZODone 100 MG TAB PO SCH (21:12)
[2017-12-04] MEDS: LOSARTAN POTASSIUM 50 MG TAB PO SCH (21:18)
[2017-12-04] MEDS: ATENOLOL 50 MG TAB PO SCH (21:18)
[2017-12-04] MEDS: PATCH REMOVAL 1 EA PATCH TD SCH (21:22)
[2017-12-04] MEDS: TOPIRAMATE 100 MG TAB PO PRN (23:13)
[2017-12-05] MEDS: oxyCODONE IR 5 MG TAB PO PRN ×3 (02:53→13:02)
[2017-12-05 03:15] VITALS: PULSE 70; RESP 18; TEMP 98.1; O2SAT 90
[2017-12-05] MEDS: ACETAMINOPHEN 500 MG TAB PO SCH ×2 (06:34→13:01)
[2017-12-05] MEDS: HYDROmorphONE/DILAUDID 2 MG TAB PO PRN ×2 (06:35→13:04)
[2017-12-05 07:56] VITALS: BP 144/86
[2017-12-05] MEDS: FAMOTIDINE 20 MG TAB PO SCH (08:44)
[2017-12-05] MEDS: POLYETHYLENE GLYCOL 3350 17 GM PKT PO SCH (08:44)
[2017-12-05] MEDS: PANTOPRAZOLE SODIUM 40 MG TAB PO SCH (08:44)
[2017-12-05] MEDS: GABAPENTIN 300 MG CAP PO SCH (08:44)
[2017-12-05] MEDS: SENNOSIDES/DOCUSATE SODIUM TAB PO SCH (08:44)
[2017-12-05] MEDS: ENOXAPARIN 40 MG/0.4 ML SYR SC SCH (08:44)
[2017-12-05] MEDS: tiZANidine HCL 2 MG TAB PO PRN (09:11)
--- NOTE | 2017-12-05 10:26 | PDIAF ---
- Diagnosis Diagnosis: Lumbar stenosis, fusion Code Status: Full Code - Medication Management Discharge Medications: Medications to Continue on Transfer traZODone [traZODONE 100MG (*)] 50 - 100 mg PO HS 11/07/14 [Last Taken 03/13/15] Albuterol Sulfate [Albuterol Inhaler Hfa] 2 puffs IH Q4HRS PRN 11/08/14 [Last Taken Unknown] Fluticasone/Salmeter 500/50Mcg [Advair 500/50 (*)] 1 puffs IH BID PRN 03/14/15 [ Last Taken 03/13/15] Tizanidine HCl [Zanaflex] 1 mg PO HS 03/14/15 [Last Taken 03/13/15] tiZANidine HCL [Zanaflex] 1 - 2 mg PO DAILY PRN 03/14/15 [Last Taken 03/13/15] Atenolol [Tenormin 50 mg (*)] 50 mg PO HS 11/22/17 [Last Taken 11/20/17] Cholecalciferol (Vitamin D3) [Vitamin D3] 5,000 unit PO TH 11/22/17 [Last Taken 11/20/17] Loperamide HCl [Loperamide] 2 mg PO QID PRN 11/22/17 [Last Taken Unknown] Losartan Potassium [Cozaar 50 mg (*)] 50 mg PO HS 11/22/17 [Last Taken Unknown] Omeprazole 40 mg PO DAILY 11/22/17 [Last Taken 11/15/17] Ondansetron Odt [Zofran Odt 4 mg (*)] 4 mg PO Q8HRS PRN 11/22/17 [Last Taken ] Ranitidine HCl 150 mg PO BID 11/22/17 [Last Taken 11/15/17] Gabapentin [Neurontin 300 MG (*)] 600 mg PO TID cap 12/04/17 [Last Taken Unknown] HYDROmorphone HCL [Dilaudid 2 mg (*)] 2 - 4 mg PO Q4H PRN #30 tab 12/04/17 [ Last Taken Unknown] LORazepam [Ativan (*)] 1 - 2 mg PO Q6 PRN tab 12/04/17 [Last Taken Unknown] Polyethylene Glycol 3350 [Miralax 17 gm (*)] 17 gm PO BID pkt 02/08/18 [Last Taken Unknown] Sennosides/Docusate Sodium [Senokot-S] 1 - 2 tab PO BID tab 12/04/17 [Last Taken Unknown] Topiramate [Topamax 100MG (*)] 100 mg PO DAILY PRN tab 12/04/17 [Last Taken Unknown] oxyCODONE IR [Oxycodone Ir (*)] 5 mg PO Q4H PRN #30 tab 12/04/17 [Last Taken Unknown] Discharge Medications: Refer to the Discharge Home Medication list for PRN reason. - Orders Services needed: Registered Nurse, Certified Structural Steel Worker, Physical Therapy, Occupational Therapy Isolation Type: None Diet Recommendation: no restrictions on diet Diet Texture: Regular Texture Diet Activity/Weight Bearing Restrictions: No bending or twisting. Do not lift greater than 10 pounds. Ok to shower. Do not submerge incision for 2 weeks. No brace needed - Follow Up Care Current Providers and Referrals: Zac Harper MD [Medical Doctor] - follow up in 2 weeks Patient,NotPresent [Primary Care Provider] - As per Instructions
--- NOTE | 2017-12-05 11:46 | GDS ---
[f rep st] DISCHARGE SUMMARY DIAGNOSIS: 1. L1 compression fracture with retropulsion and conus compression, postoperative day #8 status post T11 through L3 fusion. 2. L4 canal and foraminal stenosis status post epidural steroid injection. 3. Urinary retention due to conus compression, resolved. 4. Anxiety and posttraumatic stress disorder. 5. Hypertension. 6. Chronic obstructive pulmonary disease. 7. Questionable seizure disorder. 8. Possible coronary artery disease. 9. Suspected atelectasis. PROCEDURES: 1. Epidural steroid injection by Dr. Escobar on 11/24/2017 to the L4-5 area. 2. T11 through L3 fusion by Dr. Harper on 11/27/2017 with good decompression. HOSPITAL COURSE: This is a 57-year-old female, who was admitted with intractable back pain. She was found to have an L1 compression fracture with retropulsion. She underwent a T11 through L3 fusion a nd decompression by Dr. Harper. She has had good results from this. She had a BARBRA drain pulled the d ay before discharge. She should follow up with Dr. Harper in 1-2 weeks for postoperative check. Wou nd care instructions are in the interagency transfer form. She additionally underwent an epidural st eroid injection L4-5 area with good results. This was due to foraminal stenosis. She had some urinary retention likely due to conus compression which has resolved. She has been urin ating without difficulty. She previously required straight cathing and would have about 200-300 cc i n her bladder. BILLING: I spent less than 30 minutes on the day of discharge coordinating care. /[id number]/MODL
[2017-12-05] MEDS: LIDOCAINE 5% 1 EA PATCH TD SCH (11:48)
[2017-12-05] MEDS: LORazepam 1 MG TAB PO PRN (13:52)
[2017-12-05] MEDS: ONDANSETRON DISINTEGRATING 4 MG TAB PO PRN (13:52)
--- NOTE | 2017-12-05 15:31 | ASDISCHSUM ---
Discharge Information Plan Status:SNF Medically Cleared to Leave: Discharge Date: D/C Disposition:Snf Facility [facility] D/C Disposition:Snf Facility Projected Discharge Date:12/01/2017 11:00 AM Transportation at D/C:ALS/BLS Discharge Delay Reason: Follow-Up Date:12/01/2017 11:00 AM Discharge Slot: Final Diagnosis: Placement Information Referral Type:*Fci/SNF Referral ID:[id number] Provider Name:Thuy Mattulder Address 1:[address] Address 2: City:[place] Selection Factors: State:[place] Patient Contact Information Contact Name:ABIMAEL Relationship:Suzan Address: Work Phone: City: [facility] Phone: [facility] Code: Email: Financial Information Financial Class:Medicaid Primary Plan Desc:[place] Primary Plan Number:[id number] Secondary Plan Desc: Secondary Plan Number: Assessment Information [facility] CM Progress Note CM Note CM Note Notes: Pt admitted with lower back pain. Pt has a hx of L1 compression fx ~2 mos ago. MRI is planned. CM to follow for DC needs. Date Signed: 11/23/2017 04:16 PM Electronically Signed By:Essence Nye LCSW [facility] CM Progress Note CM Note CM Note Notes: 11/25/2017 Case Management Note Met w/pt to discuss PT recommendation for SNF rehab. Pt was upset at recommendation, focusing primarily on fear of losing her cat, which is a designated service sheela mauricio during the Medicaid required 30 day stay at SNF rehab. Pt has [facility] human services case manager Alma Delia Guzmanmond [phone]. Per pt receives 7.5 hours a week of unskilled care through [facility]. Per pt. her PCP Dr. Taylor at [facility] was to set up home comfort advisor PT and CANDY ROLLING MACHINE OPERATOR through [facility], however pt was hospitalized prior to start of services. [facility] case manager Mary Power [phone] during hospitalization. Case Management left VM for Alma Delia Chato to see if HCBS services can be increased to a level that would be helpful for pt at d/c. Case Management to discuss if new ULTC 100 is required if pt is going to SNF rehab at d/c. Waiting for call back. Case Management d/c poc: TBD Case Management to follow. Date Signed: 11/25/2017 03:34 PM Electronically Signed By:Lorraine Nazario RN [facility] CM Progress Note CM Note CM Note Notes: Reviewed chart and discussed w/RN. Pt will go for surgery today at 1PM. Will re-assess needs post-op. Left voicemail for [facility] bridge rigger, Alma Delia Chato regarding possibility of increasing HCBS (See CM note from 11/25). CM will follow. Date Signed: 11/27/2017 11:15 AM Electronically Signed By:Leora Larsen RN [facility] CM Progress Note CM Note CM Note Notes: PT/OT rec SNF today. Pt agreeable to SNF today, states it is important for her to stay in [place]. VM left for Alma Delia Reis [phone] asking about Medicaid respite SNF stay vs. Medicaid 30 day SNF stay w ULTC-100. If pt can go under respite and there is an accepting facility she does not have to stay the 30 days. PT/OT recs and med list faxed to Alma Delia Reis today. Pt indicated she would go to [facility] rather than a better rated SNF outside of city limits just to stay in [place]. Pt does have a support system in [place]. [facility] therapist Shannan Sierra [phone] visited w pt today and would like notification of d/c and what SNF (a RAMÓN has been signed). Pt states her friend Vanda will take care of her cat while she is in SNF. Referrals sent to [facility], [facility] and [facility]. CM to follow. PASRR done but this may need to be done by [facility] since they will approve SNF. D/c plan of care: SNF, CM has to hear back from Alma Delia Guzmanmond w [facility] about Medicaid SNF options and still pending is an accepting facility Date Signed: 11/28/2017 04:46 PM Electronically Signed By:ALEXA Choi [facility] Progress Note CM Note CM Note Notes: Pt is currently open w [facility] [phone], this CM updated them pt may d/c to SNF. They request a call when d/c plan is solidified. Date Signed: 11/28/2017 04:55 PM Electronically Signed By:ALEXA Choi [facility] CM Progress Note CM Note CM Note Notes: Reviewed chart regarding discharge plan, pt's progress. Spoke matthew/ PROMISE Davidson; Zeenat, PT - pt will need SNF upon discharge. Pt is current with [facility]. Referrals previously sent to [facility], [facility] and [facility]. [facility] declined, stating pt does not have a LTC benefit. HCBS/ACMI involved. CM will follow up on Friday12/01/17 for placement; will cont to follow. Current Discharge Plan: SNF Date Signed: 11/30/2017 04:41 PM Electronically Signed By:Hollie Espinoza RN [facility] CM Progress Note CM Note CM Note Notes: I confirmed that patient does have long term care social worker Medicaid and does NOT have Medicare; therefore, she will need a ULTC 100 evaluation for SNF services (she already has HCBS). I confirmed this with her [facility] Animal Care Supervisor Alma Delia Reis. I spoke with patient - who had agreed with Dr Samaniego today that she needed rehab prior to home - and she signed the ULTC 100. I faxed it to [facility]. I spoke with Michael at [facility] who says that Lia will come to evaluate patient in hospital tomorrow. Current CM Discharge plan: [facility], 12/03/17 pending [facility] approval Date Signed: 12/01/2017 02:30 PM Electronically Signed By:Thelma Vega RN [facility] CM Progress Note CM Note CM Note Notes: Alma Delia castro [facility] ([phone]) assessed pt today for Medicaid LTC SNF placement, Alma Delia does not know at this time if pt PASRR will trigger. It could be another 2 business days until [employer] paperwork is in for SNF transfer and that is if the PASRR does not trigger. Pt accepted at [facility] today per Lia Buckley [phone]. Pt agreeable to d/c to , pt states she is concerned about her pain control and wants to d/c when she is more independent in room. D/c plan of care: [facility] when [employer]CMI paperwork is ready and pt is medically stable. Date Signed: 12/02/2017 02:36 PM Electronically Signed By:ALEXA Choi [facility] Progress Note CM Note CM Note Notes: Level 1 PASRR received from OBRA coordinator. This morning Alma Delia castro [facility] [phone] states it is unlikely her paperwork will be completed today, more likely tomorrow. Pt will d/c to [facility] when [employer] paperwork is complete. Date Signed: 12/03/2017 10:14 AM Electronically Signed By:ALEXA Choi [facility] CM Progress Note CM Note CM Note Notes: Lia Urrutia completed on-site today and scheduled tentative [facility] pickup tomorrow for 14:45. Pt is medically stable for d/c and the barrier has been [facility] medicaid process. Spoke w pt who verbalized she is ready to d/c tomorrow. CM to follow. D/c plan of care: [facility] [place] when [facility] paperwork completed Date Signed: 12/03/2017 03:44 PM Electronically Signed By:ALEXA Choi [facility] CM Progress Note CM Note CM Note Notes: Yesterday d/c orders input, [facility] unable to accept admission though due to the flu. This upset pt. Milagro Lofton [facility] visited pt as [facility] possibly able to accept but pt declined [place]. [facility] accepts pt. Alma Delia castro [facility] was notified and sent the proper paperwork to . Today pt medically stable for d/c to [facility]. Medicaid stretcher transport scheduled w [facility] for 15:00. [facility] called for auth: [id number]. Pt P cm Shannan updated. Date Signed: 12/05/2017 03:30 PM Electronically Signed By:ALEXA Choi Inter[facility] Information
--- NOTE | 2017-12-05 15:31 | ASMTCMCOM ---
CM Note CM Note Notes: Yesterday d/c orders input, [facility] unable to accept admission though due to the flu. This upset pt. [facility] Lofton SN[facility] visited pt as [place] possibly able to accept but pt declined [place]. [place] accepts pt. Alma Delia castro [facility] was notified and sent the proper paperwork to . Today pt medically stable for d/c to [facility]. Medicaid stretcher transport scheduled w [facility] for 15:00. [place] called for auth: [id number]. Pt [facility] cm Shannan updated. Date Signed: 12/05/2017 03:30 PM Electronically Signed By:ALEXA Choi
== END 2017-12-05 15:35 | DRG 460 ==
LOC: EDUNIT# → F2W 11-22 02:06 → OBSVTOIN 11-23 15:40 → F3N 11-26 18:30
PROVIDERS: ADMIT Family Medicine; ATTEND Student in an Organized Health Care Education/Training Program
PROC: 3E0S3BZ Introduction of Anesthetic Agent into Epidural Space, Percutaneous Approach (ICD-10-PCS; 2017-11-24)
PROC: 3E0S33Z Introduction of Anti-inflammatory into Epidural Space, Percutaneous Approach (ICD-10-PCS; 2017-11-24)
PROC: BR19YZZ Fluoroscopy of Lumbar Spine using Other Contrast (ICD-10-PCS; 2017-11-27)
PROC: 8E0WXBG Computer Assisted Procedure of Trunk Region, With Computerized Tomography (ICD-10-PCS; principal; 2017-11-27 13:00)
PROC: 4A1104G Monitoring of Peripheral Nervous Electrical Activity, Intraoperative, Open Approach (ICD-10-PCS; principal; 2017-11-27 13:00)
PROC: 00NY0ZZ Release Lumbar Spinal Cord, Open Approach (ICD-10-PCS; principal; 2017-11-27 13:00)
PROC: 0PH404Z Insertion of Internal Fixation Device into Thoracic Vertebra, Open Approach (ICD-10-PCS; principal; 2017-11-27 13:00)
PROC: 0QH004Z Insertion of Internal Fixation Device into Lumbar Vertebra, Open Approach (ICD-10-PCS; principal; 2017-11-27 13:00)
PROC: 0SG0071 Fusion of Lumbar Vertebral Joint with Autologous Tissue Substitute, Posterior Approach, Posterior Column, Open Approach (ICD-10-PCS; principal; 2017-11-27 13:00)
PROC: 0RGA071 Fusion of Thoracolumbar Vertebral Joint with Autologous Tissue Substitute, Posterior Approach, Posterior Column, Open Approach (ICD-10-PCS; principal; 2017-11-27 13:00)
DX: S32.012A Unstable burst fracture of first lumbar vertebra, initial encounter for closed fracture (principal); M48.061 Spinal stenosis, lumbar region without neurogenic claudication; R33.9 Retention of urine, unspecified; F41.9 Anxiety disorder, unspecified; R29.6 Repeated falls; G89.29 Other chronic pain; M54.42 Lumbago with sciatica, left side; J44.9 Chronic obstructive pulmonary disease, unspecified; F43.10 Post-traumatic stress disorder, unspecified; I10 Essential (primary) hypertension; D25.9 Leiomyoma of uterus, unspecified; K59.00 Constipation, unspecified; M51.36 Other intervertebral disc degeneration, lumbar region; M51.35 Other intervertebral disc degeneration, thoracolumbar region; E66.9 Obesity, unspecified; Z68.34 Body mass index [BMI] 34.0-34.9, adult; I25.10 Atherosclerotic heart disease of native coronary artery without angina pectoris; I25.2 Old myocardial infarction; W19.XXXD Unspecified fall, subsequent encounter; Z87.891 Personal history of nicotine dependence; Z88.0 Allergy status to penicillin
CPT/HCPCS: 96374; 97116-GP; 97161-GP; 97164-GP; 97166-GO; 97530-GO; 97530-GP; 97532-GO; 97535-GO; C1713; G0378; J0171; J1170; J1650; J1885; J2001; J2060; J2250; J2370; J2405; J2704; J3010; J3301; J3360; J3370; Q9967

== ENCOUNTER 2018-01-10 01:09 | Inpatient (IN) | payer MEDICAID ==
--- NOTE | 2018-01-10 01:20 | EDPHY ---
H & P Time Seen by Provider: 01/10/18 01:16 HPI/ROS: CHIEF COMPLAINT: Back pain HISTORY OF PRESENT ILLNESS: 57-year-old female with medical history significant for chronic back pain, recent lumbar spinal fusion surgery by Dr. Tomasz Valero arrives via ambulance from her home stating that she felt like her legs gave out and she was unable to ambulate secondary to pain and weakness in her legs early this evening. She used her medical alert button to summon help. She was on the floor for approximately 10 min before assistance arrived. PRIMARY CARE PROVIDER: REVIEW OF SYSTEMS: A ten point review of systems was performed and is negative with the exception of the items mentioned in the HPI PAST MEDICAL & SURGICAL HISTORY: L1 compression fracture, T11 through L3 fusion. Hypertension. Anxiety and PTSD. COPD. SOCIAL HISTORY: Patient lives by herself. PHYSICAL EXAM (Prior to examination, patient consented to physical exam, hands were washed and my usual and customary physical exam procedures followed) 1) GENERAL: obese. Appears uncomfortable. Anxious. 2) HEAD: Normocephalic, atraumatic 3) HEENT: Pupils equal, round, reactive to light bilaterally. Sclera anicteric. 4) NECK: Full range of motion, no meningeal signs. 5) LUNGS: Clear auscultation bilaterally, no wheezes, no rhonchi, no retractions. 6) HEART: Regular rate and rhythm, no murmur, no heave, no gallop. 7) ABDOMEN: No guarding, no rebound, no focal tenderness, negative McBurney's, negative Ferguson's, negative Rovsing's, negative peritoneal sign, 8) MUSCULOSKELETAL: Moving all extremities, no focal areas of tenderness, no obvious trauma. No peripheral edema or discoloration. 9) BACK: Significant pain when she is asked to sit up or change positions. Surgical scar noted. No CVA tenderness, no midline vertebral tenderness, no fluctuance, no step-off, no obvious trauma, no visual or palpable abnormality. Lower extremity patella and Achilles reflexes intact to bilaterally. Strength 5 /5. No asymmetry. 10) SKIN: No rash, no petechiae. 11) Psychiatric: Patient is oriented X 3, there is no agitation. DIFFERENTIAL DIAGNOSIS: In no particular order, including but not limited to, fracture, sprain/strain, cauda equina, spinal infectious etiology. - Personal History Tetanus Vaccine Date: Refuses vaccinations - Medical/Surgical History Hx Asthma: Yes Hx Chronic Respiratory Disease: Yes Hx Diabetes: No Hx Cardiac Disease: Yes Hx Renal Disease: No Hx Cirrhosis: No Hx Alcoholism: Yes Hx HIV/AIDS: No Hx Splenectomy or Spleen Trauma: No Other PMH: spinal stenosis, asthma, copd, seizures, ptsd, borderline personality disorder, heart attack in 2012, left shoulder torn rotator cuff, broken arm - Social History Smoking Status: Former smoker (Listed in EMR however patient adamantly denies any history) Constitutional: Initial Vital Signs Temperature (C) 36.9 C 01/10/18 01:23 Heart Rate 106 H 01/10/18 01:23 Respiratory Rate 18 01/10/18 01:23 Blood Pressure 168/82 H 01/10/18 01:23 O2 Sat (%) 88 L 01/10/18 01:23 O2 Delivery Mode Room Air Allergies/Adverse Reactions: Penicillins Allergy (Severe, Verified 01/10/18 01:27) Hives Home Medications: Medication Instructions Recorded traZODone [traZODONE 100MG (*)] 50 - 100 mg PO HS 11/07/14 Albuterol Sulfate [Albuterol 2 puffs IH Q4HRS PRN 11/08/14 Inhaler Hfa] Fluticasone/Salmeter 500/50Mcg 1 puffs IH BID PRN 03/14/15 [Advair 500/50 (*)] Tizanidine HCl [Zanaflex] 1 mg PO HS 03/14/15 tiZANidine HCL [Zanaflex] 1 - 2 mg PO DAILY PRN 03/14/15 Atenolol [Tenormin 50 mg (*)] 50 mg PO HS 11/22/17 Cholecalciferol (Vitamin D3) 5,000 unit PO TH 11/22/17 [Vitamin D3] Loperamide HCl [Loperamide] 2 mg PO QID PRN 11/22/17 Losartan Potassium [Cozaar 50 mg 50 mg PO HS 11/22/17 (*)] Omeprazole 40 mg PO DAILY 11/22/17 Ondansetron Odt [Zofran Odt 4 mg 4 mg PO Q8HRS PRN 11/22/17 (*)] Ranitidine HCl 150 mg PO BID 11/22/17 Gabapentin [Neurontin 300 MG (*)] 600 mg PO TID cap 12/04/17 HYDROmorphone HCL [Dilaudid 2 mg 2 - 4 mg PO Q4H PRN #30 tab 12/04/17 (*)] LORazepam [Ativan (*)] 1 - 2 mg PO Q6 PRN tab 12/04/17 Polyethylene Glycol 3350 [Miralax 17 gm PO BID pkt 12/04/17 17 gm (*)] Sennosides/Docusate Sodium 1 - 2 tab PO BID tab 12/04/17 [Senokot-S] Topiramate [Topamax 100MG (*)] 100 mg PO DAILY PRN tab 12/04/17 oxyCODONE IR [Oxycodone Ir (*)] 5 mg PO Q4H PRN #30 tab 12/04/17 Medical Decision Making ED Course/Re-evaluation: 1:15 a.m.: I discussed the case with secondary supervising physician Dr. Hernandez in the ER. The patient describes that she is having progressive challenges and caring for self at home. She describes this evening's fall as sensation on her legs gave out. She does not describe syncopal episode. She denies head injury. She denies acute alcohol use. I do not think that discharge home is appropriate for this patient as I am concerned about her ability to care for self, concerned about her pain management. She is in agreement with this . 1:20 a.m.: Phone consultation with Dr. Tomasz Valero who is familiar with this patient's case, he has seen the patient in clinic 2 days ago. He does explained to me that there have been some challenges with the patient's social situation and that case management was trying to get home health established prior to her being discharged from her rehabilitation facility. He does not think that emergent MRI needs to occur her this evening. He agrees to consult on the patient later on today, admit to hospitalist. 1:40 a.m.: Consultation with Dr. Landaverde who will admit patient. Departure - Departure Disposition: [facility] Acute Clinical Impression: Acute exacerbation of chronic low back pain, Failure to thrive in adult Condition: Fair
[2018-01-10] MEDS ORDERED: HYDROmorphONE/DILAUDID 1 MG/ML INJ IVP ONE ×2 (01:29→08:26)
[2018-01-10] MEDS ORDERED: LORazepam 2 MG/ML INJ IVP ONE ×2 (01:29→08:26)
[2018-01-10] MEDS ORDERED: NS 1,000 ML IV ONE (01:29)
[2018-01-10] MEDS ORDERED: ONDANSETRON DISINTEGRATING 4 MG TAB PO PRN ×2 (01:45→16:26)
[2018-01-10] MEDS ORDERED: HYDROmorphONE/DILAUDID 1 MG/ML INJ IVP PRN (01:45)
[2018-01-10] MEDS ORDERED: ONDANSETRON 4 MG/2 ML VIAL IVP PRN (01:45)
[2018-01-10] MEDS ORDERED: ACETAMINOPHEN 325 MG TAB PO PRN (01:45)
[2018-01-10] MEDS ORDERED: HYDROmorphONE/DILAUDID 2 MG/ML INJ ONE ×2 (02:01→08:28)
--- NOTE | 2018-01-10 02:19 | PDGENHP ---
History and Physical - Chief Complaint Pain, weakness - History of Present Illness 57 yo F w/ hx of chronic back pain s/p recent T11-L3 fusion, lumbar canal stenosis, HTN, anxiety, and COPD presents after a fall. Patient was discharged in August after spinal fusion performed for chronic back pain. She was discharged to [facility] where she rehabbed for 1 month. She has been at home where she lives alone for the last week. She states she had been doing fairly well until today. She felt like her legs gave out and she was unable to get up. She pressed her Life Alert button and EMS brought her to the ED. At the time of my evaluation patient is complaining of leg weakness, LE neuropathy, and shoulder pain. She denies any significant trauma from her fall. History Information - Allergies/Home Medication List Allergies/Adverse Reactions: Penicillins Allergy (Severe, Verified 01/10/18 01:27) Hives Home Medications: traZODone [traZODONE 100MG (*)] 50 - 100 mg PO HS 11/07/14 [Last Taken 03/13/15] Albuterol Sulfate [Albuterol Inhaler Hfa] 2 puffs IH Q4HRS PRN 11/08/14 [Last Taken Unknown] Fluticasone/Salmeter 500/50Mcg [Advair 500/50 (*)] 1 puffs IH BID PRN 03/14/15 [ Last Taken 03/13/15] Tizanidine HCl [Zanaflex] 1 mg PO HS 03/14/15 [Last Taken 03/13/15] tiZANidine HCL [Zanaflex] 1 - 2 mg PO DAILY PRN 03/14/15 [Last Taken 03/13/15] Atenolol [Tenormin 50 mg (*)] 50 mg PO HS 11/22/17 [Last Taken 11/20/17] Cholecalciferol (Vitamin D3) [Vitamin D3] 5,000 unit PO TH 11/22/17 [Last Taken 11/20/17] Loperamide HCl [Loperamide] 2 mg PO QID PRN 11/22/17 [Last Taken Unknown] Losartan Potassium [Cozaar 50 mg (*)] 50 mg PO HS 11/22/17 [Last Taken Unknown] Omeprazole 40 mg PO DAILY 11/22/17 [Last Taken 11/15/17] Ondansetron Odt [Zofran Odt 4 mg (*)] 4 mg PO Q8HRS PRN 11/22/17 [Last Taken ] Ranitidine HCl 150 mg PO BID 11/22/17 [Last Taken 11/15/17] I have personally reviewed and updated: family history, medical history - Past Medical History degenerative disc disease, hypertension Additional medical history: Chronic low back pain with sciatica. Degenerative disc disease, spinal stenosis. L1 compression fracture with history of recurrent falls. PTSD, anxiety disorder, personality disorder per chart borderline personality. COPD, asthma. CAD with reported OH in 2011. Patient unclear on details for this diagnosis. History of seizures possibly alcohol withdrawal. Left humeral fracture. Neuropathy in the left lower extremity with complaints of left footdrop - Surgical History Additional surgical history: Tonsillectomy adenoidectomy. Orthopedic surgery - Family History Additional family history: Unknown. Patient is adopted. - Social History Smoking Status: Former smoker (Listed in EMR however patient adamantly denies any history) Review of Systems Review of Systems: ROS: 10pt was reviewed & negative except for what was stated in HPI & below Physical Exam Physical Exam: Temp Pulse Resp BP Pulse Ox 36.9 C 106 H 18 168/82 H 88 L 01/10/18 01:23 01/10/18 01:23 01/10/18 01:23 01/10/18 01:23 01/10/18 01:23 Constitutional: obese, uncomfortable Eyes: PERRL, EOMI Ears, Nose, Mouth, Throat: moist mucous membranes, no oral mucosal ulcers Cardiovascular: regular rate and rhythym, no murmur, rub, or gallop Respiratory: no respiratory distress, clear to auscultation Gastrointestinal: normoactive bowel sounds, soft, non-tender abdomen Skin: warm, normal color Neurologic: AAOx3, sensation intact bilaterally, weakness (Unable to lift legs bilaterally on my exam), CN II-XII Intact Psychiatric: interacting appropriately, anxious Lab Data & Imaging Review 01/10/18 01:29 01/10/18 01:29 Assessment & Plan Assessment: 57 yo F w/ hx of chronic back pain s/p recent T11-L3 fusion, lumbar canal stenosis, HTN, anxiety, and COPD presents after a fall with complaints of leg weakness. Plan: 1. Fall - Patient states that her legs "just gave out". She denies significant trauma from fall. She has history of known lumbar canal stenosis and recent spinal fusion. She is followed by Dr. Valero. Leg weaknes noted on my exam, patient unclear whether this is chronic. - Neurosurgery consulted, will evaluate patient this morning and direct necessary imaging, if any - PT/OT evaluations 2. Chronic pain - With known lumbar canal stenosis and recent spinal fusion.Exacerbated by fall. Patient states she does not have any pain medications at home aside from Tylenol and gabapentin. - APAP + Dilaudid PRN for now 3. HTN - On losartan and atenolol as outpatient. 4. Asthma - On Advair, no evidence of acute exacerbation. 5. Anxiety - c/b history of PTSD Diet - Regular Code - Full Ppx - LMWH Dispo - Admit under observation status
[2018-01-10 02:34] LABS: PLATELET COUNT 353 10^3/uL (150-400)
[2018-01-10] MEDS ORDERED: D50W 25 GM/50 ML VIAL IVP PRN (03:04)
[2018-01-10 06:54] LABS: PLATELET COUNT 309 10^3/uL (150-400)
[2018-01-10] MEDS ORDERED: HYDROmorphONE/DILAUDID 2 MG TAB PO PRN (07:28)
[2018-01-10] MEDS ORDERED: LORazepam 2 MG/ML INJ ONE (08:29)
[2018-01-10] MEDS: ENOXAPARIN 40 MG/0.4 ML SYR SC SCH (09:47)
[2018-01-10] MEDS: HYDROmorphONE/DILAUDID 2 MG TAB PO PRN ×3 (09:54→21:52)
--- NOTE | 2018-01-10 10:08 | ASMTCMCOM ---
CM Note CM Note Notes: Chart reviewed, including recent inpatient visit (11/23/17-12/05/17). Please see CM/discharge notes on 12/05/17. ML today at [facility] for patient's PCP, Alma Manjarrez as well as Alma Delia Resi, lead case manager at [facility] . CM to follow with discharge planning Date Signed: 01/10/2018 10:08 AM Electronically Signed By:Erin Mendez RN
--- NOTE | 2018-01-10 12:49 | GCON ---
[f rep st] CONSULTATION DATE OF CONSULTATION: 01/10/2018 HISTORY OF PRESENT ILLNESS: The patient presented to the emergency department due to 2 falls yesterday and increasing pain. She recently underwent surgery by Dr. Harper on November 27, 2017, with a T12 to L2 posterior instrumentation and T12-L1 laminectomy for L1 burst fracture. At that time, patient was experiencing significant back pain with urinary changes and saddle anesthesia. Following surgery, she was discharged to rehab for a month. She has been home for approximately 1 week now and is living on her own. She admits to increased pain over the week; however, pain still is present in the same areas that it has been. Pain is concentrated at the back and posterior legs. She also notes unchanged numbness in her left foot. She does not believe she has been taking any pain medications at home. She admits to bowel incontinence last evening. PAST MEDICAL HISTORY: Hypertension, L1 burst fracture, PTSD, anxiety disorder, personality disorder, COPD, asthma, coronary artery disease, and neuropathy. SURGICAL HISTORY: Tonsillectomy, adenoidectomy, and T12 to L2 fusion. FAMILY HISTORY: Unknown. SOCIAL HISTORY: Patient is a former smoker. Lives at home by herself. ALLERGIES: Penicillin. CURRENT HOME MEDICATIONS: Trazodone, albuterol, Advair, Zanaflex, atenolol, vitamin D3, loperamide, Cozaar, omeprazole, Zofran, and ranitidine. REVIEW OF SYSTEMS: Patient denies chest pain, shortness of breath, abdominal pain, nausea, vomiting, fevers, and chills. Admits to ongoing back pain and lower extremity pain. PHYSICAL EXAMINATION: CONSTITUTIONAL: Patient was seen and examined. Appears to be in no apparent distress. Mood and affect are appropriate. Alert and oriented. VITAL SIGNS: Blood pressure 129/99, heart rate is 99, respirations 16, breathing 100% on 2 L nasal cannula, and temperature 36.6. NEUROLOGIC: Extraocular movements are intact. Pupils equal and reactive. Facial expression is symmetrical. Tongue is midline with protrusion. Hearing is grossly intact. Speech is fluent without dysarthria. Muscle strength is well preserved in her upper and lower extremities at a 5/5. She is able to lift her legs off the bed. Sensation is intact to light touch. ASSESSMENT AND PLAN: In summary, the patient is a 57-year-old female with recent history of a T12 to L2 posterior screw fixation with T12-L1 laminectomy for L1 fracture in November with ongoing back to lower extremity pain. Pain seems to be uncontrolled at the moment, possibly due to the lack of pain medications taken at home. She may benefit from starting gabapentin for lower extremity pain. Will defer to medicine. Recommend patient be admitted to observation and work on a discharge plan with either back to rehab or home with home health care for extra assistance at home. At this point in time, we do not feel it is necessary to proceed with any further imaging studies of her lumbar spine. Patient was seen and evaluated in the emergency department and seen by Dr. Harper. /[id number]/MODL MTDD
[2018-01-10] MEDS ORDERED: LORazepam 2 MG/ML INJ IV ONE (16:00)
[2018-01-10] MEDS ORDERED: ALBUTEROL INH PREPACK MDI TAKEHOME PRN (16:26)
[2018-01-10] MEDS ORDERED: NON-FORMULARY NEW DRUG (Omeprazole [Omeprazole] 40 MG) PO SCH (16:30)
[2018-01-10] MEDS ORDERED: ALBUTEROL 60 PUFFS/8 GM MDI IH PRN (16:47)
[2018-01-10] MEDS ORDERED: NS 1,000 ML IV SCH (18:45)
--- NOTE | 2018-01-10 18:57 | HOSPPROG ---
Hospitalist Progress Note Assessment/Plan: Have visited with the patient for afternoon rounds today I reviewed the neurosurgery notes Have reviewed all the patient's ER evaluations At this point she complains of feeling tired from poor sleep. She says she continues to intermittently have some shaky sensation in her legs and that her legs feel weak. She still feels like she needs to use a walker. She has been eating well, no nausea No new symptoms She denies to me that she has had any lightheadedness dizziness or syncopal type symptoms during the last few days Vital signs have been stable and no fever She is wide awake alert oriented reasonably relaxed at this time Skin warm and dry with good color Respirations look relaxed It is not entirely clear what is causing her acute symptomatology. She has not had anything specific on prior examinations to suggest a new neurologic injury at the spine level, and Neurosurgery is not recommending any new imaging or procedures. Will have physical occupational therapy work closely with her and reassess her strength and balance in the morning Will give some hydration overnight and check orthostatic vital signs in the morning Will watch closely for any progression of her symptoms or signs of any other acute abnormality. Objective: Vital Signs Temp Pulse Resp BP Pulse Ox 36.9 C 101 H 18 113/91 H 98 01/10/18 14:52 01/10/18 14:52 01/10/18 14:52 01/10/18 14:52 01/10/18 14:52 Laboratory Results 01/10/18 06:44 01/10/18 06:44 01/09/18 01/10/18 01/11/18 06:59 06:59 06:59 Intake Total 1300 Balance 1300 ICD10 Worksheet Patient Problems: Problems Problem Status Onset Acute exacerbation of chronic low back pain Acute Failure to thrive in adult Acute Back pain Acute Compression fracture of L1 lumbar vertebra Acute Humerus fracture Acute
[2018-01-10] MEDS ORDERED: TIZANIDINE HCL PO SCH (21:00)
[2018-01-10] MEDS ORDERED: NON-FORMULARY NEW DRUG (Ranitidine Hcl [Ranitidine Hcl] 150 MG) PO SCH (21:00)
[2018-01-10] MEDS: FLUTICASONE/SALMETER 500/50MCG DISKUS IH SCH (21:20)
[2018-01-10] MEDS: tiZANidine HCL 2 MG TAB PO SCH (21:49)
[2018-01-10] MEDS: GABAPENTIN 300 MG CAP PO SCH (21:50)
[2018-01-10] MEDS: LORazepam 1 MG TAB PO PRN (21:51)
[2018-01-10] MEDS: traZODone 100 MG TAB PO SCH (21:51)
[2018-01-10] MEDS: FAMOTIDINE 20 MG TAB PO SCH (21:51)
[2018-01-10] MEDS: LOSARTAN POTASSIUM 50 MG TAB PO SCH (21:52)
[2018-01-11] MEDS: LORazepam 1 MG TAB PO PRN ×3 (07:59→21:42)
[2018-01-11] MEDS: FLUTICASONE/SALMETER 500/50MCG DISKUS IH SCH ×2 (08:29→20:50)
[2018-01-11] MEDS: PANTOPRAZOLE SODIUM 40 MG TAB PO SCH (08:38)
[2018-01-11] MEDS: GABAPENTIN 300 MG CAP PO SCH ×3 (08:38→21:33)
[2018-01-11] MEDS: ENOXAPARIN 40 MG/0.4 ML SYR SC SCH (08:39)
[2018-01-11] MEDS: DOCUSATE SODIUM 100 MG CAP PO SCH (08:40)
[2018-01-11] MEDS: FAMOTIDINE 20 MG TAB PO SCH ×2 (08:43→21:34)
--- NOTE | 2018-01-11 08:59 | NEUSURGPN ---
Assessment/Plan: 57 yo female with recent history of T12-L2 PSF, T12/L1 laminectomy for L1 burst fracture on 11/27/[address] Harper with ongoing LE pain. Fell yesterday when legs felt 'wobbly' Patient states LE pain is in same locations as it has been over the past month, no new changes. Pain more intense - neuro stable - pain control - patient states she has been on Gabapentin for years and it does not help with the pain - consider effexor? will defer to medicine - PT/OT - may need to return to rehab or need home health care Subjective: Sitting in bedside chair. Continues to have posterior lower extremity pain. Complaining of sharp pain in her ankles. Objective: Awake. Alert. PERRL Following commands LE strength full at 5/5 Sensation intact Neurosurgery Physical Exam - Vitals, I&O, Labs I and O 01/10/18 01/11/18 01/12/18 05:59 05:59 05:59 Intake Total 1300 Balance 1300 Weight 82.1 kg Intake: Oral (ml) 300 IV Infused (ml) 1000 Other: Number of Voids Bedside Commode 3 Vital Signs Temp Pulse Resp BP Pulse Ox 37.0 C 101 H 16 145/92 H 96 01/11/18 07:48 01/11/18 07:48 01/11/18 07:48 01/11/18 07:48 01/11/18 07:48 Laboratory Results 01/10/18 06:44 01/10/18 06:44 ICD10 Worksheet Patient Problems: Problems Problem Status Onset Acute exacerbation of chronic low back pain Acute Failure to thrive in adult Acute Back pain Acute Compression fracture of L1 lumbar vertebra Acute Humerus fracture Acute
[2018-01-11] MEDS: HYDROmorphONE/DILAUDID 2 MG TAB PO PRN ×2 (15:56→21:34)
--- NOTE | 2018-01-11 16:10 | ASMTCMCOM ---
CM Note CM Note Notes: Pt admitted after falling at her home twice & hitting her head. Hx of chronic back pain s/p T11-L3 fusion in Oct 2017. Pt was discharged from [facility] to [place] & has been home, where she lives independently, for approximately 1 week. Spoke with MD & PT. Spoke with pt. Pt states she is current w/[facility]; attempted to call [facility] to verify, but got after hours VM; CM to follow up tomorrow. Pt concerned her about her cat being home alone & not having food in his bowl. Assisted pt in calling her friend Vanda [phone] who plans to check on pt's cat. Also assisted pt in leaving for her [facility] CM Shannan ([phone]); awaiting callback. Discussed dc poc. Pt reports she will not go back to [place]. Discussed SNF options & PT recommendation for Inpt Rehab; pt interested in Inpt Rehab. Inpt Rehab order placed; awaiting eval. CM will follow. Date Signed: 01/11/2018 04:09 PM Electronically Signed By:Vanessa Robison RN
--- NOTE | 2018-01-11 16:24 | HOSPPROG ---
Hospitalist Progress Note Assessment/Plan: DIAGNOSES: -ongoing generalized weakness, deconditioning, gait instability with high fall risk; weakness seems to be worse in legs then upper body -fall at home without concerning injury -recent spine surgery, no current evidence of acute neurologic injury, wound infection -severe anxiety disorder and PTSD, longstanding use of says large amounts of benzodiazepines which will increase her fall risk -chronic pain syndrome related to injuries and Neuropathy -peripheral neuropathy, ? Alcohol-related, history of foot drop related to this as well as a pain -history of alcohol withdrawal seizure -osteoporosis with history of humerus fracture -charts note history of borderline personality disorder -self-reported history of coronary disease with myocardial infarction details uncertain; no current symptoms or findings of acute heart issues -COPD stable at present At this point the patient has very poor insight into her risk of falling with significant injuries. She is working with her therapist here and is agreeing to not get up without assistance, however she is stating resolute leave that she will go home and refuses to consider any kind of in-hospital or other in facility rehabilitation. I reviewed with her at length and in detail her past history and her ongoing risk of falls with significant injuries which would bring her back to hospital and possibly require further surgeries and rehabilitations. PLANS: -Fall risk precautions -DVT prophylaxis -Physical occupational therapy -I have asked our family independence case manager to see if she might be able to be accepted at our inpatient rehabilitation hospital unit and see if the patient would be amenable to that -it would be ideal to try to decrease dramatically the amount of benzodiazepine that she uses, however she has significant mental health issues that are ongoing and it is unclear given that her long-term use of these medicines how successful that could be or what new problems might arise attempting that; it is probably best done under the guidance of her psychiatrist SUBJECTIVE: Complains of ongoing neuropathy pain and sciatic pain Says she is still fairly weak and unable to safely stand or walk on her own I reviewed her case with her physical therapist today who agreed that the patient is quite unsteady on her feet and fairly weak overall OBJECTIVE Vitals reviewed: Stable without fever Assessment Nurse Practitioner, my review: Exam: alert oriented , mildly anxious skin warm dry color ok; I did examine her surgical wound which actually looks quite good right now. There is still a dried scab in the central portion of the wound but it is very well adhered, there is no drainage or bleeding or cellulitis or fluctuance resps not labored lungs clear BSs heart regular abd soft nondistended nontender, bowel sounds present limbs warm, no edema iv site ok Objective: Vital Signs Temp Pulse Resp BP Pulse Ox 37.0 C 88 16 155/99 H 94 01/11/18 15:52 01/11/18 15:52 01/11/18 15:52 01/11/18 15:52 01/11/18 15:52 Laboratory Results 01/10/18 06:44 01/10/18 06:44 01/10/18 01/11/18 01/12/18 06:59 06:59 06:59 Intake Total 1300 Balance 1300 - Time Spent With Patient Time Spent with Patient: greater than 35 minutes Time Spent with Patient: Greater than 35 minutes spent on this patients care, greater than 50% of time spent counseling, educating, and coordinating care regarding the above mentioned plan. ICD10 Worksheet Patient Problems: Problems Problem Status Onset Acute exacerbation of chronic low back pain Acute Failure to thrive in adult Acute Back pain Acute Compression fracture of L1 lumbar vertebra Acute Humerus fracture Acute
--- NOTE | 2018-01-11 17:13 | PDMN ---
Medical Necessity Medical necessity: C/M review: est. > 2 MN LOS fro eval and TX of acute and persistent generalized weakness - worse in legs than upper body, deconditioning , gait instability requiring planned Rehab eval consult, Case management consult , ongoing fall risk precaution, acute inpt PT/OT, comorbid fall at home without injury prior to this admission, recent spine surgery, severe anxiety disorder, PTSD, long standing use of large amounts benzodiazepines which increase risk of patient fall, chronic pain syndrome. peripheral neuropathy, history of foot drop , alcohol withdrawal seizure, osteoporosis with history of humerus fracture, borderline personality disorder, self reported CAD with NC- details uncertain, COPD, patient has very poor insight into her risk of falling with significant injuries, ongoing significant mental health issues per 01/11/2018 Hospitalist progress note.
[2018-01-11] MEDS: tiZANidine HCL 2 MG TAB PO SCH (21:32)
[2018-01-11] MEDS: traZODone 100 MG TAB PO SCH (21:32)
[2018-01-11] MEDS: LOSARTAN POTASSIUM 50 MG TAB PO SCH (21:33)
[2018-01-12] MEDS: HYDROmorphONE/DILAUDID 2 MG TAB PO PRN ×4 (05:19→20:51)
[2018-01-12] MEDS: GABAPENTIN 300 MG CAP PO SCH ×3 (08:00→20:51)
--- NOTE | 2018-01-12 08:00 | NEUSURGPN ---
Assessment/Plan: 57 yo female with recent history of T12-L2 PSF, T12/L1 laminectomy for L1 burst fracture on 11/27/[address] Harper with ongoing LE pain. Fell last week when legs felt 'wobbly' Patient states LE pain is in same locations as it has been over the past month, no new changes - neuro stable - pain control - patient states she has been on Gabapentin for years and it does not help with the pain - PT/OT - may need to return to rehab or need home health care -Neurosurgery will sign off, there is no need for surgical intervention at this time -Please contact neurosurgery with any questions/concerns Subjective: Resting in bed, continuing pain behind bilateral knees and feet Objective: Awake. Alert. PERRL Following commands LE strength full at 5/5 Sensation intact Neuro Check Frequency: per routine Urinary Catheter in Place: No - Physician Discussed Patient with Dr.: Harper Neurosurgery Physical Exam - Vitals, I&O, Labs I and O 01/11/18 01/12/18 01/13/18 05:59 05:59 05:59 Other: Number of Voids Bedside Commode 3 Vital Signs Temp Pulse Resp BP Pulse Ox 36.5 C 89 16 129/84 H 88 L 01/12/18 04:00 01/12/18 04:00 01/12/18 04:00 01/12/18 04:00 01/12/18 04:00 ICD10 Worksheet Patient Problems: Problems Problem Status Onset Acute exacerbation of chronic low back pain Acute Failure to thrive in adult Acute Back pain Acute Compression fracture of L1 lumbar vertebra Acute Humerus fracture Acute
[2018-01-12] MEDS: PANTOPRAZOLE SODIUM 40 MG TAB PO SCH (08:04)
[2018-01-12] MEDS: FAMOTIDINE 20 MG TAB PO SCH ×2 (08:04→20:51)
[2018-01-12] MEDS: ENOXAPARIN 40 MG/0.4 ML SYR SC SCH ×2 (08:07→08:09)
[2018-01-12] MEDS: LORazepam 1 MG TAB PO PRN ×3 (08:15→22:27)
[2018-01-12] MEDS: FLUTICASONE/SALMETER 500/50MCG DISKUS IH SCH ×2 (08:24→19:57)
[2018-01-12] MEDS: DOCUSATE SODIUM 100 MG CAP PO SCH (08:25)
--- NOTE | 2018-01-12 11:20 | ASMTCMCOM ---
CM Note CM Note Notes: Spoke with Mary Jacobsen who is moving patient up on her list and will come to evaluate patient for their inpatient program. Awaiting the results of inpatient rehab eval to finalize d/c plan. CM will follow. Date Signed: 01/12/2018 11:20 AM Electronically Signed By:Erika Jansen LCSW
[2018-01-12] MEDS ORDERED: traMADol 50 MG TAB PO PRN (18:05)
--- NOTE | 2018-01-12 18:07 | HOSPPROG ---
Hospitalist Progress Note Assessment/Plan: DIAGNOSES: -ongoing generalized weakness, deconditioning, gait instability with high fall risk; weakness seems to be worse in legs then upper body -fall at home without concerning injury -recent spine surgery, no current evidence of acute neurologic injury, wound infection -severe anxiety disorder and PTSD, longstanding use of says large amounts of benzodiazepines which will increase her fall risk -chronic pain syndrome related to injuries and Neuropathy -peripheral neuropathy, ? Alcohol-related, history of foot drop related to this as well as a pain -history of alcohol withdrawal seizure -osteoporosis with history of humerus fracture -charts note history of borderline personality disorder -self-reported history of coronary disease with myocardial infarction details uncertain; no current symptoms or findings of acute heart issues -COPD stable at present At this point the patient has very poor insight into her risk of falling with significant injuries. She is working with her therapist here and is agreeing to not get up without assistance. She still is declining senior care facility care. I am attempting to see if we can get her in to inpatient rehabilitation here elsewhere the. PLANS: -Fall risk precautions -DVT prophylaxis -Physical occupational therapy -I have asked our family service caseworker to see if she might be able to be accepted at our inpatient rehabilitation hospital unit and see if the patient would be amenable to that -it would be ideal to try to decrease dramatically the amount of benzodiazepine that she uses, however she has significant mental health issues that are ongoing and it is unclear given that her long-term use of these medicines how successful that could be or what new problems might arise attempting that; it is probably best done under the guidance of her psychiatrist SUBJECTIVE: Ongoing chronic neuropathy and sciatic pain Remains weak and not able to stand and walk safely independently No other new symptoms She has had per her account and her nurses account some significant increase in anxiety during the day today at times OBJECTIVE Vitals reviewed: Stable without fever Coal Sample Tester, my review: Exam: alert oriented , mildly anxious skin warm dry color ok; resps not labored lungs clear BSs heart regular abd soft nondistended nontender, bowel sounds present limbs warm, no edema iv site ok Objective: Vital Signs Temp Pulse Resp BP Pulse Ox 36.6 C 106 H 12 116/69 92 01/12/18 15:44 01/12/18 15:44 01/12/18 15:44 01/12/18 15:44 01/12/18 15:44 ICD10 Worksheet Patient Problems: Problems Problem Status Onset Acute exacerbation of chronic low back pain Acute Failure to thrive in adult Acute Back pain Acute Compression fracture of L1 lumbar vertebra Acute Humerus fracture Acute
[2018-01-12] MEDS: tiZANidine HCL 2 MG TAB PO SCH (20:49)
[2018-01-12] MEDS: LOSARTAN POTASSIUM 50 MG TAB PO SCH (20:50)
[2018-01-12] MEDS: traZODone 100 MG TAB PO SCH (20:51)
[2018-01-12] MEDS: TOPIRAMATE 100 MG TAB PO PRN (22:27)
[2018-01-13] MEDS ORDERED: LACTULOSE 20 GM/30 ML UDCUP PO PRN (08:37)
[2018-01-13] MEDS ORDERED: MAGNESIUM HYDROXIDE 30 ML UDCUP PO PRN (08:37)
[2018-01-13] MEDS ORDERED: BISACODYL 10 MG SUPP PR PRN (08:37)
[2018-01-13] MEDS: GABAPENTIN 300 MG CAP PO SCH ×3 (08:40→21:42)
[2018-01-13] MEDS: DOCUSATE SODIUM 100 MG CAP PO SCH (08:41)
[2018-01-13] MEDS: FAMOTIDINE 20 MG TAB PO SCH ×2 (08:41→21:43)
[2018-01-13] MEDS: HYDROmorphONE/DILAUDID 2 MG TAB PO PRN ×3 (08:41→21:03)
[2018-01-13] MEDS: LORazepam 1 MG TAB PO PRN ×3 (08:41→21:43)
[2018-01-13] MEDS: PANTOPRAZOLE SODIUM 40 MG TAB PO SCH (08:42)
[2018-01-13] MEDS: ENOXAPARIN 40 MG/0.4 ML SYR SC SCH (09:11)
[2018-01-13] MEDS: SENNOSIDES/DOCUSATE SODIUM TAB PO SCH ×2 (09:13→21:42)
[2018-01-13] MEDS: POLYETHYLENE GLYCOL 3350 17 GM PKT PO PRN (10:48)
[2018-01-13] MEDS: FLUTICASONE/SALMETER 500/50MCG DISKUS IH SCH ×2 (10:50→22:15)
--- NOTE | 2018-01-13 16:33 | ASMTCMCOM ---
CM Note CM Note Notes: Spoke with Mary Jacobsen who states patient is not eligible for their program. Patient is not willing to go for SNF rehab, so we contacted [facility] which she is currently open with.They do have her currently open and stated they can also increase the number of times she is getting PT per week. Anticipating patient will d/c tomorrow. [facility] will need the order for PT, RN, and STAFF REGISTERED NURSE services in the transfer of care summary. ([phone]) Spoke with Dr. Alford who says patient is still refusing any SNF rehab. with her as well. CM will follow. Date Signed: 01/13/2018 04:33 PM Electronically Signed By:Erika Jansen LCSW
[2018-01-13] MEDS: LOSARTAN POTASSIUM 50 MG TAB PO SCH (21:42)
[2018-01-13] MEDS: TOPIRAMATE 100 MG TAB PO PRN (21:42)
[2018-01-13] MEDS: traZODone 100 MG TAB PO SCH (21:43)
--- NOTE | 2018-01-13 21:58 | HOSPPROG ---
Hospitalist Progress Note Assessment/Plan: 57 yo F with generalized weakness, deconditioning ongoing generalized weakness, deconditioning, gait instability with high fall risk; weakness seems to be worse in legs then upper body -fall at home mobility remains poor -recent spine surgery, no current evidence of acute neurologic injury, wound infection -severe anxiety disorder and PTSD, longstanding use of says large amounts of benzodiazepines which will increase her fall risk -chronic pain syndrome related to injuries and Neuropathy -peripheral neuropathy, ? Alcohol-related, history of foot drop related to this as well as a pain -history of alcohol withdrawal seizure -osteoporosis with history of humerus fracture -charts note history of borderline personality disorder -self-reported history of coronary disease with myocardial infarction details uncertain; no current symptoms or findings of acute heart issues -COPD stable at present Will likely dc to home with home health, patient declines snf Subjective: patient remains very weak, anxious, states she is not sfae at home Objective: Vital Signs Temp Pulse Resp BP Pulse Ox 36.4 C 104 H 16 120/85 H 93 01/13/18 19:37 01/13/18 19:37 01/13/18 19:37 01/13/18 21:42 01/13/18 19:37 01/12/18 01/13/18 01/14/18 05:59 05:59 05:59 Intake Total 100 Balance 100 awake alert nad anicteric op lcear rrr no mrg cta b soft nt nd no cce warm dry well perfused orianted anxious - Time Spent With Patient Time Spent with Patient: greater than 35 minutes Time Spent with Patient: Greater than 35 minutes spent on this patients care, greater than 50% of time spent counseling, educating, and coordinating care regarding the above mentioned plan. ICD10 Worksheet Patient Problems: Problems Problem Status Onset Acute exacerbation of chronic low back pain Acute Failure to thrive in adult Acute Back pain Acute Compression fracture of L1 lumbar vertebra Acute Humerus fracture Acute
[2018-01-13] MEDS: tiZANidine HCL 2 MG TAB PO SCH (22:03)
[2018-01-14] MEDS: FAMOTIDINE 20 MG TAB PO SCH ×2 (08:23→21:06)
[2018-01-14] MEDS: ENOXAPARIN 40 MG/0.4 ML SYR SC SCH ×2 (08:23→08:31)
[2018-01-14] MEDS: DOCUSATE SODIUM 100 MG CAP PO SCH (08:24)
[2018-01-14] MEDS: LORazepam 1 MG TAB PO PRN ×3 (08:24→21:06)
[2018-01-14] MEDS: HYDROmorphONE/DILAUDID 2 MG TAB PO PRN ×3 (08:25→21:21)
[2018-01-14] MEDS: SENNOSIDES/DOCUSATE SODIUM TAB PO SCH ×2 (08:26→21:09)
[2018-01-14] MEDS: GABAPENTIN 300 MG CAP PO SCH ×3 (08:26→21:06)
[2018-01-14] MEDS: PANTOPRAZOLE SODIUM 40 MG TAB PO SCH (09:00)
[2018-01-14] MEDS: FLUTICASONE/SALMETER 500/50MCG DISKUS IH SCH ×2 (09:00→22:37)
[2018-01-14] MEDS: POLYETHYLENE GLYCOL 3350 17 GM PKT PO PRN (15:22)
--- NOTE | 2018-01-14 18:44 | HOSPPROG ---
Hospitalist Progress Note Assessment/Plan: 57 yo F with generalized weakness, deconditioning and acute on chronic pain # recurrent falls/weakness/deconditioning: continues to work with pt/ot but gait continues to be very unstable. She refuses to go back to snf. Multifactorial and suspect this will be slow to improve. # s/p T11-L3 fusion: with known lumbar stenosis, djd. Wound appears to be healing # severe anxiety/PTSD/personality disorder: likely complicating her care plan, continue op mgmt # chronic pain/continuous narcotic use and dependency # hx of etoh w/d and w/d seizures: no e/o w/d currently # osteoporosis with hx of humerus fx # COPD: without e/o acute exacerbation # CAD: no acute issues # IP status, patient likely to dc home with home health, possibly ready for dc Subjective: no significant overnight events, contineus to feel weak, notes that her pain continues to be severe intermittently Objective: Vital Signs Temp Pulse Resp BP Pulse Ox 36.8 C 97 14 108/78 91 L 01/14/18 15:43 01/14/18 15:43 01/14/18 15:43 01/14/18 15:43 01/14/18 15:43 01/13/18 01/14/18 01/15/18 05:59 05:59 05:59 Intake Total 713 872 0425 Balance 997 955 6021 awake alert nad anicteric op lcear rrr no mrg cta b soft nt nd no cce warm dry well perfused orianted anxious ICD10 Worksheet Patient Problems: Problems Problem Status Onset Acute exacerbation of chronic low back pain Acute Failure to thrive in adult Acute Back pain Acute Compression fracture of L1 lumbar vertebra Acute Humerus fracture Acute
[2018-01-14] MEDS ORDERED: ENOXAPARIN 40 MG/0.4 ML SYR SC SCH (21:00)
[2018-01-14] MEDS: tiZANidine HCL 2 MG TAB PO SCH (21:05)
[2018-01-14] MEDS: traZODone 100 MG TAB PO SCH (21:07)
[2018-01-14] MEDS: LOSARTAN POTASSIUM 50 MG TAB PO SCH ×2 (21:07→23:32)
[2018-01-14] MEDS: TOPIRAMATE 100 MG TAB PO PRN (21:21)
[2018-01-15] MEDS: HYDROmorphONE/DILAUDID 2 MG TAB PO PRN ×2 (04:09→08:00)
[2018-01-15] MEDS: LORazepam 1 MG TAB PO PRN ×2 (04:09→10:15)
[2018-01-15 04:15] VITALS: O2SAT 92
[2018-01-15 07:19] VITALS: BP 132/91; PULSE 94; RESP 16; TEMP 98.2
[2018-01-15] MEDS: GABAPENTIN 300 MG CAP PO SCH (07:59)
[2018-01-15] MEDS: FAMOTIDINE 20 MG TAB PO SCH (08:00)
[2018-01-15] MEDS: PANTOPRAZOLE SODIUM 40 MG TAB PO SCH (08:00)
[2018-01-15] MEDS: SENNOSIDES/DOCUSATE SODIUM TAB PO SCH (08:00)
[2018-01-15] MEDS: DOCUSATE SODIUM 100 MG CAP PO SCH (08:00)
[2018-01-15] MEDS: FLUTICASONE/SALMETER 500/50MCG DISKUS IH SCH (09:39)
[2018-01-15] MEDS ORDERED: HYDROmorphONE/DILAUDID 2 MG TAB PO ONE (10:48)
--- NOTE | 2018-01-15 10:50 | PDIAF ---
- Diagnosis Diagnosis: weakness - back surgery Code Status: Full Code - Medication Management Discharge Medications: Medications to Continue on Transfer traZODone [traZODONE 100MG (*)] 100 mg PO HS 11/07/14 [Last Taken 03/13/15] Albuterol Sulfate [Albuterol Inhaler Hfa] 2 puffs IH Q4HRS PRN 11/08/14 [Last Taken Unknown] Fluticasone/Salmeter 500/50Mcg [Advair 500/50 (*)] 1 puffs IH BID 03/14/15 [ Last Taken 03/13/15] Tizanidine HCl [Zanaflex] 1 mg PO HS 03/14/15 [Last Taken 03/13/15] tiZANidine HCL [Zanaflex] 1 - 2 mg PO DAILY PRN 03/14/15 [Last Taken 03/13/15] Cholecalciferol (Vitamin D3) [Vitamin D3] 5,000 unit PO TH 11/22/17 [Last Taken 11/20/17] Losartan Potassium [Cozaar 50 mg (*)] 50 mg PO HS 11/22/17 [Last Taken Unknown] Omeprazole 40 mg PO DAILY 11/22/17 [Last Taken 11/15/17] Ondansetron Odt [Zofran Odt 4 mg (*)] 4 mg PO Q8HRS PRN 11/22/17 [Last Taken ] Ranitidine HCl 150 mg PO BID 11/22/17 [Last Taken 11/15/17] Gabapentin [Neurontin 300 MG (*)] 600 mg PO TID cap 12/04/17 [Last Taken Unknown] LORazepam [Ativan (*)] 1 - 2 mg PO Q6 PRN tab 12/04/17 [Last Taken Unknown] Docusate Sodium [Colace 100 MG (*)] 100 mg PO DAILY 01/10/18 [Last Taken Unknown ] Topiramate [Topamax 100MG (*)] 100 mg PO HS PRN 01/10/18 [Last Taken 01/03/18] HYDROmorphone HCL [Dilaudid 2 mg (*)] 2 mg PO Q4HRS PRN #45 tab 01/15/18 [Last Taken Unknown] Sennosides/Docusate Sodium [Senokot-S] 1 - 2 tab PO BID tab 01/15/18 [Last Taken Unknown] traMADol [Ultram 50 mg (*)] 50 mg PO Q6HRS PRN #30 tab 01/15/18 [Last Taken Unknown] Discharge Medications: Refer to the Discharge Home Medication list for PRN reason. - Orders Services needed: Home Care, Registered Nurse, Certified Pharmaceutical Botanist, Physical Therapy Home Care Face to Face: I certify that this patient was under my care and that I had the required [id number] encounter meeting the encounter requirements on the discharge day. My findings support the fact that the patient is homebound as defined in Home Care Face to Face Continued: CMS Chapter 7 Medicare Benefits Manual 30.1.1 , The condition of the patient is such that there exists a normal inability to leave home and consequently, leaving home would require a considerable and taxing effort. Isolation Type: None Diet Recommendation: no restrictions on diet Diet Texture: Regular Texture Diet - Follow Up Care Current Providers and Referrals: Zac Harper MD [Medical Doctor] - follow up as scheduled (Follow up as already scheduled for post op visit ) Patient,NotPresent [Unknown] - As per Instructions
[2018-01-15] MEDS ORDERED: NON-FORMULARY NEW DRUG (Cholecalciferol (Vitamin D3) [Vitamin D3] 5,000 UNIT) PO SCH (16:26)
[2018-01-15] MEDS ORDERED: CHOLECALCIFEROL VIT D3 1,000 UNITS TAB PO SCH (16:46)
--- NOTE | 2018-01-15 18:12 | GDS ---
[f rep st] DISCHARGE SUMMARY DISCHARGE DIAGNOSES: 1. Recurrent falls and weakness. 2. Status post T11 to L3 fusion. 3. Severe anxiety. 4. Posttraumatic stress disorder. 5. Personality disorder. 6. Chronic pain with continuous narcotic use. 7. History of alcohol abuse and withdrawal and withdrawal seizures. 8. Chronic obstructive pulmonary disease. 9. Osteoporosis. HISTORY OF PRESENT ILLNESS: This is a 57-year-old female, status post recent T11 to L3 fusion, who p resents with generalized weakness and deconditioning. For details of the patient's initial presentati on, please see the History and Physical dated 01/10/2018. CONSULTATIVE SERVICES: Include Neurosurgery. PROCEDURES: None. HOSPITAL COURSE BY ISSUE: 1. Weakness. Patient was evaluated by Neurosurgery as well as PT/OT and was felt there was no indica tion for other intervention. PT/OT felt the patient was most appropriate for disposition to skilled n ursing. Patient adamantly refuses this disposition, is insisting on disposition home with home health , even after being extensively educated on the risks of this disposition plan, including falls and wo rsening illness. Patient is being discharged home with RN, PT, OT, KETTLE GIRL, and prompt followup by her ou tpatient provider. She will continue to follow with Dr. Harper for predetermined neurosurgical follow up schedule. Trepidation about this disposition plan, and I am worried the patient is going to have f ast readmission for failure to thrive at home. 2. Chronic pain with continuous narcotic dependency. Patient is treated in the outpatient setting wi th p.o. Dilaudid and Ativan. I have trepidation using the combination of these meds. As they are long standing medications, will make a 2-week fill and have her address her ongoing pain needs with her [place] care provider. MEDICATIONS AT THE TIME OF DISPOSITION: Please reference the med rec printed on 01/15/2018. FOLLOWUP APPOINTMENTS: Include: 1. With her primary care provider in the next 7-10 days postdischarge. 2. With Dr. Harper per his desired schedule in the next 1-2 weeks. PENDING STUDIES: At the time of this dictation are none. I spent greater than 30 minutes in the planning and coordination of this discharge. /[id number]/MODL
--- NOTE | 2018-01-16 17:03 | ASDISCHSUM ---
Discharge Information Plan Status:Home with Home Health Medically Cleared to Leave: Discharge Date:01/15/2018 01:40 PM CM D/C Disposition:Home Health Service ADT D/C Disposition:Home Health Service Projected Discharge Date:01/15/2018 11:00 AM Transportation at D/C:ALS/BLS Discharge Delay Reason: Follow-Up Date:01/15/2018 11:00 AM Discharge Slot: Final Diagnosis: Placement Information Referral Type:*Home Health Care Services Referral ID:[id number] Provider Name:[facility] Address 1:[address] [place] [address] Phone Number: Address 2: Fax Number: City:[place] Selection Factors: State:[place] Patient Contact Information Contact Name:ABIMAEL Relationship:Friend Address: Work Phone: City: [facility] Phone: [facility] Code: Email: Financial Information Financial Class:Medicaid Primary Plan Desc:MED[place] Primary Plan Number:[id number] Secondary Plan Desc: Secondary Plan Number: Assessment Information [facility] CM Progress Note CM Note CM Note Notes: Chart reviewed, including recent inpatient visit (11/23/17-12/05/17). Please see CM/discharge notes on 12/05/17. ML today at [facility] for patient's PCP, Alma Manjarrez as well as Alma Delia Reis, manager case at [facility] . CM to follow with discharge planning Date Signed: 01/10/2018 10:08 AM Electronically Signed By:Erin Mendez RN [facility] CM Progress Note CM Note CM Note Notes: Pt admitted after falling at her home twice & hitting her head. Hx of chronic back pain s/p T11-L3 fusion in Oct 2017. Pt was discharged from [facility] to [facility] & has been home, where she lives independently, for approximately 1 week. Spoke with MD & PT. Spoke with pt. Pt states she is current w[facility]; attempted to call [facility] to verify, but got after hours VM; CM to follow up tomorrow. Pt concerned her about her cat being home alone & not having food in his bowl. Assisted pt in calling her friend Vanda [phone] who plans to check on pt's cat. Also assisted pt in leaving for her P CM Shannan ([phone]); awaiting callback. Discussed dc poc. Pt reports she will not go back to [facility]. Discussed SNF options & PT recommendation for Inpt Rehab; pt interested in Inpt Rehab. Inpt Rehab order placed; awaiting eval. CM will follow. Date Signed: 01/11/2018 04:09 PM Electronically Signed By:Vanessa Robison RN [facility] CM Progress Note CM Note CM Note Notes: Spoke with Mary Jacobsen who is moving patient up on her list and will come to evaluate patient for their inpatient program. Awaiting the results of inpatient rehab eval to finalize d/c plan. CM will follow. Date Signed: 01/12/2018 11:20 AM Electronically Signed By:Erika Jansen LCSW [facility] CM Progress Note CM Note CM Note Notes: Spoke with Mary Jacobsen who states patient is not eligible for their program. Patient is not willing to go for SNF rehab, so we contacted [facility] which she is currently open with.They do have her currently open and stated they can also increase the number of times she is getting PT per week. Anticipating patient will d/c tomorrow. [facility] will need the order for PT, RN, and CERTIFIED FORKLIFT OPERATOR services in the transfer of care summary. ([phone]) Spoke with Dr. Alford who says patient is still refusing any SNF rehab. with her as well. CM will follow. Date Signed: 01/13/2018 04:33 PM Electronically Signed By:Erika Jansen LCSW Case Management Discharge Plan Note Case Management Discharge Discharge Order [facility]? Answers: Yes Patient to Obtain Answers: Other Notes: Rm at [facility] Medications Transportation Arranged Answers: MATI Elaine Faxed Final Orders Answers: Yes Agency/Facility Transfer Answers: Yes Report Printed & Faxed to Receiving Agency Discharge Comments Notes: Pt. refuses to go to SNF and is being d/c'ed home with homecare today - RN, PT, CERTIFIED FORKLIFT OPERATOR. Herbert met w/ Pt. in the room to confirm plan. Pt. is fine with having homecare and adds that she has applied for "Medicaid CNAs". I assume she means she is applying for BS Medicaid services. Gregr perceived Pt. to be short and demanding during conversation. Pt. states she was "promised a walker" by [facility] therapy staff. Since this is unusual, Gregr consulted with PT who indeed stated she could have a donated walker in possession of therapies. Herbert sent d/c paperwork to [facility] via [employer]. Verified with Lata at [facility] that Pt.'s care will begin tomorrow. Pt. states she cannot walk up stairs to her apartment, wants an [facility] "stair chair" to get in the apartment. Called [facility] for medicaid wheelchair transport. Loren at [facility] states that wheelchair transport only has one truck driver salesperson, so wheelchair up stairs not possible. Arranged for Medicaid paid stretcher transport - Confirmation by VIRAL # [id number]. Bedside RN unfortunately forgot to give [facility] her donated walker when they came to pick her up. To help prevent risk of readmission, CM business systems technician drove walker to Pt's apartment at [address] [place] [address] [address] [place]. Date Signed: 01/15/2018 03:11 PM Electronically Signed By:Fela Zapien LCSW Intervention Information
== END 2018-01-15 13:40 | disposition home health service (06) | DRG 552 ==
LOC: EDUNIT# → F3E 11:41 → OBSVTOIN 01-11 16:55
PROVIDERS: ADMIT Student in an Organized Health Care Education/Training Program; ATTEND Hospitalist
DX: M54.5 Low back pain (principal); R62.7 Adult failure to thrive; R29.6 Repeated falls; M21.372 Foot drop, left foot; G62.9 Polyneuropathy, unspecified; G89.4 Chronic pain syndrome; Z98.1 Arthrodesis status; Z91.81 History of falling; I10 Essential (primary) hypertension; F41.9 Anxiety disorder, unspecified; J45.909 Unspecified asthma, uncomplicated; J44.9 Chronic obstructive pulmonary disease, unspecified; F43.10 Post-traumatic stress disorder, unspecified; F60.9 Personality disorder, unspecified; M81.0 Age-related osteoporosis without current pathological fracture; Z87.310 Personal history of (healed) osteoporosis fracture; I25.10 Atherosclerotic heart disease of native coronary artery without angina pectoris; I25.2 Old myocardial infarction; F10.21 Alcohol dependence, in remission; Z88.0 Allergy status to penicillin; Z79.891 Long term (current) use of opiate analgesic
CPT/HCPCS: 92523-GN; 97116-GP; 97162-GP; 97166-GO; 97530-GP; 97535-GO; G0378; G0480; J1170; J1650; J2060

== ENCOUNTER 2018-02-18 15:56 | Inpatient (IN) | payer MEDICAID ==
--- NOTE | 2018-02-18 16:01 | EDPHY ---
H & P Time Seen by Provider: 02/18/18 16:00 HPI/ROS: HPI: This is a 57-year-old female who presents with Chief Complaint: Nausea, vomiting, weakness Location: Bilateral lower extremity Quality: weakness Duration: Today Signs and Symptoms: no fever, + nausea, no vomiting, no hematemesis, no blood in stool, no abdominal bloating, no diarrhea, no back pain, no urinary symptoms , no vaginal bleeding/discharge, no indigestion, no chest pain, no shortness of breath Timing: Acute on chronic Severity: Moderate Context: Patient has a history anxiety, COPD not on oxygen dependent, hypertension, chronic back pain perc presents via EMS with complaints today of lower extremity bilateral weakness. She reports that she was unable to stand and ambulate using her walker which is normally her baseline. She reports that her legs"just gave out." Chart review shows that November 2017 Dr. Valero performed at T12-L2 fusion and T12-L1 laminectomy. Patient complains of nausea but reports this is chronic for her. Tried Zofran early in the day with no relief of nausea. Denies vomiting to me. Denies abdominal pain/diarrhea. Last bowel movement was yesterday. She reports that she has not ate or drank anything in 2 days. Last urination was 3 hr prior to arrival. Admits to not taking any of her medications today. Blood pressure was noted to be elevated upon arrival. Lives alone impressed life alert today as she became "very worried."Patient also complains of lower extremity edema but none appreciated to me. Patient reports that she has to urinate during examination. Chart review shows a similar visit to the ER and subsequent admission for lower extremity weakness. She was evaluated by PT OT and determined that she would be best served due to fall risk/decreased mobilization at an assisted living facility the patient adamantly refused. It appears that patient has longstanding use of Ativan and Dilaudid. Modifying Factors: None Comment: ROS: see HPI Constitutional: No fever, no chills, no weight loss Eyes: No blurred vision Respiratory: No shortness of breath, no cough Cardiovascular: No chest pain, no palpitations Gastrointestinal: + nausea, no vomiting, no diarrhea, no hematemesis, no blood in stool Genitourinary: No dysuria, no blood in urine Extremities: No myalgias, no edema Neurologic: + weakness, no numbness Skin: No rashes, no petechiae Hematologic: No bruising, no bleeding MEDICAL/SURGICAL/SOCIAL HISTORY: Medical history: spinal stenosis, asthma, copd, seizures possibly lead to alcohol withdrawal, ptsd, anxiety, borderline personality disorder, heart attack in 2012, left shoulder torn rotator cuff Surgical history: Fusion and laminectomy Social history: Former smoker. Family history noncontributory. CONSTITUTIONAL: Obese extremely anxious elderly white female, awake and alert, no obvious distress HEENT: Atraumatic and normocephalic. Extremely poor dentition; black in color. NECK: supple, no midline tenderness, flexion 45 degrees, extension 45 degrees, right and left lateral flexion 45 degrees. No meningismus. Cardiovascular: Normal S1/S2, regular rate, regular rhythm, without murmur rub or gallop. PULMONARY/CHEST: Symmetrical and nontender. no crepitus. Clear to auscultation bilaterally. Good air movement. No accessory muscle usage. ABDOMEN: Soft, nondistended, nontender, no ecchymosis. PELVIC: no pain with rocking; bilateral hips flexion 125 degrees, extension 30 degrees, with no pain internal rotation and no pain external rotation. BACK: No midline tenderness, no paraspinous spasm, deep tendon reflexes 2/2, no pain with straight leg raise, No foot drop. Achilles reflexes are equal bilaterally. Able to walk on heels and toes without difficulty. EXTREMITIES: 2/2 pulses, strength 5/5, DIP/PIP/MCP flexion/extension intact with good light touch sensation. no deformities, no clubbing, no cyanosis or edema. No Calf tenderness. No varicose veins noted. No Palpable cords. NEUROLOGICAL: no focal neuro deficits. GCS 15. Light touch sensation intact. Patient is reluctant to lift both her legs off of the bed but after much can courage min she is able to lift them against gravity and passively. 4-5 bilateral lower extremity weakness noted unsure if chronic. SKIN: Warm and dry, pallor, no erythema. no rash. Good capillary refill. Source: Patient Exam Limitations: No limitations - Personal History Tetanus Vaccine Date: Refuses vaccinations - Medical/Surgical History Hx Asthma: Yes Hx Chronic Respiratory Disease: Yes Hx Diabetes: No Hx Cardiac Disease: Yes Hx Renal Disease: No Hx Cirrhosis: No Hx Alcoholism: Yes Hx HIV/AIDS: No Hx Splenectomy or Spleen Trauma: No Other PMH: spinal stenosis, asthma, copd, seizures, ptsd, borderline personality disorder, heart attack in 2012, left shoulder torn rotator cuff - Social History Smoking Status: Former smoker Constitutional: Initial Vital Signs Temperature (C) 36.8 C 02/18/18 16:09 Heart Rate 108 H 02/18/18 16:09 Respiratory Rate 22 H 02/18/18 16:09 Blood Pressure 173/126 H 02/18/18 16:09 O2 Sat (%) 99 02/18/18 16:09 O2 Delivery Mode Room Air Allergies/Adverse Reactions: Penicillins Allergy (Severe, Verified 01/10/18 01:27) Hives Home Medications: Medication Instructions Recorded traZODone [traZODONE 100MG (*)] 100 mg PO HS 11/07/14 Albuterol Sulfate [Albuterol 2 puffs IH Q4HRS PRN 11/08/14 Inhaler Hfa] Fluticasone/Salmeter 500/50Mcg 1 puffs IH BID 03/14/15 [Advair 500/50 (*)] Tizanidine HCl [Zanaflex] 1 mg PO HS 03/14/15 tiZANidine HCL [Zanaflex] 1 - 2 mg PO DAILY PRN 03/14/15 Cholecalciferol (Vitamin D3) 5,000 unit PO TH 11/22/17 [Vitamin D3] Losartan Potassium [Cozaar 50 mg 50 mg PO HS 11/22/17 (*)] Omeprazole 40 mg PO DAILY 11/22/17 Ondansetron Odt [Zofran Odt 4 mg 4 mg PO Q8HRS PRN 11/22/17 (*)] Ranitidine HCl 150 mg PO BID 11/22/17 Gabapentin [Neurontin 300 MG (*)] 600 mg PO TID cap 12/04/17 Docusate Sodium [Colace 100 MG (*)] 100 mg PO DAILY 01/10/18 Topiramate [Topamax 100MG (*)] 100 mg PO HS PRN 01/10/18 HYDROmorphone HCL [Dilaudid 2 mg 2 mg PO Q4HRS PRN #40 tab 01/15/18 (*)] LORazepam [Ativan (*)] 1 - 2 mg PO Q6 PRN #14 tab 01/15/18 Sennosides/Docusate Sodium 1 - 2 tab PO BID tab 01/15/18 [Senokot-S] traMADol [Ultram 50 mg (*)] 50 mg PO Q6HRS PRN #30 tab 01/15/18 Medical Decision Making ED Course/Re-evaluation: Labs, urinalysis, IV fluids, IV medications ordered Vital signs reviewed upon arrival; mild tachycardia; BP noted to be 173/126- patient did not take blood pressure medications today due to nausea. Afebrile. 1615: Given 1 L normal saline, IV Zofran, IV Ativan 1 mg, IV Decadron 10 mg 1652: Labs reviewed. Potassium 3.0; magnesium level ordered; given oral potassium supplementation 40 mEq; etiology likely due to inadequate intake Urinalysis shows no signs of infection, no hematuria. No acute emergent signs to warrant MRI in the emergency room. Will leave to hospitalists and neurosurgery evaluation to determine if imaging is needed. 1725: ED decision to consult for admission for generalized weakness and physical deconditioning. Patient already has home health. Uses walker at baseline to aid ambulation. Fall risk to return home. Patient needs physical therapy and occupational therapy evaluations and likely skilled rehab. Spoke with hospitalist, Dr. De Leon who kindly agrees to admit patient and provide further care. Repeat blood pressure is 148/120 This patient was seen under the supervision of my secondary supervising physician. I evaluated care for this patient independently. Discussed this patient with Dr. Mares who did not see the patient. Differential Diagnosis: Back pain including but not limited to muscular pain, herniated disc, spine fracture, intra-abdominal causes and urinary tract infection. Weakness including but not limited to electrolyte abnormality, depression, anxiety, CVA, spinal cord abnormality, and infectious causes. - Data Points Laboratory Results: Laboratory Results 02/18/18 16:15 02/18/18 16:15 02/18/18 02/18/18 02/18/18 16:40 16:15 16:15 WBC 9.66 10^3/uL H 10^3/uL (3.80-9.50) RBC 4.49 10^6/uL 10^6/uL (4.18-5.33) Hgb 13.9 g/dL g/dL (12.6-16.3) Hct 39.5 % % (38.0-47.0) MCV 88.0 fL fL (81.5-99.8) MCH 31.0 pg pg (27.9-34.1) MCHC 35.2 g/dL g/dL (32.4-36.7) RDW 15.8 % H % (11.5-15.2) Plt Count 297 10^3/uL 10^3/uL (150-400) MPV 9.2 fL fL (8.7-11.7) Neut % (Auto) 80.2 % H % (39.3-74.2) Lymph % (Auto) 12.0 % L % (15.0-45.0) [place] % (Auto) 6.7 % % (4.5-13.0) Eos % (Auto) 0.0 % L % (0.6-7.6) Baso % (Auto) 0.7 % % (0.3-1.7) Nucleat RBC Rel Count 0.0 % % (0.0-0.2) Absolute Neuts (auto) 7.74 10^3/uL H 10^3/uL (1.70-6.50) Absolute Lymphs (auto) 1.16 10^3/uL 10^3/uL (1.00-3.00) Absolute Monos (auto) 0.65 10^3/uL 10^3/uL (0.30-0.80) Absolute Eos (auto) 0.00 10^3/uL L 10^3/uL (0.03-0.40) Absolute Basos (auto) 0.07 10^3/uL 10^3/uL (0.02-0.10) Absolute Nucleated RBC 0.00 10^3/uL 10^3/uL (0-0.01) Immature Gran % 0.4 % % (0.0-1.1) Immature Gran # 0.04 10^3/uL 10^3/uL (0.00-0.10) Sodium 138 mEq/L mEq/L (135-145) Potassium 3.0 mEq/L L mEq/L (3.5-5.2) Chloride 101 mEq/L mEq/L (97-110) Carbon Dioxide 22 mEq/l mEq/l (22-31) Anion Gap 15 mEq/L mEq/L (8-16) BUN 4 mg/dL L mg/dL (7-23) Creatinine 0.6 mg/dL mg/dL (0.6-1.0) Estimated GFR > 60 Glucose 105 mg/dL H mg/dL (70-100) Calcium 9.0 mg/dL mg/dL (8.5-10.4) Total Bilirubin 1.3 mg/dL mg/dL (0.1-1.4) Conjugated Bilirubin 0.5 mg/dL mg/dL (0.0-0.5) Unconjugated Bilirubin 0.8 mg/dL mg/dL (0.0-1.1) AST 48 IU/L H IU/L (14-46) ALT 36 IU/L IU/L (9-52) Alkaline Phosphatase 235 IU/L H IU/L (38-126) Total Protein 6.9 g/dL g/dL (6.3-8.2) Albumin 3.6 g/dL g/dL (3.5-5.0) Urine Color YELLOW Urine Appearance CLEAR Urine pH 6.0 (5.0-7.5) Ur Specific [place] 1.010 (1.002-1.030) Urine Protein NEGATIVE (NEGATIVE) Urine Ketones NEGATIVE (NEGATIVE) Urine Blood NEGATIVE (NEGATIVE) Urine Nitrate NEGATIVE (NEGATIVE) Urine Bilirubin NEGATIVE (NEGATIVE) Urine Urobilinogen NEGATIVE EU EU (0.2-1.0) Ur Leukocyte Esterase NEGATIVE (NEGATIVE) Urine Glucose NEGATIVE (NEGATIVE) Medications Given: Discontinued Medications Dexamethasone (Decadron Injection) 10 mg IVP EDNOW ONE Stop: 02/18/18 16:12 Last Admin: 02/18/18 16:53 Dose: 10 mg Sodium Chloride (Ns) 1,000 mls @ 0 mls/hr IV ONCE ONE; Wide Open PRN Reason: Protocol Stop: 02/18/18 16:12 Last Admin: 02/18/18 16:20 Dose: 1,000 mls Lorazepam (Ativan Injection) 1 mg IVP EDNOW ONE Stop: 02/18/18 16:12 Last Admin: 02/18/18 16:53 Dose: 1 mg Ondansetron HCl (Zofran) 4 mg IVP EDNOW ONE Stop: 02/18/18 16:12 Last Admin: 02/18/18 16:20 Dose: 4 mg Potassium Chloride (Klor-Con) 40 meq PO ONCE ONE Stop: 02/18/18 16:53 Last Admin: 02/18/18 17:10 Dose: 40 meq Departure - Departure Disposition: [facility] Inpatient Acute Clinical Impression: Generalized weakness, Physical deconditioning, Inability to ambulate due to multiple joints, Hypokalemia, inadequate intake Condition: Fair
[2018-02-18] MEDS ORDERED: LORazepam 2 MG/ML INJ IVP ONE (16:11)
[2018-02-18] MEDS ORDERED: ONDANSETRON 4 MG/2 ML VIAL IVP ONE (16:11)
[2018-02-18] MEDS ORDERED: DEXAMETHASONE 10 MG/ML VIAL IVP ONE (16:11)
[2018-02-18] MEDS ORDERED: NS 1,000 ML IV ONE (16:11)
[2018-02-18 16:31] LABS: PLATELET COUNT 297 10^3/uL (150-400)
[2018-02-18] MEDS ORDERED: POTASSIUM CL 20 MEQ TAB PO ONE (16:52)
[2018-02-18] MEDS ORDERED: hydrALAZINE 20 MG/ML VIAL IVP ONE (18:34)
[2018-02-18] MEDS ORDERED: ONDANSETRON DISINTEGRATING 4 MG TAB PO PRN (20:49)
[2018-02-18] MEDS ORDERED: HYDROmorphone HCL/NS 0.5 MG/ML SYR IVP PRN (20:49)
[2018-02-18] MEDS ORDERED: ACETAMINOPHEN 325 MG TAB PO PRN (20:49)
[2018-02-18] MEDS ORDERED: ONDANSETRON 4 MG/2 ML VIAL IVP PRN (20:49)
[2018-02-18] MEDS ORDERED: hydrALAZINE 20 MG/ML VIAL IVP PRN (20:52)
[2018-02-18] MEDS ORDERED: PROTOCOL POTASSIUM 1 DOSE MISC PRN (20:52)
[2018-02-18] MEDS ORDERED: PROTOCOL MAGNESIUM 1 DOSE IV PRN (20:52)
[2018-02-18] MEDS ORDERED: MAGNESIUM SULF 2 GM/WATER 50 ML IV ONE (20:52)
[2018-02-18] MEDS ORDERED: TOPIRAMATE 100 MG TAB PO PRN (20:53)
[2018-02-18] MEDS ORDERED: traMADol 50 MG TAB PO PRN (20:53)
[2018-02-18] MEDS ORDERED: NS 1,000 ML IV SCH (21:00)
[2018-02-18] MEDS ORDERED: FLUTICASONE/SALMETER 500/50MCG DISKUS IH SCH (21:00)
--- NOTE | 2018-02-18 21:01 | PDGENHP ---
History and Physical - Chief Complaint nausea, vomiting, diarrhea, leg pain, leg weakness - History of Present Illness This is a 57 yo female who p/w multiple complaints. Her primary complaints is n/ v/d since 3 days ago. She denies any recent abx use. She has mild abd pain. She has had minimal oral intake. She also c/o of worsening lower extremity weakness and pain. She is able to move her legs w/o difficulty. She has a hx of chronic back pain, She reports that she was unable to stand and ambulate using her walker which is normally her baseline. I November 2017 Dr. Valero performed at T12-L2 fusion and T12-L1 laminectomy. She reports that she has not ate or drank anything in 2 days. Last urination was 3 hr prior to arrival. Blood pressure was noted to be elevated upon arrival. During her last admission, she was evaluated by PT OT and determined that she would be best served due to fall risk/decreased mobilization at an assisted living facility the patient adamantly refused. She drinks ETOH about 5 drinks every other day. She does not appear to be in [facility] MEDICAL/SURGICAL/SOCIAL HISTORY: Medical history: spinal stenosis, asthma, copd, seizures possibly lead to alcohol withdrawal, ptsd, anxiety, borderline personality disorder, heart attack in 2011, left shoulder torn rotator cuff Surgical history: Fusion and laminectomy Social history: Former smoker. Family history noncontributory. social ETOH History Information - Allergies/Home Medication List Allergies/Adverse Reactions: Penicillins Allergy (Severe, Verified 01/10/18 01:27) Hives Home Medications: traZODone [traZODONE 100MG (*)] 100 mg PO HS 11/07/14 [Last Taken 02/17/18] Fluticasone/Salmeter 500/50Mcg [Advair 500/50 (*)] 1 puffs IH BID 03/14/15 [ Last Taken 02/18/18] tiZANidine HCL [Zanaflex] 2 - 4 mg PO DAILY PRN 03/14/15 [Last Taken 02/17/18] Cholecalciferol (Vitamin D3) [Vitamin D3] 5,000 unit PO Q7D 11/22/17 [Last Taken 2 Weeks Ago ~02/04/18] Losartan Potassium [Cozaar 50 mg (*)] 50 mg PO HS 11/22/17 [Last Taken 02/17/18] Ranitidine HCl 150 mg PO BID 11/22/17 [Last Taken 02/17/18] Topiramate [Topamax 100MG (*)] 100 mg PO HS PRN 01/10/18 [Last Taken 3 Weeks Ago ~01/28/18] Albuterol [Proventil Inhaler HFA (*)] 1 - 2 puffs IH Q4H 02/18/18 [Last Taken ] Baclofen [Baclofen 10 mg (*)] 10 mg PO BID 02/18/18 [Last Taken 02/17/18] DULoxetine [Cymbalta 60 MG (*)] 60 mg PO DAILY 02/18/18 [Last Taken 02/18/18] Gabapentin [Neurontin 300 MG (*)] 900 mg PO TID 02/18/18 [Last Taken 02/17/18] LORazepam [Ativan (*)] 1 - 2 mg PO DAILY PRN 02/18/18 [Last Taken 3 Days Ago ~] Ondansetron HCl [Zofran] 8 mg PO TID PRN 02/18/18 [Last Taken 02/17/18] I have personally reviewed and updated: family history, medical history - Past Medical History degenerative disc disease, hypertension Additional medical history: Chronic low back pain with sciatica. Degenerative disc disease, spinal stenosis. L1 compression fracture with history of recurrent falls. PTSD, anxiety disorder, personality disorder per chart borderline personality. COPD, asthma. CAD with reported MT in 2011. Patient unclear on details for this diagnosis. History of seizures possibly alcohol withdrawal. Left humeral fracture. Neuropathy in the left lower extremity with complaints of left footdrop - Surgical History Additional surgical history: Tonsillectomy adenoidectomy. Orthopedic surgery - Family History Additional family history: Unknown. Patient is adopted. - Social History Smoking Status: Former smoker Review of Systems Review of Systems: ROS: 10pt was reviewed & negative except for what was stated in HPI & below Physical Exam Physical Exam: Temp Pulse Resp BP Pulse Ox 36.9 C 90 17 148/98 H 93 02/18/18 19:53 02/18/18 19:53 02/18/18 19:53 02/18/18 19:53 02/18/18 19:53 Constitutional: chronically ill appearing Eyes: PERRL, EOMI Ears, Nose, Mouth, Throat: dry mucous membranes Cardiovascular: regular rate and rhythym, No edema Respiratory: reduced air movement Gastrointestinal: normoactive bowel sounds, soft, non-tender abdomen Skin: warm Musculoskeletal: No generalized weakness Neurologic: AAOx3 Psychiatric: interacting appropriately, not anxious, not encephalopathic, thought process linear Lymph, Heme, Immunologic: No petechiae Lab Data & Imaging Review 02/18/18 16:15 02/18/18 16:15 WBC 9.66 10^3/uL (3.80-9.50) H 02/18/18 16:15 RBC 4.49 10^6/uL (4.18-5.33) 02/18/18 16:15 Hgb 13.9 g/dL (12.6-16.3) 02/18/18 16:15 Hct 39.5 % (38.0-47.0) 02/18/18 16:15 MCV 88.0 fL (81.5-99.8) 02/18/18 16:15 MCH 31.0 pg (27.9-34.1) 02/18/18 16:15 MCHC 35.2 g/dL (32.4-36.7) 02/18/18 16:15 RDW 15.8 % (11.5-15.2) H 02/18/18 16:15 Plt Count 297 10^3/uL (150-400) 02/18/18 16:15 MPV 9.2 fL (8.7-11.7) 02/18/18 16:15 Neut % (Auto) 80.2 % (39.3-74.2) H 02/18/18 16:15 Lymph % (Auto) 12.0 % (15.0-45.0) L 02/18/18 16:15 [place] % (Auto) 6.7 % (4.5-13.0) 02/18/18 16:15 Eos % (Auto) 0.0 % (0.6-7.6) L 02/18/18 16:15 Baso % (Auto) 0.7 % (0.3-1.7) 02/18/18 16:15 Nucleat RBC Rel Count 0.0 % (0.0-0.2) 02/18/18 16:15 Absolute Neuts (auto) 7.74 10^3/uL (1.70-6.50) H 02/18/18 16:15 Absolute Lymphs (auto) 1.16 10^3/uL (1.00-3.00) 02/18/18 16:15 Absolute Monos (auto) 0.65 10^3/uL (0.30-0.80) 02/18/18 16:15 Absolute Eos (auto) 0.00 10^3/uL (0.03-0.40) L 02/18/18 16:15 Absolute Basos (auto) 0.07 10^3/uL (0.02-0.10) 02/18/18 16:15 Absolute Nucleated RBC 0.00 10^3/uL (0-0.01) 02/18/18 16:15 Immature Gran % 0.4 % (0.0-1.1) 02/18/18 16:15 Immature Gran # 0.04 10^3/uL (0.00-0.10) 02/18/18 16:15 Sodium 138 mEq/L (135-145) 02/18/18 16:15 Potassium 3.0 mEq/L (3.5-5.2) L 02/18/18 16:15 Chloride 101 mEq/L (97-110) 02/18/18 16:15 Carbon Dioxide 22 mEq/l (22-31) 02/18/18 16:15 Anion Gap 15 mEq/L (8-16) 02/18/18 16:15 BUN 4 mg/dL (7-23) L 02/18/18 16:15 Creatinine 0.6 mg/dL (0.6-1.0) 02/18/18 16:15 Estimated GFR > 60 02/18/18 16:15 Glucose 105 mg/dL (70-100) H 02/18/18 16:15 Calcium 9.0 mg/dL (8.5-10.4) 02/18/18 16:15 Magnesium 1.3 mg/dL (1.6-2.3) L 02/18/18 16:15 Total Bilirubin 1.3 mg/dL (0.1-1.4) 02/18/18 16:15 Conjugated Bilirubin 0.5 mg/dL (0.0-0.5) 02/18/18 16:15 Unconjugated Bilirubin 0.8 mg/dL (0.0-1.1) 02/18/18 16:15 AST 48 IU/L (14-46) H 02/18/18 16:15 ALT 36 IU/L (9-52) 02/18/18 16:15 Alkaline Phosphatase 235 IU/L (38-126) H 02/18/18 16:15 Total Protein 6.9 g/dL (6.3-8.2) 02/18/18 16:15 Albumin 3.6 g/dL (3.5-5.0) 02/18/18 16:15 Urine Color YELLOW 02/18/18 16:40 Urine Appearance CLEAR 02/18/18 16:40 Urine pH 6.0 (5.0-7.5) 02/18/18 16:40 Ur Specific [place] 1.010 (1.002-1.030) 02/18/18 16:40 Urine Protein NEGATIVE (NEGATIVE) 02/18/18 16:40 Urine Ketones NEGATIVE (NEGATIVE) 02/18/18 16:40 Urine Blood NEGATIVE (NEGATIVE) 02/18/18 16:40 Urine Nitrate NEGATIVE (NEGATIVE) 02/18/18 16:40 Urine Bilirubin NEGATIVE (NEGATIVE) 02/18/18 16:40 Urine Urobilinogen NEGATIVE EU (0.2-1.0) 02/18/18 16:40 Ur Leukocyte Esterase NEGATIVE (NEGATIVE) 02/18/18 16:40 Urine Glucose NEGATIVE (NEGATIVE) 02/18/18 16:40 Assessment & Plan Assessment: #Dehydration due to diarrhea and vomiting #Abd pain #Nause and vomiting #Diarrhea #Hypokalemia #Hypomagnesemia #acute on chronic back pain with mildly increased leg weakness #HTN #COPD not in exacerbation #Generalized weakness and deconditioning Plan: Admit inpatient would likely benefit from rehab or SNF CM to see in a.m. Provide IVF Antiemetics PPI BP mgmt replace K replace Mg PT/OT Steroids for back pain. May consider increasing Gabapentin further Pain mgmt cont home meds SCD's
[2018-02-18] MEDS: ALBUTEROL 60 PUFFS/8 GM MDI IH SCH (21:24)
[2018-02-18] MEDS: FAMOTIDINE 20 MG TAB PO SCH (21:59)
[2018-02-18] MEDS: BACLOFEN 10 MG TAB PO SCH (22:01)
[2018-02-18] MEDS: GABAPENTIN 300 MG CAP PO SCH (22:02)
[2018-02-18] MEDS: traZODone 100 MG TAB PO SCH (22:02)
[2018-02-18] MEDS: LOSARTAN POTASSIUM 50 MG TAB PO SCH (22:03)
[2018-02-18] MEDS: LORazepam 1 MG TAB PO PRN (22:25)
[2018-02-18] MEDS: oxyCODONE IR 5 MG TAB PO PRN (22:26)
[2018-02-19] MEDS: oxyCODONE IR 5 MG TAB PO PRN ×6 (01:28→23:35)
[2018-02-19] MEDS: LORazepam 1 MG TAB PO PRN ×3 (01:28→23:35)
[2018-02-19] MEDS ORDERED: ALBUTEROL 60 PUFFS/8 GM MDI IH PRN (01:30)
[2018-02-19] MEDS: ALBUTEROL 60 PUFFS/8 GM MDI IH SCH (01:51)
[2018-02-19 05:56] LABS: PLATELET COUNT 245 10^3/uL (150-400)
[2018-02-19] MEDS: FAMOTIDINE 20 MG TAB PO SCH ×2 (08:18→20:45)
[2018-02-19] MEDS: DULoxetine 60 MG CAP PO SCH (08:18)
[2018-02-19] MEDS: GABAPENTIN 300 MG CAP PO SCH ×3 (08:18→20:45)
[2018-02-19] MEDS: methylPREDNISolone 4 MG TAB PO SCH ×4 (08:19→20:45)
[2018-02-19] MEDS: BACLOFEN 10 MG TAB PO SCH ×2 (08:20→20:45)
[2018-02-19] MEDS: CHOLECALCIFEROL VIT D3 2,000 UNITS TAB/CAP PO SCH (08:20)
--- NOTE | 2018-02-19 09:03 | PDMN ---
Medical Necessity Medical necessity: est los>2mn for dehydration r/t N/V/D, abd pain, hypokalemia , hypomagnesemia, and acute on chronic back pain w/increasing LE weakness; admit for IVF, PPI, antiemetics, BP management, replace K+, MG, PT/OT; comorbid HTN, COPD, weakness and deconditioning; per order and H&P 02/18/18
[2018-02-19] MEDS ORDERED: POTASSIUM CL 10 MEQ TAB PO ONE ×2 (09:31→20:30)
--- NOTE | 2018-02-19 11:03 | ASMTCMCOM ---
CM Note CM Note Notes: Patient discussed with hospital medicine. The patient is current with HHC through [facility]. She has a supervisor case loading for her housing and [facility]. She relies upon caregivers and HHC services to meet her needs. She is in a dark room and despite her calling EMS due to weakness as well as therapist recommendation is refusing to consider SNF. Call to [facility] to alert them that she is here. Likely to discharge tomorrow, will place referral via allscripts. Plan: HHC services via [facility] Date Signed: 02/19/2018 11:02 AM Electronically Signed By:Treva Keane RN
[2018-02-19] MEDS ORDERED: POTASSIUM CL 20 MEQ/15 ML UDCUP PO ONE (11:15)
--- NOTE | 2018-02-19 13:52 | HOSPPROG ---
Hospitalist Progress Note Assessment/Plan: 57y female with weakness. First encounter, chart reviewed. #Dehydration due to diarrhea and vomiting -resolved with IVF #Abd pain -resolve eating a regular diet #Nause and vomiting -resolved #Diarrhea -none today #Hypokalemia -replace #Hypomagnesemia -replace #acute on chronic back pain with mildly increased leg weakness -at baseline -refusing SNF -[facility] #HTN -home meds #COPD not in exacerbation -stable #Generalized weakness and deconditioning -baseline -PT/OT eval #Dispo -in am with [facility] -pt refusing snf -D/W CM #DVT proph -lovenox Subjective: Feeling better. Still weak and tired. Eating well. Objective: Vital Signs Temp Pulse Resp BP Pulse Ox 36.9 C 113 H 16 122/84 H 96 02/19/18 12:00 02/19/18 12:00 02/19/18 12:00 02/19/18 12:00 02/19/18 12:00 Laboratory Results 02/19/18 04:13 02/19/18 04:13 02/18/18 02/19/18 02/20/18 05:59 05:59 05:59 Intake Total 1000 200 Output Total 500 Balance 500 200 - Physical Exam Constitutional: not in pain, chronically ill appearing, obese Eyes: PERRL, anicteric sclera, EOMI Ears, Nose, Mouth, Throat: moist mucous membranes, hearing normal, ears appear normal Cardiovascular: No JVD, No tachycardia, No edema Respiratory: no respiratory distress, no rales or rhonchi, reduced air movement Gastrointestinal: normoactive bowel sounds, No tenderness, No ascites Skin: warm, normal color, No mottled Musculoskeletal: pain with ROM, muscular tenderness, generalized weakness Neurologic: AAOx3 Psychiatric: not anxious, poor insight, poor judgement, poor memory ICD10 Worksheet Patient Problems: Problems Problem Status Onset Humerus fracture Acute Compression fracture of L1 lumbar vertebra Acute Back pain Acute Acute exacerbation of chronic low back pain Acute Failure to thrive in adult Acute Generalized weakness Acute Physical deconditioning Acute Inability to ambulate due to multiple joints Acute Hypokalemia, inadequate intake Acute
[2018-02-19] MEDS ORDERED: NON-FORMULARY NEW DRUG (Ondansetron Hcl [Zofran] 8 MG) PO PRN (14:09)
[2018-02-19] MEDS ORDERED: ENOXAPARIN 30 MG/0.3 ML SYR SC SCH (14:15)
[2018-02-19] MEDS: ENOXAPARIN 40 MG/0.4 ML SYR SC SCH (15:20)
[2018-02-19] MEDS: FLUTICASONE/SALMETER 500/50MCG DISKUS IH PRN ×2 (16:33→20:41)
[2018-02-19] MEDS ORDERED: LORazepam 1 MG TAB PO ONE (20:00)
[2018-02-19] MEDS: traZODone 100 MG TAB PO SCH (20:45)
[2018-02-19] MEDS: LOSARTAN POTASSIUM 50 MG TAB PO SCH (20:45)
[2018-02-20] MEDS: oxyCODONE IR 5 MG TAB PO PRN ×3 (04:47→21:41)
[2018-02-20] MEDS ORDERED: POTASSIUM CL 10 MEQ TAB PO ONE ×2 (08:01→21:31)
[2018-02-20] MEDS ORDERED: POTASSIUM CL 20 MEQ/15 ML UDCUP PO ONE (08:30)
[2018-02-20] MEDS: GABAPENTIN 300 MG CAP PO SCH ×3 (08:44→21:42)
[2018-02-20] MEDS: BACLOFEN 10 MG TAB PO SCH ×2 (08:45→21:42)
[2018-02-20] MEDS: methylPREDNISolone 4 MG TAB PO SCH ×4 (08:45→21:46)
[2018-02-20] MEDS: FAMOTIDINE 20 MG TAB PO SCH ×2 (08:45→21:42)
[2018-02-20] MEDS: ENOXAPARIN 40 MG/0.4 ML SYR SC SCH (08:46)
--- NOTE | 2018-02-20 08:56 | CPEKG ---
Heart Rate: 102 RR Interval: 588 P-R Interval: 124 QRSD Interval: 74 QT Interval: 352 QTC Interval: 459 P Strunk: 43 QRS Strunk: 31 T Wave Strunk: 5 EKG Severity - OTHERWISE NORMAL ECG - EKG Impression: SINUS TACHYCARDIA Electronically Signed By: Tico Vazquez 21-Feb-2018 19:13:05
[2018-02-20] MEDS: DULoxetine 60 MG CAP PO SCH (11:04)
--- NOTE | 2018-02-20 12:38 | HOSPPROG ---
Hospitalist Progress Note Assessment/Plan: 57y female with weakness. Patient was here recently in December for recurrent falls and weakness. She has a history of a T11-L3 fusion. During that visit she was evaluated by Neurosurgery and there was no indication for any intervention. The recommendation was to follow up with Dr. Harper. First encounter, chart reviewed. #Dehydration due to diarrhea and vomiting -resolved with IVF -no further diarrhea #Tachycardia with hypoxemia -reviewed [address] -has been immobile/ high risk of PE -will get a CTA for further evaluation #Abd pain -resolve eating a regular diet #Nausea and vomiting -resolved #Diarrhea -none today #Hypokalemia -replace #Hypomagnesemia -replace #acute on chronic back pain with mildly increased leg weakness -at baseline -started on Medrol dose pack which has helped her symptoms -per the nursing staff she is quite anxious being on the steroids but feels they are helping her # chronic pain on continuous narcotic dependency -f/u with her PCP #HTN -home meds #COPD not in exacerbation -stable #Generalized weakness and deconditioning -baseline -PT/OT eval #Plan: will get a CTA to r/o PE, patient is also very concerned about getting her ativan and pain meds on dc. Requesting today for 3 weeks of refills, will ask pharmacy to check the PDMP. She was discharged on 01/17 with 2 weeks of refills by the hospitalist here. Subjective: Litzy says she is very anxious on the steroids but wants to continue because they are helping her pain. Objective: Vital Signs Temp Pulse Resp BP Pulse Ox 36.7 C 105 H 18 129/85 H 91 L 02/20/18 11:38 02/20/18 11:38 02/20/18 11:38 02/20/18 11:38 02/20/18 11:38 Laboratory Results 02/19/18 04:13 02/20/18 04:27 02/19/18 02/20/18 02/21/18 05:59 05:59 05:59 Intake Total 1000 650 Output Total 500 400 Balance 500 250 - Physical Exam Constitutional: obese, uncomfortable Eyes: PERRL Ears, Nose, Mouth, Throat: hearing normal Cardiovascular: regular rate and rhythym, tachycardia Respiratory: no respiratory distress Gastrointestinal: normoactive bowel sounds Skin: warm Musculoskeletal: generalized weakness Neurologic: AAOx3 Psychiatric: interacting appropriately ICD10 Worksheet Patient Problems: Problems Problem Status Onset Generalized weakness Acute Hypokalemia, inadequate intake Acute Inability to ambulate due to multiple joints Acute Physical deconditioning Acute Acute exacerbation of chronic low back pain Acute Back pain Acute Compression fracture of L1 lumbar vertebra Acute Failure to thrive in adult Acute Humerus fracture Acute
[2018-02-20] MEDS ORDERED: IOPAMIDOL (ISOVUE 370) 100 ML BTL IV ONE (13:06)
[2018-02-20] MEDS: LORazepam 1 MG TAB PO PRN ×2 (15:49→21:41)
[2018-02-20] MEDS ORDERED: methylPREDNISolone 4 MG TAB PO SCH (21:00)
[2018-02-20] MEDS: traZODone 100 MG TAB PO SCH (21:41)
[2018-02-20] MEDS: LOSARTAN POTASSIUM 50 MG TAB PO SCH (21:42)
[2018-02-21] MEDS: oxyCODONE IR 5 MG TAB PO PRN ×3 (04:18→21:26)
[2018-02-21] MEDS: ENOXAPARIN 40 MG/0.4 ML SYR SC SCH (09:12)
[2018-02-21] MEDS: BACLOFEN 10 MG TAB PO SCH ×2 (09:13→21:25)
[2018-02-21] MEDS: FAMOTIDINE 20 MG TAB PO SCH ×2 (09:13→21:25)
[2018-02-21] MEDS: GABAPENTIN 300 MG CAP PO SCH ×3 (09:13→21:25)
[2018-02-21] MEDS: methylPREDNISolone 4 MG TAB PO SCH ×3 (09:13→21:25)
[2018-02-21] MEDS: LORazepam 1 MG TAB PO PRN ×2 (09:13→21:25)
[2018-02-21] MEDS: DULoxetine 60 MG CAP PO SCH (09:14)
[2018-02-21] MEDS ORDERED: MAGNESIUM SULF 1 GM/DEXTROSE 100 ML IV ONE (09:17)
[2018-02-21] MEDS ORDERED: MAGNESIUM HYDROXIDE 30 ML UDCUP PO PRN (09:35)
[2018-02-21] MEDS ORDERED: POLYETHYLENE GLYCOL 3350 17 GM PKT PO PRN (09:35)
[2018-02-21] MEDS ORDERED: BISACODYL 10 MG SUPP PR PRN (09:35)
[2018-02-21] MEDS ORDERED: LACTULOSE 20 GM/30 ML UDCUP PO PRN (09:35)
--- NOTE | 2018-02-21 09:58 | HOSPPROG ---
Hospitalist Progress Note Assessment/Plan: 57y female with weakness. Patient was here recently in December for recurrent falls and weakness. She has a history of a T11-L3 fusion. During that visit she was evaluated by Neurosurgery and there was no indication for any intervention. The recommendation was to follow up with Dr. Harper. #Dehydration due to diarrhea and vomiting -resolved with IVF -no further diarrhea #Tachycardia with hypoxemia -reviewed [address] -has been immobile/ high risk of PE -will get a CTA for further evaluation #Abd pain -resolve eating a regular diet #Nausea and vomiting -resolved #Diarrhea -none today #Hypokalemia -replace #Hypomagnesemia -replace #acute on chronic back pain with mildly increased leg weakness -at baseline -started on Medrol dose pack which has helped her symptoms -per the nursing staff she is quite anxious being on the steroids but feels they are helping her # chronic pain on continuous narcotic dependency -f/u with her PCP #HTN -home meds #COPD not in exacerbation -stable #Generalized weakness and deconditioning -baseline -PT/OT eval #Plan: Patient is very concerned about getting narcotics and benzodiazepines at discharge. She said her doctor is out of town for 3 weeks. She was recently discharged with prescriptions from the hospitalist team. I reviewed with the patient my concern of her not being able to get these prescriptions filled. [facility] attempt [facility] Subjective: Litzy's main complaint is concern about narcotics and ativan at dc. Is not c/o pain. Objective: Vital Signs Temp Pulse Resp BP Pulse Ox 37.1 C 99 16 113/97 H 95 02/21/18 08:00 02/21/18 08:00 02/21/18 08:00 02/21/18 08:00 02/21/18 08:00 Laboratory Results 02/19/18 04:13 02/21/18 04:18 02/20/18 02/21/18 02/22/18 05:59 05:59 05:59 Intake Total 650 1500 Output Total 400 1400 Balance 250 100 - Physical Exam Constitutional: no apparent distress, appears nourished Eyes: PERRL Ears, Nose, Mouth, Throat: hearing normal Respiratory: no respiratory distress Gastrointestinal: normoactive bowel sounds Skin: warm Musculoskeletal: generalized weakness Neurologic: AAOx3 Psychiatric: interacting appropriately ICD10 Worksheet Patient Problems: Problems Problem Status Onset Generalized weakness Acute Hypokalemia, inadequate intake Acute Inability to ambulate due to multiple joints Acute Physical deconditioning Acute Acute exacerbation of chronic low back pain Acute Back pain Acute Compression fracture of L1 lumbar vertebra Acute Failure to thrive in adult Acute Humerus fracture Acute
[2018-02-21] MEDS: FLUTICASONE/SALMETER 500/50MCG DISKUS IH PRN (11:56)
[2018-02-21] MEDS: IBUPROFEN 200 MG TAB PO PRN (14:14)
--- NOTE | 2018-02-21 16:05 | ASMTCMCOM ---
CM Note CM Note Notes: Pt reports she wants to stay until Friday to get her meds filled through [facility] at [facility]. If [facility] pharmacy can fill then pt likely d/c tomorrow with [facility]. Pt lacks a support system, has no one to pharmacy picking tech meds for her at another pharmacy and does not express any interested in problem solving. Pt has been refusing therapy and wants [facility] transport to carry her up to her apartment. CM to follow. Date Signed: 02/21/2018 04:04 PM Electronically Signed By:ALEXA Choi
[2018-02-21] MEDS ORDERED: POTASSIUM CL 10 MEQ TAB PO ONE (20:42)
[2018-02-21] MEDS: LOSARTAN POTASSIUM 50 MG TAB PO SCH (21:25)
[2018-02-21] MEDS: SENNOSIDES/DOCUSATE SODIUM TAB PO SCH (21:25)
[2018-02-21] MEDS: traZODone 100 MG TAB PO SCH (21:25)
[2018-02-22] MEDS: FAMOTIDINE 20 MG TAB PO SCH ×2 (07:54→21:16)
[2018-02-22] MEDS: LORazepam 1 MG TAB PO PRN ×2 (07:54→21:18)
[2018-02-22] MEDS: BACLOFEN 10 MG TAB PO SCH ×2 (07:54→21:17)
[2018-02-22] MEDS: methylPREDNISolone 4 MG TAB PO SCH ×3 (07:54→21:18)
[2018-02-22] MEDS: SENNOSIDES/DOCUSATE SODIUM TAB PO SCH ×2 (07:54→21:17)
[2018-02-22] MEDS: GABAPENTIN 300 MG CAP PO SCH ×3 (07:54→21:16)
[2018-02-22] MEDS: DULoxetine 60 MG CAP PO SCH ×3 (07:54→10:27)
[2018-02-22] MEDS: oxyCODONE IR 5 MG TAB PO PRN ×4 (07:55→21:17)
[2018-02-22] MEDS: IBUPROFEN 200 MG TAB PO PRN ×2 (08:01→21:28)
[2018-02-22] MEDS: ENOXAPARIN 40 MG/0.4 ML SYR SC SCH (09:19)
[2018-02-22] MEDS ORDERED: MAGNESIUM SULF 1 GM/DEXTROSE 100 ML IV ONE (11:03)
--- NOTE | 2018-02-22 12:41 | HOSPPROG ---
Hospitalist Progress Note Assessment/Plan: 57y female with weakness. Patient was here recently in December for recurrent falls and weakness. She has a history of a T11-L3 fusion. During that visit she was evaluated by Neurosurgery and there was no indication for any intervention. The recommendation was to follow up with Dr. Harper. #Dehydration due to diarrhea and vomiting -resolved with IVF -no further diarrhea #Tachycardia with hypoxemia -reviewed [address] -has been immobile/ high risk of PE -CTA shows no PE #Abd pain -resolve eating a regular diet #Nausea and vomiting -resolved #Diarrhea -none today #Hypokalemia -resolved #Hypomagnesemia -resolved #acute on chronic back pain with mildly increased leg weakness -at baseline -started on Medrol dose pack which has helped her symptoms -per the nursing staff she is quite anxious being on the steroids but feels they are helping her -I told Maricel I would not increase her pain medications # chronic pain on continuous narcotic dependency -f/u with her PCP #HTN -home meds #COPD not in exacerbation -stable -patient says her oxygen levels are dropping -will get a sleep oximetry study tonight to see if she needs oxygen #Generalized weakness and deconditioning -baseline -PT/OT evaluation -she has been refusing to work w PT #Plan: patient is agreeable to work with PT and OT today, need her evaluated to see if she can do steps, has steps to her home. Patient will be dc in a.m. with 3 days of Ativan and a few pain meds. She will need to f/u with her PCP. She also agreed Subjective: Litzy says she is worried about her oxygen levels. Objective: Vital Signs Temp Pulse Resp BP Pulse Ox 36.9 C 94 16 110/99 H 90 L 02/22/18 07:24 02/22/18 07:24 02/22/18 07:24 02/22/18 07:24 02/22/18 07:24 Laboratory Results 02/19/18 04:13 02/22/18 04:18 02/21/18 02/22/18 02/23/18 05:59 05:59 05:59 Intake Total 1500 820 240 Output Total 1400 1 Balance 100 819 240 - Physical Exam Constitutional: no apparent distress, obese Eyes: PERRL Ears, Nose, Mouth, Throat: hearing normal Respiratory: no respiratory distress Skin: warm Musculoskeletal: generalized weakness Neurologic: AAOx3 Psychiatric: interacting appropriately ICD10 Worksheet Patient Problems: Problems Problem Status Onset Generalized weakness Acute Hypokalemia, inadequate intake Acute Inability to ambulate due to multiple joints Acute Physical deconditioning Acute Acute exacerbation of chronic low back pain Acute Back pain Acute Compression fracture of L1 lumbar vertebra Acute Failure to thrive in adult Acute Humerus fracture Acute
--- NOTE | 2018-02-22 13:17 | ASMTCMCOM ---
CM Note CM Note Notes: Per hospitalist, patient will discharge tomorrow AM. She worked with PT/OT today and was deemed appropriate for home (including going up and down stairs). She is currently enrolled with [facility], and they will resume services. [facility]. I tried to schedule transportation with [facility] [employer] transport, but they are not available on the weekend. Patient has requested stretcher transport, but she does not need this level of transport. We will set up appropriate transportation for her tomorrow AM when she is discharged. Date Signed: 02/22/2018 01:16 PM Electronically Signed By:Thelma Vega RN
[2018-02-22] MEDS: FLUTICASONE/SALMETER 500/50MCG DISKUS IH PRN (13:31)
[2018-02-22] MEDS: DICLOFENAC SODIUM 1% 100 GM GEL TP SCH ×2 (16:00→21:23)
[2018-02-22] MEDS: LOSARTAN POTASSIUM 50 MG TAB PO SCH (21:16)
[2018-02-22] MEDS: traZODone 100 MG TAB PO SCH (21:17)
[2018-02-22 23:43] VITALS: BP 136/101
[2018-02-23] MEDS: oxyCODONE IR 5 MG TAB PO PRN ×2 (03:47→09:43)
[2018-02-23] MEDS: IBUPROFEN 200 MG TAB PO PRN ×2 (03:47→09:48)
[2018-02-23] MEDS: LORazepam 1 MG TAB PO PRN ×2 (03:48→09:59)
[2018-02-23] MEDS: DICLOFENAC SODIUM 1% 100 GM GEL TP SCH (05:53)
[2018-02-23] MEDS: methylPREDNISolone 4 MG TAB PO SCH ×2 (07:46→10:01)
--- NOTE | 2018-02-23 08:22 | HOSPPROG ---
Hospitalist Progress Note Assessment/Plan: 57y female with weakness. Patient was here recently in December for recurrent falls and weakness. She has a history of a T11-L3 fusion. During that visit she was evaluated by Neurosurgery and there was no indication for any intervention. The recommendation was to follow up with Dr. Harper. #Dehydration due to diarrhea and vomiting -resolved with IVF -no further diarrhea #Tachycardia with hypoxemia -reviewed [address] -has been immobile/ high risk of PE -CTA shows no PE #Abd pain -resolve eating a regular diet #Nausea and vomiting -resolved #Diarrhea -none today #Hypokalemia -resolved #Hypomagnesemia -resolved #acute on chronic back pain with mildly increased leg weakness -at baseline -started on Medrol dose pack which has helped her symptoms -per the nursing staff she is quite anxious being on the steroids but feels they are helping her -I told Maricel I would not increase her pain medications # chronic pain on continuous narcotic dependency -f/u with her PCP #HTN -home meds #COPD not in exacerbation -stable #Generalized weakness and deconditioning -baseline -PT/OT evaluation -she has been refusing to work w PT #Plan: dc today, reviewed her sleep oximetry studies, she has stayed >86% through the night Subjective: Maricel wants to be left alone and sleep. Objective: Vital Signs Temp Pulse Resp BP Pulse Ox 36.5 C 113 H 19 136/101 H 91 L 02/22/18 23:41 02/22/18 23:41 02/22/18 23:41 02/22/18 23:41 02/22/18 23:41 Laboratory Results 02/19/18 04:13 02/22/18 04:18 02/22/18 02/23/18 02/24/18 05:59 05:59 05:59 Intake Total 820 1790 Output Total 1 1400 Balance 819 390 - Physical Exam Constitutional: no apparent distress Ears, Nose, Mouth, Throat: hearing normal Respiratory: no respiratory distress Skin: warm Neurologic: AAOx3 ICD10 Worksheet Patient Problems: Problems Problem Status Onset Generalized weakness Acute Hypokalemia, inadequate intake Acute Inability to ambulate due to multiple joints Acute Physical deconditioning Acute Acute exacerbation of chronic low back pain Acute Back pain Acute Compression fracture of L1 lumbar vertebra Acute Failure to thrive in adult Acute Humerus fracture Acute
--- NOTE | 2018-02-23 09:30 | GDS ---
[f rep st] DISCHARGE SUMMARY DISCHARGE DIAGNOSES: 1. Dehydration due to diarrhea and vomiting. 2. Tachycardia and hypoxemia. 3. Abdominal pain. 4. Nausea and vomiting. 5. Diarrhea. 6. Hypokalemia. 7. Hypomagnesium. 8. Nvzfa-yh-lslluxr back pain with mildly increased leg weakness. 9. Chronic pain on continuous narcotic dependency. 10. Hypertension. 11. Chronic obstructive pulmonary disease, not in exacerbation. HISTORY OF PRESENT ILLNESS: Briefly, the patient is a 57-year-old female with weakness. She was recently here in December for recurrent falls and weakness. She has a history of a T11 and L3 fusion. During that visit, she was evaluated by Neurosurgery and there was no indication for an intervention with recommendations to see Dr. Harper. On that admission, she was given prescriptions for Ativan and her pain medications by one of the hospitalists. Recommendation was to follow up with her primary care provider. She said she was unable to follow up. She then returned with symptoms of diarrhea and vomiting. This has since resolved. Today, she will be discharged back home. The recommendation is for her to go to a retirement facility. The patient adamantly refuses any type of rehab. HOSPITAL COURSE BY PROBLEM: 1. Dehydration. This is resolved. She had diarrhea and vomiting. 2. Tachycardia. A 12-lead showed a sinus tach. She has been quite immobile. A CTA was performed, which showed no PE. 3. Abdominal pain. Eating and drinking well. Nausea and vomiting resolved. 4. Diarrhea, none. Hypokalemia and hypomagnesemia resolved. 5. Ledjw-zz-arxmupq back pain. She was started on a Medrol Dosepak, which she felt significantly helped her pain, but because of the steroids, she has been requesting higher doses of Ativan. She will have 2 more doses of steroids to complete treatment. 6. Chronic pain on continuous narcotic dependency. We will have her follow up with Dr. Manjarrez. 7. Hypertension. Continue her home medications. 8. COPD, not in exacerbation. 9. General weakness and deconditioning. She will get home care. DISCHARGE CONDITION: Stable. Blood pressure is 136/101, heart rate is ranging from 94 to 113, O2 saturation on room air 91%, temperature is 36.5 Celsius. MEDICATIONS AT DISCHARGE: Please see the EMR. DISCHARGE INSTRUCTIONS: 1. I recommended that she talk to her primary care provider and get weaned off the Ativan. 2. To continue the Decadron. She will be on 2 more doses. 3. To try Voltaren cream to see if that helps with her other medications for pain. Greater than 30 minutes discharging and coordinating the patient's care. /[id number]/MODL MTDD
[2018-02-23] MEDS: BACLOFEN 10 MG TAB PO SCH (09:43)
[2018-02-23] MEDS: FAMOTIDINE 20 MG TAB PO SCH (09:43)
[2018-02-23] MEDS: GABAPENTIN 300 MG CAP PO SCH (09:44)
[2018-02-23] MEDS: DULoxetine 60 MG CAP PO SCH (09:44)
[2018-02-23] MEDS: SENNOSIDES/DOCUSATE SODIUM TAB PO SCH (09:45)
[2018-02-23] MEDS: ENOXAPARIN 40 MG/0.4 ML SYR SC SCH (09:45)
[2018-02-23] MEDS: CHOLECALCIFEROL VIT D3 2,000 UNITS TAB/CAP PO SCH (09:50)
--- NOTE | 2018-02-23 10:47 | PDIAF ---
- Diagnosis Diagnosis: weakness, diarrhea Code Status: Full Code - Medication Management Discharge Medications: Medications to Continue on Transfer traZODone [traZODONE 100MG (*)] 100 mg PO HS 11/07/14 [Last Taken 02/17/18] Fluticasone/Salmeter 500/50Mcg [Advair 500/50 (*)] 1 puffs IH BID 03/14/15 [ Last Taken 02/18/18] tiZANidine HCL [Zanaflex] 2 - 4 mg PO DAILY PRN 03/14/15 [Last Taken 02/17/18] Cholecalciferol (Vitamin D3) [Vitamin D3] 5,000 unit PO Q7D 11/22/17 [Last Taken 2 Weeks Ago ~02/04/18] Losartan Potassium [Cozaar 50 mg (*)] 50 mg PO HS 11/22/17 [Last Taken 02/17/18] Ranitidine HCl 150 mg PO BID 11/22/17 [Last Taken 02/17/18] Topiramate [Topamax 100MG (*)] 100 mg PO HS PRN 01/10/18 [Last Taken 3 Weeks Ago ~01/28/18] traMADol [Ultram 50 mg (*)] 50 mg PO Q6HRS PRN #30 tab 01/15/18 [Last Taken ] Albuterol [Proventil Inhaler HFA (*)] 1 - 2 puffs IH Q4H 02/18/18 [Last Taken ] Baclofen [Baclofen 10 mg (*)] 10 mg PO BID 02/18/18 [Last Taken 02/17/18] DULoxetine [Cymbalta 60 MG (*)] 60 mg PO DAILY 02/18/18 [Last Taken 02/18/18] Gabapentin [Neurontin 300 MG (*)] 900 mg PO TID 02/18/18 [Last Taken 02/17/18] Ondansetron HCl [Zofran] 8 mg PO TID PRN 02/18/18 [Last Taken 02/17/18] Diclofenac Sodium 1% [Voltaren Gel (*)] 2 gm TP QID #1 gel 02/23/18 [Last Taken Unknown] Ibuprofen [Motrin (*)] 400 mg PO Q6HRS PRN tab 02/23/18 [Last Taken Unknown] LORazepam [Ativan (*)] 1 mg PO DAILY PRN #8 tab 02/23/18 [Last Taken Unknown] Polyethylene Glycol 3350 [Miralax 17 gm (*)] 17 gm PO DAILY PRN pkt 02/23/18 [ Last Taken Unknown] Sennosides/Docusate Sodium [Senokot-S] 1 - 2 tab PO BID tab 02/23/18 [Last Taken Unknown] methylPREDNISolone [Medrol 4mg (*)] 4 mg PO DAILY #2 tab 02/23/18 [Last Taken Unknown] oxyCODONE IR [Oxycodone Ir (*)] 5 mg PO Q3HRS PRN #12 tab 02/23/18 [Last Taken Unknown] Discharge Medications: Refer to the Discharge Home Medication list for PRN reason. PICC Care - Routine: N/A - Orders Services needed: Home Care, Registered Nurse, Physical Therapy Home Care Face to Face: I certify that this patient was under my care and that I had the required qzix-es-zpid encounter meeting the encounter requirements on the discharge day. My findings support the fact that the patient is homebound as defined in Home Care Face to Face Continued: CMS Chapter 7 Medicare Benefits Manual 30.1.1 , The condition of the patient is such that there exists a normal inability to leave home and consequently, leaving home would require a considerable and taxing effort. Isolation Type: None Diet Recommendation: no restrictions on diet Diet Texture: Regular Texture Diet Additional Instructions: prescriptions were sent to the pharmacy here recommending you see Dr Manjarrez or one of her partners in regards to the Ativan and Oxy/see this week/ recommending physical therapy for your pain I sent a prescription for Voltaren cream to help with your pain you have two more doses of the decadron and then will be done, take one dose tonight and the last one tomorrow morning - Follow Up Care Current Providers and Referrals: Alma Manjarrez MD [Primary Care Provider] -
--- NOTE | 2018-02-23 11:20 | ASMTLACE ---
ANUPAME Length of stay for Answers: 4-6 days current admission Acuity / Level of Answers: Yes Care: Did the patient have an inpatient admission? Comorbidities - select Answers: Chronic pulmonary disease all that apply Opioid dependence / Chronic pain # of Emergency department Answers: 1-2 visits in the last 6 months Social determinants Answers: History of substance abuse (ETOH, street drugs, prescription drugs, etc.) Mental health diagnosis (anxiety, depression, pers onality disorders, etc.) Lack of community resources and/or lack of social support (no pcp, lives alone, transportation, amena d) Score: 24 Date Signed: 02/23/2018 11:19 AM Electronically Signed By:Leora Larsen RN
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
[2018-02-24] MEDS ORDERED: methylPREDNISolone 4 MG TAB PO SCH (07:30)
== END 2018-02-23 11:05 | disposition home health service (06) | DRG 861 ==
LOC: EDUNIT# → F3N 18:30
PROVIDERS: ADMIT Family Medicine; ATTEND Internal Medicine
DX: R53.1 Weakness (principal); R11.2 Nausea with vomiting, unspecified; E86.0 Dehydration; E87.6 Hypokalemia; E83.42 Hypomagnesemia; R29.6 Repeated falls; M54.5 Low back pain; R19.7 Diarrhea, unspecified; R00.0 Tachycardia, unspecified; R09.02 Hypoxemia; F11.20 Opioid dependence, uncomplicated; J44.9 Chronic obstructive pulmonary disease, unspecified; I10 Essential (primary) hypertension; F41.8 Other specified anxiety disorders; E66.9 Obesity, unspecified; F43.10 Post-traumatic stress disorder, unspecified; F60.3 Borderline personality disorder; I25.2 Old myocardial infarction; Z91.81 History of falling; Z98.1 Arthrodesis status; Z68.31 Body mass index [BMI] 31.0-31.9, adult; Z87.891 Personal history of nicotine dependence
CPT/HCPCS: 96374; 97116-GP; 97161-GP; 97165-GO; 97530-GO; 97535-GO; J0360; J1100; J1650; J2060; J2405; J3475; Q9967

== ENCOUNTER 2018-03-04 06:15 | Inpatient (IN) | payer MEDICAID ==
[2018-03-04] MEDS ORDERED: NS 1,000 ML IV ONE (06:58)
[2018-03-04] MEDS ORDERED: DIAZEPAM 5 MG/ML 1 ML SYR IVP ONE (06:58)
[2018-03-04] MEDS ORDERED: KETAMINE 200 MG/20 ML VIAL IVP ONE (06:58)
--- NOTE | 2018-03-04 07:03 | EDPHY ---
H & P Stated Complaint: bilateral leg spasms Time Seen by Provider: 03/04/18 06:43 HPI/ROS: CHIEF COMPLAINT: Back and leg pain HISTORY OF PRESENT ILLNESS: Patient is a 57-year-old female with a history of chronic back pain who comes to the emergency department complaining of back pain and bilateral leg pain. She has history of recurrent falls and suffered at L1 fracture with compression of the conus in October. She had a T11-L3 fusion at that time. She also has a history of severe anxiety, posttraumatic stress , personality disorder and chronic pain with continues narcotic use as well as alcohol abuse history and withdrawal seizures and COPD. She has been readmitted several times since that instance. He each time they have recommended she go to a intermediate but she adamantly refuses. They have also arranged physical therapy and occupational therapy which she states she has not really been doing. During her last admission she was discharged on a 2 week prescription for oral Dilaudid and Ativan although there was some trepidation voiced by the discharging physician. That was about 2 weeks ago. She states that her primary doctor Josseline refuses to give her more opiates and instead prescribed her tramadol which is not working. This seems to be major factor and why she is here today. She is also taking baclofen Neurontin without significant relief. No fevers. No new falls or trauma. No nausea vomiting. She has not followed up with Dr. Valero. She has not been incontinent or had retention. REVIEW OF SYSTEMS: Constitutional: denies: chills, fever, recent illness, recent injury EENTM: denies: blurred vision, double vision, nose congestion Respiratory: denies: cough, shortness of breath Cardiac: denies: chest pain, irregular heart rate, lightheadedness, palpitations Gastrointestinal/Abdominal: denies: abdominal pain, diarrhea, nausea, vomiting, blood streaked stools Genitourinary: denies: dysuria, frequency, hematuria, pain Musculoskeletal: See HPI Skin: denies: lesions, rash, jaundice, bruising Neurological: denies: headache, numbness, paresthesia, tingling, dizziness, weakness Hematologic/Lymphatic: denies: blood clots, easy bleeding, easy bruising Immunologic/allergic: denies: HIV/AIDS, transplant EXAM: GENERAL: Well-appearing, well-nourished and in no acute distress. HEAD: Atraumatic, normocephalic. EYES: Pupils equal round and reactive to light, extraocular movements intact, sclera anicteric, conjunctiva are normal. ENT: TMs normal, nares patent, oropharynx clear without exudates. Moist mucous membranes. NECK: Normal range of motion, supple without lymphadenopathy or JVD. LUNGS: Breath sounds clear to auscultation bilaterally and equal. No wheezes rales or rhonchi. HEART: Regular rate and rhythm without murmurs, rubs or gallops. ABDOMEN: Soft, nontender, normoactive bowel sounds. No guarding, no rebound. No masses appreciated. BACK: Severe low back pain, No CVA tenderness, no spinal tenderness, step-offs or deformities EXTREMITIES: Moving all extremities but complains of significant pain. Normal range of motion, no pitting or edema. No clubbing or cyanosis. NEUROLOGICAL: Cranial nerves II through XII grossly intact. Normal speech, ambulates but with pain. 4/5 strength, normal movement in all extremities, normal sensation PSYCH: Angry, demanding SKIN: Warm, dry, normal turgor, no visible rashes or lesions. Source: Patient Exam Limitations: No limitations - Personal History Tetanus Vaccine Date: Refuses vaccinations - Medical/Surgical History Hx Asthma: Yes Hx Chronic Respiratory Disease: Yes Hx Diabetes: No Hx Cardiac Disease: Yes Hx Renal Disease: No Hx Cirrhosis: No Hx Alcoholism: Yes Hx HIV/AIDS: No Hx Splenectomy or Spleen Trauma: No Other PMH: spinal stenosis, asthma, copd, seizures, ptsd, borderline personality disorder, heart attack in 2012, left shoulder torn rotator cuff - Family History Significant Family History: No pertinent family hx - Social History Smoking Status: Former smoker Alcohol Use: Sober Drug Use: None Constitutional: Initial Vital Signs Heart Rate 96 03/04/18 06:17 Respiratory Rate 20 03/04/18 06:17 Blood Pressure 188/131 H 03/04/18 06:17 O2 Sat (%) 93 03/04/18 06:17 O2 Delivery Mode Room Air Allergies/Adverse Reactions: Penicillins Allergy (Severe, Verified 01/10/18 01:27) Hives Home Medications: Medication Instructions Recorded traZODone [traZODONE 100MG (*)] 100 mg PO HS 11/07/14 Fluticasone/Salmeter 500/50Mcg 1 puffs IH BID 03/14/15 [Advair 500/50 (*)] tiZANidine HCL [Zanaflex] 2 mg PO HS PRN 03/14/15 Cholecalciferol (Vitamin D3) 5,000 unit PO Q7D 11/22/17 [Vitamin D3] Losartan Potassium [Cozaar 50 mg 50 mg PO HS 11/22/17 (*)] Ranitidine HCl 150 mg PO BID 11/22/17 Topiramate [Topamax 100MG (*)] 100 mg PO HS PRN 01/10/18 Baclofen [Baclofen 10 mg (*)] 10 mg PO BID 02/18/18 DULoxetine [Cymbalta 60 MG (*)] 60 mg PO DAILY 02/18/18 Gabapentin [Neurontin 300 MG (*)] 900 mg PO TID 02/18/18 Ondansetron HCl [Zofran] 8 mg PO TID PRN 02/18/18 Ibuprofen [Motrin (*)] 400 mg PO Q6HRS PRN tab 02/23/18 LORazepam [Ativan (*)] 1 mg PO DAILY PRN #8 tab 02/23/18 Polyethylene Glycol 3350 [Miralax 17 gm PO DAILY PRN pkt 02/23/18 17 gm (*)] Diclofenac Sodium 1% [Voltaren Gel 2 gm TP QID PRN 03/04/18 (*)] Medical Decision Making ED Course/Re-evaluation: 9:10 a.m. the patient is refusing MRI. Multiple attempts were made med IVs but unsuccessfully. [address] but she ripped it out.. She is refusing to have any place an IJ or any line in her neck. She has been very difficult in general. At this point we had a very armand discussion about what we could do to help her in the emergency department especially if she was refusing any interventions. I offered to help her get back home at which point she consented to the MRI. I will try to treat her with IM Toradol if she agrees. 10:00 a.m. Because the patient initially refused MRI she now has to wait until other patients who are in que. I will likely happened around noon. 2:00 p.m. there has been significant delay and her MRI. She has not yet received her Versed which was attended to be given for pain control but miscommunicated that it was supposed to be given for sedation for the MRI. When MRI came to get her she had not received the Versed and they told nursing staff that she would need to be monitored if she had Versed just before her MRI. This was not my original intent. It Looks as though will not be able to get the MRI today which I do think is important since she has not had 1 since prior to her surgery and she continues to have symptoms and possibly worsening symptoms. I spoke with Loree who accepted for Dr. De Leon. Differential Diagnosis: Partial list of the Differential diagnosis considered include but were not limited to; anxiety, personality disorder, chronic back pain, neuropathy and although unlikely based on the history and physical exam, I also considered infection, ischemia, fracture. I discussed these differential diagnoses and the plan with the patient as well as the usual and expected course. The patient understands that the diagnosis is provisional and that in medicine we are not always correct and that further workup is often warranted. Usual and customary warnings were given. All of the patient's questions were answered. The patient was instructed to return to the emergency department should the symptoms at all worsen or return, otherwise to followup with the physician as we discussed. - Data Points Medications Given: Gabapentin (Neurontin) 1,200 mg PO TID LILLY Stop: 08/31/18 16:44 Last Admin: 03/04/18 22:16 Dose: 1,200 mg Sodium Chloride (Ns) 1,000 mls @ 75 mls/hr IV CONT LILLY Stop: 03/06/18 06:04 Last Admin: 03/04/18 19:20 Dose: 1,000 mls Ondansetron HCl (Zofran Odt) 4 mg PO Q4HRS PRN PRN Reason: Nausea/Vomiting, Use 1st Stop: 08/31/18 16:41 Last Admin: 03/04/18 18:36 Dose: 4 mg Pantoprazole Sodium (Protonix) 40 mg PO DAILY LILLY Stop: 08/31/18 16:44 Last Admin: 03/04/18 18:36 Dose: 40 mg Discontinued Medications Diazepam (Valium) 5 mg IVP EDNOW ONE Stop: 03/04/18 06:59 Last Admin: 03/04/18 09:44 Dose: Not Given Sodium Chloride (Ns) 1,000 mls @ 0 mls/hr IV EDNOW ONE; Wide Open PRN Reason: Protocol Stop: 03/04/18 06:59 Last Admin: 03/04/18 09:44 Dose: Not Given Ketamine HCl (Ketamine) 16.4 mg 0.2 mg/kg (16.4 mg) IVP EDNOW ONE Stop: 03/04/18 06:59 Last Admin: 03/04/18 09:44 Dose: Not Given Ketorolac Tromethamine (Toradol) 30 mg IM EDNOW ONE Stop: 03/04/18 09:14 Last Admin: 03/04/18 09:58 Dose: 30 mg Lorazepam (Ativan Injection) 2 mg IM EDNOW ONE Stop: 03/04/18 14:05 Last Admin: 03/04/18 14:19 Dose: 2 mg Lorazepam (Ativan Injection) 1 mg IM ONCE ONE Stop: 03/04/18 14:52 Last Admin: 03/04/18 14:53 Dose: 1 mg Methylprednisolone (Medrol) 8 mg PO ONCE@1900 ONE Stop: 03/04/18 19:01 Last Admin: 03/04/18 18:37 Dose: 8 mg Methylprednisolone (Medrol) 8 mg PO ONCE@2300 ONE Stop: 03/04/18 23:01 Last Admin: 03/04/18 23:13 Dose: 8 mg Methylprednisolone (Medrol) 8 mg PO ONCE@2100 ONE Stop: 03/04/18 21:01 Last Admin: 03/04/18 22:16 Dose: 8 mg Midazolam HCl (Versed) 5 mg IM EDNOW ONE Stop: 03/04/18 09:15 Last Admin: 03/04/18 14:21 Dose: Not Given Ondansetron HCl (Zofran Odt) 4 mg PO EDNOW ONE Stop: 03/04/18 10:21 Last Admin: 03/04/18 10:28 Dose: 4 mg Potassium Chloride (Klor-Con) 40 meq PO ONCE ONE PRN Reason: Protocol Stop: 03/04/18 22:28 Last Admin: 03/04/18 23:13 Dose: 40 meq Departure - Departure Disposition: [facility] Acute Clinical Impression: Low back pain Qualifiers: Chronicity: chronic Back pain laterality: bilateral Sciatica presence: with sciatica Sciatica laterality: bilateral sciatica Qualified Code(s): M54.42 - Lumbago with sciatica, left side; M54.41 - Lumbago with sciatica, right side; M54.41 - Lumbago with sciatica, right side; G89.29 - Other chronic pain; G89.29 - Other chronic pain Condition: Fair
[2018-03-04] MEDS ORDERED: KETOROLAC 30 MG/1 ML SDV IM ONE (09:13)
[2018-03-04] MEDS ORDERED: MIDAZOLAM 10 MG/2 ML VIAL IM ONE (09:14)
[2018-03-04] MEDS ORDERED: ONDANSETRON DISINTEGRATING 4 MG TAB PO ONE (10:20)
[2018-03-04] MEDS ORDERED: MIDAZOLAM 10 MG/2 ML VIAL ONE (12:43)
[2018-03-04] MEDS ORDERED: LORazepam 2 MG/ML INJ IM ONE ×2 (14:04→14:51)
[2018-03-04] MEDS ORDERED: LORazepam 2 MG/ML INJ ONE (14:43)
[2018-03-04] MEDS ORDERED: LORazepam 2 MG/ML INJ IVP PRN (16:38)
[2018-03-04] MEDS ORDERED: FLUMAZENIL 0.5 MG/5 ML MDV IVP PRN (16:38)
[2018-03-04] MEDS ORDERED: LORazepam 1 MG TAB PO PRN (16:38)
[2018-03-04] MEDS ORDERED: ONDANSETRON 4 MG/2 ML VIAL IVP PRN (16:42)
--- NOTE | 2018-03-04 16:49 | PDGENHP ---
History and Physical - Chief Complaint back and bilateral lep pain and weakness - History of Present Illness Patient is a 57-year-old female with a history of chronic back pain who p/w back pain and bilateral leg pain. She has history of recurrent falls and suffered at L1 fracture with compression of the conus in October. She had a T11 -L3 fusion at that time. She also has a history of severe anxiety, posttraumatic stress , personality disorder and chronic pain with continues narcotic use as well as alcohol abuse history and withdrawal seizures and COPD. She has been readmitted several times since that instance. Each time there has been a recommendation that she go to a fdc but she adamantly refuses. They have also arranged physical therapy and occupational therapy which she states she has not really been doing. No fevers. No new falls or trauma. No nausea vomiting. She has not followed up with Dr. Valero. She has not been incontinent or had retention. She drinks ETOH daily. Last drink was yesterday. She does not have signs of intoxication or WD MRI was done in the E.D. and this is pending. No labs are available, although they have been ordered. MEDICAL/SURGICAL/SOCIAL HISTORY: Medical history: spinal stenosis, asthma, copd, seizures possibly lead to alcohol withdrawal, ptsd, anxiety, borderline personality disorder, heart attack in 2011, left shoulder torn rotator cuff Surgical history: Fusion and laminectomy Social history: Former smoker. Family history noncontributory. social ETOH History Information - Allergies/Home Medication List Allergies/Adverse Reactions: Penicillins Allergy (Severe, Verified 01/10/18 01:27) Hives Home Medications: traZODone [traZODONE 100MG (*)] 100 mg PO HS 11/07/14 [Last Taken 02/17/18] Fluticasone/Salmeter 500/50Mcg [Advair 500/50 (*)] 1 puffs IH BID 03/14/15 [ Last Taken 02/18/18] tiZANidine HCL [Zanaflex] 2 - 4 mg PO DAILY PRN 03/14/15 [Last Taken 02/17/18] Cholecalciferol (Vitamin D3) [Vitamin D3] 5,000 unit PO Q7D 11/22/17 [Last Taken 2 Weeks Ago ~02/04/18] Losartan Potassium [Cozaar 50 mg (*)] 50 mg PO HS 11/22/17 [Last Taken 02/17/18] Ranitidine HCl 150 mg PO BID 11/22/17 [Last Taken 02/17/18] Topiramate [Topamax 100MG (*)] 100 mg PO HS PRN 01/10/18 [Last Taken 3 Weeks Ago ~01/28/18] Albuterol [Proventil Inhaler HFA (*)] 1 - 2 puffs IH Q4H 02/18/18 [Last Taken ] Baclofen [Baclofen 10 mg (*)] 10 mg PO BID 02/18/18 [Last Taken 02/17/18] DULoxetine [Cymbalta 60 MG (*)] 60 mg PO DAILY 02/18/18 [Last Taken 02/18/18] Gabapentin [Neurontin 300 MG (*)] 900 mg PO TID 02/18/18 [Last Taken 02/17/18] Ondansetron HCl [Zofran] 8 mg PO TID PRN 02/18/18 [Last Taken 02/17/18] I have personally reviewed and updated: medical history, social history - Past Medical History degenerative disc disease, hypertension Additional medical history: Chronic low back pain with sciatica. Degenerative disc disease, spinal stenosis. L1 compression fracture with history of recurrent falls. PTSD, anxiety disorder, personality disorder per chart borderline personality. COPD, asthma. CAD with reported IA in 2011. Patient unclear on details for this diagnosis. History of seizures possibly alcohol withdrawal. Left humeral fracture. Neuropathy in the left lower extremity with complaints of left footdrop - Surgical History Additional surgical history: Tonsillectomy adenoidectomy. Orthopedic surgery - Family History Additional family history: Unknown. Patient is adopted. - Social History Smoking Status: Former smoker Alcohol Use: Sober Drug Use: None Review of Systems Review of Systems: ROS: 10pt was reviewed & negative except for what was stated in HPI & below Physical Exam Physical Exam: Temp Pulse Resp BP Pulse Ox 36.7 C 111 H 18 131/101 H 93 03/04/18 16:42 03/04/18 16:42 03/04/18 16:42 03/04/18 16:42 03/04/18 16:42 Constitutional: no apparent distress Eyes: PERRL, EOMI Ears, Nose, Mouth, Throat: dry mucous membranes Cardiovascular: regular rate and rhythym Respiratory: no respiratory distress Gastrointestinal: normoactive bowel sounds, soft, non-tender abdomen Genitourinary: no bladder fullness Skin: warm Neurologic: AAOx3, other (3/4 bilater leg weakness.) Psychiatric: interacting appropriately, not anxious, not encephalopathic, thought process linear Lymph, Heme, Immunologic: No petechiae Assessment & Plan Assessment: #Acute on chronic back pain with neuropathy #bilateral Leg Weakness #HTN #Dehydration #Chronic ETOH Plan: IV fluids pain mgmt not in active WD Await MRI Await labs, ordered but not available yet PT/OT consider NS consult pending MRI SCD's Increase Gabapentin home meds once a list is available
[2018-03-04] MEDS ORDERED: hydrALAZINE 20 MG/ML VIAL IVP PRN (16:54)
[2018-03-04] MEDS ORDERED: PROTOCOL POTASSIUM 1 DOSE MISC PRN (16:55)
[2018-03-04] MEDS ORDERED: PROTOCOL MAGNESIUM 1 DOSE IV PRN (16:55)
--- NOTE | 2018-03-04 17:07 | ASMTCMCOM ---
CM Note CM Note Notes: Pt presented to the ED via EMS for leg pain, difficulty ambulating and having falls at home. Pt has history of T11-L3 fusion in Oct and Nov 2017; neurosurgeon is Dr Harper. Please see previous CM Assessments for additional info and psychosocial background Pt recently d/c'd from [facility] on 02/23/18 to continue skilled RN/PT/OT homecare through [facility] ([phone]) due to pt's refusal to d/c to a SNF at that time. Spoke w/[facility] and they said pt was last seen on 02/28/18 by PT; PT has been recommending a lumbar brace but pt has been saying she doesn't need it. Pt had been refusing RN HC services since 02/23, so an RN was discontinued. OT had an appt on 03/01 but pt refused their visit/care. Spoke w/Roseann Reyna (c:[phone]) for [facility]; updated on pt's admission. Pt receives non-skilled home care through [facility] but can't remember the new company providing the services. Pt used to have [facility] ([phone]) but this CM s/w staff at [facility] and they discontinued services w/pt on 12/04/17. This CM called pt's [facility] Mail Caller, Alma Deliamaria guadalupe Reis ([phone]) but Alma Delia is out on vacation until 03/09/18. This CM called the [facility] vacation coverage #[phone] and left a voicemail requesting someone to call the [facility] Mail Caller back to provide additional info. Pt has a Mail Caller through [facility], Mary Power ([phone]) but pt didn't want this CM to contact her at this time. Per PC, pt was at one time receiving in-home visits from [facility] once a week. Spoke w/[facility] (pt's PCP is Alma Manjarrez) and pt's last visit was an in-home visit on 01/28/18 and they established a communication agreement with the pt (which she signed): pt is to only contact her assigned RN, Channing Smyth, only once and then wait for a call back. This CM e-mailed Italia Mckinley ([phone]) with [facility] and requested she reach out to patient. *There was a lot of effort and energy expended by various members in the ED and MRI team in trying to get the MRI completed so that if MRI were stable and unchanged, pt was going to be discharged home with HC, etc. Ultimately, MRI did get completed but by then the ED MD requested admission for pain control, etc. PLAN: Depending on MRI results and treatment plan, if pt continues to refuse a SNF, anticipate pt to DC home with [facility], non-skilled HC, and to follow up with [facility] and P. Date Signed: 03/04/2018 05:06 PM Electronically Signed By:Fela Bah RN
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
[2018-03-04] MEDS ORDERED: methylPREDNISolone 4 MG TAB PO ONE ×5 (17:30→23:00)
[2018-03-04] MEDS: PANTOPRAZOLE SODIUM 40 MG TAB PO SCH (18:36)
[2018-03-04] MEDS: ONDANSETRON DISINTEGRATING 4 MG TAB PO PRN (18:36)
[2018-03-04] MEDS: GABAPENTIN 400 MG CAP PO SCH ×2 (18:37→22:16)
[2018-03-04] MEDS ORDERED: methylPREDNISolone 4 MG TAB PO SCH (19:00)
[2018-03-04] MEDS: NS 1,000 ML IV SCH (19:20)
[2018-03-04 19:35] LABS: PLATELET COUNT 363 10^3/uL (150-400)
[2018-03-04 19:45] LABS: PROTIME(PATIENT) 13.4 SEC (12.0-15.0)
[2018-03-04] MEDS ORDERED: POTASSIUM CL 10 MEQ TAB PO ONE (22:27)
[2018-03-05] MEDS ORDERED: methylPREDNISolone 4 MG TAB PO SCH ×3 (07:30→21:00)
[2018-03-05] MEDS: PANTOPRAZOLE SODIUM 40 MG TAB PO SCH (08:14)
[2018-03-05] MEDS: LORazepam 1 MG TAB PO PRN ×2 (08:14→21:55)
[2018-03-05] MEDS: GABAPENTIN 400 MG CAP PO SCH ×3 (08:15→20:32)
[2018-03-05] MEDS: methylPREDNISolone 4 MG TAB PO SCH ×3 (08:15→17:55)
[2018-03-05] MEDS ORDERED: DICLOFENAC SODIUM 1% 100 GM GEL TP PRN (08:56)
[2018-03-05] MEDS ORDERED: NON-FORMULARY NEW DRUG (Cholecalciferol (Vitamin D3) [Vitamin D3] 5,000 UNIT) PO SCH (09:00)
[2018-03-05] MEDS: oxyCODONE IR 5 MG TAB PO PRN ×4 (09:46→23:25)
[2018-03-05] MEDS: LOSARTAN POTASSIUM 50 MG TAB PO SCH ×2 (09:46→21:49)
[2018-03-05] MEDS: THIAMINE HCL 500 MG in NS 100 ML IV SCH (09:49)
[2018-03-05] MEDS: DULoxetine 60 MG CAP PO SCH (09:49)
[2018-03-05] MEDS: BACLOFEN 10 MG TAB PO SCH ×2 (09:49→22:00)
[2018-03-05] MEDS: FLUTICASONE/SALMETER 500/50MCG DISKUS IH SCH ×2 (10:22→22:54)
[2018-03-05 13:04] LABS: PLATELET COUNT 374 10^3/uL (150-400)
--- NOTE | 2018-03-05 13:32 | HOSPPROG ---
Hospitalist Progress Note Assessment/Plan: #Acute on chronic back pain with neuropathy -MRI c/w t9-10 severe central canal stenosis with cord compression, t10-11 moderate to severe central canal stenosis, acute vs subacute vertebral body fracture of t11 #bilateral Leg Weakness #HTN #Dehydration, improving #Nause, improving on antiemetics, ppi #Chronic ETOH #Hypokalemia Plan: Medrol dose pack Stop IV fluids pain mgmt not in active WD, Ativan prn Await NS reccs replace K per protoco PT/OT SCD's Gabapentin increased on admission restart home meds Change to inpatient Subjective: no cp or sob. no n/v. stil with back pain and bilateral leg weakness. Objective: Vital Signs Temp Pulse Resp BP Pulse Ox 36.9 C 116 H 16 145/94 H 92 03/05/18 11:46 03/05/18 11:46 03/05/18 11:46 03/05/18 11:46 03/05/18 11:46 Laboratory Results 03/05/18 12:55 03/04/18 03/05/18 03/06/18 05:59 05:59 05:59 Intake Total 1530 Balance 1530 PT 13.4 SEC (12.0-15.0) 03/04/18 19:26 INR 1.00 (0.83-1.16) 03/04/18 19:26 - Physical Exam Constitutional: no apparent distress Eyes: PERRL, EOMI Ears, Nose, Mouth, Throat: moist mucous membranes, hearing normal, ears appear normal Cardiovascular: regular rate and rhythym, No edema Respiratory: no respiratory distress, no rales or rhonchi, clear to auscultation Gastrointestinal: normoactive bowel sounds, soft, non-tender abdomen Skin: warm Neurologic: AAOx3 Psychiatric: interacting appropriately, not anxious, not encephalopathic Lymph, Heme, Immunologic: No petechiae ICD10 Worksheet Patient Problems: Problems Problem Status Onset Low back pain Acute Acute exacerbation of chronic low back pain Acute Back pain Acute Compression fracture of L1 lumbar vertebra Acute Failure to thrive in adult Acute Generalized weakness Acute Humerus fracture Acute Hypokalemia, inadequate intake Acute Inability to ambulate due to multiple joints Acute Physical deconditioning Acute
--- NOTE | 2018-03-05 14:00 | GCON ---
[f rep st] CONSULTATION NEUROSURGERY CONSULTATION CHIEF COMPLAINT: Progressive leg weakness and back pain, history of prior lumbar fusion. HISTORY OF PRESENT ILLNESS: This is a 57-year-old female who had prior surgery with Dr. Harper in October for a T11-L3 fusion at that time for a fracture. This fracture had compression of the conus back in October and was fixed by Dr. Harper. The patient states that after that she was doing well, but in the last month or so she has been having a recurrent history of falls as well as severe leg pain that she states radiates down the backs of both of her legs into her heel. She states that she does have some urinary urge incontinence, which she cannot get to the bathroom in time but she denies any saddle anesthesia or incontinence of bowel. She has not seen Dr. Harper recently. She states that yesterday her leg pain was so bad that she brought herself into the emergency room. She states that she currently lives here in [place]. REVIEW OF SYSTEMS: All negative and positive review of systems are as stated in the HPI. PAST MEDICAL HISTORY: Significant for spinal stenosis, asthma, COPD, seizures possibly lead to alcohol withdrawal, PTSD, anxiety, borderline personality disorder. She also had a heart attack in 2011. Left shoulder torn rotator cuff. PAST SURGICAL HISTORY: Had a T11-L3 fusion by Dr. Harper in October of 2017. SOCIAL HISTORY: Former smoker. Current history of heavy daily alcohol use. Last drink was yesterday. Currently, she does not have signs of intoxication or withdrawal. ALLERGIES: Patient is allergic to penicillin. CURRENT MEDICATIONS: Include trazodone, fluticasone, tizanidine, ranitidine, vitamin D3, losartan, Topamax, Cymbalta, baclofen, Neurontin, Zofran, Motrin, MiraLAX, Ativan, and diclofenac. OBJECTIVE: VITAL SIGNS: Blood pressure 145/94, heart rate 116, respiratory rate 16, O2 saturation 92% on room air, temperature 36.9. CONSTITUTIONAL: Patient is a well-developed, well-nourished female who is currently upset and tearful. HEENT: Head is normocephalic, atraumatic. Eyes: Pupils are equal, and reactive to light and accommodation. Extraocular muscles are intact. NECK : Nontender to palpation. Has full range of motion. RESPIRATORY: The patient has normal work of breathing. ABDOMEN: No guarding. NEUROLOGIC: Cranial nerves 2-12 are grossly intact. Tongue protrusion is midline. Palate rises symmetrically. Sensation is intact to light touch. Accessory muscles 5/5 equal in strength. No facial droop identified which is fluent. MOTOR: Bilateral upper extremities are 5/5 equal strength in all muscle groups including biceps, triceps, wrist extensors, flexors, interossei and mammalogy teacher. Bilateral lower extremities are 5/5 and equal in strength in quadriceps, hamstrings, dorsiflexion, plantar flexion, and EHL. She has negative clonus. Her deep tendon reflexes at the patellar and Achilles are 2+ bilaterally and she has normal sensation to light touch over the legs and the abdomen. LABORATORY DATA: Laboratory data from 03/05/2018 shows white blood cell count 11.89, red blood cell count 4.08, hemoglobin 12.9, hematocrit 38.5, platelets 374. PT 13.4, INR 1.00, APTT 26.3. Chemistry: Sodium 137, potassium 3.1, chloride 103, carbon dioxide 25, BUN 3, creatinine 0.5, estimated GFR greater than 60. Calcium 8.4, alkaline phosphatase 162, protein 6.1, albumin 3.3. DIAGNOSTIC IMAGING REVIEW: 1. MRI of the lumbar spine was performed without contrast and showed T11 vertebral acute versus subacute fracture of the anterior-inferior cortex without retropulsion. Consider DEXA bone scan evaluation for osteoporosis when the patient's medical condition permits. 2. Subacute severe burst fracture of L1 vertebral body with retropulsion and postsurgical changes consistent with posterior laminectomies of bilateral T12 and L2 transpedicular screws demonstrating only mild residual central canal stenosis and mild residual cord edema of the conus medullaris region. 3. L2-3 severe central canal stenosis secondary to a broad-based disk herniation, degenerative disk disease. Bilateral facet arthropathy. 4. Moderate to severe central canal stenosis at L3-4, L4-5 secondary to degenerative disk disease with disk osteophyte complex and bilateral facet arthropathy also resulting in L4-5 severe left neural foraminal stenosis. An MRI of the thoracic spine was performed without contrast and shows similar findings to those discussed in the lumbar spine. Also, showed a T9-10 severe central canal stenosis with cord compression and deformity secondary to medial disk herniation extrusion migrating cephalad. 5. T11-T12 moderate to severe central canal stenosis secondary to right paramedian disk herniation extrusion migrating cephalad with cord compression. ASSESSMENT AND PLAN: This is a 57-year-old female who has a history of a T11- L3 fusion back in October by Dr. Harper for a severe compression fracture at that time that was causing cord compression. She presents to the [facility] Emergency Room after progressive leg weakness and complaints of worsening leg pain since surgery. Her MRI was reviewed of her lumbar and thoracic spine and does show a central disk herniation at T9-10 that is causing some cord compression. At this time, she is neurologically intact without any signs of myelopathy or loss of bowel or bladder control. The patient states that she currently does not wish to have any more surgery and wants to go home. Her leg symptoms are currently improved on steroids. I did talk with her about the nature of this disk herniation and her risk of possible paralysis should this continue or get worse. Will talk with Dr. Thurston who also saw the patient at approximately 8:12 am this morning. We will look at her images and further discuss plans with Dr. Harper as well in terms of any further surgical intervention that may be needed. We will continue Physical therapy and Occupational therapy as tolerated and continue with her steroid treatment as this is helping her leg pain. Currently, she may resume a normal diet at this time. We do not plan any emergent surgery today. Continue q.4 hours neuro checks and please alert neurosurgical team should there be any changes in her neuro exam, any changes in her bowel or bladder. We will continue to see this patient while she is in the hospital and after we discuss plans with Dr. Harper as well as Dr. Thurston. /[id number]/MODL MTDD
[2018-03-05] MEDS ORDERED: POTASSIUM CL 10 MEQ TAB PO ONE ×2 (14:12→19:35)
--- NOTE | 2018-03-05 14:31 | PDMN ---
Medical Necessity Medical necessity: Change to IP, as of 03/05/18, per MD; los >2 mn for ongoing management of acute on chronic back pain w/neuropathy, bilateral leg weakness, htn, nausea, dehydration & hypokalemia; admit for further monitoring, med management & therapies; hx chronic ETOH, seizures, spinal stenosis, COPD; per progress note & order 03/05/18
[2018-03-05] MEDS: ACETAMINOPHEN 325 MG TAB PO PRN (17:56)
[2018-03-05] MEDS: NS 1,000 ML IV SCH (20:26)
[2018-03-05] MEDS: traZODone 100 MG TAB PO SCH (21:47)
[2018-03-05] MEDS: TOPIRAMATE 100 MG TAB PO PRN (21:55)
[2018-03-06] MEDS: oxyCODONE IR 5 MG TAB PO PRN ×5 (04:39→22:42)
[2018-03-06] MEDS: BACLOFEN 10 MG TAB PO SCH ×3 (04:43→17:16)
[2018-03-06] MEDS: LORazepam 1 MG TAB PO PRN ×4 (04:44→22:42)
[2018-03-06] MEDS: ACETAMINOPHEN 325 MG TAB PO PRN ×3 (05:16→20:38)
[2018-03-06] MEDS ORDERED: methylPREDNISolone 4 MG TAB PO SCH (07:30)
[2018-03-06] MEDS: GABAPENTIN 400 MG CAP PO SCH ×3 (08:22→21:49)
[2018-03-06] MEDS: PANTOPRAZOLE SODIUM 40 MG TAB PO SCH (08:23)
[2018-03-06] MEDS: methylPREDNISolone 4 MG TAB PO SCH ×4 (08:24→20:29)
[2018-03-06] MEDS: DULoxetine 60 MG CAP PO SCH (08:25)
[2018-03-06] MEDS: THIAMINE HCL 500 MG in NS 100 ML IV SCH (08:26)
[2018-03-06] MEDS: POLYETHYLENE GLYCOL 3350 17 GM PKT PO PRN (08:37)
--- NOTE | 2018-03-06 09:24 | NEUSURGPN ---
Assessment/Plan: 57 yo female with history of prior T11-L3 fusion for L1 fracture in Oct [address] Harper with now progressive LE weakness and numbness/tingling. New MRI demonstrates T9-11 disc herniations with cord compression at T10. Denies loss of bowel/bladder changes - patient refuses surgery - advised on the risks of not proceeding with surgery. Patient understands and acknowledges she is at increased risk for paralysis and loss of bowel/bladder control by refusing surgery. Knows the importance avoiding falls and trauma - will sign off and follow peripherally - follow up with Dr. Harper in 2 weeks - discussed with Dr. Thurston Subjective: Continues to have LE numbness/tingling. Objective: Awake. Alert. PERRL Facial expression symmetrical Following commands. Strength full - Physician Discussed Patient with : [facility] Physical Exam - Vitals, I&O, Labs I and O 03/05/18 03/06/18 03/07/18 05:59 05:59 05:59 Intake Total 1530 750 500 Output Total 1150 Balance 1530 -400 500 Intake: Oral (ml) 500 750 500 IV Intake (ml) 880 IV Infused (ml) 150 Ns 1,000 ml @ 75 mls/hr 150 IV CONT LILLY Rx#: [id number] Output: Urine (ml) 1150 Toilet 1150 Other: Intake Quantity Yes Sufficient Number of Voids Toilet 1 Vital Signs Temp Pulse Resp BP Pulse Ox 36.7 C 85 16 110/66 2 L 03/06/18 08:00 03/06/18 08:00 03/06/18 08:00 03/06/18 08:00 03/06/18 08:00 Laboratory Results 03/05/18 12:55 03/06/18 08:37 ICD10 Worksheet Patient Problems: Problems Problem Status Onset Low back pain Acute Acute exacerbation of chronic low back pain Acute Back pain Acute Compression fracture of L1 lumbar vertebra Acute Failure to thrive in adult Acute Generalized weakness Acute Humerus fracture Acute Hypokalemia, inadequate intake Acute Inability to ambulate due to multiple joints Acute Physical deconditioning Acute
[2018-03-06] MEDS: FLUTICASONE/SALMETER 500/50MCG DISKUS IH SCH ×2 (09:58→21:43)
[2018-03-06] MEDS ORDERED: MAGNESIUM SULF 1 GM/DEXTROSE 100 ML IV ONE (10:07)
--- NOTE | 2018-03-06 13:16 | HOSPPROG ---
Hospitalist Progress Note Assessment/Plan: 57 YO female admitted with back pain found to have t9-10 severe central canal stenosis with cord compression, t10-11 moderate to severe central canal stenosis , acute vs subacute vertebral body fracture of t11. NS consulted and they recommend surgery but she refuses. #Acute on chronic back pain with neuropathy -MRI c/w t9-10 severe central canal stenosis with cord compression, t10-11 moderate to severe central canal stenosis, acute vs subacute vertebral body fracture of t11 #bilateral Leg Weakness, improving on steroids #HTN, stable #Dehydration, resolved #Nause, resolved with antiemetics, ppi #Chronic ETOH, not in exacerbation #Hypokalemia, replacing per protocol Plan: cont Medrol dose pack pain mgmt. Gabapentin increased on admission not in active WD, Ativan prn replace K per protoco PT/OT SCD's cont home meds Keep inpatient tonight, consider d/c tomorrow. She is refusing SNF. Subjective: leg pain is improving. refusing surgery. understands all risks including paralysis, bowel/urine incontinence. working with PT. Objective: Vital Signs Temp Pulse Resp BP Pulse Ox 36.7 C 92 18 110/66 99 03/06/18 08:00 03/06/18 09:59 03/06/18 09:59 03/06/18 08:00 03/06/18 09:59 Laboratory Results 03/05/18 12:55 03/06/18 08:37 03/05/18 03/06/18 03/07/18 05:59 05:59 05:59 Intake Total 1530 750 500 Output Total 1150 300 Balance 1530 -400 200 PT 13.4 SEC (12.0-15.0) 03/04/18 19:26 INR 1.00 (0.83-1.16) 03/04/18 19:26 - Physical Exam Constitutional: no apparent distress, not in pain Eyes: PERRL, EOMI Ears, Nose, Mouth, Throat: moist mucous membranes, hearing normal Cardiovascular: regular rate and rhythym, No edema Respiratory: no respiratory distress, no rales or rhonchi, clear to auscultation Gastrointestinal: normoactive bowel sounds, soft, non-tender abdomen Skin: warm Musculoskeletal: generalized weakness Neurologic: AAOx3 Psychiatric: interacting appropriately Lymph, Heme, Immunologic: No petechiae ICD10 Worksheet Patient Problems: Problems Problem Status Onset Low back pain Acute Acute exacerbation of chronic low back pain Acute Back pain Acute Compression fracture of L1 lumbar vertebra Acute Failure to thrive in adult Acute Generalized weakness Acute Humerus fracture Acute Hypokalemia, inadequate intake Acute Inability to ambulate due to multiple joints Acute Physical deconditioning Acute
--- NOTE | 2018-03-06 16:47 | ASMTCMCOM ---
CM Note CM Note Notes: Today pt decides she does want surgery for T9-11 disc herniations with cord compression at T10. Per RN Rosa SANTIAGO says this is not an emergency surgery, pt to follow up with [facility] in a week to get surgery scheduled. Pt wants to stay in hospital and have surgery now. Pt is upset she may not have surgery this hospitalization, CM supported. Potential d/c tomorrow, d/c meds filled by Rm today. D/c plan of care: Home with continued services of [facility], [facility] and [facility] unless pt surgery is scheduled and she can stay in [facility] Date Signed: 03/06/2018 04:47 PM Electronically Signed By:ALEXA Choi
[2018-03-06] MEDS: LOSARTAN POTASSIUM 50 MG TAB PO SCH (20:30)
[2018-03-06] MEDS: TOPIRAMATE 100 MG TAB PO PRN (20:38)
[2018-03-06] MEDS ORDERED: POTASSIUM CL 10 MEQ TAB PO ONE (20:41)
[2018-03-06] MEDS: traZODone 100 MG TAB PO SCH (21:50)
[2018-03-07] MEDS: oxyCODONE IR 5 MG TAB PO PRN ×4 (03:41→18:32)
[2018-03-07] MEDS: BACLOFEN 10 MG TAB PO SCH ×2 (05:43→18:32)
[2018-03-07] MEDS: LORazepam 1 MG TAB PO PRN ×3 (05:43→21:44)
[2018-03-07] MEDS ORDERED: methylPREDNISolone 4 MG TAB PO SCH (07:30)
[2018-03-07] MEDS: POLYETHYLENE GLYCOL 3350 17 GM PKT PO PRN (08:39)
[2018-03-07] MEDS: PANTOPRAZOLE SODIUM 40 MG TAB PO SCH (08:40)
[2018-03-07] MEDS: GABAPENTIN 400 MG CAP PO SCH ×3 (08:40→21:31)
[2018-03-07] MEDS: methylPREDNISolone 4 MG TAB PO SCH ×3 (08:40→21:31)
[2018-03-07] MEDS: ACETAMINOPHEN 325 MG TAB PO PRN (08:41)
[2018-03-07] MEDS: DULoxetine 60 MG CAP PO SCH (08:41)
[2018-03-07] MEDS: FLUTICASONE/SALMETER 500/50MCG DISKUS IH SCH ×2 (09:07→21:34)
--- NOTE | 2018-03-07 09:26 | NEUSURGPN ---
Assessment/Plan: 57 yo female with history of prior T11-L3 fusion for L1 fracture in Oct [address] Harper with now progressive LE weakness and numbness/tingling. New MRI demonstrates T9-11 disc herniations with cord compression at T10. Denies loss of bowel/bladder changes - patient and Dr Harper spoke last night. Plan is for surgery early next week. - continue with pain management in the meantime - bowel protocol - discussed with Dr. Harper - Call NS with any questions Subjective: Pt resting in bed, states she already talked to Dr Harper and plan is for surgery next week Objective: AAOx3 NAD VSS MAEx4 Motor 5/5 BLE +LT Urinary Catheter in Place: No - Physician Discussed Patient with Dr.: [facility] Neurosurgery Physical Exam - Vitals, I&O, Labs I and O 03/06/18 03/07/18 03/08/18 05:59 05:59 05:59 Intake Total 750 1250 Output Total 1150 1600 Balance -400 -350 Intake: Oral (ml) 750 1250 Output: Urine (ml) 1150 1600 Bedside Commode 300 Toilet 1150 1300 Other: Intake Quantity Yes Sufficient Number of Voids Toilet 1 1 Vital Signs Temp Pulse Resp BP Pulse Ox 36.7 C 96 16 135/83 H 94 03/07/18 08:00 03/07/18 08:00 03/07/18 08:00 03/07/18 08:00 03/07/18 08:00 Laboratory Results 03/05/18 12:55 03/07/18 04:20 ICD10 Worksheet Patient Problems: Problems Problem Status Onset Low back pain Acute Acute exacerbation of chronic low back pain Acute Back pain Acute Compression fracture of L1 lumbar vertebra Acute Failure to thrive in adult Acute Generalized weakness Acute Humerus fracture Acute Hypokalemia, inadequate intake Acute Inability to ambulate due to multiple joints Acute Physical deconditioning Acute
[2018-03-07] MEDS: THIAMINE HCL 500 MG in NS 100 ML IV SCH (10:32)
--- NOTE | 2018-03-07 13:36 | HOSPPROG ---
Hospitalist Progress Note Assessment/Plan: 57 YO female admitted with back pain found to have t9-10 severe central canal stenosis with cord compression, t10-11 moderate to severe central canal stenosis , acute vs subacute vertebral body fracture of t11. NS consulted and they recommend surgery. She refused surgery initially but changed her mind on 03/06. She will have surgery early next week #Acute on chronic back pain with neuropathy -MRI c/w t9-10 severe central canal stenosis with cord compression, t10-11 moderate to severe central canal stenosis, acute vs subacute vertebral body fracture of t11 #bilateral Leg Weakness, improving on steroids #HTN, stable #Dehydration, resolved #Nause, resolved with antiemetics, ppi #Chronic ETOH, not in exacerbation #Hypokalemia, replacing per protocol Plan: Surgical mgmt early next week cont Medrol dose pack pain mgmt. Gabapentin increased on admission not in active WD, Ativan prn replace K per protocol PT/OT SCD's cont home meds cont inpatient Subjective: no bladder or bowel incontinence. Has changed her mind on surgery. Pain is well controlled. Still with bilateral leg weakness, although some improvement. Objective: Vital Signs Temp Pulse Resp BP Pulse Ox 36.7 C 96 16 135/83 H 94 03/07/18 08:00 03/07/18 08:00 03/07/18 08:00 03/07/18 08:00 03/07/18 08:00 Laboratory Results 03/05/18 12:55 03/07/18 04:20 03/06/18 03/07/18 03/08/18 05:59 05:59 05:59 Intake Total 750 1250 Output Total 1150 1600 Balance -400 -350 PT 13.4 SEC (12.0-15.0) 03/04/18 19:26 INR 1.00 (0.83-1.16) 03/04/18 19:26 - Physical Exam Constitutional: no apparent distress Eyes: PERRL, EOMI Ears, Nose, Mouth, Throat: moist mucous membranes, hearing normal Cardiovascular: No edema Respiratory: no respiratory distress, no rales or rhonchi, clear to auscultation Gastrointestinal: normoactive bowel sounds, soft, non-tender abdomen Skin: warm Neurologic: AAOx3 Psychiatric: interacting appropriately, not anxious, not encephalopathic, thought process linear Lymph, Heme, Immunologic: No petechiae ICD10 Worksheet Patient Problems: Problems Problem Status Onset Low back pain Acute Acute exacerbation of chronic low back pain Acute Back pain Acute Compression fracture of L1 lumbar vertebra Acute Failure to thrive in adult Acute Generalized weakness Acute Humerus fracture Acute Hypokalemia, inadequate intake Acute Inability to ambulate due to multiple joints Acute Physical deconditioning Acute
[2018-03-07] MEDS ORDERED: MAGNESIUM SULF 1 GM/DEXTROSE 100 ML IV ONE (14:00)
[2018-03-07] MEDS: THIAMINE HCL 100 MG TAB PO SCH (14:36)
[2018-03-07] MEDS ORDERED: LACTULOSE 20 GM/30 ML UDCUP PO PRN (15:04)
[2018-03-07] MEDS ORDERED: BISACODYL 10 MG SUPP PR PRN (15:04)
[2018-03-07] MEDS: MAGNESIUM HYDROXIDE 30 ML UDCUP PO PRN (19:52)
[2018-03-07] MEDS: SENNOSIDES/DOCUSATE SODIUM TAB PO SCH (21:30)
[2018-03-07] MEDS: LOSARTAN POTASSIUM 50 MG TAB PO SCH (21:31)
[2018-03-07] MEDS: traZODone 100 MG TAB PO SCH (21:32)
[2018-03-07] MEDS ORDERED: POTASSIUM CL 10 MEQ TAB PO ONE (22:20)
[2018-03-08] MEDS: oxyCODONE IR 5 MG TAB PO PRN ×4 (00:07→21:33)
[2018-03-08] MEDS: ALBUTEROL 3 ML DEYVIAL IH PRN ×2 (00:42→17:31)
[2018-03-08] MEDS: methylPREDNISolone 4 MG TAB PO SCH ×2 (06:41→21:29)
[2018-03-08] MEDS: BACLOFEN 10 MG TAB PO SCH ×2 (06:41→17:27)
[2018-03-08] MEDS ORDERED: methylPREDNISolone 4 MG TAB PO SCH (07:30)
[2018-03-08] MEDS: ACETAMINOPHEN 325 MG TAB PO PRN ×2 (08:04→18:04)
[2018-03-08] MEDS: GABAPENTIN 400 MG CAP PO SCH ×3 (08:04→21:28)
[2018-03-08] MEDS: POLYETHYLENE GLYCOL 3350 17 GM PKT PO PRN (08:04)
[2018-03-08] MEDS: SENNOSIDES/DOCUSATE SODIUM TAB PO SCH ×2 (08:04→21:29)
[2018-03-08] MEDS: DULoxetine 60 MG CAP PO SCH (08:05)
[2018-03-08] MEDS: THIAMINE HCL 100 MG TAB PO SCH (08:05)
[2018-03-08] MEDS: PANTOPRAZOLE SODIUM 40 MG TAB PO SCH (08:05)
[2018-03-08] MEDS: LORazepam 1 MG TAB PO PRN ×2 (08:05→21:30)
[2018-03-08] MEDS: FLUTICASONE/SALMETER 500/50MCG DISKUS IH SCH ×2 (08:18→21:43)
[2018-03-08] MEDS ORDERED: MAGNESIUM CITRATE 300 ML BOTTLE PO ONE (09:36)
--- NOTE | 2018-03-08 10:09 | NEUSURGPN ---
Assessment/Plan: 57 yo female with history of prior T11-L3 fusion for L1 fracture [place] [address] Harper with now progressive LE weakness and numbness/tingling. New MRI demonstrates T9-11 disc herniations with cord compression at T10. Denies loss of bowel/bladder changes - patient and Dr Harper have discussed plan is for surgery early next week. - continue with pain management in the meantime - added MS contin 15mg BID. Monitor for oversedation - bowel protocol - pt wants her home OTC meds for constipation. RN to check with pharmacy if this is on formulary. I told pt it may not be. Mag citrate ordered. -IV expires today, new one to be placed. Can get PICC if unable to place IV. Pt is concerned about not having IV access and requiring an IV only med - discussed with Dr. Harper - Call NS with any questions Subjective: Pt resting in bed, states she has not had a BM in 10 days Objective: AAOx3 NAD VSS MAEx4 Motor 5/5 BLE +LT Urinary Catheter in Place: No - Physician Discussed Patient with : [facility] Physical Exam - Vitals, I&O, Labs I and O 03/07/18 03/08/18 03/09/18 05:59 05:59 05:59 Intake Total 1250 500 Output Total 1600 Balance -350 500 Intake: Oral (ml) 1250 500 Output: Urine (ml) 1600 Bedside Commode 300 Toilet 1300 Other: Intake Quantity Yes Sufficient Number of Voids Toilet 1 2 1 Vital Signs Temp Pulse Resp BP Pulse Ox 36.6 C 101 H 18 160/98 H 92 03/08/18 07:51 03/08/18 07:51 03/08/18 07:51 03/08/18 07:51 03/08/18 07:51 Laboratory Results 03/05/18 12:55 03/08/18 05:50 ICD10 Worksheet Patient Problems: Problems Problem Status Onset Low back pain Acute Acute exacerbation of chronic low back pain Acute Back pain Acute Compression fracture of L1 lumbar vertebra Acute Failure to thrive in adult Acute Generalized weakness Acute Humerus fracture Acute Hypokalemia, inadequate intake Acute Inability to ambulate due to multiple joints Acute Physical deconditioning Acute
[2018-03-08] MEDS: morphINE SR 15 MG TAB PO SCH ×2 (10:51→21:29)
[2018-03-08] MEDS ORDERED: POTASSIUM CL 10 MEQ TAB PO ONE ×2 (11:33→21:19)
--- NOTE | 2018-03-08 12:34 | HOSPPROG ---
Hospitalist Progress Note Assessment/Plan: 57 YO female admitted with back pain found to have t9-10 severe central canal stenosis with cord compression, t10-11 moderate to severe central canal stenosis , acute vs subacute vertebral body fracture of t11. NS consulted and they recommend surgery. She refused surgery initially but changed her mind on 03/06. She will have surgery early next week no o/n events pain is well controlled leg pain and weakness improving on steroids will have surgery early in the week, but not on schedule yet. #Acute on chronic back pain with neuropathy -MRI c/w t9-10 severe central canal stenosis with cord compression, t10-11 moderate to severe central canal stenosis, acute vs subacute vertebral body fracture of t11 #bilateral Leg Weakness, improving on steroids #HTN, stable #Dehydration, resolved #Nause, resolved with antiemetics, ppi #Chronic ETOH, not in exacerbation #Hypokalemia, replacing per protocol Plan: Surgical mgmt early next week cont Medrol dose pack pain mgmt. Gabapentin increased on admission not in active WD, Ativan prn replace K per protocol PT/OT SCD's cont home meds cont inpatient Subjective: no overnight events. pain is well controlled. no cp or sob. Objective: Vital Signs Temp Pulse Resp BP Pulse Ox 36.6 C 101 H 18 160/98 H 92 03/08/18 07:51 03/08/18 07:51 03/08/18 07:51 03/08/18 07:51 03/08/18 07:51 Laboratory Results 03/05/18 12:55 03/08/18 05:50 03/07/18 03/08/18 03/09/18 05:59 05:59 05:59 Intake Total 1250 500 Output Total 1600 Balance -350 500 PT 13.4 SEC (12.0-15.0) 03/04/18 19:26 INR 1.00 (0.83-1.16) 03/04/18 19:26 - Physical Exam Constitutional: no apparent distress Eyes: PERRL Ears, Nose, Mouth, Throat: moist mucous membranes, hearing normal Cardiovascular: regular rate and rhythym, no murmur, rub, or gallop, systolic murmur Respiratory: no respiratory distress, no rales or rhonchi, clear to auscultation Gastrointestinal: normoactive bowel sounds, soft, non-tender abdomen Genitourinary: no bladder fullness Skin: warm Neurologic: AAOx3 Psychiatric: interacting appropriately, not anxious, not encephalopathic Lymph, Heme, Immunologic: No petechiae ICD10 Worksheet Patient Problems: Problems Problem Status Onset Low back pain Acute Acute exacerbation of chronic low back pain Acute Back pain Acute Compression fracture of L1 lumbar vertebra Acute Failure to thrive in adult Acute Generalized weakness Acute Humerus fracture Acute Hypokalemia, inadequate intake Acute Inability to ambulate due to multiple joints Acute Physical deconditioning Acute
[2018-03-08] MEDS: traZODone 100 MG TAB PO SCH (21:29)
[2018-03-08] MEDS: LOSARTAN POTASSIUM 50 MG TAB PO SCH (21:30)
[2018-03-08] MEDS: TOPIRAMATE 100 MG TAB PO PRN (21:35)
[2018-03-08] MEDS ORDERED: LORazepam 0.5 MG TAB PO ONE (23:04)
[2018-03-09] MEDS: oxyCODONE IR 5 MG TAB PO PRN ×6 (03:44→21:55)
[2018-03-09] MEDS: ACETAMINOPHEN 325 MG TAB PO PRN ×3 (03:45→17:48)
[2018-03-09] MEDS: BACLOFEN 10 MG TAB PO SCH ×2 (05:15→17:47)
[2018-03-09] MEDS ORDERED: methylPREDNISolone 4 MG TAB PO SCH ×2 (07:30)
[2018-03-09] MEDS: GABAPENTIN 400 MG CAP PO SCH ×3 (08:18→21:45)
[2018-03-09] MEDS: DULoxetine 60 MG CAP PO SCH (08:19)
[2018-03-09] MEDS: morphINE SR 15 MG TAB PO SCH ×2 (08:20→21:47)
[2018-03-09] MEDS: THIAMINE HCL 100 MG TAB PO SCH (08:20)
[2018-03-09] MEDS: SENNOSIDES/DOCUSATE SODIUM TAB PO SCH ×2 (08:21→21:48)
[2018-03-09] MEDS: PANTOPRAZOLE SODIUM 40 MG TAB PO SCH (08:21)
[2018-03-09] MEDS: LORazepam 1 MG TAB PO PRN ×2 (08:24→21:55)
--- NOTE | 2018-03-09 08:27 | HOSPPROG ---
Hospitalist Progress Note Assessment/Plan: 57 YO female admitted with back pain found to have t9-10 severe central canal stenosis with cord compression, t10-11 moderate to severe central canal stenosis , acute vs subacute vertebral body fracture of t11. NS consulted and they recommend surgery. She refused surgery initially but changed her mind on 03/06. Today is my first encounter.Chart reviewed, Discussed her care with RY Kaye with neurosurgery. *Acute on chronic back pain with neuropathy -New MRI demonstrates T9-11 disc herniations with cord compression at T10. -surgery this Friday *bilateral Leg Weakness, improving on steroids -no bowel/bladder changes *HTN, stable *Dehydration, resolved *Nausea, resolved *Chronic ETOH, not in exacerbation *Hypokalemia, replacing per protocol *hx of chronic narcotic use and benzodiazepine use -Litzy was requesting her Ativan dose be increased, explained to her my concern of being too dependent on this, encouraged her to get oob, and work on relaxation techniques, she is agreeable to this. *plan: Litzy is agreeable to have surgery this , had requested for it to be on Friday so she could get her cat taken care of. She is requesting to go to IP rehab on dc, but will await from PT and OT prior to asking IP rehab to evaluate. Subjective: Litzy is hopeful about surgery, has no complaints. Objective: Vital Signs Temp Pulse Resp BP Pulse Ox 36.4 C 95 18 140/96 H 96 03/09/18 08:00 03/09/18 08:00 03/09/18 08:00 03/09/18 08:00 03/09/18 08:00 Laboratory Results 03/05/18 12:55 03/08/18 18:27 03/08/18 03/09/18 03/10/18 05:59 05:59 05:59 Intake Total 500 Output Total 400 Balance 500 -400 PT 13.4 SEC (12.0-15.0) 03/04/18 19:26 INR 1.00 (0.83-1.16) 03/04/18 19:26 - Physical Exam Constitutional: obese Eyes: PERRL Ears, Nose, Mouth, Throat: hearing normal Cardiovascular: regular rate and rhythym Respiratory: no respiratory distress Skin: warm Musculoskeletal: generalized weakness Neurologic: AAOx3 Psychiatric: interacting appropriately ICD10 Worksheet Patient Problems: Problems Problem Status Onset Low back pain Acute Acute exacerbation of chronic low back pain Acute Back pain Acute Compression fracture of L1 lumbar vertebra Acute Failure to thrive in adult Acute Generalized weakness Acute Humerus fracture Acute Hypokalemia, inadequate intake Acute Inability to ambulate due to multiple joints Acute Physical deconditioning Acute
[2018-03-09] MEDS: FLUTICASONE/SALMETER 500/50MCG DISKUS IH SCH ×2 (08:30→21:44)
--- NOTE | 2018-03-09 09:03 | NEUSURGPN ---
Assessment/Plan: Assessment: 57 yo female with history of prior T11-L3 fusion for L1 fracture [place] [address] Harper with now progressive LE weakness and numbness/tingling. New MRI demonstrates T9-11 disc herniations with cord compression at T10. Denies loss of bowel/bladder changes -Patient and Dr Harper have discussed plan: surgery this week/Friday will likely be two level fusion above existing construct -Patient expresses concern that she is "not mentally prepared" for surgery until Friday, explained that surgery will likely be Friday and she will think things over. -Ok to discharge and plan for surgery as out patient if patient not ready to proceed - bowel protocol - Discussed patient with Dr Harper - Call NS with any questions Subjective: Sitting in bed, requesting increase in Ativan and unsure if she is ready for surgery this Friday Objective: AAOx3 NAD VSS MAEx4 Motor 5/5 BLE Sensation intact to light touch BLE Neuro Check Frequency: per routine Urinary Catheter in Place: No - Physician Discussed Patient with Dr.: Harper Neurosurgery Physical Exam - Vitals, I&O, Labs I and O 03/08/18 03/09/18 03/10/18 05:59 05:59 05:59 Intake Total 500 200 Output Total 400 500 Balance 500 -400 -300 Intake: Oral (ml) 500 200 Output: Urine (ml) 400 500 Bedside Commode 400 500 Other: Intake Quantity Yes Yes Sufficient Output Comment Bedside Commode given supp Number of Voids Bedside Commode 1 1 Toilet 2 1 Number of Stools Bedside Commode 3 Vital Signs Temp Pulse Resp BP Pulse Ox 36.4 C 95 18 140/96 H 96 03/09/18 08:00 03/09/18 08:00 03/09/18 08:00 03/09/18 08:00 03/09/18 08:00 Laboratory Results 03/05/18 12:55 03/08/18 18:27 ICD10 Worksheet Patient Problems: Problems Problem Status Onset Low back pain Acute Acute exacerbation of chronic low back pain Acute Back pain Acute Compression fracture of L1 lumbar vertebra Acute Failure to thrive in adult Acute Generalized weakness Acute Humerus fracture Acute Hypokalemia, inadequate intake Acute Inability to ambulate due to multiple joints Acute Physical deconditioning Acute
--- NOTE | 2018-03-09 09:49 | ASMTCMCOM ---
CM Note CM Note Notes: Patient to have surgery Sunday 03/11. She is requesting Inpatient Rehab post-operatively. Hospitalist will order consult. Needs are TBD until post-op. See ED Case Management note from 03/04 for detailed history. Case Management will follow. Date Signed: 03/09/2018 09:48 AM Electronically Signed By:Thelma Vega RN
[2018-03-09] MEDS: POLYETHYLENE GLYCOL 3350 17 GM PKT PO PRN (11:28)
[2018-03-09] MEDS ORDERED: MAGNESIUM SULF 1 GM/DEXTROSE 100 ML IV ONE (11:49)
[2018-03-09] MEDS ORDERED: POTASSIUM CL 10 MEQ TAB ONE (13:00)
[2018-03-09] MEDS: MAGNESIUM HYDROXIDE 30 ML UDCUP PO PRN (14:36)
[2018-03-09] MEDS ORDERED: POTASSIUM CL 10 MEQ TAB PO ONE (20:14)
[2018-03-09] MEDS: LOSARTAN POTASSIUM 50 MG TAB PO SCH (21:46)
[2018-03-09] MEDS: traZODone 100 MG TAB PO SCH (21:48)
[2018-03-10] MEDS: oxyCODONE IR 5 MG TAB PO PRN ×6 (02:26→20:42)
[2018-03-10] MEDS: ACETAMINOPHEN 325 MG TAB PO PRN ×2 (02:26→17:05)
[2018-03-10] MEDS: BACLOFEN 10 MG TAB PO SCH ×2 (05:13→18:12)
[2018-03-10] MEDS: GABAPENTIN 400 MG CAP PO SCH ×3 (08:19→20:40)
[2018-03-10] MEDS: morphINE SR 15 MG TAB PO SCH ×2 (08:19→20:42)
[2018-03-10] MEDS: THIAMINE HCL 100 MG TAB PO SCH (08:21)
[2018-03-10] MEDS: SENNOSIDES/DOCUSATE SODIUM TAB PO SCH ×2 (08:21→20:43)
[2018-03-10] MEDS: PANTOPRAZOLE SODIUM 40 MG TAB PO SCH (08:21)
[2018-03-10] MEDS: DULoxetine 60 MG CAP PO SCH (08:22)
--- NOTE | 2018-03-10 09:46 | NEUSURGPN ---
Assessment/Plan: Assessment: 57 yo female with history of prior T11-L3 fusion for L1 fracture [place] [address] Harper with now progressive LE weakness and numbness/tingling. New MRI demonstrates T9-11 disc herniations with cord compression at T10. -Patient and Dr Harper have discussed plan: Friday for Exploration and extension of prior fusion/tie in T9-T11, T9-T11 laminectomy with possible discectomy. Discussed risks, benefits, alternatives to surgery. Consents signed. -Patient requested if surgery could be moved, discussed that there are other elective case scheduled for , and this may not be possible. - bowel protocol - Discussed patient with Dr Harper - Call NS with any questions Subjective: left leg pain Objective: AAOx3 MAEx4 Motor 5/5 BLE Sensation intact to light touch BLE - Physician Discussed Patient with Dr.: Harper Neurosurgery Physical Exam - Vitals, I&O, Labs I and O 03/09/18 03/10/18 03/11/18 05:59 05:59 05:59 Intake Total 1000 Output Total 400 1150 Balance -400 -150 Intake: Oral (ml) 1000 Output: Urine (ml) 400 1150 Bedside Commode 400 650 Toilet 500 Other: Intake Quantity Yes Yes Sufficient Output Comment Bedside Commode given supp Number of Voids Bedside Commode 1 1 Toilet 1 1 Number of Stools Bedside Commode 3 1 Vital Signs Temp Pulse Resp BP Pulse Ox 36.7 C 100 16 160/94 H 92 03/10/18 07:15 03/10/18 07:15 03/10/18 07:15 03/10/18 07:15 03/10/18 07:15 Laboratory Results 03/05/18 12:55 03/10/18 05:55 ICD10 Worksheet Patient Problems: Problems Problem Status Onset Low back pain Acute Acute exacerbation of chronic low back pain Acute Back pain Acute Compression fracture of L1 lumbar vertebra Acute Failure to thrive in adult Acute Generalized weakness Acute Humerus fracture Acute Hypokalemia, inadequate intake Acute Inability to ambulate due to multiple joints Acute Physical deconditioning Acute
[2018-03-10] MEDS: FLUTICASONE/SALMETER 500/50MCG DISKUS IH SCH ×2 (10:56→20:21)
[2018-03-10] MEDS: ALBUTEROL 3 ML DEYVIAL IH PRN (10:57)
[2018-03-10] MEDS: LORazepam 1 MG TAB PO PRN ×2 (11:16→20:41)
[2018-03-10] MEDS ORDERED: POTASSIUM CL 10 MEQ TAB PO ONE (12:43)
--- NOTE | 2018-03-10 13:57 | HOSPPROG ---
Hospitalist Progress Note Assessment/Plan: 57 YO female admitted with back pain found to have t9-10 severe central canal stenosis with cord compression, t10-11 moderate to severe central canal stenosis , acute vs subacute vertebral body fracture of t11. NS consulted and they recommend surgery. She refused surgery initially but changed her mind on 03/06. *Acute on chronic back pain with neuropathy -New MRI demonstrates T9-11 disc herniations with cord compression at T10. -surgery this Friday *bilateral Leg Weakness, improving on steroids -no bowel/bladder changes *HTN, stable *Dehydration, resolved *Nausea, resolved *Chronic ETOH, not in exacerbation *Hypokalemia, replacing per protocol *hx of chronic narcotic use and benzodiazepine use -Litzy was requesting her Ativan dose be increased, explained to her my concern of being too dependent on this, encouraged her to get oob, and work on relaxation techniques, she is agreeable to this. Would encourage no escalation of pain medications due to her dependency. *plan: Patient is very concerned about surgery, sat and talked with her about the surgery. She is feeling better about it, In addition is having problems with IV's and location. She is a difficult stick. Offered her a PICC line, but she declined. Also, encouraged her to try to deep breath and meditate prior to asking for more pain medications. Appreciate the nursing staff. Also, requested for an IP rehab evaluation. Subjective: Litzy is tearful about her cat and worried about surgery. Objective: Vital Signs Temp Pulse Resp BP Pulse Ox 36.7 C 100 16 160/94 H 92 03/10/18 07:15 03/10/18 07:15 03/10/18 07:15 03/10/18 07:15 03/10/18 07:15 Laboratory Results 03/05/18 12:55 03/10/18 05:55 03/09/18 03/10/18 03/11/18 05:59 05:59 05:59 Intake Total 1000 Output Total 400 1150 Balance -400 -150 PT 13.4 SEC (12.0-15.0) 03/04/18 19:26 INR 1.00 (0.83-1.16) 03/04/18 19:26 - Physical Exam Constitutional: obese, uncomfortable Eyes: PERRL Ears, Nose, Mouth, Throat: hearing normal Cardiovascular: regular rate and rhythym Respiratory: no respiratory distress Skin: warm Musculoskeletal: muscular tenderness Neurologic: AAOx3 Psychiatric: interacting appropriately, anxious ICD10 Worksheet Patient Problems: Problems Problem Status Onset Low back pain Acute Acute exacerbation of chronic low back pain Acute Back pain Acute Compression fracture of L1 lumbar vertebra Acute Failure to thrive in adult Acute Generalized weakness Acute Humerus fracture Acute Hypokalemia, inadequate intake Acute Inability to ambulate due to multiple joints Acute Physical deconditioning Acute
[2018-03-10] MEDS: MAGNESIUM SULF 1 GM/DEXTROSE 100 ML IV ONE ×2 (14:07→19:13)
[2018-03-10] MEDS: LOSARTAN POTASSIUM 50 MG TAB PO SCH (20:41)
[2018-03-10] MEDS: traZODone 100 MG TAB PO SCH (20:42)
[2018-03-10] MEDS: TOPIRAMATE 100 MG TAB PO PRN (20:47)
[2018-03-11] MEDS: ACETAMINOPHEN 325 MG TAB PO PRN (00:17)
[2018-03-11] MEDS: oxyCODONE IR 5 MG TAB PO PRN ×3 (00:17→09:17)
[2018-03-11] MEDS ORDERED: VANCOMYCIN 1.5 GM in D5W 250 ML IV SCH (02:00)
[2018-03-11] MEDS: BACLOFEN 10 MG TAB PO SCH ×2 (05:50→22:15)
[2018-03-11] MEDS: LORazepam 1 MG TAB PO PRN (05:50)
--- NOTE | 2018-03-11 07:08 | NEUSURGPN ---
Assessment/Plan: 57 yo female with history of prior T11-L3 fusion for L1 fracture [place] Oct [address] Harper with now progressive LE weakness and numbness/tingling. New MRI demonstrates T9-11 disc herniations with cord compression at T10. -Patient and Dr Harper have discussed plan: surgery today Friday for Exploration and extension of prior fusion/tie in T9-T11, T9-T11 laminectomy with possible discectomy. Discussed risks, benefits, alternatives to surgery. Consents signed. - npo - pain control - bowel protocol - Discussed patient with Dr Harper - Call NS with any questions Subjective: No new overnight issues. Objective: Awake. Alert. Following commands Muscle strength full at 5/5 Sensation intact - Physician Discussed Patient with : [facility] Physical Exam - Vitals, I&O, Labs I and O 03/10/18 03/11/18 03/12/18 05:59 05:59 05:59 Intake Total 1000 2900 Output Total 1150 Balance -150 2900 Intake: Oral (ml) 1000 2900 Output: Urine (ml) 1150 Bedside Commode 650 Toilet 500 Other: Intake Quantity Yes Yes Sufficient Number of Voids Bedside Commode 1 4 Toilet 1 2 Number of Stools Bedside Commode 1 Vital Signs Temp Pulse Resp BP Pulse Ox 36.8 C 106 H 18 137/90 H 99 03/10/18 23:30 03/10/18 23:30 03/10/18 23:30 03/10/18 23:30 03/10/18 23:30 Laboratory Results 03/05/18 12:55 03/10/18 05:55 ICD10 Worksheet Patient Problems: Problems Problem Status Onset Low back pain Acute Acute exacerbation of chronic low back pain Acute Back pain Acute Compression fracture of L1 lumbar vertebra Acute Failure to thrive in adult Acute Generalized weakness Acute Humerus fracture Acute Hypokalemia, inadequate intake Acute Inability to ambulate due to multiple joints Acute Physical deconditioning Acute
[2018-03-11] MEDS: DULoxetine 60 MG CAP PO SCH (09:14)
[2018-03-11] MEDS: CHOLECALCIFEROL VIT D3 2,000 UNITS TAB/CAP PO SCH (09:14)
[2018-03-11] MEDS: SENNOSIDES/DOCUSATE SODIUM TAB PO SCH ×2 (09:14→21:00)
[2018-03-11] MEDS: PANTOPRAZOLE SODIUM 40 MG TAB PO SCH (09:14)
[2018-03-11] MEDS: GABAPENTIN 400 MG CAP PO SCH ×3 (09:15→22:16)
[2018-03-11] MEDS: FLUTICASONE/SALMETER 500/50MCG DISKUS IH SCH ×2 (09:15→22:00)
[2018-03-11] MEDS: THIAMINE HCL 100 MG TAB PO SCH (09:15)
[2018-03-11] MEDS: morphINE SR 15 MG TAB PO SCH ×2 (09:15→21:00)
--- NOTE | 2018-03-11 09:28 | HOSPPROG ---
Hospitalist Progress Note Assessment/Plan: 57 YO female admitted with back pain found to have t9-10 severe central canal stenosis with cord compression, t10-11 moderate to severe central canal stenosis , acute vs subacute vertebral body fracture of t11. NS consulted and they recommend surgery. She refused surgery initially but changed her mind on 03/06. *Acute on chronic back pain with neuropathy -New MRI demonstrates T9-11 disc herniations with cord compression at T10. -surgery today -NPO, ordered fluids *bilateral Leg Weakness, improving on steroids -no bowel/bladder changes *HTN, stable *Dehydration, resolved *Nausea, resolved *Chronic ETOH, not in exacerbation *Hypokalemia, replacing per protocol *hx of chronic narcotic use and benzodiazepine use -Litzy was requesting her Ativan dose be increased, explained to her my concern of being too dependent on this, encouraged her to get oob, and work on relaxation techniques, she is agreeable to this. Would encourage no escalation of pain medications due to her dependency. *plan:surgery today, Litzy is hopeful this will help with her pain and mobility. Consult for IP rehab ordered. Subjective: Litzy has no complaints. Objective: Vital Signs Temp Pulse Resp BP Pulse Ox 36.7 C 98 18 103/78 90 L 03/11/18 07:52 03/11/18 07:52 03/11/18 07:52 03/11/18 07:52 03/11/18 07:52 Laboratory Results 03/05/18 12:55 03/11/18 07:20 03/10/18 03/11/18 03/12/18 05:59 05:59 05:59 Intake Total 1000 2900 Output Total 1150 Balance -150 2900 PT 13.4 SEC (12.0-15.0) 03/04/18 19:26 INR 1.00 (0.83-1.16) 03/04/18 19:26 - Physical Exam Constitutional: appears nourished, obese, uncomfortable Eyes: PERRL Ears, Nose, Mouth, Throat: hearing normal Respiratory: no respiratory distress Skin: warm Musculoskeletal: generalized weakness Neurologic: AAOx3 Psychiatric: interacting appropriately ICD10 Worksheet Patient Problems: Problems Problem Status Onset Low back pain Acute Acute exacerbation of chronic low back pain Acute Back pain Acute Compression fracture of L1 lumbar vertebra Acute Failure to thrive in adult Acute Generalized weakness Acute Humerus fracture Acute Hypokalemia, inadequate intake Acute Inability to ambulate due to multiple joints Acute Physical deconditioning Acute
[2018-03-11] MEDS ORDERED: LR 1,000 ML IV SCH (09:30)
[2018-03-11] MEDS ORDERED: VANCOMYCIN HCL/NORMAL SALINE 250 ML IV ONE (10:00)
[2018-03-11] MEDS ORDERED: THROMBIN (BOVINE) 5,000 UNIT VIAL TP ONE (11:48)
[2018-03-11] MEDS ORDERED: CHLORHEXIDINE GLUC HIBICLENS 118 ML BTL TP ONE ×2 (11:48→13:41)
[2018-03-11] MEDS ORDERED: BUPIVACAINE 0.25% 30 ML SDV ONE (11:48)
[2018-03-11] MEDS ORDERED: AVITENE POWDER 1 GM JAR TP ONE (11:49)
[2018-03-11] MEDS ORDERED: VANCOMYCIN 1 GM VIAL ONE (11:49)
[2018-03-11] MEDS ORDERED: POTASSIUM CL 10 MEQ TAB PO ONE (12:01)
[2018-03-11] MEDS: ONDANSETRON DISINTEGRATING 4 MG TAB PO PRN ×2 (12:28→21:00)
[2018-03-11] MEDS ORDERED: LR 1,000 ML IV ONE (13:18)
[2018-03-11] MEDS ORDERED: EPINEPHrine 1 MG/ML INJ ONE (13:41)
[2018-03-11] MEDS ORDERED: BACITRACIN 50,000 UNITS/10 ML SYR IRR ONE (14:01)
[2018-03-11] MEDS ORDERED: PROPOFOL/EMULSION 500 MG/50 ML BOTTLE IV ONE ×2 (14:04→16:42)
[2018-03-11] MEDS ORDERED: REMIFENTANIL HCL 1 MG VIAL ONE ×2 (14:04→16:42)
[2018-03-11] MEDS ORDERED: MIDAZOLAM 2 MG/2 ML VIAL ONE (14:27)
[2018-03-11] MEDS ORDERED: MIDAZOLAM 2 MG/2 ML VIAL IVP ONE (14:27)
--- NOTE | 2018-03-11 14:28 | PDANEPAE ---
ANE History of Present Illness 57 yo for t9-t11 fusion ANE Past Medical History - Cardiovascular History Hx Hypertension: Yes Hx Arrhythmias: No Hx Chest Pain: No Hx Coronary Artery / Peripheral Vascular Disease: No Hx CHF / Valvular Disease: No Hx Palpitations: No - Pulmonary History Hx COPD: Yes Hx Asthma/Reactive Airway Disease: Yes Hx Recent Upper Respiratory Infection: No Hx Oxygen in Use at Home: No Hx Sleep Apnea: Yes Sleep Apnea Screening Result - Last Documented: Negative - Endocrine History Hx Diabetes: No - Chronic Pain History Chronic Pain: Yes ANE Review of Systems Review of Systems: - Exercise capacity METS (RN): 3 METS ANE Patient History - Allergies Allergies/Adverse Reactions: Penicillins Allergy (Severe, Verified 03/11/18 10:22) swelling throat, nausea, hives - Home Medications Home medications: home medication list seen and reviewed Home Medications: traZODone [traZODONE 100MG (*)] 100 mg PO HS 11/07/14 [Last Taken 02/17/18] Fluticasone/Salmeter 500/50Mcg [Advair 500/50 (*)] 1 puffs IH BID 03/14/15 [ Last Taken 03/03/18] tiZANidine HCL [Zanaflex] 2 mg PO HS PRN 03/14/15 [Last Taken 02/17/18] Cholecalciferol (Vitamin D3) [Vitamin D3] 5,000 unit PO Q7D 11/22/17 [Last Taken 2 Weeks Ago ~02/04/18] Losartan Potassium [Cozaar 50 mg (*)] 50 mg PO HS 11/22/17 [Last Taken 3 Days Ago ~03/01/18] Topiramate [Topamax 100MG (*)] 100 mg PO HS PRN 01/10/18 [Last Taken 3 Weeks Ago ~01/28/18] Baclofen [Baclofen 10 mg (*)] 10 mg PO BID 02/18/18 [Last Taken 02/17/18] DULoxetine [Cymbalta 60 MG (*)] 60 mg PO DAILY 02/18/18 [Last Taken 03/04/18] Diclofenac Sodium 1% [Voltaren Gel (*)] 2 gm TP QID PRN 03/04/18 [Last Taken Unknown] - NPO status NPO Status: no food or drink >8 hours NPO Since - Liquids (Date): 03/10/18 NPO Since - Liquids (Time): 23:55 NPO Since - Solids (Date): 03/10/18 NPO Since - Solids (Time): 19:30 - Smoking Hx Smoking Status: Former smoker - Alcohol Use Alcohol Use: Sober ANE Labs/Vital Signs - Labs Result Diagrams: 03/05/18 12:55 03/11/18 07:20 - Vital Signs Blood Pressure: 103/78 Heart Rate: 98 Respiratory Rate: 18 O2 Sat (%): 90 Height: 5 ft 4 in Weight: 82.1 kg ANE Physical Exam - Airway Neck exam: FROM Mallampati Score: Class 2 Mouth exam: normal dental/mouth exam - Pulmonary Pulmonary: no respiratory distress - Cardiovascular Cardiovascular: regular rate and rhythym - ASA Status ASA Status: III ANE Anesthesia Plan Anesthesia Plan: general endotracheal anesthesia
[2018-03-11] MEDS ORDERED: SURGIFLO MATRIX KIT WITH THROMBIN 8 ML TP ONE ×2 (14:48→16:04)
[2018-03-11] MEDS ORDERED: DOPamine/DEXTROSE/250 ML BAG IV ONE (15:04)
[2018-03-11] MEDS ORDERED: ALBUMIN 5% 250 ML BOTTLE IV ONE (15:07)
--- NOTE | 2018-03-11 15:50 | ASMTCMCOM ---
CM Note CM Note Notes: Pt to OR today. CM to follow for pt d/c needs. [facility] inpatient rehab eval order is in. Date Signed: 03/11/2018 03:49 PM Electronically Signed By:ALEXA Choi
[2018-03-11] MEDS ORDERED: HYDROmorphONE/DILAUDID 2 MG/ML INJ ONE ×2 (17:02→18:27)
[2018-03-11] MEDS ORDERED: ONDANSETRON 4 MG/2 ML VIAL IVP PRN (17:19)
[2018-03-11] MEDS ORDERED: ALBUTEROL 3 ML DEYVIAL IH PRN (17:19)
[2018-03-11] MEDS ORDERED: PROMETHAZINE HCL 25 MG/ML INJ IVP PRN (17:19)
[2018-03-11] MEDS ORDERED: BUPIVACAINE 0.5% 30 ML SDV ONE (17:19)
[2018-03-11] MEDS ORDERED: NALOXONE HCL 0.4 MG/ML INJ IVP PRN (17:19)
[2018-03-11] MEDS ORDERED: fentaNYL 100 MCG/2 ML INJ IVP PRN (17:19)
--- NOTE | 2018-03-11 17:46 | POSTOPPROG ---
Post Op Note Date of Operation: 03/11/18 Surgeon: Zac Harper [employer] Consultant: Nakul Finney PA-C Anesthesia: GET(General Endotracheal) Pre-op Diagnosis: T9-11 stenosis and T11/12 adjacent segment instability Post-op Diagnosis: same Indication: per diagnosis, to prevent paralysis Procedure: extension of T12-L2 PSF to T9, T9/10 and T10/11 Lamis Findings: straightforward case Inf/Abcess present in the surg proc area at time of surgery?: No EBL: 100-500 (apprx 250cc) Total fluids administered: per anesthesia Complications: none Drains: Ranjan Fry (to full bulb suction)
[2018-03-11] MEDS ORDERED: NS W/ 20 KCl/L 1,000 ML IV SCH (18:00)
--- NOTE | 2018-03-11 18:00 | SOAPPROG ---
SOAP Progress Note Assessment/Plan: Assessment: 57 yo female S/P T9-L1 fusion doing well, stable Plan: CPM in PACU, transfer to stepdown unit per protocol BARBRA to bulb suction Patient examined by Dr. Harper in PACU 03/11/18 17:57 03/11/18 17:59 Subjective: opens eyes and follows commands to voice stimulation, comfortable Objective: Vital Signs Temp Pulse Resp BP Pulse Ox 36.7 C 98 18 103/78 90 L 03/11/18 12:23 03/11/18 14:28 03/11/18 14:28 03/11/18 14:28 03/11/18 14:28 Laboratory Results 03/05/18 12:55 03/11/18 07:20 03/10/18 03/11/18 03/12/18 05:59 05:59 05:59 Intake Total 1000 2900 Output Total 1150 Balance -150 2900 PT 13.4 SEC (12.0-15.0) 03/04/18 19:26 INR 1.00 (0.83-1.16) 03/04/18 19:26 Neuro: LEDEZMA to command, sens +LT Vitals: HR: 135 BP 128/77 O2: 99% ICD10 Worksheet Patient Problems: Problems Problem Status Onset Low back pain Acute Acute exacerbation of chronic low back pain Acute Back pain Acute Compression fracture of L1 lumbar vertebra Acute Failure to thrive in adult Acute Generalized weakness Acute Humerus fracture Acute Hypokalemia, inadequate intake Acute Inability to ambulate due to multiple joints Acute Physical deconditioning Acute
[2018-03-11] MEDS: HYDROmorphONE/DILAUDID 2 MG/ML INJ IVP PRN ×3 (18:31→19:59)
[2018-03-11] MEDS ORDERED: DIAZEPAM 5 MG/ML 1 ML SYR ONE (18:44)
[2018-03-11] MEDS: DIAZEPAM 5 MG/ML 1 ML SYR IVP PRN ×2 (18:46→19:36)
[2018-03-11] MEDS: LOSARTAN POTASSIUM 50 MG TAB PO SCH (20:59)
[2018-03-11] MEDS: traZODone 100 MG TAB PO SCH (21:00)
[2018-03-11] MEDS: DEXMEDETOMIDINE HCL 400 MCG in NS 100 ML IV SCH (21:19)
[2018-03-12] MEDS ORDERED: VANCOMYCIN 1.5 GM in D5W 250 ML IV SCH (02:00)
[2018-03-12] MEDS: DEXMEDETOMIDINE HCL 400 MCG in NS 100 ML IV SCH (02:11)
[2018-03-12 04:48] LABS: PLATELET COUNT 213 10^3/uL (150-400)
[2018-03-12] MEDS: BACLOFEN 10 MG TAB PO SCH ×2 (05:08→16:56)
--- NOTE | 2018-03-12 07:47 | NEUSURGPN ---
Date of Surgery: 03/11/18 Post Op Day: 1 Assessment/Plan: Assessment: 57 yo female with history of prior T11-L3 fusion for L1 fracture [place] [address] Harper with now progressive LE weakness and numbness/tingling. POD#1 S/P T9-L1 fusion -Prexedex off, patient resting comfortably -Pain management -Ok to transfer to med surg -PT/OT -Post op xrays pending when able -No brace - Discussed patient with Dr Harper - Call NS with any questions Subjective: Patient resting, has back pain Objective: wakes to voice, oriented No facial droop 5/5 BUE,BLE Sensation intact to light touch BLE BARBRA patent Dressing CDI Neuro Check Frequency: per routine Urinary Catheter in Place: Yes Urinary Catheter Indication: Accurate I & O Required - Physician Discussed Patient with : [facility] Physical Exam - Vitals, I&O, Labs I and O 03/11/18 03/12/18 03/13/18 05:59 05:59 05:59 Intake Total 2900 3000 Output Total 1085 Balance 2900 1915 Weight 82.1 kg Intake: Oral (ml) 2900 750 IV Intake (ml) 1400 IV Infused (ml) 850 Dexmedetomidine HCl 400 14 mcg In Ns 100 ml @ Titrate IV CONT LILLY Rx#: [id number] Lr 1,000 ml @ 75 mls/hr 836 IV CONT LILLY Rx#: [id number] Output: Urine (ml) 550 Bedpan 550 Estimated Blood Loss (ml) 300 BARBRA Drain Output (ml) 235 #1 Right Back Ranjan 235 Fry Other: Intake Quantity Yes Sufficient Number of Voids Bedpan 1 Bedside Commode 4 Toilet 2 Post Void Residual Scan Volume (ml) Bedpan 450 Vital Signs Temp Pulse Resp BP Pulse Ox 36.4 C 70 16 133/70 H 100 03/12/18 05:04 03/12/18 05:04 03/12/18 05:04 03/12/18 05:04 03/12/18 05:04 Laboratory Results 03/12/18 04:40 03/12/18 04:40 ICD10 Worksheet Patient Problems: Problems Problem Status Onset Low back pain Acute Acute exacerbation of chronic low back pain Acute Back pain Acute Compression fracture of L1 lumbar vertebra Acute Failure to thrive in adult Acute Generalized weakness Acute Humerus fracture Acute Hypokalemia, inadequate intake Acute Inability to ambulate due to multiple joints Acute Physical deconditioning Acute
[2018-03-12] MEDS: ENOXAPARIN 40 MG/0.4 ML SYR SC SCH ×2 (08:35→10:16)
[2018-03-12] MEDS: DULoxetine 60 MG CAP PO SCH (08:35)
[2018-03-12] MEDS: morphINE SR 15 MG TAB PO SCH ×2 (08:37→21:12)
[2018-03-12] MEDS: GABAPENTIN 400 MG CAP PO SCH ×3 (08:37→21:13)
[2018-03-12] MEDS: PANTOPRAZOLE SODIUM 40 MG TAB PO SCH (08:37)
[2018-03-12] MEDS: THIAMINE HCL 100 MG TAB PO SCH (08:37)
[2018-03-12] MEDS: SENNOSIDES/DOCUSATE SODIUM TAB PO SCH ×2 (08:37→21:12)
[2018-03-12] MEDS: FLUTICASONE/SALMETER 500/50MCG DISKUS IH SCH ×3 (08:38→21:29)
--- NOTE | 2018-03-12 08:48 | POSTANESTH ---
Post Anesthetic Evaluation Cardiovascular Status: Normal, Stable, Tx Over/Under Hydration Level of Consciousness/Mental Status: Can Participate in Eval Pain Control: Adequate, Prn Tx Ordered Nausea/Vomiting Control: Adequate, Prn Tx Ordered Complications Possibly Related to Anesthesia: None Noted
[2018-03-12] MEDS: oxyCODONE IR 5 MG TAB PO PRN ×5 (09:41→21:12)
[2018-03-12] MEDS: LORazepam 1 MG TAB PO PRN ×2 (12:21→21:12)
--- NOTE | 2018-03-12 15:33 | HOSPPROG ---
Hospitalist Progress Note Assessment/Plan: #T9-L1 fusion, POD #1 -PT/OT -cont Tizanidine, Baclofen, MS contin, oxycodone #Chronic opioid/benzo dependency -had lengthy conversation with patient today and will not increase pain medications -bowel regimen #Neuropathy: Gabapentin #HTN: stable #Etoh use: monitor for w/d #Hypokalemia: resolved #PTSD/anxiety/personality d/o: home medications #Diet: regular #DVT ppx: Lovenox #Disp: stable for med-surg. Cont inpatient for PT/OT, SNF at [place] Subjective: "nerve pain in legs is worse after surgery" Objective: Vital Signs Temp Pulse Resp BP Pulse Ox 36.9 C 72 17 153/84 H 100 03/12/18 08:00 03/12/18 08:00 03/12/18 08:00 03/12/18 08:00 03/12/18 08:00 Laboratory Results 03/12/18 04:40 03/12/18 04:40 03/11/18 03/12/18 03/13/18 05:59 05:59 05:59 Intake Total 2900 3000 Output Total 1085 300 Balance 2900 1915 -300 PT 13.4 SEC (12.0-15.0) 03/04/18 19:26 INR 1.00 (0.83-1.16) 03/04/18 19:26 - Time Spent With Patient Time Spent with Patient: greater than 25 minutes Time Spent with Patient: Greater than 25 minutes spent on this patients care, greater than 50% of time spent counseling, educating, and coordinating care regarding the above mentioned plan. - Physical Exam Constitutional: no apparent distress Eyes: PERRL Ears, Nose, Mouth, Throat: moist mucous membranes Cardiovascular: regular rate and rhythym Respiratory: no respiratory distress Gastrointestinal: normoactive bowel sounds Genitourinary: No wilson in urethra Musculoskeletal: other (spinal surgical incision dressed, drain with serosang fluid) Neurologic: AAOx3, CN II-XII Intact Psychiatric: other (pressured speech, difficult to keep focused during interview ) ICD10 Worksheet Patient Problems: Problems Problem Status Onset Low back pain Acute Acute exacerbation of chronic low back pain Acute Back pain Acute Compression fracture of L1 lumbar vertebra Acute Failure to thrive in adult Acute Generalized weakness Acute Humerus fracture Acute Hypokalemia, inadequate intake Acute Inability to ambulate due to multiple joints Acute Physical deconditioning Acute
[2018-03-12] MEDS: ONDANSETRON DISINTEGRATING 4 MG TAB PO PRN (15:44)
[2018-03-12] MEDS: ACETAMINOPHEN 325 MG TAB PO PRN ×2 (15:44→21:21)
[2018-03-12] MEDS: MAGNESIUM HYDROXIDE 30 ML UDCUP PO PRN (16:56)
[2018-03-12] MEDS ORDERED: tiZANidine HCL 2 MG TAB PO PRN (20:52)
[2018-03-12] MEDS: LOSARTAN POTASSIUM 50 MG TAB PO SCH (21:12)
[2018-03-12] MEDS: traZODone 100 MG TAB PO SCH (21:12)
[2018-03-12] MEDS: TOPIRAMATE 100 MG TAB PO PRN (21:12)
[2018-03-13] MEDS: oxyCODONE IR 5 MG TAB PO PRN ×7 (00:40→20:28)
[2018-03-13] MEDS: BACLOFEN 10 MG TAB PO SCH ×2 (06:00→16:45)
--- NOTE | 2018-03-13 07:59 | NEUSURGPN ---
Assessment/Plan: Assessment: 57 yo female with history of prior T11-L3 fusion for L1 fracture in Oct [address] Harper AND progressive LE weakness and numbness/tingling. NOW POD#2 S/P T9-L1 fusion -Pain management -med surg STATUS -PT/OT -Post op xrays pending when able -No brace -Continue BARBRA drain - Discussed patient with Dr Harper - Call NS with any questions -DVT prophx: TEDS, SCDS, Lovenox Subjective: left hip pain Objective: No facial droop 5/5 BUE,BLE Sensation intact to light touch BLE BARBRA serosanguineous Dressing CDI - Physician Discussed Patient with : [facility] Physical Exam - Vitals, I&O, Labs I and O 03/12/18 03/13/18 03/14/18 05:59 05:59 05:59 Intake Total 3000 2990 Output Total 1085 1975 250 Balance 1915 1015 -250 Weight 82.1 kg Intake: Oral (ml) 750 2700 IV Intake (ml) 1400 IV Infused (ml) 850 290 Dexmedetomidine HCl 400 14 40 mcg In Ns 100 ml @ Titrate IV CONT LILLY Rx#: [id number] Lr 1,000 ml @ 75 mls/hr 836 250 IV CONT LILLY Rx#: [id number] Output: Urine (ml) 550 1750 250 Bedpan 550 250 Bedside Commode 1500 250 Estimated Blood Loss (ml) 300 BARBRA Drain Output (ml) 235 225 #1 Right Back Ranjan 235 225 Fry Other: Intake Quantity Yes Sufficient Number of Voids Bedpan 1 1 Bedside Commode 2 Post Void Residual Scan Volume (ml) Bedpan 450 Vital Signs Temp Pulse Resp BP Pulse Ox 36.9 C 86 19 70/41 L 95 03/13/18 00:00 03/13/18 00:00 03/13/18 00:00 03/13/18 00:00 03/13/18 00:00 Laboratory Results 03/12/18 04:40 03/13/18 05:26 ICD10 Worksheet Patient Problems: Problems Problem Status Onset Low back pain Acute Acute exacerbation of chronic low back pain Acute Back pain Acute Compression fracture of L1 lumbar vertebra Acute Failure to thrive in adult Acute Generalized weakness Acute Humerus fracture Acute Hypokalemia, inadequate intake Acute Inability to ambulate due to multiple joints Acute Physical deconditioning Acute
[2018-03-13] MEDS ORDERED: POTASSIUM CL 10 MEQ TAB PO ONE (08:15)
[2018-03-13] MEDS: THIAMINE HCL 100 MG TAB PO SCH (08:54)
[2018-03-13] MEDS: PANTOPRAZOLE SODIUM 40 MG TAB PO SCH (08:54)
[2018-03-13] MEDS: POLYETHYLENE GLYCOL 3350 17 GM PKT PO PRN (08:55)
[2018-03-13] MEDS: DULoxetine 60 MG CAP PO SCH (08:55)
[2018-03-13] MEDS: SENNOSIDES/DOCUSATE SODIUM TAB PO SCH ×2 (08:55→20:28)
[2018-03-13] MEDS: morphINE SR 15 MG TAB PO SCH ×2 (08:55→20:33)
[2018-03-13] MEDS: GABAPENTIN 400 MG CAP PO SCH ×3 (08:55→20:28)
[2018-03-13] MEDS: ACETAMINOPHEN 325 MG TAB PO PRN ×2 (09:01→17:57)
[2018-03-13] MEDS: ENOXAPARIN 40 MG/0.4 ML SYR SC SCH (09:04)
[2018-03-13] MEDS: FLUTICASONE/SALMETER 500/50MCG DISKUS IH SCH ×2 (09:05→22:37)
--- NOTE | 2018-03-13 15:26 | ASMTCMCOM ---
CM Note CM Note Notes: Inpatient rehab states on 03-13-2018 that patient will not tolerate the intensity of an acute IP rehab program. PT is now saying SNF rehab. Will discuss options with the family. CM will follow. Date Signed: 03/13/2018 03:26 PM Electronically Signed By:Erika Jansen LCSW
--- NOTE | 2018-03-13 16:22 | HOSPPROG ---
Hospitalist Progress Note Assessment/Plan: DIAGNOSES: # T9-L1 fusion, POD #1 * Still with limited mobility due to pain and weakness * PT/OT * cont Tizanidine, Baclofen, MS contin, oxycodone, Neurontin # post hemorrhagic anemia * Will recheck in a.m. To ensure stability #Chronic opioid/benzo dependency * again despite having multiple conversations with multiple practitioners the patient makes ongoing request for increasing pain medicine; given her degree of mobility, her appearance, and her description of her symptoms at this time I do not feel that increasing narcotics is likely to be beneficial and make create problems down the road and so will try to continue her current medication doses of Tizanidine, Baclofen, MS contin, oxycodone, Neurontin * bowel regimen #Neuropathy: Gabapentin #HTN: stable #Etoh use: No signs of w/d #Hypokalemia: resolved #PTSD/anxiety/personality d/ * Stable on home medications #DVT ppx: Lovenox and SCDs SUBJECTIVE: Continues to complain of pain, and as the conversation I had with her when on the number of parts of her body involved and the severity of pain in each of those parts expanded repeatedly while she may repeated request that we increase her narcotic medications. Despite this she says she has been getting up and walking about in the room much better today OBJECTIVE Vitals reviewed: Stable without fever Exam: alert oriented; lying in bed she is actually quite relaxed and does not have an uncomfortable appearance skin warm dry color ok resps not labored lungs clear BSs heart regular abd soft nondistended nontender, bowel sounds present limbs warm, no edema iv site ok Laboratory data: I reviewed yesterday's laboratory data and there was a notable decrease in her hemoglobin as expected after surgery, but it has not been rechecked since Objective: Vital Signs Temp Pulse Resp BP Pulse Ox 37.5 C 68 18 120/82 H 95 03/13/18 08:00 03/13/18 08:00 03/13/18 08:00 03/13/18 08:00 03/13/18 08:00 Laboratory Results 03/12/18 04:40 03/13/18 05:26 03/12/18 03/13/18 03/14/18 06:59 06:59 06:59 Intake Total 3000 2990 Output Total 1085 1975 400 Balance 1915 1015 -400 PT 13.4 SEC (12.0-15.0) 03/04/18 19:26 INR 1.00 (0.83-1.16) 03/04/18 19:26 ICD10 Worksheet Patient Problems: Problems Problem Status Onset Low back pain Acute Acute exacerbation of chronic low back pain Acute Back pain Acute Compression fracture of L1 lumbar vertebra Acute Failure to thrive in adult Acute Generalized weakness Acute Humerus fracture Acute Hypokalemia, inadequate intake Acute Inability to ambulate due to multiple joints Acute Physical deconditioning Acute
[2018-03-13] MEDS: LORazepam 1 MG TAB PO PRN ×2 (17:57→20:40)
[2018-03-13] MEDS: ONDANSETRON DISINTEGRATING 4 MG TAB PO PRN (19:09)
[2018-03-13] MEDS: traZODone 100 MG TAB PO SCH (20:29)
[2018-03-13] MEDS: LOSARTAN POTASSIUM 50 MG TAB PO SCH (20:33)
[2018-03-13] MEDS: TOPIRAMATE 100 MG TAB PO PRN (20:41)
[2018-03-14] MEDS: ACETAMINOPHEN 325 MG TAB PO PRN ×3 (04:16→21:17)
[2018-03-14] MEDS: oxyCODONE IR 5 MG TAB PO PRN ×5 (04:17→21:19)
[2018-03-14] MEDS: BACLOFEN 10 MG TAB PO SCH ×2 (05:09→17:13)
[2018-03-14] MEDS: ENOXAPARIN 40 MG/0.4 ML SYR SC SCH (08:31)
[2018-03-14] MEDS: GABAPENTIN 400 MG CAP PO SCH ×3 (08:31→21:17)
[2018-03-14] MEDS: THIAMINE HCL 100 MG TAB PO SCH (08:32)
[2018-03-14] MEDS: PANTOPRAZOLE SODIUM 40 MG TAB PO SCH (08:32)
[2018-03-14] MEDS: DULoxetine 60 MG CAP PO SCH (08:32)
[2018-03-14] MEDS: SENNOSIDES/DOCUSATE SODIUM TAB PO SCH ×2 (08:33→21:17)
[2018-03-14] MEDS: morphINE SR 15 MG TAB PO SCH ×2 (08:33→21:18)
[2018-03-14] MEDS: FLUTICASONE/SALMETER 500/50MCG DISKUS IH SCH ×2 (08:41→21:19)
[2018-03-14] MEDS: LORazepam 1 MG TAB PO PRN ×2 (08:43→21:19)
--- NOTE | 2018-03-14 09:14 | NEUSURGPN ---
Date of Surgery: 03/11/18 Post Op Day: 3 Assessment/Plan: Assessment: 57 yo female with history of prior T11-L3 fusion for L1 fracture [place] [address] Harper and progressive LE weakness and numbness/tingling. Now POD #3 S/P T9-L1 fusion Plan: -continue with pain management -transferred up from ICU -PT/OT-CPM -Post op xrays look fine-reviewed with Dr Harper -CDI -no brace per Dr Harper -continue BARBRA drain-output at 200 -pt with some left hip pain-ordered left hip xrays -discussed patient with Dr Harper -call NS with any questions -DVT prophx: TEDS, SCDS, Lovenox -pt understands and agrees Subjective: Awake and alert. NAD. Pt with some incisional back pain. Pt with left hip pain as biggest pain at this time. No contreras/neck/chest/abd or gu complaints. Objective: No facial droop 5/5 BUE/BLE pain to L hip with rotation Sensation intact to light touch BLE BARBRA serosanguineous Dressing CDI Neuro Check Frequency: per routine Urinary Catheter in Place: No - Physician Discussed Patient with : [facility] Physical Exam - Vitals, I&O, Labs I and O 03/13/18 03/14/18 03/15/18 05:59 05:59 05:59 Intake Total 2990 150 Output Total 1975 1025 215 Balance 1015 -875 -215 Intake: Oral (ml) 2700 150 IV Infused (ml) 290 Dexmedetomidine HCl 400 40 mcg In Ns 100 ml @ Titrate IV CONT LILLY Rx#: [id number] Lr 1,000 ml @ 75 mls/hr 250 IV CONT LILLY Rx#: [id number] Output: Urine (ml) 1750 825 175 Bedpan 250 Bedside Commode 1500 825 175 BARBRA Drain Output (ml) 225 200 40 #1 Right Back Ranjan 225 200 40 Fry Other: Intake Quantity Yes Yes Sufficient Number of Voids Bedpan 1 Bedside Commode 2 Toilet 1 Vital Signs Temp Pulse Resp BP Pulse Ox 37.3 C 102 H 14 103/63 91 L 03/14/18 07:21 03/14/18 08:43 03/14/18 08:43 03/14/18 07:21 03/14/18 08:43 Laboratory Results 03/12/18 04:40 05/18/18 05:26 ICD10 Worksheet Patient Problems: Problems Problem Status Onset Low back pain Acute Acute exacerbation of chronic low back pain Acute Back pain Acute Compression fracture of L1 lumbar vertebra Acute Failure to thrive in adult Acute Generalized weakness Acute Humerus fracture Acute Hypokalemia, inadequate intake Acute Inability to ambulate due to multiple joints Acute Physical deconditioning Acute
[2018-03-14 09:41] LABS: PLATELET COUNT 242 10^3/uL (150-400)
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
--- NOTE | 2018-03-14 12:00 | ASMTCMCOM ---
CM Note CM Note Notes: Previous CM Discharge Summary entered incorrecty. Please disregard. Date Signed: 03/14/2018 11:59 AM Electronically Signed By:Mariah Chu
--- NOTE | 2018-03-14 13:08 | ASMTCMCOM ---
CM Note CM Note Notes: CM met with patient and RN Ester in room to discuss SNF placement. Pt reports she is absolutely not interested in SNF rehab and is only interested in InPt Rehab. CM discussed intensity and requirements, patient spoke to understanding intensity and stated 'it is a tough program' but a good one. CM informed PT via text. CM to follow. Date Signed: 03/14/2018 01:07 PM Electronically Signed By:Mariah Chu
--- NOTE | 2018-03-14 17:15 | HOSPPROG ---
Hospitalist Progress Note Assessment/Plan: DIAGNOSES: # T9-L1 fusion, POD #1 * Still with limited mobility due to pain and weakness * Neurologically stable after surgery * PT/OT * cont Tizanidine, Baclofen, MS contin, oxycodone, Neurontin # left upper buttock pain that she says has been present since surgery, increased with movement of her hip and with weight-bearing * Attempt was made earlier today to do a hip x-ray but she declined to get on the board for the study and so x-rays were not taken; I reviewed with her that it could be possible for her to have a fracture or dislocation and that we should really have x-ray since she is now agreeing to try again after having taken some pain medicine * No sign of any vascular or neuro compromise related to this # post hemorrhagic anemia * Currently stable on recheck today #Chronic opioid/benzo dependency * again despite having multiple conversations with multiple practitioners the patient makes ongoing request for increasing pain medicine; given her degree of mobility, her appearance, and her description of her symptoms at this time I do not feel that increasing narcotics is likely to be beneficial and make create problems down the road and so will try to continue her current medication doses of Tizanidine, Baclofen, MS contin, oxycodone, Neurontin * bowel regimen #Neuropathy: Gabapentin #HTN: stable #Etoh use: No signs of w/d #Hypokalemia: resolved #PTSD/anxiety/personality disorder * Stable on home medications #DVT ppx: Lovenox and SCDs SUBJECTIVE: Main complaint is ongoing left upper buttock pain since surgery but still has some back pain No new neurologic symptoms referable to the spine No shortness of breath chest discomfort fever symptoms or or nausea, eating well OBJECTIVE Vitals reviewed: Some tachycarida, asymptomatic, which she has had intermittently since admission, otherwise stable without fever Exam: alert oriented; lying in bed she is actually quite relaxed and does not have an uncomfortable appearance skin warm dry color ok resps not labored lungs clear BSs heart regular abd soft nondistended nontender, bowel sounds present limbs warm, no edema iv site ok Laboratory data: I reviewed yesterday's laboratory data and there was a notable decrease in her hemoglobin as expected after surgery, but it has not been rechecked since Objective: Vital Signs Temp Pulse Resp BP Pulse Ox 36.9 C 102 H 14 119/74 92 05/19/18 15:31 03/14/18 15:31 03/14/18 15:31 03/14/18 15:31 03/14/18 15:31 Laboratory Results 03/14/18 09:34 03/13/18 05:26 03/13/18 03/14/18 03/15/18 06:59 06:59 06:59 Intake Total 2990 150 Output Total 7811 1021 255 Balance 1013 -298 -860 PT 13.4 SEC (12.0-15.0) 03/04/18 19:26 INR 1.00 (0.83-1.16) 03/04/18 19:26 ICD10 Worksheet Patient Problems: Problems Problem Status Onset Low back pain Acute Acute exacerbation of chronic low back pain Acute Back pain Acute Compression fracture of L1 lumbar vertebra Acute Failure to thrive in adult Acute Generalized weakness Acute Humerus fracture Acute Hypokalemia, inadequate intake Acute Inability to ambulate due to multiple joints Acute Physical deconditioning Acute
[2018-03-14] MEDS: TOPIRAMATE 100 MG TAB PO PRN (21:17)
[2018-03-14] MEDS: LOSARTAN POTASSIUM 50 MG TAB PO SCH (21:18)
[2018-03-14] MEDS: traZODone 100 MG TAB PO SCH (21:18)
[2018-03-15] MEDS: oxyCODONE IR 5 MG TAB PO PRN ×5 (00:28→20:22)
[2018-03-15] MEDS ORDERED: NS 1,000 ML IV ONE (00:42)
[2018-03-15] MEDS: BACLOFEN 10 MG TAB PO SCH ×2 (06:29→16:47)
[2018-03-15] MEDS: GABAPENTIN 400 MG CAP PO SCH ×3 (08:44→22:31)
[2018-03-15] MEDS: DULoxetine 60 MG CAP PO SCH (08:46)
[2018-03-15] MEDS: ENOXAPARIN 40 MG/0.4 ML SYR SC SCH (08:47)
[2018-03-15] MEDS: morphINE SR 15 MG TAB PO SCH ×2 (08:47→20:21)
[2018-03-15] MEDS: SENNOSIDES/DOCUSATE SODIUM TAB PO SCH ×2 (08:47→20:21)
[2018-03-15] MEDS: PANTOPRAZOLE SODIUM 40 MG TAB PO SCH (08:47)
[2018-03-15] MEDS: THIAMINE HCL 100 MG TAB PO SCH (08:47)
[2018-03-15] MEDS: FLUTICASONE/SALMETER 500/50MCG DISKUS IH SCH ×2 (08:57→21:32)
--- NOTE | 2018-03-15 10:17 | NEUSURGPN ---
Date of Surgery: 03/11/18 Post Op Day: 4 Assessment/Plan: Assessment: 57 yo female with history of prior T11-L3 fusion for L1 fracture [place] Oct [address] Harper and progressive LE weakness and numbness/tingling. Now POD #5 S/P T9-L1 fusion Plan: -continue with pain management -transferred up from ICU-doing fine on floor -PT/OT-CPM -Post op xrays look fine-reviewed with Dr Harper -CDI -no brace per Dr Harper -continue BARBRA drain-output at 175 -pt with some left hip pain-ordered left hip xrays which are neg -discussed patient with Dr Harper -call NS with any questions -DVT prophx: TEDS, SCDS, Lovenox -pt understands and agrees Subjective: Awake and alert. NAD. Eating/drinking and voiding. Pt with continued pain Objective: No facial droop 5/5 BUE/BLE pain to L hip with rotation Sensation intact to light touch BLE BARBRA serosanguineous Dressing CDI Neuro Check Frequency: per routine Urinary Catheter in Place: No - Physician Discussed Patient with : Leroy Neurosurgery Physical Exam - Vitals, I&O, Labs I and O 03/14/18 03/15/18 03/16/18 05:59 05:59 05:59 Intake Total 150 Output Total 1025 0 Balance - Intake: Oral (ml) 150 Output: Urine (ml) 825 1875 Bedside Commode 825 1075 Toilet 800 BARBRA Drain Output (ml) 200 175 #1 Right Back Ranjan 200 175 Fry Other: Intake Quantity Yes Yes Sufficient Number of Voids Bedside Commode 1 Toilet 1 1 Vital Signs Temp Pulse Resp BP Pulse Ox 36.9 C 111 H 16 104/70 92 03/15/18 07:27 03/15/18 09:00 03/15/18 09:00 03/15/18 07:27 03/15/18 09:00 Laboratory Results 03/14/18 09:34 03/13/18 05:26 ICD10 Worksheet Patient Problems: Problems Problem Status Onset Low back pain Acute Acute exacerbation of chronic low back pain Acute Back pain Acute Compression fracture of L1 lumbar vertebra Acute Failure to thrive in adult Acute Generalized weakness Acute Humerus fracture Acute Hypokalemia, inadequate intake Acute Inability to ambulate due to multiple joints Acute Physical deconditioning Acute
--- NOTE | 2018-03-15 10:26 | GOP ---
[f rep st] OPERATIVE REPORT DATE OF OPERATION: 03/11/2018 SURGEON: Zac Harper MD NEUROSURGEON: Zac Harper MD. RAILROAD CONDUCTOR: Nakul Finney PA-C. ANESTHESIA: GETA. 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 PROCEDURE PERFORMED: An exploration of a T12-L2 posterior spinal fusion with removal of hardware and extension of the spinal fusion up to T9 posterolaterally ultimately resulting in a T9-L2 posterior s camryn fusion, placement of segmental instrumentation, performance of a T9-10 and T10-11 laminectomies , use of autograft, allograft, and bone morphogenetic protein (BMP) and use of neuro monitoring. FINDINGS: Excellent position of hardware. SPECIMENS: None. ESTIMATED BLOOD LOSS: 100 mL. INDICATIONS: The patient is a 57-year-old female with a longstanding psychiatric history. I did ope rate on her recently for a severe L1 burst fracture with conus medullaris compression and urinary inc ontinence, who performed a T12-L2 fusion at that point in time, and an L1 laminectomy for cord decomp ression. She re-presented with significant back pain and lower extremity neuropathic pain and was fo und to have instability at T11-12 and concerning disk herniations at T9-10 and T10-11 with cord compr ession. Risks, benefits, and alternatives were discussed and she signed informed consent prior to th e procedure. DESCRIPTION OF PROCEDURE: The patient was brought to the operating room and a sign-in was performed. She was given antibiotics to prevent infection. She was smoothly induced under general anesthesia and intubated without difficulty. Appropriate IV access was obtained. Neuromonitoring electrodes we re placed and baseline signals were obtained. SCDs were placed to prevent postoperative DVT. She wa s turned prone onto an operating Ranjan table with her head in a horseshoe headrest and her arms pad ded up above her. All other pressure points were padded as well. Her back was washed with chlorhexi dine shampoo and rubbing alcohol, which was allowed to dry. I retraced her old incision and extended it up approximately 8 cm. ChloraPrep was used to sterilize the skin. Sterile field was created wit h blue towels, Ioban, and a sterile surgical drape. Prior to the procedure, a time-out was performed in which all members of surgery, nursing, and Anesthesia went over the necessary checklist items and agreed to proceed. 20 cc of 0.25% Marcaine with 1:200,000 parts epinephrine solution was injected a long the old and new planned incision line. A #10 scalpel was used to incise her old incision and we extended it up cranially to allow for dissection for the new spinal levels that needed to be fused a nd decompressed. Bovie electrocautery was used to dissect tissue off the old hardware and also to di ssect the paraspinal musculature off the spinal column from T9-T12. We were careful not to violate t he T8-9 interspace to prevent further adjacent segment issues. The old set screws and rods were kristen genaro at T12 and L2 and we then proceeded with placement of our new segmental instrumentation from T9-T 11 with bilateral pedicle screws placed on both sides. I free handed the screws using anatomy and sh e had good bony mazariegos and all of her pedicle screw implants at all levels, and I was confident of the ir placement. We placed bilateral pedicle screws at all elevating levels without difficulty. I irri gated out the incision with copious antibiotic solution and then measured a virginia from T9-L2. Cut the titanium virginia and bent it to specifications. I laid the virginia and the pedicle screw tulips bilaterally and they fit very nicely and we then set them into permanent position with set screws and final tight ened them. I then proceeded with a decompressive procedure in which a T9-10 and a T10-11 laminectomy was performed and verified with imaging as I was decompressing the appropriate levels. The bone was salvaged for fusion purposes and was cleaned and crushed to specifications. Once our laminectomy wa s performed, we performed hemostasis and irrigated out the entire bed again once more with copious an tibiotic solution. We then arthrodesed with a high-speed drill that matched from T9-T12 i n the bilateral surgical gutters and covered this with the patient's own autograft and then covered i t with an allograft solution that was in a putty mixture and was able to pack very nicely. We were c areful not to cover our rods with our fusion substrate and then placed a #7 bilateral BARBRA into the ope rative bed. We proceeded with closure with 0 Vicryl suture for the lumbodorsal fascia and paraspinal musculature. We irrigated the suprafascial compartment to prevent infection. Injected half plain M arcaine in the bilateral paraspinal musculature for postoperative pain control and then closed the ad ipose and dermal layers with 2-0 pop-off Vicryl sutures. The skin edges approximated well. The skin was cleaned with a wet and dry sponge. We applied a layer of Dermabond to the incision and allowed it to dry. It was secured to the drainage tube with a stitch and hooked it up to a full bulb chyna palmira. We placed a sterile dressing. The drapes were removed. The patient was returned to the supin e position on the rsorrento where she was reversed from anesthesia and extubated without difficulty. Al l counts were correct. I was there for the entirety of the procedure. All nerve monitoring signals were stable during the procedure. There were no immediate surgical or anesthetic complications. She was taken to the PACU where she was found to be in stable condition. Standard orders were given for her to return to a bed with postoperative spine orders. DRAINS: BARBAR #7 flat to the operative bed. COMPLICATIONS: None. IMPLANTS: The Medtronic Solara posterior spinal fusion system was used with placement of a 5.5 x 45 mm screw bilaterally at T9, 5.5 x 45 mm screws placed bilaterally at 10, a 5.5 x 45 mm screw placed a t T11 on the left and a 5.5 x 30 mm screw placed on the right atT11. Placement of bilateral pre-cut and measured 5.5 mm titanium rods bilaterally with set screws as well. Then, biologic imp lants include 20 mL of a Progenix Plus mixed allograft and DBM putty solution in 15 cc of cortical ca ncellous bone chips as well as a small BMP in the patient's own autograft. /[id number]/MODL
[2018-03-15] MEDS: LORazepam 1 MG TAB PO PRN ×2 (15:09→22:31)
[2018-03-15] MEDS: ACETAMINOPHEN 325 MG TAB PO PRN (15:09)
--- NOTE | 2018-03-15 17:01 | HOSPPROG ---
Hospitalist Progress Note Assessment/Plan: DIAGNOSES: # T9-L1 fusion due to sciatica with by a lateral leg weakness and some stenosis at the level; prior lower lumbar fusion in October of this year * Still some difficulty with mobility but has been up to the bathroom numerous times per day but has been declining to walk further mostly out of preference, actually has less pain when walking then when lying in bed or sitting in chair; * PT/OT * cont Tizanidine, Baclofen, MS contin, oxycodone, Neurontin # left upper buttock pain that she says has been present since surgery, increased with movement of her hip and with weight-bearing * No skeletal abnormality on x-ray, suspect either neurologic symptoms related to her spine or possibly contusion # post hemorrhagic anemia * Currently stable # history of Chronic opioid/benzo dependency though not on any outpatient narcotic or benzodiazepine leading up to this admission * again despite having multiple conversations with multiple practitioners the patient makes ongoing request for increasing pain medicine; given her degree of mobility, her appearance, and her description of her symptoms at this time I do not feel that increasing narcotics is likely to be beneficial and make create problems down the road and so will try to continue her current medication doses of Tizanidine, Baclofen, MS contin, oxycodone, Neurontin * bowel regimen # chronic Neuropathy pain: Gabapentin at high doses #HTN: stable #Etoh use: No signs of w/d #Hypokalemia: resolved #PTSD/anxiety/personality disorder * Stable on home medications #DVT ppx: Lovenox and SCDs Overall she continues improvement as expected after her surgery, though she has done little ambulation this is only in part due to pain, is actually I think related largely to the fact that she has been adamant about being transferred to the inpatient rehabilitation unit for which she is not a candidate. This has her very upset and she is not very motivated to continue working with increasing her mobility so far. Notably she has less pain while standing and walking that she has either in better in a chair, yet she is declining to get up and do any significant walking. Had long discussion with her about these issues. At this point after discussion she is accepting of the fact that she will not be going to the inpatient rehabilitation unit and her choice would either be to going to [facility] facility or home. She is very unhappy about the Medicaid 30 day requirement for [facility] facility. In reality however she sounds like she is walking reasonably well when she does get up based on what she and her nurse tell me. It shows that she is refusing so far walk farther than the commode. I have discussed with her the significant complications that can occur from spending so much time supine and in bed including weakness, worsening osteoporosis, orthostasis, skin ulcers with infections, etc. After discussion she is sending more willing to trying get up and do more walking so I have reviewed with her and her nurse that we should have her get up 2 or 3 times tonight to do some walks in the hallway. If she continues to progress and come walk well she may be able to go home with home care. SUBJECTIVE: No new symptoms today Continues to main complaint of left upper buttock pain, slight improvement there Is up doing more walking but has only been to the bathroom and back to the bed several times has not been further Still some sciatic and left leg OBJECTIVE Vitals reviewed: Still some occasional mild tachycardia otherwise stable Exam: alert oriented; lying in bed she is actually quite relaxed and does not have an uncomfortable appearance, though she is mildly anxious which is common for her skin warm dry color ok resps not labored lungs clear BSs heart regular limbs warm, no edema iv site ok Objective: Vital Signs Temp Pulse Resp BP Pulse Ox 36.6 C 100 16 97/64 L 93 03/15/18 16:00 03/15/18 16:00 03/15/18 16:00 03/15/18 16:00 03/15/18 16:00 Laboratory Results 03/14/18 09:34 03/13/18 05:26 03/14/18 03/15/18 03/16/18 06:59 06:59 06:59 Intake Total 150 1060 Output Total 1025 2049 80 Balance -875 -2050 980 PT 13.4 SEC (12.0-15.0) 03/04/18 19:26 INR 1.00 (0.83-1.16) 03/04/18 19:26 - Time Spent With Patient Time Spent with Patient: greater than 35 minutes Time Spent with Patient: Greater than 35 minutes spent on this patients care, greater than 50% of time spent counseling, educating, and coordinating care regarding the above mentioned plan. ICD10 Worksheet Patient Problems: Problems Problem Status Onset Low back pain Acute Acute exacerbation of chronic low back pain Acute Back pain Acute Compression fracture of L1 lumbar vertebra Acute Failure to thrive in adult Acute Generalized weakness Acute Humerus fracture Acute Hypokalemia, inadequate intake Acute Inability to ambulate due to multiple joints Acute Physical deconditioning Acute
[2018-03-15] MEDS: traZODone 100 MG TAB PO SCH (20:21)
[2018-03-15] MEDS: TOPIRAMATE 100 MG TAB PO PRN (22:31)
[2018-03-15] MEDS: LOSARTAN POTASSIUM 50 MG TAB PO SCH (22:31)
[2018-03-16] MEDS: oxyCODONE IR 5 MG TAB PO PRN ×5 (02:43→19:56)
[2018-03-16] MEDS: FLUTICASONE/SALMETER 500/50MCG DISKUS IH SCH ×3 (02:45→20:44)
[2018-03-16] MEDS: BACLOFEN 10 MG TAB PO SCH ×2 (05:45→18:10)
[2018-03-16] MEDS: GABAPENTIN 400 MG CAP PO SCH ×3 (07:36→21:04)
[2018-03-16] MEDS: ACETAMINOPHEN 325 MG TAB PO PRN ×3 (08:11→21:09)
--- NOTE | 2018-03-16 08:21 | NEUSURGPN ---
Date of Surgery: 03/11/18 Post Op Day: 5 Assessment/Plan: Assessment: 57 yo female with history of prior T11-L3 fusion for L1 fracture [place] [address] Harper and progressive LE weakness and numbness/tingling. Now POD #5 S/P T9-L1 fusion Plan: -pain management-patient requesting increase in pain medications, on short and long acting and max gabapentin. Will defer to medicine for pain management options -PT/OT-CPM -Post op xrays stable-reviewed with Dr Harper -no brace per Dr Harper -continue BARBRA drain-output at 130 -pt with some left hip pain-left hip xrays were negative -case management to eval dispo options-likely needs SNF -discussed patient with Dr Harper -call NS with any questions -DVT prophx: TEDS, SCDS, Lovenox Subjective: No new events, continued left hip pain Objective: No facial droop 5/5 BUE/BLE pain to L hip with rotation Sensation intact to light touch BLE BARBRA serosanguineous Dressing CDI Neuro Check Frequency: per routine Urinary Catheter in Place: No - Physician Discussed Patient with Dr.: Harper Neurosurgery Physical Exam - Vitals, I&O, Labs I and O 03/15/18 03/16/18 03/17/18 05:59 05:59 05:59 Intake Total 1560 Output Total 0 730 Balance -2049 830 Intake: Oral (ml) 1560 Output: Urine (ml) 1875 600 Bedside Commode 1075 600 Toilet 800 BARBRA Drain Output (ml) 175 130 #1 Right Back Ranjan 175 130 Fry Other: Intake Quantity Yes Yes Sufficient Number of Voids Bedside Commode 1 2 Toilet 1 1 Vital Signs Temp Pulse Resp BP Pulse Ox 36.9 C 83 16 88/59 L 93 03/16/18 07:53 03/16/18 07:53 03/16/18 07:53 03/16/18 08:09 03/16/18 07:53 Laboratory Results 03/14/18 09:34 03/13/18 05:26 ICD10 Worksheet Patient Problems: Problems Problem Status Onset Low back pain Acute Acute exacerbation of chronic low back pain Acute Back pain Acute Compression fracture of L1 lumbar vertebra Acute Failure to thrive in adult Acute Generalized weakness Acute Humerus fracture Acute Hypokalemia, inadequate intake Acute Inability to ambulate due to multiple joints Acute Physical deconditioning Acute
[2018-03-16] MEDS: morphINE SR 15 MG TAB PO SCH ×2 (10:40→21:04)
[2018-03-16] MEDS: ENOXAPARIN 40 MG/0.4 ML SYR SC SCH (10:41)
[2018-03-16] MEDS: THIAMINE HCL 100 MG TAB PO SCH (10:41)
[2018-03-16] MEDS: DULoxetine 60 MG CAP PO SCH (10:41)
[2018-03-16] MEDS: SENNOSIDES/DOCUSATE SODIUM TAB PO SCH ×2 (10:41→21:03)
[2018-03-16] MEDS: PANTOPRAZOLE SODIUM 40 MG TAB PO SCH (10:42)
[2018-03-16] MEDS: ONDANSETRON DISINTEGRATING 4 MG TAB PO PRN (11:55)
--- NOTE | 2018-03-16 14:43 | ASMTCMCOM ---
CM Note CM Note Notes: Pt does not qualify for [facility] inpatient rehab; this upsets pt greatly. Pt states she does not want to d/c to a Medicaid SNF and she wants to go home from [facility] in two weeks. Pt counseled and informed she cannot stay at [facility] two weeks. This has been and will be an ongoing challenge with pt as she continually attempts to negotiate her length of stay here. Pt did have a 30 day Medicaid SNF stay earlier this year at [facility], pt reports she had a poor experience there. Pt does sign the ULTC-100 for a 30 day Medicaid SNF stay to see what SNF options. This CM will see who has bed availability and who can meet pt needs then pt can be fully informed about d/c options. ULTC faxed to [facility], [facility] alerted. Referrals sent to several SNFs in [employer]. Aruna Calhoun with [facility] updated, they can take pt back if she goes home. CM to follow. Date Signed: 03/16/2018 02:42 PM Electronically Signed By:ALEXA Choi
--- NOTE | 2018-03-16 15:02 | HOSPPROG ---
Hospitalist Progress Note Assessment/Plan: 57 YO female admitted with back pain found to have t9-10 severe central canal stenosis with cord compression, t10-11 moderate to severe central canal stenosis , acute vs subacute vertebral body fracture of t11. NS consulted and they recommend surgery. She refused surgery initially but changed her mind on 03/06. *Acute on chronic back pain with neuropathy -status post T9-L1 fusion -patient on baclofen, MS Contin, oxycodone, Neurontin, and tizanidine * post hemorrhagic anemia -stable *Left upper buttock pain -no abnormality noted on the x-ray -ice and heat prn *HTN, stable -hypotensive today but asymptomatic *Dehydration, resolved *Nausea, resolved *Chronic ETOH, not in exacerbation *Hypokalemia, replacing per protocol *hx of chronic narcotic use and benzodiazepine use -please see Dr. Reid's detailed note. I have to agree with him that her symptoms do not match her increasing requirement of narcotics. She understands I will not increase narcotics but offer other modalities in helping her w pain. * PTSD, anxiety, personality disorder *Plan: she doesn't meet requirements for IP rehab, she doesn't want to go to the SNF for rehab because she will need to stay for 30 days. We talked about her going home w home care. Spoke w OT who recommends only SNF but Litzy is declining at this time. Likely, will dc soon to home w home care. Subjective: Litzy is anxious about plan of discharge, is c/o left hip pain. Objective: Vital Signs Temp Pulse Resp BP Pulse Ox 36.9 C 83 16 102/63 93 03/16/18 07:53 03/16/18 07:53 03/16/18 07:53 03/16/18 11:59 03/16/18 07:53 Laboratory Results 03/14/18 09:34 03/13/18 05:26 03/15/18 03/16/18 03/17/18 05:59 05:59 05:59 Intake Total 1560 Output Total 2049 730 50 Balance -2049 830 -50 PT 13.4 SEC (12.0-15.0) 03/04/18 19:26 INR 1.00 (0.83-1.16) 03/04/18 19:26 - Physical Exam Constitutional: obese, uncomfortable Eyes: PERRL Ears, Nose, Mouth, Throat: hearing normal Respiratory: no respiratory distress Skin: warm Musculoskeletal: muscular tenderness (left hip area) Neurologic: AAOx3 Psychiatric: interacting appropriately, anxious ICD10 Worksheet Patient Problems: Problems Problem Status Onset Low back pain Acute Acute exacerbation of chronic low back pain Acute Back pain Acute Compression fracture of L1 lumbar vertebra Acute Failure to thrive in adult Acute Generalized weakness Acute Humerus fracture Acute Hypokalemia, inadequate intake Acute Inability to ambulate due to multiple joints Acute Physical deconditioning Acute
[2018-03-16] MEDS: DICLOFENAC SODIUM 1% 100 GM GEL TP SCH ×2 (18:44→21:17)
[2018-03-16] MEDS: LORazepam 1 MG TAB PO PRN (21:04)
[2018-03-16] MEDS: traZODone 100 MG TAB PO SCH (21:04)
[2018-03-16] MEDS: LOSARTAN POTASSIUM 50 MG TAB PO SCH (21:04)
[2018-03-16] MEDS: TOPIRAMATE 100 MG TAB PO PRN (21:09)
[2018-03-17] MEDS: oxyCODONE IR 5 MG TAB PO PRN ×6 (03:38→20:44)
[2018-03-17] MEDS: ONDANSETRON DISINTEGRATING 4 MG TAB PO PRN (03:38)
[2018-03-17] MEDS: ACETAMINOPHEN 325 MG TAB PO PRN ×2 (03:40→15:11)
[2018-03-17] MEDS: DICLOFENAC SODIUM 1% 100 GM GEL TP SCH ×4 (05:40→20:41)
[2018-03-17] MEDS: BACLOFEN 10 MG TAB PO SCH ×2 (05:40→16:52)
--- NOTE | 2018-03-17 08:43 | HOSPPROG ---
Hospitalist Progress Note Assessment/Plan: 57 YO female admitted with back pain found to have t9-10 severe central canal stenosis with cord compression, t10-11 moderate to severe central canal stenosis , acute vs subacute vertebral body fracture of t11. NS consulted and they recommend surgery. She refused surgery initially but changed her mind on 03/06. Erin Mckeon NP and myself evaluated Litzy together. *Acute on chronic back pain with neuropathy -status post T9-L1 fusion -patient on baclofen, MS Contin, oxycodone, Neurontin, and tizanidine * post hemorrhagic anemia -stable *Left upper buttock pain -no abnormality noted on the x-ray -ice and heat prn *HTN, stable -resolved *Dehydration, resolved *Nausea, resolved *Chronic ETOH, not in exacerbation *Hypokalemia, replacing per protocol *hx of chronic narcotic use and benzodiazepine use -please see Dr. Reid's detailed note. I have to agree with him that her symptoms do not match her increasing requirement of narcotics. She understands I will not increase narcotics but offer other modalities in helping her w pain. * PTSD, anxiety, personality disorder *Plan: patient is now willing to go to SNF. if one is available today or tomorrow, will dc. She is aware of the 30 day requirement Subjective: Litzy is requesting her cat go with her to rehab. Is upset and feels "we are trying to discharge her too soon" Objective: Vital Signs Temp Pulse Resp BP Pulse Ox 36.8 C 88 16 128/96 H 97 03/17/18 08:00 03/17/18 08:00 03/17/18 08:00 03/17/18 08:00 03/17/18 08:00 Laboratory Results 03/14/18 09:34 03/13/18 05:26 03/16/18 03/17/18 03/18/18 05:59 05:59 05:59 Intake Total 1560 700 Output Total 730 130 200 Balance 830 570 -200 PT 13.4 SEC (12.0-15.0) 03/04/18 19:26 INR 1.00 (0.83-1.16) 03/04/18 19:26 - Physical Exam Constitutional: appears nourished, uncomfortable, No not in pain Eyes: PERRL Ears, Nose, Mouth, Throat: hearing normal Respiratory: no respiratory distress Skin: warm Neurologic: AAOx3 Psychiatric: interacting appropriately, anxious, poor insight ICD10 Worksheet Patient Problems: Problems Problem Status Onset Low back pain Acute Acute exacerbation of chronic low back pain Acute Back pain Acute Compression fracture of L1 lumbar vertebra Acute Failure to thrive in adult Acute Generalized weakness Acute Humerus fracture Acute Hypokalemia, inadequate intake Acute Inability to ambulate due to multiple joints Acute Physical deconditioning Acute
[2018-03-17] MEDS: FLUTICASONE/SALMETER 500/50MCG DISKUS IH SCH ×2 (09:29→20:45)
[2018-03-17] MEDS: morphINE SR 15 MG TAB PO SCH ×2 (09:39→20:43)
[2018-03-17] MEDS: ENOXAPARIN 40 MG/0.4 ML SYR SC SCH (09:39)
[2018-03-17] MEDS: THIAMINE HCL 100 MG TAB PO SCH (09:39)
[2018-03-17] MEDS: SENNOSIDES/DOCUSATE SODIUM TAB PO SCH ×2 (09:40→20:43)
[2018-03-17] MEDS: DULoxetine 60 MG CAP PO SCH (09:41)
[2018-03-17] MEDS: PANTOPRAZOLE SODIUM 40 MG TAB PO SCH (09:48)
[2018-03-17] MEDS: MAGNESIUM HYDROXIDE 30 ML UDCUP PO PRN (10:40)
[2018-03-17] MEDS: GABAPENTIN 400 MG CAP PO SCH ×3 (10:40→20:42)
--- NOTE | 2018-03-17 10:58 | ASMTCMCOM ---
CM Note CM Note Notes: Alma Delia Reis [phone] is pt [facility] worker, she still needs to complete on-site functional assessment of pt, she will not be out today but tomorrow. Alma Delia reports she then has two business days to complete paperwork which includes the PASRR. In October 2017 pt PASRR did not trigger a level ll. [facility] can accept pt if she is agreeable to 30 day stay, [facility] and [facility] still assessing. CM to follow. Date Signed: 03/17/2018 10:57 AM Electronically Signed By:ALEXA Choi
--- NOTE | 2018-03-17 12:18 | NEUSURGPN ---
Date of Surgery: 03/11/18 Post Op Day: 6 Assessment/Plan: Assessment: 57 yo female with history of prior T11-L3 fusion for L1 fracture [place] Oct [address] Harper and progressive LE weakness and numbness/tingling. Now POD #6 S/P T9-L1 fusion Plan: -pain management-appreciate Medicine management of pain medications -PT/OT-CPM -no brace per Dr Harper -continue BARBRA drain-output at 130 -Will plan to remove BARBRA at time of discharge once accepted to a facility if that is her only barrier to discharge. [facility]HC could manage if needed. -case management to eval dispo options-likely needs SNF -discussed patient with Dr Harper -call NS with any questions -DVT prophx: TEDS, SCDS, Lovenox Subjective: Wants to take her cat to SNF Objective: AxO x3 CN 2-12 grossly intact 5/5 BUE, BLE Dressing CDI BARBRA patent Neuro Check Frequency: per routine Urinary Catheter in Place: No - Physician Discussed Patient with Dr.: Harper Patient Seen by Dr.: Harper Neurosurgery Physical Exam - Vitals, I&O, Labs I and O 03/16/18 03/17/18 03/18/18 05:59 05:59 05:59 Intake Total 1560 700 Output Total 730 130 200 Balance 830 570 -200 Intake: Oral (ml) 1560 700 Output: Urine (ml) 600 200 Bedside Commode 600 Toilet 200 BARBRA Drain Output (ml) 130 130 #1 Right Back Ranjan 130 130 Fry Other: Intake Quantity Yes Yes Sufficient Number of Voids Bedside Commode 2 Toilet 1 2 1 Number of Stools Bedside Commode 1 Toilet 1 Vital Signs Temp Pulse Resp BP Pulse Ox 36.8 C 88 16 128/96 H 97 03/17/18 08:00 03/17/18 08:00 03/17/18 08:00 03/17/18 08:00 03/17/18 08:00 Laboratory Results 03/14/18 09:34 03/13/18 05:26 ICD10 Worksheet Patient Problems: Problems Problem Status Onset Low back pain Acute Acute exacerbation of chronic low back pain Acute Back pain Acute Compression fracture of L1 lumbar vertebra Acute Failure to thrive in adult Acute Generalized weakness Acute Humerus fracture Acute Hypokalemia, inadequate intake Acute Inability to ambulate due to multiple joints Acute Physical deconditioning Acute
--- NOTE | 2018-03-17 12:28 | ASMTCMCOM ---
CM Note CM Note Notes: Pt accepted at [facility] in admissions will visit pt tomorrow. Although pt has SNF acceptance paperwork is preventing discharge, [facility] needs to complete functional assessment and PASRR needs to be completed. CM to follow. Date Signed: 03/17/2018 12:27 PM Electronically Signed By:ALEXA Choi
[2018-03-17] MEDS: LORazepam 1 MG TAB PO PRN ×2 (15:11→20:44)
--- NOTE | 2018-03-17 16:42 | ASMTCMCOM ---
CM Note CM Note Notes: Sophia from [facility] on site today and stated they would be able to accept, however, patient is now refusing SNF and not willing to stay for 30 days. Per last CM note, [facility] also able to accept. I have discussed this case with Hospital Medicine. The plan is to discharge on Friday morning to home (if patient ends up agreeing to SNF, will still need assessment completed by [facility]). I went and spoke to this patient about her options. She adamantly is refusing SNF at this time "I want to go home." CM explained that the plan is to discharge her home on Friday and that the hospitalist was only going to prescribe a weeks worth of medications, patient is fine with this plan. Spoke with Mariela at [facility] (patient's current home care), Mariela needs to come on site to eval patient on Friday, will likely accept back. Will need to transport home via [facility] wheelchair. I also lvm for Alma Delia at [facility] to request a call to us before she comes to assess for SNF. CM will follow. Plan: Likely home with Family Date Signed: 03/17/2018 04:41 PM Electronically Signed By:Ailyn Diggs RN
[2018-03-17] MEDS: LOSARTAN POTASSIUM 50 MG TAB PO SCH (20:43)
[2018-03-17] MEDS: traZODone 100 MG TAB PO SCH (20:44)
[2018-03-18] MEDS: oxyCODONE IR 5 MG TAB PO PRN ×4 (02:50→12:16)
[2018-03-18] MEDS: ONDANSETRON DISINTEGRATING 4 MG TAB PO PRN ×2 (02:51→09:30)
[2018-03-18] MEDS: LORazepam 1 MG TAB PO PRN (03:08)
[2018-03-18] MEDS: ACETAMINOPHEN 325 MG TAB PO PRN ×2 (03:23→12:15)
[2018-03-18] MEDS: DICLOFENAC SODIUM 1% 100 GM GEL TP SCH ×2 (05:05→14:42)
[2018-03-18] MEDS: BACLOFEN 10 MG TAB PO SCH (05:05)
[2018-03-18 08:44] VITALS: BP 146/93
--- NOTE | 2018-03-18 08:45 | NEUSURGPN ---
Assessment/Plan: Assessment: 57 yo female with history of prior T11-L3 fusion for L1 fracture in Oct [address] Harper and progressive LE weakness and numbness/tingling. Now POD #7 S/P T9-L1 fusion Plan: -pain management-appreciate Medicine management of pain medications -PT/OT-CPM -no brace per Dr Harper -continue BARBRA drain-output 90, will remove drain at time of discharge -Ok to discharge home with HHC from our standpoint -case management to eval dispo options -discussed patient with Dr Harper -call NS with any questions -DVT prophx: TEDS, SCDS, Lovenox Subjective: Pain at the BARBRA insertion site, ambulating to restroom with walker Objective: AxO x3 PERRLA 5/5 BUE, BLE Sensation intact to light touch BLE Incision CDI, dressing dry BARBRA patent Neuro Check Frequency: per routine Urinary Catheter in Place: No - Physician Discussed Patient with : Leroy Neurosurgery Physical Exam - Vitals, I&O, Labs I and O 03/17/18 03/18/18 03/19/18 05:59 05:59 05:59 Intake Total 700 2050 Output Total 130 1440 Balance 570 610 Intake: Oral (ml) 700 2050 Output: Urine (ml) 1350 Toilet 1350 BARBRA Drain Output (ml) 130 90 #1 Right Back Ranjan 130 90 Fry Other: Intake Quantity Yes Sufficient Number of Voids Bedside Commode 1 Toilet 2 2 1 Number of Stools Bedside Commode 1 Toilet 1 1 Vital Signs Temp Pulse Resp BP Pulse Ox 36.9 C 95 16 108/58 L 97 03/17/18 23:44 03/17/18 23:44 03/17/18 23:44 03/17/18 23:44 03/17/18 23:44 Laboratory Results 03/14/18 09:34 03/13/18 05:26 ICD10 Worksheet Patient Problems: Problems Problem Status Onset Low back pain Acute Acute exacerbation of chronic low back pain Acute Back pain Acute Compression fracture of L1 lumbar vertebra Acute Failure to thrive in adult Acute Generalized weakness Acute Humerus fracture Acute Hypokalemia, inadequate intake Acute Inability to ambulate due to multiple joints Acute Physical deconditioning Acute
[2018-03-18] MEDS: GABAPENTIN 400 MG CAP PO SCH (09:14)
[2018-03-18] MEDS: SENNOSIDES/DOCUSATE SODIUM TAB PO SCH (09:15)
[2018-03-18] MEDS: CHOLECALCIFEROL VIT D3 2,000 UNITS TAB/CAP PO SCH (09:15)
[2018-03-18] MEDS: morphINE SR 15 MG TAB PO SCH (09:15)
[2018-03-18] MEDS: PANTOPRAZOLE SODIUM 40 MG TAB PO SCH (09:16)
[2018-03-18] MEDS: THIAMINE HCL 100 MG TAB PO SCH (09:16)
[2018-03-18] MEDS: DULoxetine 60 MG CAP PO SCH (09:16)
[2018-03-18] MEDS: POLYETHYLENE GLYCOL 3350 17 GM PKT PO PRN (09:16)
[2018-03-18] MEDS: ENOXAPARIN 40 MG/0.4 ML SYR SC SCH ×2 (09:22→09:26)
[2018-03-18] MEDS: FLUTICASONE/SALMETER 500/50MCG DISKUS IH SCH (09:46)
--- NOTE | 2018-03-18 12:04 | HOSPPROG ---
Hospitalist Progress Note Assessment/Plan: 57 YO female admitted with back pain found to have t9-10 severe central canal stenosis with cord compression, t10-11 moderate to severe central canal stenosis , acute vs subacute vertebral body fracture of t11. NS consulted and they recommend surgery. She refused surgery initially but changed her mind on 03/06. Erin Mckeon NP and myself evaluated Litzy together. *Acute on chronic back pain with neuropathy -status post T9-L1 fusion -patient on baclofen, MS Contin, oxycodone, Neurontin, and tizanidine * post hemorrhagic anemia -stable *Left upper buttock pain -no abnormality noted on the x-ray -ice and heat prn *HTN, stable -resolved *Dehydration, resolved *Nausea, resolved *Chronic ETOH, not in exacerbation *Hypokalemia, replacing per protocol *hx of chronic narcotic use and benzodiazepine use -please see Dr. Reid's detailed note. I have to agree with him that her symptoms do not match her increasing requirement of narcotics. She understands I will not increase narcotics but offer other modalities in helping her w pain. * PTSD, anxiety, personality disorder *Plan: Litzy has changed her mind multiple times about dc, now only will go home. Very concerned about her narcotic use, will try and contact her PCP, give her a weeks worth of the pain medications and she will need to f/u [facility]. Subjective: Litzy says she wasn't feeling well initially but now wants to go home immediately. Objective: Vital Signs Temp Pulse Resp BP Pulse Ox 37.4 C 96 16 146/93 H 95 03/18/18 08:00 03/18/18 08:00 03/18/18 08:00 03/18/18 08:00 03/18/18 08:00 Laboratory Results 03/14/18 09:34 03/13/18 05:26 03/17/18 03/18/18 03/19/18 05:59 05:59 05:59 Intake Total 700 2050 300 Output Total 130 1440 200 Balance 570 610 100 PT 13.4 SEC (12.0-15.0) 03/04/18 19:26 INR 1.00 (0.83-1.16) 03/04/18 19:26 - Physical Exam Constitutional: appears nourished, obese Eyes: PERRL Ears, Nose, Mouth, Throat: hearing normal Respiratory: no respiratory distress Skin: warm Musculoskeletal: generalized weakness Neurologic: AAOx3 Psychiatric: interacting appropriately, not encephalopathic ICD10 Worksheet Patient Problems: Problems Problem Status Onset Low back pain Acute Acute exacerbation of chronic low back pain Acute Back pain Acute Compression fracture of L1 lumbar vertebra Acute Failure to thrive in adult Acute Generalized weakness Acute Humerus fracture Acute Hypokalemia, inadequate intake Acute Inability to ambulate due to multiple joints Acute Physical deconditioning Acute
--- NOTE | 2018-03-18 12:42 | PDIAF ---
- Diagnosis Diagnosis: back pain s/p T9-L11 fusion, chronic pain on chronic cont opioids Code Status: Full Code - Medication Management Discharge Medications: Medications to Continue on Transfer traZODone [traZODONE 100MG (*)] 100 mg PO HS 11/07/14 [Last Taken 02/17/18] Fluticasone/Salmeter 500/50Mcg [Advair 500/50 (*)] 1 puffs IH BID 03/14/15 [ Last Taken 03/03/18] tiZANidine HCL [Zanaflex] 2 mg PO HS PRN 03/14/15 [Last Taken 02/17/18] Cholecalciferol (Vitamin D3) [Vitamin D3] 5,000 unit PO Q7D 11/22/17 [Last Taken 2 Weeks Ago ~02/04/18] Losartan Potassium [Cozaar 50 mg (*)] 50 mg PO HS 11/22/17 [Last Taken 3 Days Ago ~03/01/18] Topiramate [Topamax 100MG (*)] 100 mg PO HS PRN 01/10/18 [Last Taken 3 Weeks Ago ~01/28/18] Baclofen [Baclofen 10 mg (*)] 10 mg PO BID 02/18/18 [Last Taken 02/17/18] DULoxetine [Cymbalta 60 MG (*)] 60 mg PO DAILY 02/18/18 [Last Taken 03/04/18] Polyethylene Glycol 3350 [Miralax 17 gm (*)] 17 gm PO DAILY PRN pkt 02/23/18 [ Last Taken 1 Week Ago ~02/25/18] Gabapentin [Neurontin 400 MG (*)] 1,200 mg PO TID #270 cap 03/06/18 [Last Taken Unknown] Pantoprazole Sodium [Protonix 40mg (*)] 40 mg PO DAILY #30 tab 03/06/18 [Last Taken Unknown] Thiamine HCl [Vitamin B-1] 100 mg PO DAILY #30 tab 03/06/18 [Last Taken Unknown] Diclofenac Sodium 1% [Voltaren Gel (*)] 4 gm TP QID #1 gel 03/18/18 [Last Taken Unknown] LORazepam [Ativan (*)] 0.5 mg PO BID PRN #10 tab 03/18/18 [Last Taken Unknown] Morphine Sulfate [Ms Contin] 15 mg PO DAILY #3 tablet.er 03/18/18 [Last Taken Unknown] Polyethylene Glycol 3350 [Miralax 17 gm (*)] 17 gm PO DAILY PRN pkt 03/18/18 [ Last Taken Unknown] Sennosides/Docusate Sodium [Senokot-S] 1 - 2 tab PO BID tab 03/18/18 [Last Taken Unknown] oxyCODONE IR [Oxycodone Ir (*)] 5 mg PO Q4 PRN #30 tab 03/18/18 [Last Taken Unknown] Additional Medication Instructions: Litzy received a script for pain medications, these need to be weaned off over next week. technical lead to evaluate use. Discharge Medications: Refer to the Discharge Home Medication list for PRN reason. - Orders Services needed: Home Care, Registered Nurse, Physical Therapy, Occupational Therapy Home Care Face to Face: I certify that this patient was under my care and that I had the required [id number] encounter meeting the encounter requirements on the discharge day. My findings support the fact that the patient is homebound as defined in Home Care Face to Face Continued: CMS Chapter 7 Medicare Benefits Manual 30.1.1 , The condition of the patient is such that there exists a normal inability to leave home and consequently, leaving home would require a considerable and taxing effort. Isolation Type: None Diet Recommendation: no restrictions on diet Diet Texture: Regular Texture Diet Additional Instructions: No bending or twisting at the waist Do not lift greater than 10 pounds Ok to shower Take the Ativan only as needed, wean off quickly, your primary care doctor will not refill this medication you have 3 more doses of MS contin, take for the next 3 mornings to help w pain take the oxy IR only as needed for pain, one pill every 4-6 hours (your doctor will not refill this medication take a stool softener while on pain medication take Tylenol 1000 mg every 8 hours to control your pain call Dr Manjarrez's office for an appointment, she will see you in the next week - Follow Up Care Current Providers and Referrals: Alma Manjarrez MD [Primary Care Provider] - Zac Harper MD [Medical Doctor] - follow up in 1 week Patient,NotPresent [Unknown] - As per Instructions
--- NOTE | 2018-03-18 13:59 | GDS ---
[f rep st] DISCHARGE SUMMARY DISCHARGE DIAGNOSES: 1. Acute on chronic back pain with neuropathy. 2. Posthemorrhagic anemia. 3. Left upper buttock pain. 4. Hypertension. 5. Dehydration. 6. Nausea. 7. History of chronic alcohol use. 8. Hypokalemia. 9. History of chronic narcotic use and benzodiazepine use. 10. Posttraumatic stress disorder, anxiety, and personality disorder. CONSULTATION: Mary Naylor, physician assistant merchandise manager with Neurosurgery services. HISTORY OF PRESENT ILLNESS: Briefly, the patient is a 57-year-old woman who has a history of chronic back pain. She presented with back pain and bilateral leg pain. She has a history of current falls and suffered an L1 fracture with compression at the conus in October. She had a T11-L3 fusion. She also has a history of severe anxiety, posttraumatic stress, personality disorder, chronic pain with continuous narcotic use, as well as alcohol abuse per history. She has been admitted multiple times because of her back pain and also running out of her narcotics. During her stay, she was seen and evaluated by Neurosurgery. She had an MRI performed. It showed that she had a central disk herniation T9-10 that is causing some cord compression. She was neurologically intact. She decided to proceed with surgery. She had surgery on March [address] Harper. The main issue during her stay is that she has been having left buttock pain and also has had difficulty with controlling her pain. She will be discharged home with home care. Case Management has offered her multiple care home facility placements. She has refused even though the recommendation is for her to go to a care home facility for rehab, and also out of concern of her requirement of narcotics. I spoke with her primary care provider who will follow up with her in the next week in regard to my concern. I will also talk with Neurosurgery and they will see her next week. In addition, director home, [facility], PT and OT will be following up with Litzy. HOSPITAL COURSE: 1. Acute on chronic back pain with neuropathy. She is status post T9-L1 fusion. Her drain will be removed prior to discharge. 2. Posthemorrhagic anemia. Labs are stable. 3. Left upper buttock pain. No abnormality noted on the x-ray. Recommending ice and heat p.r.n. 4. Hypertension, stable. 5. Dehydration, resolved. 6. Nausea, resolved. 7. Chronic alcohol use. She had no signs or symptoms of withdrawal. 8. Hypokalemia. She was on the replacement protocol. 9. History of chronic narcotic and benzodiazepine use. During her stay, we had declined to increase her narcotics. Her symptoms did not match with her increasing requirement. Today at discharge, she will be discharged on medications to help her with her pain, but hopefully, she can be weaned off these quickly. 10. Posttraumatic stress disorder, anxiety, personality disorder, going. DISCHARGE CONDITION: Stable. Blood pressure is 146/93, heart rate 96, respiratory rate 16, O2 saturation room air 95%, temperature is 37.4 Celsius. DISCHARGE MEDICATIONS: Please see the EMR. DISCHARGE INSTRUCTIONS: 1. No bending or twisting at the waist. 2. Not to lift greater than 10 pounds. 3. Okay to shower. 4. Take the Ativan as needed. She will get a prescription for ten 0.5 mg of Ativan. I spoke with her primary care physician who has not been prescribing this medication. Explained to Litzy this and she understands it won't be refilled. 5. I have given her 3 doses of long-acting MS Contin to take for the next 3 mornings to help with the pain. She also will get a prescription for the OxyIR , recommending she use this sparingly and alternate this with Tylenol. 6. To follow up with Dr. Manjarrez's office for an appointment. They will see her in the next week. 7. Follow up with Neurosurgery in the next week in addition. 8. Reviewed with Litzy the importance of avoiding taking multiple pain medications and the risk of respiratory depression Greater than 30 minutes discharging and coordinating pair care. /[id number]/MODL MTDD
--- NOTE | 2018-03-18 15:00 | ASMTCMCOM ---
CM Note CM Note Notes: [facility] and [facility] SNFs accept pt for 30 day Medicaid stay and pt is adamantly refusing SNF. Pt medically stable for d/c home with [facility] PT/OT/RN, continued [facility]BS services and [facility] services. [facility] stretcher transport scheduled for 1400. Orders sent to [facility] in [employer]. Spoke with CM soda fountain manager Ailyn Diggs about alert if pt returns to ED. Date Signed: 03/18/2018 02:59 PM Electronically Signed By:ALEXA Choi
== END 2018-03-18 14:30 | disposition home health service (06) | DRG 304 ==
LOC: EDUNIT# → EDBD → F3N 16:25 → OBSVTOIN 16:42 → F2N 03-11 17:51 → F3N 03-13 19:50
PROVIDERS: ADMIT Family Medicine; ATTEND Family Medicine
DX: M51.24 Other intervertebral disc displacement, thoracic region (principal); D62 Acute posthemorrhagic anemia; M48.04 Spinal stenosis, thoracic region; G62.9 Polyneuropathy, unspecified; E86.0 Dehydration; I10 Essential (primary) hypertension; E87.6 Hypokalemia; F43.10 Post-traumatic stress disorder, unspecified; F60.9 Personality disorder, unspecified; F41.9 Anxiety disorder, unspecified; G89.29 Other chronic pain; Z98.1 Arthrodesis status; J44.9 Chronic obstructive pulmonary disease, unspecified; Z87.891 Personal history of nicotine dependence; Z72.89 Other problems related to lifestyle
CPT/HCPCS: 97116-GP; 97161-GP; 97164-GP; 97165-GO; 97168-GO; 97530-GO; 97530-GP; 97535-GO; C1713; C1762; G0378; J0171; J1170; J1265; J1650; J1885; J2060; J2250; J2270; J2704; J3360; J3370; J3411; J3475; J7613; P9041